=== PATIENT | male | born 1970 | race Two or more races ===

== ENCOUNTER 2016-12-28 09:25 | Emergency (ER) | payer OTHER ==
[2016-12-28] MEDS ORDERED: NS 0.9% 1000 ML* 2,000 ML IV ONE (10:29)
[2016-12-28 11:11] LABS: Hematocrit 50 % (42-52); Hemoglobin 16.8 g/dl (14.0-18.0); Mean Corpuscular HGB Conc 34 g/dl (31-36); Mean Corpuscular Hemoglobin 32 pg (27-31); Mean Corpuscular Volume 94 fL (80-94); Mean Platelet Volume 9 um3 (7.4-10.4); Red Blood Count 5.32 10^6/ul (4.0-5.4); Red Cell Distribution Width 13 % (10.5-15); White Blood Count 6.9 10^3/ul (3.5-10.8)
--- NOTE | 2016-12-28 11:52 | RAD ---
HISTORY: Upper abdominal pain COMPARISONS: None TECHNIQUE: Multiple transverse and longitudinal ultrasound images were obtained of the right upper quadrant of the abdomen using grayscale and color Doppler imaging. FINDINGS: LIVER: The liver is diffusely echogenic and coarse in echotexture, with decreased acoustic transmission. The liver is mildly enlarged measuring 19.4 cm.. There is normal hepatopedal flow of the portal vein on Doppler imaging. BILIARY TREE: There is no intrahepatic or extrahepatic biliary dilatation. The common duct measures 0.2 cm. GALLBLADDER: The gallbladder is well-visualized. There is no cholelithiasis, gallbladder wall thickening, pericholecystic fluid, or sonographic Lima sign. PANCREAS: The head of the pancreas is unremarkable. The tail of the pancreas is not well visualized secondary to overlying bowel gas. RIGHT KIDNEY: The right kidney is normal in shape, size, contour, and echogenicity. There is no hydronephrosis or nephrolithiasis. The right kidney measures 12.6 x 5.7 x 7 18 cm. AORTA AND IVC: The aorta and IVC are unremarkable. FLUID: There are no pleural effusions. There is no free fluid within the hepatorenal recess. OTHER FINDINGS: None. IMPRESSION: MILD HEPATOMEGALY WITH FATTY INFILTRATION OF THE LIVER
--- NOTE | 2016-12-28 11:54 | RAD ---
Indication: Right leg swelling and pain.. Duplex Doppler sonography of the deep venous system of the right lower extremity deep venous system was performed. Bilaterally the common femoral veins appear patent and compressible. Right proximal greater saphenous vein, proximal deep femoral vein, femoral vein, popliteal vein, posterior tibial veins and peroneal veins appear patent and compressible. IMPRESSION: NO EVIDENCE OF DEEP VENOUS THROMBOSIS IS IDENTIFIED.
[2016-12-28 15:04] LABS: Albumin 3.5 g/dL (3.2-5.2); C Reactive Protein 2.8 mg/L (< 5.00); Calcium 9.1 mg/dL (8.6-10.3); EGFR African American 143.6 (>60); EGFR Non-African American 111.6 (>60); Globulin 2.7 g/dL (2-4); Magnesium 1.7 mg/dL (1.9-2.7); Potassium 4.9 mmol/L (3.5-5.0); Total Bilirubin 0.7 mg/dL (0.2-1.0); Total Protein 6.2 g/dL (6.4-8.9)
[2016-12-28] MEDS ORDERED: Iodixanol* (CONTRAST) 320 MG/ML 100 ML SDV IV ONE (15:32)
--- NOTE | 2016-12-28 15:46 | RAD ---
CLINICAL HISTORY: Abdominal pain COMPARISON: April 20, 2014 TECHNIQUE: Multiple contiguous axial CT scans were obtained of the abdomen and pelvis after the administration of intravenous contrast. Coronal and sagittal multiplanar reformations are submitted for review. Oral contrast was administered. Delayed images were obtained through the abdomen and pelvis. FINDINGS: LUNG BASES: The lung bases are clear. LIVER: The liver is diffusely low in attenuation compared to the spleen. There are no focal hepatic parenchymal masses. The liver is enlarged measuring 23 cm in long axis. BILE DUCTS: There is no intrahepatic or extrahepatic biliary dilatation. GALLBLADDER: The gallbladder is normal, without pericholecystic inflammatory change. PANCREAS: The pancreas is normal, without mass or ductal dilatation. SPLEEN: Normal in size and appearance. UPPER GI TRACT: Evaluation of the gastrointestinal tract is limited by incomplete gastric distention. The upper GI tract is unremarkable. SMALL BOWEL AND MESENTERY: The small bowel is normal in contour, course, and caliber. There is no obstruction or dilatation. COLON: The colon is normal in contour, course, caliber. There is no pericolonic inflammatory change. ADRENALS: Normal bilaterally. KIDNEYS: The kidneys are normal in shape, size, contour, and axis. There is no hydronephrosis or nephrolithiasis. BLADDER: The bladder is smooth in contour. PELVIC ORGANS: The prostate gland is normal. The seminal vesicles are symmetric. AORTA: The aorta is normal. IVC: Unremarkable LYMPH NODES: There is no lymphadenopathy by size criteria. ABDOMINAL WALL: There is no evidence for abdominal wall hernia. BONES AND SOFT TISSUES: Degenerative changes are noted of the spine OTHER: None IMPRESSION: HEPATOMEGALY WITH FATTY INFILTRATION OF THE LIVER
--- NOTE | 2016-12-28 17:00 | ED ---
Amparo Harrison Claudia, scribed for Freedom Willson MD on 12/28/16 at 1027 . Abdominal Pain/Male - HPI Summary HPI Summary: 46 year old male presents to the ED with epigastrium cramping pain which he notes as 6/10 on pain scale. Pt denies NVD, constipation, fever, chills. He notes sudden onset of abd pain this am at 2-3 while he was trying to sleep. 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 With that the pt notes increased right lower leg pain around the popliteal area similar Sx to his multiple DVTs in the past. Pt denies taking antacids for the abd pain. He also denies any radiating pain or alleviating/aggravating factors. - History of Current Complaint Chief Complaint: EDAbdPain Stated Complaint: ABD CRAMPS / RT LEG POSS DVT Time Seen by Provider: 12/28/16 10:19 Hx Obtained From: Patient Onset/Duration: Sudden Onset, Lasting Hours - since 2-3am today, Still Present Timing: Constant Pain Intensity: 6 Pain Scale Used: 0-10 Numeric Location: Epigastric Radiates: No Character: Cramping Aggravating Factor(s): Nothing Alleviating Factor(s): Nothing Associated Signs And Symptoms: Negative: Fever, Back Pain, Constipation, Blood in Stool, Urinary Symptoms, Decreased Appetite, Nausea, Vomiting, Diarrhea - Allergies/Home Medications Allergies/Adverse Reactions: Allergies Allergy/AdvReac Type Severity Reaction Status Date / Time No Known Allergies Allergy Verified 10/31/15 17:41 PMH/Surg Hx/FS Hx/Imm Hx Previously Healthy: Yes Endocrine/Hematology History: Reports: Hx Diabetes Denies: Hx Thyroid Disease Cardiovascular History: Reports: Hx Angina, Hx Hypercholesterolemia, Hx Hypertension Denies: Hx Congestive Heart Failure Respiratory History: Denies: Hx Asthma, Hx Chronic Obstructive Pulmonary Disease (COPD) GI History: Reports: Hx Gastroesophageal Reflux Disease, Other GI Disorders - congenital hernia Denies: Hx Ulcer History: Denies: Hx Renal Disease Musculoskeletal History: Reports: Hx Arthritis, Other Musculoskeletal History - occas joint pain. cly[place] horses Neurological History: Reports: Hx Migraine Psychiatric History: Reports: Hx Depression, Hx Inpatient Treatment - Surgical History Surgery Procedure, Year, and Place: Hernia repair 1991 Infectious Disease History: Denies: Hx Hepatitis, Hx Human Immunodeficiency Virus (HIV), Hx of Known/ Suspected MRSA, Traveled Outside the [place] in Last 30 Days - Family History Known Family History: Positive: None, Other - Asthma Negative: Cardiac Disease Family History: R & N/C - Social History Occupation: Unemployed Lives: Alone Alcohol Use: None Alcohol Amount: HX ETOH ABUSE Hx Substance Use: No Substance Use Type: Reports: None Hx Tobacco Use: Yes Smoking Status (MU): Light Every Day Tobacco Smoker Type: Cigarettes Amount Used/How Often: 1 cigarette daily Length of Time of Smoking/Using Tobacco: 38 years Have You Smoked in the Last Year: Yes Review of Systems Constitutional: Negative Negative: Fever, Chills Eyes: Negative ENT: Negative Cardiovascular: Negative Negative: Chest Pain Negative: Shortness Of Breath Positive: Abdominal Pain - cramping . Negative: Vomiting, Diarrhea, Nausea Genitourinary: Negative Musculoskeletal: Other - right lower leg pain Skin: Negative Neurological: Negative Psychological: Normal All Other Systems Reviewed And Are Negative: Yes Physical Exam Triage Information Reviewed: Yes Vital Signs On Initial Exam: Initial Vitals Temp Pulse Resp BP Pulse Ox 96.0 F 76 20 148/87 98 12/28/16 09:42 12/28/16 09:42 12/28/16 09:42 12/28/16 09:42 12/28/16 09:42 Vital Signs Reviewed: Yes Appearance: Positive: Well-Appearing, No Pain Distress Skin: Positive: Warm, Skin Color Reflects Adequate Perfusion, Dry Head/Face: Positive: Normal Head/Face Inspection Eyes: Positive: EOMI, ARTEMIO ENT: Positive: Normal ENT inspection Neck: Positive: Supple, Nontender Respiratory/Lung Sounds: Positive: Clear to Auscultation, Breath Sounds Present Cardiovascular: Positive: RRR Abdomen Description: Positive: Soft. Negative: Nontender - tender at mid abdomen above umbilicus Musculoskeletal: Positive: Normal, Strength/ROM Intact, Other - tender right claf popliteal area Neurological: Positive: Normal, Sensory/Motor Intact, Alert, Oriented to Person Place, Time Psychiatric: Positive: Affect/Mood Appropriate Diagnostics - Vital Signs Vital Signs Temp Pulse Resp BP Pulse Ox 12/28/16 09:42 96.0 F 76 20 148/87 98 - Laboratory Lab Results: Lab Results 12/28/16 12/28/16 12/28/16 Range/Units 11:00 11:00 11:00 WBC 6.9 (3.5-10.8) 10^3/ul RBC 5.32 (4.0-5.4) 10^6/ul Hgb 16.8 (14.0-18.0) g/dl Hct 50 (42-52) % MCV 94 (80-94) fL MCH 32 H (27-31) pg MCHC 34 (31-36) g/dl RDW 13 (10.5-15) % Plt Count 256 (150-450) 10^3/ul MPV 9 (7.4-10.4) um3 Neut % (Auto) 52.1 (38-83) % Lymph % (Auto) 36.4 (25-47) % Vermillion % (Auto) 8.7 (1-9) % Eos % (Auto) 1.3 (0-6) % Baso % (Auto) 1.5 (0-2) % Absolute Neuts (auto) 3.6 (1.5-7.7) 10^3/ul Absolute Lymphs (auto) 2.5 (1.0-4.8) 10^3/ul Absolute Monos (auto) 0.6 (0-0.8) 10^3/ul Absolute Eos (auto) 0.1 (0-0.6) 10^3/ul Absolute Basos (auto) 0.1 (0-0.2) 10^3/ul Absolute Nucleated RBC 0.01 10^3/ul Nucleated RBC % 0.1 INR (Anticoag Therapy) (0.89-1.11) APTT (26.0-36.3) seconds Sodium Cancelled Potassium Cancelled Chloride Cancelled Carbon Dioxide Cancelled Anion Gap Cancelled BUN Cancelled Creatinine Cancelled Est GFR ( Amer) Cancelled Est GFR (Non-Af Amer) Cancelled BUN/Creatinine Ratio Cancelled Glucose Cancelled Lactic Acid 1.2 (0.5-2.0) mmol/L Calcium Cancelled Magnesium Cancelled Total Bilirubin Cancelled AST Cancelled ALT Cancelled Alkaline Phosphatase Cancelled C-Reactive Protein Cancelled Total Protein Cancelled Albumin Cancelled Globulin Cancelled Albumin/Globulin Ratio Cancelled Lipase Cancelled 12/28/16 12/28/16 Range/Units 11:40 12:50 WBC (3.5-10.8) 10^3/ul RBC (4.0-5.4) 10^6/ul Hgb (14.0-18.0) g/dl Hct (42-52) % MCV (80-94) fL MCH (27-31) pg MCHC (31-36) g/dl RDW (10.5-15) % Plt Count (150-450) 10^3/ul MPV (7.4-10.4) um3 Neut % (Auto) (38-83) % Lymph % (Auto) (25-47) % Vermillion % (Auto) (1-9) % Eos % (Auto) (0-6) % Baso % (Auto) (0-2) % Absolute Neuts (auto) (1.5-7.7) 10^3/ul Absolute Lymphs (auto) (1.0-4.8) 10^3/ul Absolute Monos (auto) (0-0.8) 10^3/ul Absolute Eos (auto) (0-0.6) 10^3/ul Absolute Basos (auto) (0-0.2) 10^3/ul Absolute Nucleated RBC 10^3/ul Nucleated RBC % INR (Anticoag Therapy) 0.83 L (0.89-1.11) APTT 25.9 L (26.0-36.3) seconds Sodium 132 L Potassium 4.9 Chloride 101 Carbon Dioxide 26 Anion Gap 5 BUN 15 Creatinine 0.75 Est GFR ( Amer) 143.6 Est GFR (Non-Af Amer) 111.6 BUN/Creatinine Ratio 20.0 Glucose 277 H Lactic Acid (0.5-2.0) mmol/L Calcium 9.1 Magnesium 1.7 L Total Bilirubin 0.70 AST 12 L ALT 13 Alkaline Phosphatase 59 C-Reactive Protein 2.80 Total Protein 6.2 L Albumin 3.5 Globulin 2.7 Albumin/Globulin Ratio 1.3 Lipase 37 Result Diagrams: 12/28/16 11:00 12/28/16 12:50 Lab Statement: Any lab studies that have been ordered have been reviewed, and results considered in the medical decision making process. - CT CT ABD/PELVIS CT Interpretation: Positive (See Comments) - HEPATOMEGALY WITH FATTY INFILTRATION OF THE LIVER CT Interpretation Completed By: Radiologist - Ultrasound No standard instances Ultrasound Interpretation: No Acute Changes - Gallbladder US:MILD HEPATOMEGALY WITH FATTY INFILTRATION OF THE LIVER Ultrasound Interpretation Completed By: Radiologist - Additional Comments Diagnostic Additional Comments: VENOUS DOPPLER STUDY: PER RADIOLOGIST- NO EVIDENCE FOR DEEP VEIN THROMBOSIS IS IDENTIFIED. Re-Evaluation - Re-Evaluation 1 Re-Evaluation Time: 16:51 Comment: DISCUSSED LAB, CT, VL SCAN, AND US GALLBLADDER RESULTS WITH PT. FURTHER CARE WAS ALSO DISCUSSED WITH PT WHOM IS AGREEABLE WITH THE PLAN. Abdominal Pain Fem Course/Dx - Course Course Of Treatment: NO CRITICAL CARE TIME Assessment/Plan: IMPROVED IN ED. ATE IN ED. DISCUSSED RESULTS WITH PATIENT. HE WILL F/U WITH PMD TO DETERMINE IF HE SHOULD RESUME THE BLOOD THINNER AND FOR THE ABDOMINAL PAIN AND DIABETES. DISCHARGE RASHEEDA CABAN. - Diagnoses Provider Diagnoses: Leg pain, Abdominal pain, Diabetes Discharge - Discharge Plan Condition: Stable Disposition: HOME Patient Education Materials: Abdominal Pain (ED), Leg Pain (ED), Type 2 Diabetes in Adults (ED) Referrals: Acosta Carey MD [Primary Care Provider] - Additional Instructions: FOLLOW UP WITH YOUR DOCTOR FOR YOUR ABDOMINAL PAIN, LEG PAIN AND YOUR DIABETES. RETURN TO THE EMERGENCY DEPARTMENT FOR ANY WORSENING OF YOUR CONDITION OR QUESTIONS OR CONCERNS. The documentation as recorded by the Amparo pollock Claudia accurately reflects the service I personally performed and the decisions made by me, Freedom Willson MD.
[2016-12-28 17:15] VITALS: BP 117/66
== END 2016-12-28 17:42 | disposition home or self-care (01) ==
LOC: ED 09:25
DX: R10.13 Epigastric pain (principal); M79.661 Pain in right lower leg; E11.9 Type 2 diabetes mellitus without complications; I10 Essential (primary) hypertension; K21.9 Gastro-esophageal reflux disease without esophagitis
CPT/HCPCS: 36415; 74177; 76705; 80053; 83605; 83690; 83735; 85025; 85610; 85730; 86140; 96360; 96361; 99283; Q9967

== ENCOUNTER 2017-01-25 06:04 | Observation (INO) | payer OTHER ==
[2017-01-25] MEDS ORDERED: Aspirin Low Dose CHEW TAB* 81 MG PO ONE (06:35)
[2017-01-25 07:03] LABS: Hematocrit 43 % (42-52); Hemoglobin 14.7 g/dl (14.0-18.0); Mean Corpuscular HGB Conc 34 g/dl (31-36); Mean Corpuscular Hemoglobin 32 pg (27-31); Mean Corpuscular Volume 95 fL (80-94); Mean Platelet Volume 9 um3 (7.4-10.4); Red Blood Count 4.54 10^6/ul (4.0-5.4); Red Cell Distribution Width 13 % (10.5-15); White Blood Count 5.7 10^3/ul (3.5-10.8)
[2017-01-25 07:11] LABS: ALT 16 U/L (7-52); Albumin 3.2 g/dL (3.2-5.2); Alkaline Phosphatase 66 U/L (34-104); Blood Urea Nitrogen 16 mg/dL (6-24); CO2 Carbon Dioxide 17 mmol/L (22-32); Calcium 8.7 mg/dL (8.6-10.3); Chloride 102 mmol/L (101-111); EGFR African American 133.3 (>60); EGFR Non-African American 103.6 (>60); Globulin 3.2 g/dL (2-4); Glucose 400 mg/dL (70-100); Magnesium 1.6 mg/dL (1.9-2.7); Sodium 131 mmol/L (133-145); Total Protein 6.4 g/dL (6.4-8.9)
[2017-01-25] MEDS ORDERED: Nitroglycerin TAB 0.4 MG* 0.4 MG TAB SL ONE (07:33)
--- NOTE | 2017-01-25 07:59 | RAD ---
INDICATION: Chest pain. COMPARISON: Comparison is made with a prior chest x-ray study from January 11, 2015. TECHNIQUE: Dual-energy PA and lateral views of the chest were obtained. FINDINGS: The heart is within normal limits in size. Mediastinal and hilar contours appear within normal limits. The lungs are underinflated and clear. No pleural effusion is seen. IMPRESSION: NO EVIDENCE FOR ACTIVE CARDIOPULMONARY DISEASE.
[2017-01-25] MEDS ORDERED: Iodixanol* (CONTRAST) 320 MG/ML 100 ML SDV IV ONE (08:01)
[2017-01-25 08:09] LABS: Venous Bicarbonate HCO3 20.3 mmol/L (24-28)
[2017-01-25] MEDS ORDERED: Insulin REGULAR(*) 1 UNITS UNIT SUBCUT ONE (09:11)
[2017-01-25] MEDS ORDERED: NS 0.9% 1000 ML* 1,000 ML IV ONE ×2 (09:12→10:37)
--- NOTE | 2017-01-25 09:21 | RAD ---
INDICATION: Pleuritic chest pain. History of DVT. COMPARISON: January 25, 2017 chest radiograph and July 20, 2014 CT. TECHNIQUE: Multidetector CT images were obtained from the lung apices to the upper abdomen with 91 mL Visipaque 320 IV contrast. Pulmonary angiogram protocol. Multiplanar reformation including with maximum intensity projection. REPORT: Clear central airways, lungs, pleural spaces. Negative for thoracic lymphadenopathy, cardiomegaly, pericardial effusion. Unremarkable normal diameter thoracic aorta. No filling defects are identified from the main to the subsegmental pulmonary arteries to indicate presence of a pulmonary embolism. Unremarkable Limited images through the upper abdomen. No rib fractures or suspicious focal osseous lesions evident. IMPRESSION: 1. No evidence for pulmonary embolism. 2. No acute intrathoracic disease evident.
[2017-01-25] MEDS ORDERED: Acetaminophen TAB* 325 MG PO PRN (10:40)
[2017-01-25] MEDS: glyBURIDE TAB* 5 MG PO SCH ×2 (10:45→21:00)
[2017-01-25] MEDS: metFORMIN* 500 MG TAB PO SCH ×2 (10:45→21:00)
[2017-01-25] MEDS ORDERED: Magnesium Sulfate 2 GM IV* 2 GM/50 ML BAG IVPB ONE (10:50)
[2017-01-25] MEDS ORDERED: Lisinopril TAB* 10 MG PO SCH (11:00)
[2017-01-25] MEDS ORDERED: Insulin LISPRO* 1 UNITS UNIT SUBCUT SCH (11:30)
[2017-01-25] MEDS: NS 0.9% 1000 ML* 1,000 ML IV SCH (11:50)
[2017-01-25] MEDS: Insulin LISPRO* 1 UNITS UNIT SUBCUT SCH ×4 (11:51→20:59)
[2017-01-25 13:14] LABS: Urine Bilirubin Negative (Negative); Urine Glucose 3+(>=500 mg/dL) (Negative); Urine Nitrite Negative (Negative)
--- NOTE | 2017-01-25 13:20 | HP ---
CC: Dr. Carey HISTORY AND PHYSICAL: DATE OF ADMISSION: 01/25/17 PRIMARY CARE PHYSICIAN: Dr. Carey. CHIEF COMPLAINT: Chest pain. HISTORY OF PRESENT ILLNESS: Mr. Rubio is a 46-year-old male with a past medical history of hyper tension, hyperlipidemia, diabetes, DVT, on Xarelto, and hernia, who presents to the hospital with ch est pain. The patient states that he was in his usual state of health until yesterday when he devel oped a migraine at work and left early. He went home and took it easy for the rest of the night, sl ept well, and headache resolved. However, this morning, around 4:30 in the morning, he suddenly fel t sharp, stabbing midsternal chest pain that woke him from sleep. He states he did not feel short o f breath, but his breathing was "irregular with it." He felt that perhaps it was worse with deep br eathing, but also seemed to persist when he walked downstairs and improved when he sat down in the c hair to rest. Pain did not radiate anywhere. He denies any associated nausea, vomiting, diaphoresi s, numbness or tingling. He called the EMS, received nitro and aspirin en route, which he states he lped the pain, and on my evaluation it has since resolved. He states he thinks in total the pain la sted for about 5 hours. He states he has had this pain in the past and has had stress test that had been normal to his knowl edge. Unsure if he has had a cardiac catheterization before. He states he has had a recent URI and has had some increased stress lately in his life. Denies any shortness of breath, abdominal pain, l ower extremity edema, hematuria, blood in the stool, constipation. He has had some diarrhea. He re ports he has had some dysuria for the past few weeks. He states his blood sugars had been in the 20 0 to 300 at home, which is about his baseline. PAST MEDICAL HISTORY: Hypertension, hyperlipidemia, diabetes, DVT, on Xarelto, and hernia. PAST SURGICAL HISTORY: Hernia repair. HOME MEDICATIONS: 1. Lispro 85 units subcutaneous with meals. 2. Lantus 145 units subcutaneous at bedtime. 3. Januvia 100 mg by mouth daily. 4. Metformin 1000 mg by mouth 2 times daily. 5. Glyburide 10 mg by mouth 2 times daily. 6. Simvastatin 40 mg by mouth at bedtime. 7. Xarelto 10 mg by mouth at bedtime. 8. Lovaza 2 capsules by mouth 2 times daily. 9. Lisinopril 10 mg by mouth daily. 10. Tylenol 650 mg by mouth every 4 hours as needed for pain. ALLERGIES: No known drug allergies. FAMILY HISTORY: Significant for mother with asthma. Father's history is unknown. He has 2 sisters he is not in touch with. SOCIAL HISTORY: The patient smoked half-a-pack per day for about 38 years. He quit in June 2016 ; however, he just resumed smoking a few days ago. Denies any alcohol or illicit drug use. REVIEW OF SYSTEMS: A 12-point review of systems negative, except for that noted in the HPI. PHYSICAL EXAMINATION GENERAL: The patient is a middle-aged, obese, male, lying in bed, in no apparent distress . VITAL SIGNS: On admission, temperature 98.1, heart rate of 64, respiratory rate of 20, O2 saturatio n 95% on room air, blood pressure 150/83. HEENT: Pupils are equal, round, and reactive to light and accommodation. Anicteric sclerae. Moist mucous membranes NECK: No cervical adenopathy. LUNGS: Clear to auscultation bilaterally. No wheezes, rales or rhonchi. CARDIOVASCULAR: Regular rate and rhythm. S1 and S2 present. No murmurs, gallops or rubs. ABDOMEN: Soft, nontender, nondistended. Bowel sounds are positive. EXTREMITIES: No cyanosis, clubbing or edema. NEUROLOGIC: The patient is alert and oriented x3. No focal neurological deficits. SKIN: Warm, dry, and well perfused. DIAGNOSTIC STUDIES/LABORATORY DATA: White blood cell count is 5.7, hematocrit 43, platelets of 221 . INR of 1.1. VBG with a pH of 7.36, PCO2 of 33, PO2 of 94, bicarb of 20.3. Sodium of 131, potass ium 4.0, chloride of 102, carbon dioxide of 17, BUN of 16, creatinine of 0.80, glucose of 400, lacti c acid 2.1, magnesium of 1.6. LFTs within normal limits. Troponin of 0.00. EKG, personally reviewed, shows normal sinus rhythm. No acute ischemic changes. Q waves in V1 and V2. Chest x-ray, personally reviewed, shows no acute distress. CTA of the chest was done that shows no evidence of pulmonary embolism. No acute intrathoracic dise ase. ASSESSMENT AND PLAN: Chest pain and mild diabetic ketoacidosis in the setting of some dysuria and r ecent upper respiratory infection in a 46-year-old male with past medical history of hypertension, h yperlipidemia, diabetes, DVT, on Xarelto, history of diabetic ketoacidosis, and hernia, status post repair. 1. Chest pain. The patient certainly has cardiac risk factors. Initial EKG is unremarkable and tr oponin is negative. Continue to trend the troponins for now. Monitor the patient on telemetry. Con tinue home statin. The patient received 324 of aspirin on admission. We will continue baby aspirin daily for now. We will have a nuclear cardiac stress test in the morning; the last we have on [address] is from 2013, although patient thinks he may have had one around a year or so ago. 2. Mild diabetic ketoacidosis. The patient's BG is 400 on admission with a carbon dioxide of 17. He received 15 units of subcu insulin regular in the emergency department. We will recheck a BG now as well as a BMP in a few hours. We will start the patient on a consistent carb diet. For now we will continue his home glyburide and metformin. Hold home Januvia. He has had a history of hypogly cemia in the hospital when placed on his home dose of insulin, which may be from noncompliance. For now, we will start the patient on Lantus 80 units subcu daily, with a lispro sliding scale with a c arb ratio, as well as additional sliding scale for hyperglycemia. We will check a hemoglobin A1C. 3. Hypertension. Continue home lisinopril. 4. Hyperlipidemia. Continue home statin. 5. Deep venous thrombosis. Reports recurrent deep vein thrombosis in the past. Continue home Xarel to. 6. DVT prophylaxis. Xarelto. 7. Dysuria. We will check a urinalysis. 8. Code status. The patient is a full code. TIME SPENT: Total time spent on this admission was 45 minutes, with over half the time spent face-t o-face with the patient in counseling and coordinating care. [id number]/[facility] #: [id number]
[2017-01-25 14:22] LABS: BUN/Creatinine Ratio 16.9 (8-20); Calcium 8.3 mg/dL (8.6-10.3); EGFR African American 152.9 (>60); EGFR Non-African American 118.9 (>60); Potassium 3.6 mmol/L (3.5-5.0)
[2017-01-25] MEDS ORDERED: Insulin GLARGINE(*) 1 UNITS UNIT SUBCUT SCH (21:00)
[2017-01-25] MEDS ORDERED: Rivaroxaban TAB(*) 10 MG PO SCH (21:00)
[2017-01-25] MEDS ORDERED: Atorvastatin* 20 MG TAB PO SCH (21:00)
[2017-01-25] MEDS ORDERED: Rivaroxaban TAB(*) 20 MG TAB PO SCH (21:00)
[2017-01-26] MEDS: NS 0.9% 1000 ML* 1,000 ML IV SCH (00:45)
[2017-01-26 05:42] LABS: Calcium 7.7 mg/dL (8.6-10.3); EGFR African American 182.2 (>60); EGFR Non-African American 141.7 (>60); Potassium 3.3 mmol/L (3.5-5.0)
[2017-01-26] MEDS: Insulin LISPRO* 1 UNITS UNIT SUBCUT SCH ×4 (07:17→11:36)
[2017-01-26] MEDS ORDERED: Aspirin Low Dose CHEW TAB* 81 MG PO SCH (09:00)
--- NOTE | 2017-01-26 09:28 | PN ---
Subjective Date of Service: 01/26/17 Interval History: Patient seen this morning. No further chest pain reported. Feels well, no complaints. Family History: Unchanged from Admission Social History: Unchanged from Admission Past Medical History: Unchanged from Admission Objective Active Medications: Acetaminophen (Tylenol Tab*) 650 mg PO Q4H PRN PRN Reason: PAIN Aspirin (Aspirin Low Dose Tab*) 81 mg PO DAILY [facility] Atorvastatin Calcium (Lipitor*) 20 mg PO BEDTIME [facility] Last Admin: 01/25/17 21:00 Dose: 20 mg Glyburide (Diabeta Tab*) 10 mg PO BID [facility] Last Admin: 01/25/17 21:00 Dose: 10 mg Sodium Chloride (Ns 0.9% 1000 Ml*) 1,000 mls @ 100 mls/hr IV PER RATE [facility] Last Admin: 01/26/17 00:45 Dose: 100 mls/hr Insulin Glargine (Lantus(*)) 80 units SUBCUT Q24H [facility] Last Admin: 01/25/17 21:00 Dose: 80 units Insulin Human Lispro (Humalog*) 0 units SUBCUT ACHS [facility] PRN Reason: Protocol Last Admin: 01/25/17 20:59 Dose: 3 units Insulin Human Lispro (Humalog*) 0 units SUBCUT AC [facility] PRN Reason: Protocol Last Admin: 01/26/17 07:17 Dose: Not Given Lisinopril (Prinivil Tab*) 10 mg PO DAILY [facility] Last Admin: 01/25/17 10:45 Dose: Not Given Metformin HCl (Glucophage*) 1,000 mg PO BID [facility] Last Admin: 01/25/17 21:00 Dose: 1,000 mg Rivaroxaban (Xarelto (*)) 20 mg PO BEDTIME [facility] Last Admin: 01/25/17 21:06 Dose: 20 mg Vital Signs 01/25/17 01/25/17 01/25/17 09:30 09:48 10:00 Temperature 97.7 F Pulse Rate 71 71 72 Respiratory 15 18 20 Rate Blood Pressure 132/80 132/80 128/72 (mmHg) O2 Sat by Pulse 96 97 Oximetry 01/26/17 01/26/17 01/26/17 04:12 06:45 07:31 Temperature 98.0 F 97.6 F Pulse Rate 63 62 Respiratory 16 16 16 Rate Blood Pressure 102/57 97/60 (mmHg) O2 Sat by Pulse 99 99 Oximetry Oxygen Devices in Use Now: None Appearance: Middle-aged, M, laying in bed in NAD Eyes: No Scleral Icterus Ears/Nose/Mouth/Throat: Mucous Membranes Moist Neck: NL Appearance and Movements; NL JVP Respiratory: Symmetrical Chest Expansion and Respiratory Effort, Clear to Auscultation Cardiovascular: NL Sounds; No Murmurs; No JVD, RRR Abdominal: NL Sounds; No Tenderness; No Distention Lymphatic: No Cervical Adenopathy Extremities: No Edema Skin: No Rash or Ulcers Neurological: Alert and Oriented x 3 Result Diagrams: 01/25/17 06:20 01/26/17 05:00 Assess/Plan/Problems-Billing Assessment: Chest pain and mild DKA in a 46 yo M with hx of HTN, HLD, DVT on xarelto - Patient Problems (1) Chest pain Current Visit: Yes Comment: Troponins remained negative. No recurrence of pain. Stress test pending. (2) DKA (diabetic ketoacidoses) Current Visit: No Comment: Resolved. BGs have been better controlled in the hospital than he reports at home on a lower insulin regimen, concerned that patient is not compliant at home. Encouraged him to follow-up with PCP regarding elevated HbA1c of 11% (3) Dysuria Current Visit: Yes Comment: UA with no evidence of infection (4) HLD (hyperlipidemia) Current Visit: No Comment: Continue statin (5) HTN (hypertension) Current Visit: No Comment: Continue ACEI (6) History of DVT (deep vein thrombosis) Current Visit: No Comment: Xarelto (7) DVT prophylaxis Current Visit: Yes Comment: Xarelto Status and Disposition: Likely discharge if stress test is negative
[2017-01-26] MEDS ORDERED: Regadenoson* 0.4 MG/5 ML SYRINGE ONE (10:19)
[2017-01-26] MEDS ORDERED: Aminophylline IV* 25 MG/ML 10 ML VIAL ONE (10:19)
[2017-01-26] MEDS: glyBURIDE TAB* 5 MG PO SCH (11:34)
[2017-01-26] MEDS: metFORMIN* 500 MG TAB PO SCH (11:34)
[2017-01-26 11:37] VITALS: BP 122/88
--- NOTE | 2017-01-26 11:50 | RAD ---
Edited for charges. INDICATION: Chest pain in a patient with diabetes and obesity. COMPARISON: CTA of the chest dated January 25, 2017 did not show any acute abnormality including pulmonary embolism. TECHNIQUE: SPECT imaging was performed. Rest images were acquired following the intravenous injection of 10 millicuries of technetium 99m tetrofosmin at 0630 hours. Stress images were acquired following the intravenous administration of 25 millicuries of technetium 99m tetrofosmin at 1037 hours. The patient received intravenous Lexiscan prior to the stress image acquisition. FINDINGS: There are no defects of the stress-induced or fixed nature. The cardiac chamber size is normal. There are no wall motion abnormalities. The ejection fraction is calculated at 70% during stress. IMPRESSION: No scintigraphic evidence of ischemia or infarction. ASSESSMENT: Low risk MTDD
--- NOTE | 2017-01-27 00:17 | DS ---
DISCHARGE SUMMARY: DATE OF ADMISSION: 01/25/17 DATE OF DISCHARGE: 01/26/17 PRIMARY CARE PHYSICIAN: Dr. Carey. PRINCIPAL DISCHARGE DIAGNOSES: 1. Chest pain. 2. Mild diabetic ketoacidosis. SECONDARY DIAGNOSES: 1. Uncontrolled diabetes. 2. Hypertension. 3. Hyperlipidemia. 4. Deep venous thrombosis, on Xarelto. DISCHARGE MEDICATIONS REGIMEN: 1. Tylenol 650 mg by mouth every 4 hours as needed for pain. 2. Lisinopril 10 mg by mouth daily. 3. Lovaza 2 capsules by mouth 2 times daily. 4. Simvastatin 40 mg by mouth at bedtime. 5. Glyburide 10 mg by mouth 2 times daily. 6. Metformin 1000 mg by mouth 2 times daily. 7. Januvia 100 mg by mouth daily. 8. Lantus 145 units subcutaneous at bedtime. 9. Lispro 85 units subcutaneous with meals. 10. Xarelto 20 mg by mouth at bedtime. STUDIES DONE DURING HOSPITALIZATION: Chest x-ray. Impression: No evidence for acute cardiopulmonary disease. CTA of the chest. Impression: No evidence for pulmonary embolism. No acute intrathoracic disease evident. Nuclear cardiac stress test. Impression: No scintigraphic evidence of ischemia or infarction. ASSESSMENT: Low risk. HPI AND HOSPITAL SUMMARY: Please see my full history and physical for details. Briefly, Mr. Rubio is a 46-year-old male with the past medical history as above, sent to the hospital after he developed sharp mid-sternal chest pain that awoke him from sleep. He reported some associated shortness of breath. He states the pain lasted for a total of about 5 hours. In the emergency department, the patient was found to have a normal EKG and negative troponin. He was hyperglycemic with a mild acidosis on imaging. It was felt that he may have a mild DKA. He was given aggressive fluid resuscitation and subcu insulin with improvement in his blood sugars. There are some concerns about noncompliance at home, so the patient was started on a lower dose of Lantus with relatively good blood sugar control, but I assume that at home he may have some dietary noncompliance in addition to possible insulin noncompliance. The patient was monitored on telemetry overnight with no issues. Troponins remained negative and he underwent a negative stress test the following day. The patient will be discharged home with no changes in his medication. He was found to have an elevated hemoglobin A1c of 11.8%. He was instructed to follow up with his PCP regarding further treatment of his diabetes to see if any medications changes were necessary. TIME SPENT: Total time spent on this discharge, 45 minutes. This is a summary of the hospitalization. Please see the full medical record for further details. CC: Dr. Carey* [id number]/CPS #: [id number] MTDD
--- NOTE | 2017-01-28 07:27 | ED ---
silva Harrison Timothy, scribed for Epifanio Stout MD on 01/25/17 at 0713 . HPI Chest Pain - HPI Summary HPI Summary: Freedom Rubio is a 46 yo male presenting to [facility] with stabbing 8/10 midsternal CP since 429 when he was getting ready for work. The pain is constant, but down to 6/10 upon examination. Pt denies any numbness or tingling , but did have some SOB which has resolved. He has had a productive cough with yellow sputum, as he is getting over a cold, which he also believes caused a fever recently. He was BIBA. He was administered ASA TREATER HELPER. Pt states he has adhered to his medication regime. His MHx includes angina, xarelto, HLD, HTN, migraine, GERD, congenital hernia, arthritis, DM, depression, tobacco use. - History of Current Complaint Chief Complaint: EDChestPainROMI Time Seen by Provider: 01/25/17 07:28 Hx Obtained From: Patient Onset/Duration: Started Hours Ago Time of Onset: 04:30 Timing: Constant Initial Severity: Moderate Current Severity: Moderate Pain Intensity: 8 Pain Scale Used: 0-10 Numeric Chest Pain Location: Mid Sternal Character: Sharp/Stabbing Associated Signs and Symptoms: Positive: Chest Pain, Shortness of Breath, Fever , Productive Cough. Negative: Numbness, Tingling - Additional Pertinent History Primary Care Physician: SULMA - Allergy/Home Medications Allergies/Adverse Reactions: Allergies Allergy/AdvReac Type Severity Reaction Status Date / Time No Known Allergies Allergy Verified 01/25/17 06:08 PMH/Surg Hx/FS Hx/Imm Hx Endocrine/Hematology History: Reports: Hx Anticoagulant Therapy - Xarelto, Hx Diabetes Denies: Hx Thyroid Disease Cardiovascular History: Reports: Hx Angina, Hx Deep Vein Thrombosis, Hx Hypercholesterolemia, Hx Hypertension Denies: Hx Congestive Heart Failure, Hx Myocardial Infarction, Hx Pacemaker/ ICD Respiratory History: Denies: Hx Asthma, Hx Chronic Obstructive Pulmonary Disease (COPD), Hx Lung Cancer, Hx Pneumonia, Hx Pulmonary Embolism GI History: Reports: Hx Gastroesophageal Reflux Disease, Other GI Disorders - congenital hernia Denies: Hx Gall Bladder Disease, Hx Gastrointestinal Bleed, Hx Ulcer, Hx Urosepsis History: Denies: Hx Kidney Stones, Hx Renal Disease Musculoskeletal History: Reports: Hx Arthritis, Other Musculoskeletal History - occas joint pain. clyde horses Neurological History: Reports: Hx Migraine Denies: Hx Dementia, Hx Seizures, Hx Transient Ischemic Attacks (TIA) Psychiatric History: Reports: Hx Depression, Hx Inpatient Treatment Denies: Hx Anxiety, Hx Schizophrenia, Hx Bipolar Disorder - Surgical History Surgery Procedure, Year, and Place: Hernia repair 1991 Infectious Disease History: No Infectious Disease History: Denies: Hx Clostridium Difficile, Hx Hepatitis, Hx Human Immunodeficiency Virus (HIV), Hx of Known/Suspected MRSA, Traveled Outside the [place] in Last 30 Days - Family History Known Family History: Positive: Other - Asthma Negative: Cardiac Disease Family History: R & N/C - Social History Alcohol Use: None Alcohol Amount: HX ETOH ABUSE Hx Substance Use: No Substance Use Type: Reports: None Hx Tobacco Use: Yes Smoking Status (MU): Current Every Day Smoker Type: Cigarettes Amount Used/How Often: 1 cigarette daily Length of Time of Smoking/Using Tobacco: 38 years Have You Smoked in the Last Year: Yes Review of Systems Positive: Fever - subjective. Negative: Chills Eyes: Negative Negative: Erythema ENT: Negative Negative: Sore Throat Positive: Chest Pain Positive: Shortness Of Breath, Cough Gastrointestinal: Negative Negative: Abdominal Pain, Vomiting, Nausea Genitourinary: Negative Negative: incontinence Musculoskeletal: Negative Negative: Myalgia, Edema - legs Skin: Negative Negative: Rash Neurological: Negative - no dizziness Negative: Paresthesia, Numbness Psychological: Normal All Other Systems Reviewed And Are Negative: Yes Physical Exam - Summary Physical Exam Summary: Constitutional: Well-developed, Well-nourished, Alert. (-) Distressed Skin: Warm, Dry HENT: Normocephalic; Atraumatic Eyes: Conjunctiva normal Neck: Musculoskeletal ROM normal neck. (-) JVD, (-) Stridor, (-) Tracheal deviation Cardio: Rhythm regular, rate normal, Heart sounds normal; Intact distal pulses; The pedal pulses are 2+ and symmetric. Radial pulses are 2+ and symmetric. (-) Murmur Pulmonary/Chest wall: Effort normal. (-) Respiratory distress, (-) Wheezes, (-) Rales Abd: Soft, (-) Tenderness, (-) Distension, (-) Guarding, (-) Rebound Musculoskeletal: (-) Edema Lymph: (-) Cervical adenopathy Neuro: Alert, Oriented x3 Psych: Mood and affect Normal Triage Information Reviewed: Yes Vital Signs On Initial Exam: Initial Vitals Temp Pulse Resp BP Pulse Ox 98.1 F 64 20 150/83 95 01/25/17 06:07 01/25/17 06:07 01/25/17 06:07 01/25/17 06:07 01/25/17 06:07 Vital Signs Reviewed: Yes - [place] Coma Scale Coma Scale Total: 15 Diagnostics - Vital Signs Vital Signs Temp Pulse Resp BP Pulse Ox 01/25/17 06:07 98.1 F 64 20 150/83 95 - Laboratory Result Diagrams: 01/25/17 06:20 01/25/17 06:20 Lab Statement: Any lab studies that have been ordered have been reviewed, and results considered in the medical decision making process. - Radiology CXR Xray Interpretation: No Acute Changes - IMPRESSION: NO EVIDENCE FOR ACTIVE CARDIOPULMONARY DISEASE.lower left lobe infiltrate Radiology Interpretation Completed By: Radiologist - CT Chest CTA CT Interpretation: No Acute Changes - IMPRESSION: 1. No evidence for pulmonary embolism. 2. No acute intrathoracic disease evident. CT Interpretation Completed By: Radiologist - EKG 0626 Cardiac Rate: NL - [address] Segment: Normal EKG Interpretation: NSR @ 67 BPM, no ST elevation, T-wave inversions in III and AVF. No STEMI. Chest Pain Course/Dx - Course Assessment/Plan: Freedom Rubio is a 46 yo male presenting to [facility] with 8/10 stabbing CP at 0430 this morning. He received ASA TREATER HELPER, and is on xarelto. In the ED he was given ASA and NTG. His lactic acid was 2.1, and his troponin was 0.00. His glucose was 400. His medication list has been reviewed this visit. His EKS suggests no STEMI with T-wave inversions in III and AVF. His CXR suggests no acute disease. His chest CTA suggests no acute disease. After review of his lab and imaging studies, as well as discussion with Dr. Dillon, he will be admitted to [facility] with chest pain, unspecified. - Chest Pain Differential Diagnosis/HQI/PQRI: Acute TX, Other: - DKA, PNA - Diagnoses Provider Diagnoses: Chest pain, unspecified - Provider Notifications Discussed Care Of Patient With: 0910 - Dr. Dillon (hospitalist) - discussed Pt ocndition, agrees to admit Pt to [facility]. Instructed by Provider To: Admit As Inpatient Discharge - Discharge Plan Condition: Stable Disposition: ADMITTED TO [facility] Discharge Disposition Comment: Further evaluation and treatment of CP unspecified Referrals: Acosta Carey MD [Primary Care Provider] - The documentation as recorded by the silva pollock Timothy accurately reflects the service I personally performed and the decisions made by me, Epifanio Stout MD.
== END 2017-01-26 12:48 | disposition home or self-care (01) ==
LOC: ED 06:04 → MEDTELE 09:15
PROVIDERS: ADMIT Hospitalist; ATTEND Hospitalist
DX: R07.9 Chest pain, unspecified (principal); E13.10 Other specified diabetes mellitus with ketoacidosis without coma; Z79.4 Long term (current) use of insulin; Z79.84 Long term (current) use of oral hypoglycemic drugs; I10 Essential (primary) hypertension; E78.5 Hyperlipidemia, unspecified; Z86.718 Personal history of other venous thrombosis and embolism; Z79.01 Long term (current) use of anticoagulants
CPT/HCPCS: 36415; 71020; 71275; 78452; 80048; 80053; 81003; 82803; 83036; 83605; 83735; 84484; 85025; 85610; 93005; 93017; 96361; 96365; 99284; A9270-GY; A9502; G0378; J0280; J2785; Q9967

== ENCOUNTER → 2017-02-26 14:47 | Emergency (ER) | payer OTHER ==
[~2017-02-26 14:47] MED LIST: Clindamycin CAP* 150 MG PO ONE
[2017-02-26 15:04] VITALS: BP 153/78
--- NOTE | 2017-02-26 17:26 | ED ---
Skin Complaint - HPI Summary HPI Summary: Patient has had a bump on his head for the past two weeks. He was placed on antibiotics by his PCP four days ago but he never picked them up to take. He has been "squeezing" the area and says he has gotten "a lot of pus" out. He denies fever, chills, active drainage or streaking. - History of Current Complaint Chief Complaint: EDGeneral Time Seen by Provider: 02/26/17 15:29 Stated Complaint: ABSESS ON HEAD Hx Obtained From: Patient Onset/Duration: Started Weeks Ago - 2, Atraumatic, Still Present Timing: Constant Onset Severity: Mild Current Severity: Mild Pain Intensity: 3 Skin Location: Other: - scalp Character: Redness, Raised, Painful Aggravating Symptom(s): Touch Alleviating Symptom(s): Nothing Associated Signs & Symptoms: Tenderness - Additional Pertinent History Primary Care Physician: SULMA - Allergy/Home Medications Allergies/Adverse Reactions: Allergies Allergy/AdvReac Type Severity Reaction Status Date / Time No Known Allergies Allergy Verified 01/25/17 06:08 PMH/Surg Hx/FS Hx/Imm Hx Endocrine/Hematology History: Reports: Hx Anticoagulant Therapy - Xarelto, Hx Diabetes Denies: Hx Thyroid Disease Cardiovascular History: Reports: Hx Angina, Hx Deep Vein Thrombosis, Hx Hypercholesterolemia, Hx Hypertension, Other Cardiovascular Problems/Disorders - HLD Denies: Hx Congestive Heart Failure, Hx Myocardial Infarction, Hx Pacemaker/ ICD Respiratory History: Denies: Hx Asthma, Hx Chronic Obstructive Pulmonary Disease (COPD), Hx Lung Cancer, Hx Pneumonia, Hx Pulmonary Embolism GI History: Reports: Hx Gastroesophageal Reflux Disease, Other GI Disorders - congenital hernia Denies: Hx Gall Bladder Disease, Hx Gastrointestinal Bleed, Hx Ulcer, Hx Urosepsis History: Denies: Hx Kidney Stones, Hx Renal Disease Musculoskeletal History: Reports: Hx Arthritis, Other Musculoskeletal History - occas joint pain. clyde horses Sensory History: Denies: Hx Contacts or Glasses, Hx Hearing Aid Opthamlomology History: Denies: Hx Contacts or Glasses Neurological History: Reports: Hx Migraine Denies: Hx Dementia, Hx Seizures, Hx Transient Ischemic Attacks (TIA) Psychiatric History: Reports: Hx Depression, Hx Inpatient Treatment Denies: Hx Anxiety, Hx Schizophrenia, Hx Bipolar Disorder - Surgical History Surgery Procedure, Year, and Place: Hernia repair 1991 Infectious Disease History: No Infectious Disease History: Denies: Hx Clostridium Difficile, Hx Hepatitis, Hx Human Immunodeficiency Virus (HIV), Hx of Known/Suspected MRSA, Traveled Outside the [place] in Last 30 Days - Family History Known Family History: Positive: None, Other - Asthma Negative: Cardiac Disease Family History: R & N/C - Social History Occupation: Unemployed Lives: With Family Alcohol Use: None Alcohol Amount: HX ETOH ABUSE Hx Substance Use: No Substance Use Type: Reports: None Hx Tobacco Use: Yes Smoking Status (MU): Current Every Day Smoker Type: Cigarettes Amount Used/How Often: 1 cigarette daily Length of Time of Smoking/Using Tobacco: 38 years Have You Smoked in the Last Year: Yes Cessation Counseling: Patient Advised to Stop Review of Systems Positive: Other - quarter raised area of erythema on left scalp All Other Systems Reviewed And Are Negative: Yes Physical Exam Triage Information Reviewed: Yes Vital Signs On Initial Exam: Initial Vitals Temp Pulse Resp BP Pulse Ox 98.1 F 82 20 153/78 98 02/26/17 15:01 02/26/17 15:01 02/26/17 15:01 02/26/17 15:01 02/26/17 15:01 Vital Signs Reviewed: Yes Appearance: Positive: Well-Appearing, No Pain Distress, Obese Skin: Positive: Warm, Skin Color Reflects Adequate Perfusion, Dry, Soft, Erythema @ - quarter raised area of erythema on left scalp without fluctuance Head/Face: Positive: Normal Head/Face Inspection Eyes: Positive: EOMI, ARTEMIO, Conjunctiva Clear ENT: Positive: Hearing grossly normal Respiratory/Lung Sounds: Positive: Breath Sounds Present Cardiovascular: Positive: RRR Musculoskeletal: Negative: Edema Left, Edema Right Neurological: Positive: Sensory/Motor Intact, Alert, Oriented to Person Place, Time, [place] Bundle Intact Distally, Normal Gait Psychiatric: Positive: Affect/Mood Appropriate AVPU Assessment: Alert - [place] Coma Scale Coma Scale Total: 15 Diagnostics - Vital Signs Vital Signs Temp Pulse Resp BP Pulse Ox 02/26/17 15:01 98.1 F 82 20 153/78 98 - Laboratory Lab Statement: Any lab studies that have been ordered have been reviewed, and results considered in the medical decision making process. Course/Dx - Differential Diagnoses - Skin Complaint Differential Diagnoses: Abscess, Cellulitis, Contact Dermatitis, Local Allergic Reaction, MRSA, Urticaria - Diagnoses Provider Diagnoses: Cellulitis Discharge - Discharge Plan Condition: Critical Disposition: HOME Prescriptions: Clindamycin Cap(NF) [Cleocin 300 mg Cap(NF)] 300 mg PO Q6H #39 cap Patient Education Materials: Cellulitis (ED) Referrals: Acosta Carey MD [Primary Care Provider] - Additional Instructions: Please take the antibiotics prescribed until they are completely gone. Follow- up with your primary care provider in 2-3 days for re-evaluation to insure you are improving. Return to the emergency department if symptoms worsen.
== END | disposition home or self-care (01) ==
LOC: ED 14:47
DX: L03.90 Cellulitis, unspecified (principal); F17.210 Nicotine dependence, cigarettes, uncomplicated
CPT/HCPCS: 99282; A9270-GY

== ENCOUNTER → 2017-04-22 21:51 | Emergency (ER) | payer OTHER ==
--- NOTE | 2017-04-22 23:48 | ED ---
Carla Harrison Edward, scribed for Anival Downey MD on 04/22/17 at 2347 . HPI Diabetic - HPI Summary HPI Summary: 47 y/o diabetic male presents to ED c/o hyperglycemia and sudden onset diaphoresis starting at 17:45. Pt was at home eating dinner when it started. Associated sx: subjective fever. Still feels hot in the ED. Denies N/V. Blood sugars are normally in the 2-300. PMHx DM. - History Of Current Complaint Chief Complaint: EDDiabeticProb Time Seen by Provider: 04/22/17 23:42 Hx Obtained From: Patient Onset/Duration: Sudden Onset, Resolved Associated Signs & Symptoms: Diaphoresis - Allergies/Home Medications Allergies/Adverse Reactions: Allergies Allergy/AdvReac Type Severity Reaction Status Date / Time No Known Allergies Allergy Verified 01/25/17 06:08 PMH/Surg Hx/FS Hx/Imm Hx Previously Healthy: No Endocrine/Hematology History: Reports: Hx Anticoagulant Therapy - Xarelto, Hx Diabetes Denies: Hx Thyroid Disease Cardiovascular History: Reports: Hx Angina, Hx Deep Vein Thrombosis, Hx Hypercholesterolemia, Hx Hypertension, Other Cardiovascular Problems/Disorders - HLD Denies: Hx Congestive Heart Failure, Hx Myocardial Infarction, Hx Pacemaker/ ICD Respiratory History: Denies: Hx Asthma, Hx Chronic Obstructive Pulmonary Disease (COPD), Hx Lung Cancer, Hx Pneumonia, Hx Pulmonary Embolism GI History: Reports: Hx Gastroesophageal Reflux Disease, Other GI Disorders - congenital hernia Denies: Hx Gall Bladder Disease, Hx Gastrointestinal Bleed, Hx Ulcer, Hx Urosepsis History: Denies: Hx Kidney Stones, Hx Renal Disease Musculoskeletal History: Reports: Hx Arthritis, Other Musculoskeletal History - occas joint pain. clyde horses Sensory History: Denies: Hx Contacts or Glasses, Hx Hearing Aid Opthamlomology History: Denies: Hx Contacts or Glasses Neurological History: Reports: Hx Migraine Denies: Hx Dementia, Hx Seizures, Hx Transient Ischemic Attacks (TIA) Psychiatric History: Reports: Hx Depression, Hx Inpatient Treatment Denies: Hx Anxiety, Hx Schizophrenia, Hx Bipolar Disorder - Surgical History Surgery Procedure, Year, and Place: Hernia repair 1991 Infectious Disease History: Yes Infectious Disease History: Denies: Hx Clostridium Difficile, Hx Hepatitis, Hx Human Immunodeficiency Virus (HIV), Hx of Known/Suspected MRSA, Traveled Outside the [place] in Last 30 Days - Family History Known Family History: Positive: Other - Asthma Negative: Cardiac Disease Family History: R & N/C - Social History Alcohol Use: None Alcohol Amount: HX ETOH ABUSE Hx Substance Use: No Substance Use Type: Reports: None Hx Tobacco Use: Yes Smoking Status (MU): Current Every Day Smoker Type: Cigarettes Amount Used/How Often: 1 cigarette daily Length of Time of Smoking/Using Tobacco: 38 years Have You Smoked in the Last Year: Yes Review of Systems Positive: Skin Diaphoresis Eyes: Negative ENT: Negative Cardiovascular: Negative Respiratory: Negative Gastrointestinal: Negative - No N/V Genitourinary: Negative Musculoskeletal: Negative Skin: Negative Neurological: Negative Psychological: Normal All Other Systems Reviewed And Are Negative: Yes Physical Exam Triage Information Reviewed: Yes Vital Signs On Initial Exam: Initial Vitals Temp Pulse Resp BP Pulse Ox 96.7 F 87 16 141/80 100 04/22/17 22:22 04/22/17 22:22 04/22/17 22:22 04/22/17 22:22 04/22/17 22:22 Vital Signs Reviewed: Yes Appearance: Positive: Well-Appearing, No Pain Distress Skin: Positive: Warm Head/Face: Positive: Normal Head/Face Inspection Eyes: Positive: ARTEMIO ENT: Positive: Hearing grossly normal Neck: Positive: Supple Respiratory/Lung Sounds: Positive: Breath Sounds Present Cardiovascular: Positive: RRR Abdomen Description: Positive: Nontender, Soft Bowel Sounds: Positive: Present Musculoskeletal: Positive: Strength/ROM Intact Neurological: Positive: Alert, Oriented to Person Place, Time Psychiatric: Positive: Affect/Mood Appropriate - [place] Coma Scale Coma Scale Total: 15 Diagnostics - Vital Signs Vital Signs Temp Pulse Resp BP Pulse Ox 04/22/17 22:25 96.7 F 88 16 141/80 97 04/22/17 22:22 96.7 F 87 16 141/80 100 - Laboratory Lab Results: Lab Results 04/22/17 Range/Units 23:20 POC Glucose (mg/dL) 119 H (70-100) mg/dL Lab Statement: Any lab studies that have been ordered have been reviewed, and results considered in the medical decision making process. Diabetic Course/Dx - Course Assessment/Plan: 47 y/o diabetic male presents to ED c/o hyperglycemia and sudden onset diaphoresis starting at 17:45. Pt was at home eating dinner when it started. Associated sx: subjective fever. Still feels hot in the ED. Denies N /V. Blood sugars are normally in the 2-300. PMHx DM. Blood Glucose 119 in ED course. Pt will be d/c home. - Diagnoses Provider Diagnoses: Diabetes Discharge - Discharge Plan Condition: Stable Disposition: HOME Patient Education Materials: How to Check Your Blood Sugar (ED) Referrals: Acosta Carey MD [Primary Care Provider] - 3 Days (Please f/u in 2-3 days) The documentation as recorded by the Carla pollock Edward accurately reflects the service I personally performed and the decisions made by me, Anival Downey MD.
[2017-04-23 00:15] VITALS: BP 130/79
== END | disposition home or self-care (01) ==
LOC: ED 21:51
DX: E11.65 Type 2 diabetes mellitus with hyperglycemia (principal); I20.9 Angina pectoris, unspecified; I10 Essential (primary) hypertension; E78.00 Pure hypercholesterolemia, unspecified; Z86.718 Personal history of other venous thrombosis and embolism; Z79.01 Long term (current) use of anticoagulants; E78.5 Hyperlipidemia, unspecified; Z79.899 Other long term (current) drug therapy; F17.210 Nicotine dependence, cigarettes, uncomplicated
CPT/HCPCS: 99282

== ENCOUNTER 2017-04-26 01:42 | Emergency (ER) | payer OTHER ==
[2017-04-26] MEDS ORDERED: Morphine INJ* 2 MG/ML 1 ML SYRINGE IV ONE (01:46)
[2017-04-26] MEDS ORDERED: NS 0.9% 1000 ML* 1,000 ML IV ONE (01:46)
[2017-04-26] MEDS ORDERED: Ondansetron INJ* 2 MG/ML VIAL IV ONE (01:46)
[2017-04-26 02:46] LABS: Hematocrit 49 % (42-52); Hemoglobin 17.3 g/dl (14.0-18.0); Mean Corpuscular HGB Conc 35 g/dl (31-36); Mean Corpuscular Hemoglobin 33 pg (27-31); Mean Corpuscular Volume 94 fL (80-94); Mean Platelet Volume 9 um3 (7.4-10.4); Red Blood Count 5.23 10^6/ul (4.0-5.4); Red Cell Distribution Width 13 % (10.5-15); White Blood Count 8.3 10^3/ul (3.5-10.8)
[2017-04-26 02:51] LABS: ALT 14 U/L (7-52); Albumin 3.9 g/dL (3.2-5.2); Alkaline Phosphatase 87 U/L (34-104); BUN/Creatinine Ratio 19.5 (8-20); Blood Urea Nitrogen 17 mg/dL (6-24); C Reactive Protein 5.79 mg/L (< 5.00); CO2 Carbon Dioxide 24 mmol/L (22-32); Calcium 9.8 mg/dL (8.6-10.3); Chloride 95 mmol/L (101-111); EGFR African American 120.4 (>60); EGFR Non-African American 93.7 (>60); Globulin 4.1 g/dL (2-4); Glucose 395 mg/dL (70-100); Sodium 129 mmol/L (133-145)
[2017-04-26] MEDS ORDERED: Ondansetron INJ* 2 MG/ML VIAL ONE (02:54)
[2017-04-26 02:59] LABS: Anion Gap 10 mmol/L (2-11)
[2017-04-26 03:13] LABS: Lipase 134 U/L (11.0-82.0)
--- NOTE | 2017-04-26 05:17 | ED ---
I, Oh,Thang, scribed for Anival Downey MD on 04/26/17 at 0153 . Abdominal Pain/Male - HPI Summary HPI Summary: This 47 y/o male presents to ED for acute onset of diffuse abd pain tonight. Pt woke up with the pain, and is not sure when the time of onset was. Positive nausea. PMHx includes uncontrolled DM with hx of DKA, HTN, HLD, and DVT. Primary care involves Dr. Carey. - History of Current Complaint Stated Complaint: ABD PAIN Time Seen by Provider: 04/26/17 01:46 Hx Obtained From: Patient, Medical Records Onset/Duration: Lasting Hours, Still Present Timing: Constant Location: Diffuse Character: Dull Aggravating Factor(s): Nothing Alleviating Factor(s): Nothing Associated Signs And Symptoms: Positive: Nausea. Negative: Fever, Vomiting - Allergies/Home Medications Allergies/Adverse Reactions: Allergies Allergy/AdvReac Type Severity Reaction Status Date / Time No Known Allergies Allergy Verified 01/25/17 06:08 PMH/Surg Hx/FS Hx/Imm Hx Endocrine/Hematology History: Reports: Hx Anticoagulant Therapy - Xarelto, Hx Diabetes Denies: Hx Thyroid Disease Cardiovascular History: Reports: Hx Angina, Hx Deep Vein Thrombosis, Hx Hypercholesterolemia, Hx Hypertension, Other Cardiovascular Problems/Disorders - HLD Denies: Hx Congestive Heart Failure, Hx Myocardial Infarction, Hx Pacemaker/ ICD Respiratory History: Denies: Hx Asthma, Hx Chronic Obstructive Pulmonary Disease (COPD), Hx Lung Cancer, Hx Pneumonia, Hx Pulmonary Embolism GI History: Reports: Hx Gastroesophageal Reflux Disease, Other GI Disorders - congenital hernia Denies: Hx Gall Bladder Disease, Hx Gastrointestinal Bleed, Hx Ulcer, Hx Urosepsis History: Denies: Hx Kidney Stones, Hx Renal Disease Musculoskeletal History: Reports: Hx Arthritis, Other Musculoskeletal History - occas joint pain. clyde horses Sensory History: Denies: Hx Contacts or Glasses, Hx Hearing Aid Opthamlomology History: Denies: Hx Contacts or Glasses Neurological History: Reports: Hx Migraine Denies: Hx Dementia, Hx Seizures, Hx Transient Ischemic Attacks (TIA) Psychiatric History: Reports: Hx Depression, Hx Inpatient Treatment Denies: Hx Anxiety, Hx Schizophrenia, Hx Bipolar Disorder - Surgical History Surgery Procedure, Year, and Place: Hernia repair 1991 Infectious Disease History: Denies: Hx Clostridium Difficile, Hx Hepatitis, Hx Human Immunodeficiency Virus (HIV), Hx of Known/Suspected MRSA - Family History Known Family History: Positive: Other - Asthma Negative: Cardiac Disease - Social History Alcohol Use: None Alcohol Amount: HX ETOH ABUSE Hx Substance Use: No Substance Use Type: Reports: None Hx Tobacco Use: Yes Smoking Status (MU): Current Every Day Smoker Type: Cigarettes Amount Used/How Often: 1 cigarette daily Length of Time of Smoking/Using Tobacco: 38 years Have You Smoked in the Last Year: Yes Review of Systems Negative: Fever Positive: Abdominal Pain, Nausea. Negative: Vomiting All Other Systems Reviewed And Are Negative: Yes Physical Exam Triage Information Reviewed: Yes Vital Signs Reviewed: Yes Appearance: Positive: Well-Appearing, Pain Distress - mild Skin: Positive: Warm Head/Face: Positive: Normal Head/Face Inspection Eyes: Positive: ARTEMIO ENT: Positive: Hearing grossly normal Neck: Positive: Supple Respiratory/Lung Sounds: Positive: Clear to Auscultation, Breath Sounds Present Cardiovascular: Positive: RRR Abdomen Description: Positive: Nontender, Soft. Negative: CVA Tenderness (R), CVA Tenderness (L) Bowel Sounds: Positive: Present Musculoskeletal: Positive: Strength/ROM Intact Neurological: Positive: Alert, Oriented to Person Place, Time Psychiatric: Positive: Affect/Mood Appropriate Diagnostics - Laboratory Result Diagrams: 04/26/17 02:25 04/26/17 02:25 Lab Statement: Any lab studies that have been ordered have been reviewed, and results considered in the medical decision making process. Abdominal Pain Fem Course/Dx - Diagnoses Provider Diagnoses: Abdominal pain Discharge - Discharge Plan Condition: Stable Disposition: HOME Patient Education Materials: Acute Abdominal Pain (ED) Referrals: Acosta Carey MD [Primary Care Provider] - 3 Days (PLEASE F/u IN 2-3 DAYS) The documentation as recorded by the Jefferson pollock Soohyun accurately reflects the service I personally performed and the decisions made by , Anival Downey MD.
[2017-04-26 07:22] VITALS: BP 150/103
[2017-04-26] MEDS ORDERED: Iodixanol* (CONTRAST) 320 MG/ML 100 ML SDV IV ONE (07:53)
--- NOTE | 2017-04-26 09:09 | RAD ---
INDICATION: Abdominal pain COMPARISON: CT abdomen pelvis 2016 TECHNIQUE: Axial source images were obtained from the hemidiaphragms to the symphysis pubis following administration of oral and intravenous contrast. 132 mL Omnipaque 300 was utilized. Coronal and sagittal reconstructed images were acquired. Lung bases: The lung bases are clear. Liver: The liver is enlarged with findings of hepatic steatosis. There are no masses. There is no ductal dilatation. Gallbladder: The gallbladder is partially contracted and consequently not well evaluated. No calcified gallstones are seen. Spleen: The spleen is normal in size. There are no masses. Pancreas: There is no focal pancreatic mass or ductal dilatation. Adrenal glands: There is no evidence of adrenal mass. Kidneys: The kidneys are normal in size and position. There are prompt nephrograms and there is prompt excretion bilaterally. There are no renal parenchymal masses. There is no evidence of nephrolithiasis. Adenopathy: There is no evidence of adenopathy by size criteria. Fluid collections: There are no free or localized fluid collections. Vessels:There are no significant atherosclerotic changes involving the aorta. There is no focal aneurysm. The iliac vessels are normal in caliber. The IVC appears normal. GI tract: There are no acute CT bowel findings. There is no obstruction. The stomach and small bowel appear normal. The lower GI tract is normal. The cecum, ileocecal valve, and terminal ileum appear normal. The appendix is visualized and appear normal. Pelvic organs: The prostate and seminal vesicles appear normal Bladder: There are no bladder masses. Abdominal and pelvic soft tissues: There is a small fat-containing periumbilical hernia. Osseous structures: There are no acute osseous findings. There are multiple stable degenerative changes Other: None IMPRESSION: NO ACUTE CT FINDINGS. NO MASS OR INFLAMMATORY CHANGE. HEPATOMEGALY WITH HEPATIC STEATOSIS. SMALL FAT-CONTAINING PERIUMBILICAL HERNIA.
--- NOTE | 2017-04-26 17:47 | ED ---
Carla Harrison Edward, scribed for Acosta Jackson MD on 04/26/17 at 0802 . Progress - Progress Note Progress Note: Sign out by Dr. Downey. On re-eval at 20:49, the pt states his ABD pain is resolved. VITAL SIGNS: Reviewed. GENERAL: Patient is a well-developed and nourished male who is lying comfortable in the stretcher. ~Patient is not in any acute respiratory distress. HEAD AND FACE: Normocephalic and atraumatic. EYES: PERRLA, EOMI x 2, No injected conjunctiva. EARS: Hearing grossly intact. Ear canals and tympanic membranes are WNL. MOUTH: Oropharynx within normal limits. NECK: Supple, trachea is midline, no adenopathy, no JVD. CHEST: Symmetric, no tenderness at palpation LUNGS: Clear to auscultation bilaterally. No wheezing or crackles. CVS: RRR, S1 and S2 present, no murmurs or gallops appreciated. ABDOMEN: Soft, non-tender. No signs of distention. Positive bowel sounds. No rebound no guarding, and no masses palpated. No abdominal bruit or pulsations. EXTREMITIES: FROM in all major joints, no edema, no cyanosis or clubbing. NEURO: Alert and oriented x 3. No acute neurological deficits. Speech is normal. SKIN: Dry and warm ABD/PEL CT SHOWS NO ACUTE CT FINDINGS. NO MASS OR INFLAMMATORY CHANGE. HEPATOMEGALY WITH HEPATIC STEATOSIS. SMALL FAT-CONTAINING PERIUMBILICAL HERNIA. ASSESSMENT AND PLAN - The pt was sign out by Dr. Downey to f/u ABD/PEl CT. ABD/ PEL CT SHOWS NO ACUTE CT FINDINGS. NO MASS OR INFLAMMATORY CHANGE. HEPATOMEGALY WITH HEPATIC STEATOSIS. SMALL FAT-CONTAINING PERIUMBILICAL HERNIA. On re-eval at 20:49, the pt states his ABD pain is resolved. I re-examined the ABD, which was soft non-tender with positive bowel sounds, no rebound and no guarding. There is no tenderness. All the sx resolved and the CT was negative so the pt was d/c home with f/u with PCP. Pt is hemodynamically stable and A& Ox3. Course/Dx - Diagnoses Provider Diagnoses: Abdominal pain The documentation as recorded by the Carla pollock Edward accurately reflects the service I personally performed and the decisions made by Manuel perea Walter, MD.
== END 2017-04-26 09:41 | disposition home or self-care (01) ==
LOC: ED 01:42
DX: R10.9 Unspecified abdominal pain (principal); R11.0 Nausea; Z79.01 Long term (current) use of anticoagulants; F17.211 Nicotine dependence, cigarettes, in remission
CPT/HCPCS: 36415; 74177; 80053; 83605; 83690; 85025; 86140; 96374; 96375; 99282; J2270; J2405; Q9967

== ENCOUNTER 2017-09-04 20:46 | Emergency (ER) | payer OTHER ==
[2017-09-04] MEDS ORDERED: Ciprofloxacin 0.3% OPTH.SOL* 2.5 ML BTL BOTH EYES SCH (22:00)
--- NOTE | 2017-09-04 22:26 | ED ---
Juany Harrison Thomas, scribed for Sanchez Chopra MD on 09/04/17 at 2137 . Throat Pain/Nasal Congestion - HPI Summary HPI Summary: The patient is a 47 year old male brought in by ambulance with blurry vision and double vision. The patient woke up this morning with blurry vision, bilateral conjunctival injection, and crusting to his bilateral eyes. The patient went to work at [employer] and completed his shift. When he returned from work, he began to experience double vision. In the ED, the patient complains of pain to his bilateral eyes. The patient does not wear glasses or contacts, but he does wear reading glasses. The patient denies fever, cough, and myalgia. The patient states he is recovering from a cold earlier in the week. He denies recent alcohol consumption. - History of Current Complaint Chief Complaint: EDEyeProblem Time Seen by Provider: 09/04/17 21:20 Hx Obtained From: Patient Onset/Duration: Lasting Hours - onset this morning, Still Present Associated Signs And Symptoms: Positive: Negative Cough: None Related History: Other (Noted In Comments) - Patient does not wear glasses - Allergies/Home Medications Allergies/Adverse Reactions: Allergies Allergy/AdvReac Type Severity Reaction Status Date / Time No Known Allergies Allergy Verified 09/04/17 20:52 PMH/Surg Hx/FS Hx/Imm Hx Previously Healthy: No Endocrine/Hematology History: Reports: Hx Anticoagulant Therapy - Xarelto, Hx Diabetes Denies: Hx Thyroid Disease Cardiovascular History: Reports: Hx Angina, Hx Deep Vein Thrombosis, Hx Hypercholesterolemia, Hx Hypertension, Other Cardiovascular Problems/Disorders - HLD Denies: Hx Congestive Heart Failure, Hx Myocardial Infarction, Hx Pacemaker/ ICD Respiratory History: Denies: Hx Asthma, Hx Chronic Obstructive Pulmonary Disease (COPD), Hx Lung Cancer, Hx Pneumonia, Hx Pulmonary Embolism GI History: Reports: Hx Gastroesophageal Reflux Disease, Other GI Disorders - congenital hernia Denies: Hx Gall Bladder Disease, Hx Gastrointestinal Bleed, Hx Ulcer, Hx Urosepsis History: Denies: Hx Dialysis, Hx Kidney Stones, Hx Renal Disease Musculoskeletal History: Reports: Hx Arthritis, Other Musculoskeletal History - occas joint pain. clyde horses Sensory History: Denies: Hx Contacts or Glasses, Hx Hearing Aid Opthamlomology History: Denies: Hx Contacts or Glasses Neurological History: Reports: Hx Migraine Denies: Hx Dementia, Hx Seizures, Hx Transient Ischemic Attacks (TIA) Psychiatric History: Reports: Hx Depression, Hx Inpatient Treatment Denies: Hx Anxiety, Hx Schizophrenia, Hx Bipolar Disorder - Surgical History Surgery Procedure, Year, and Place: Hernia repair 1991 - Immunization History Date of Tetanus Vaccine: unk Date of Influenza Vaccine: 2016 Infectious Disease History: No Infectious Disease History: Denies: Hx Clostridium Difficile, Hx Hepatitis, Hx Human Immunodeficiency Virus (HIV), Hx of Known/Suspected MRSA, Traveled Outside the [place] in Last 30 Days - Family History Known Family History: Negative: Cardiac Disease - Social History Occupation: Employed Full-time Alcohol Use: Occasionally Alcohol Amount: HX ETOH ABUSE Hx Substance Use: No Substance Use Type: Reports: None Hx Tobacco Use: Yes Smoking Status (MU): Light Every Day Tobacco Smoker Type: Cigarettes Amount Used/How Often: 1 cigarette daily Length of Time of Smoking/Using Tobacco: 38 years Have You Smoked in the Last Year: Yes Review of Systems Negative: Fever Positive: Blurred Vision, Diplopia, Erythema, Other - Crusting Negative: Cough Negative: Myalgia All Other Systems Reviewed And Are Negative: Yes Physical Exam - Summary Physical Exam Summary: VITAL SIGNS: Reviewed. GENERAL: Patient is a well-developed and nourished male who is lying comfortable in the stretcher. Patient is not in any acute respiratory distress. HEAD AND FACE: No signs of trauma. No ecchymosis, hematomas or skull depressions. No sinus tenderness. EYES: PERRLA, EOMI x 2, The patient has bilateral conjunctival injection with purulent discharge. EARS: Hearing grossly intact. Ear canals and tympanic membranes are within normal limits. MOUTH: Oropharynx within normal limits. NECK: Supple, trachea is midline, no adenopathy, no JVD, no carotid bruit, no c- spine tenderness, neck with full ROM. CHEST: Symmetric, no tenderness at palpation LUNGS: Clear to auscultation bilaterally. No wheezing or crackles. CVS: Regular rate and rhythm, S1 and S2 present, no murmurs or gallops appreciated. ABDOMEN: Soft, non-tender. No signs of distention. No rebound no guarding, and no masses palpated. Bowel sounds are normal. EXTREMITIES: FROM in all major joints, no edema, no cyanosis or clubbing. NEURO: Alert and oriented x 3. No acute neurological deficits. Speech is normal and follows commands. SKIN: Dry and warm Triage Information Reviewed: Yes Vital Signs On Initial Exam: Initial Vitals Temp Pulse Resp BP Pulse Ox 97.7 F 94 16 148/94 97 09/04/17 20:50 09/04/17 20:50 09/04/17 20:50 09/04/17 20:50 09/04/17 20:50 Vital Signs Reviewed: Yes - [place] Coma Scale Coma Scale Total: 15 Diagnostics - Vital Signs Vital Signs Temp Pulse Resp BP Pulse Ox 09/04/17 20:50 97.7 F 94 16 148/94 97 - Laboratory Lab Statement: Any lab studies that have been ordered have been reviewed, and results considered in the medical decision making process. EENT Course/Dx - Course Assessment/Plan: The patient is a 47 year old male brought in by ambulance. The patient woke up this morning with blurry vision, bilateral conjunctival injection, and crusting to his bilateral eyes. When he returned from work, he began to experience double vision. The patient has bilateral conjunctival injection with purulent discharge. In the ED course the patient was given ciprofloxacin and gentamicin. The patient is diagnosed with bilateral conjunctivitis. The patient is instructed to follow up with primary care. The patient is prescribed ciprofloxacin and gentamycin. - Diagnoses Provider Diagnoses: Bilateral conjunctivitis Discharge - Discharge Plan Condition: Stable Disposition: HOME Patient Education Materials: Conjunctivitis (ED) Referrals: Acosta Carey MD [Primary Care Provider] - 3 Days Additional Instructions: Please clean both of your eyes with a wet warm cloth before application of eye- drops and ointments. Ciprofloxacin ointment: Apply 1 drop to each eye every four hours. Gentamicin ointment: Apply one inch to each eye twice a day. Follow up with your primary care provider in three days. The documentation as recorded by the Juany pollock Thomas accurately reflects the service I personally performed and the decisions made by , Sanchez Chopra MD.
[2017-09-04] MEDS ORDERED: Gentamicin 0.3% OPTH.OINT* 3.5 GM TUBE BOTH EYES SCH (22:30)
[2017-09-04 23:03] VITALS: BP 139/92
== END 2017-09-04 23:03 | disposition home or self-care (01) ==
LOC: ED 20:46
DX: H10.9 Unspecified conjunctivitis (principal); K21.9 Gastro-esophageal reflux disease without esophagitis; F32.9 Major depressive disorder, single episode, unspecified; F17.210 Nicotine dependence, cigarettes, uncomplicated; Z79.01 Long term (current) use of anticoagulants; E11.9 Type 2 diabetes mellitus without complications; Z86.718 Personal history of other venous thrombosis and embolism; E78.00 Pure hypercholesterolemia, unspecified; E78.5 Hyperlipidemia, unspecified
CPT/HCPCS: 99282; A9270-GY

== ENCOUNTER 2017-09-08 19:33 | Emergency (ER) | payer OTHER ==
--- NOTE | 2017-09-08 21:03 | RAD ---
INDICATION: Right forearm injury. TECHNIQUE: 2 views of the right forearm were obtained. FINDINGS: The bones are in normal alignment. No fracture is seen. IMPRESSION: NO EVIDENCE FOR FRACTURE.
[2017-09-08] MEDS ORDERED: Ibuprofen TAB* 600 MG PO ONE (21:17)
[2017-09-08 21:39] VITALS: BP 143/85
--- NOTE | 2017-09-09 00:10 | ED ---
Upper Extremity Pain - HPI Summary HPI Summary: Patient presents to the ED with CC of right forearm pain after falling at work. Denies temperature, color changes or numbness or tingling. There is a small abrasion to the forearm. He denies any and all other symptoms. Patient states he tripped over some boxes at [employer] while at work. VS stable. He is a diabetic, but denies other health history. - History of Current Complaint Chief Complaint: EDExtremityUpper Stated Complaint: RT ARM INJURY Time Seen by Provider: 09/08/17 20:08 Hx Obtained From: Patient Mechanism Of Injury: Fall From A Standing Position Onset/Duration: Started Hours Ago Timing: Intermittent Severity Initially: Mild Severity Currently: Mild Pain Location: Arm Character: Aching Alleviating Factor(s): Nothing Related History: Dominant Hand Right - Risk Factors Non-Orthopedic Risk Factor: Negative DVT Risk Factors: Negative Septic Arthritis Risk Factor: Negative Compartment Syndrome Risk Factors: Pain - Allergies/Home Medications Allergies/Adverse Reactions: Allergies Allergy/AdvReac Type Severity Reaction Status Date / Time No Known Allergies Allergy Verified 09/08/17 19:41 PMH/Surg Hx/FS Hx/Imm Hx Previously Healthy: Yes Endocrine/Hematology History: Reports: Hx Anticoagulant Therapy - Xarelto, Hx Diabetes Denies: Hx Thyroid Disease Cardiovascular History: Reports: Hx Angina, Hx Deep Vein Thrombosis, Hx Hypercholesterolemia, Hx Hypertension, Other Cardiovascular Problems/Disorders - HLD Denies: Hx Congestive Heart Failure, Hx Myocardial Infarction, Hx Pacemaker/ ICD Respiratory History: Denies: Hx Asthma, Hx Chronic Obstructive Pulmonary Disease (COPD), Hx Lung Cancer, Hx Pneumonia, Hx Pulmonary Embolism GI History: Reports: Hx Gastroesophageal Reflux Disease, Other GI Disorders - congenital hernia Denies: Hx Gall Bladder Disease, Hx Gastrointestinal Bleed, Hx Ulcer, Hx Urosepsis History: Denies: Hx Dialysis, Hx Kidney Stones, Hx Renal Disease Musculoskeletal History: Reports: Hx Arthritis, Other Musculoskeletal History - occas joint pain. clyde horses Sensory History: Denies: Hx Contacts or Glasses, Hx Hearing Aid Opthamlomology History: Denies: Hx Contacts or Glasses Neurological History: Reports: Hx Migraine Denies: Hx Dementia, Hx Seizures, Hx Transient Ischemic Attacks (TIA) Psychiatric History: Reports: Hx Depression, Hx Inpatient Treatment Denies: Hx Anxiety, Hx Schizophrenia, Hx Bipolar Disorder - Surgical History Surgery Procedure, Year, and Place: Hernia repair 1991 - Immunization History Date of Tetanus Vaccine: unknown Date of Influenza Vaccine: No Infectious Disease History: No Infectious Disease History: Denies: Hx Clostridium Difficile, Hx Hepatitis, Hx Human Immunodeficiency Virus (HIV), Hx of Known/Suspected MRSA, Traveled Outside the [place] in Last 30 Days - Family History Known Family History: Positive: None, Other - Asthma Negative: Cardiac Disease Family History: R & N/C - Social History Occupation: Employed Full-time Lives: With Family Alcohol Use: None Alcohol Amount: "Recovering alcoholic" Hx Substance Use: No Substance Use Type: Reports: None Hx Tobacco Use: Yes Smoking Status (MU): Light Every Day Tobacco Smoker Type: Cigarettes Amount Used/How Often: 1 cigarette daily Length of Time of Smoking/Using Tobacco: 38 years Have You Smoked in the Last Year: Yes Review of Systems Constitutional: Negative Negative: Fever, Chills, Fatigue, Skin Diaphoresis Eyes: Negative Cardiovascular: Negative Genitourinary: Negative Positive: no symptoms reported, see HPI Positive: Arthralgia - forearm pain without pain in the ipsilateral wrist Positive: Other - right forearm abrasion Neurological: Negative All Other Systems Reviewed And Are Negative: Yes Physical Exam Triage Information Reviewed: Yes Vital Signs On Initial Exam: Initial Vitals Temp Pulse Resp BP Pulse Ox 96.8 F 89 14 143/91 99 09/08/17 19:38 09/08/17 19:38 09/08/17 19:38 09/08/17 19:38 09/08/17 19:38 Vital Signs Reviewed: Yes Appearance: Positive: Well-Appearing, Well-Nourished Skin: Positive: Warm, Skin Color Reflects Adequate Perfusion, Other - abrasion to the right forearm Head/Face: Positive: Normal Head/Face Inspection Eyes: Positive: EOMI, ARTEMIO, Conjunctiva Clear Neck: Positive: Supple, Nontender, No Lymphadenopathy Respiratory/Lung Sounds: Positive: Clear to Auscultation, Breath Sounds Present Cardiovascular: Positive: Normal, RRR, Pulses are Symmetrical in both Upper and Lower Extremities Musculoskeletal: Positive: Normal, Strength/ROM Intact Neurological: Positive: Speech Normal Psychiatric: Positive: Normal, Affect/Mood Appropriate - [place] Coma Scale Coma Scale Total: 15 Diagnostics - Vital Signs Vital Signs Temp Pulse Resp BP Pulse Ox 09/08/17 21:38 97.8 F 70 18 143/85 97 09/08/17 19:38 96.8 F 89 14 143/91 99 - Laboratory Lab Statement: Any lab studies that have been ordered have been reviewed, and results considered in the medical decision making process. Course/Dx - Course Course Of Treatment: Patient presents to the ED with CC of right forearm pain. He is given ice pack. Ibuprofen encouraged. Xray of the forearm is negative for any findings. - Diagnoses Provider Diagnoses: Arm contusion Discharge - Discharge Plan Condition: Stable Disposition: HOME Patient Education Materials: Contusion in Adults (ED) Referrals: Acosta Carey MD [Primary Care Provider] - Additional Instructions: Ibuprofen 600mg three times daily Ice Elevate Rest the area
== END 2017-09-08 21:38 | disposition home or self-care (01) ==
LOC: ED 19:33
DX: S50.11XA Contusion of right forearm, initial encounter (principal); W18.09XA Striking against other object with subsequent fall, initial encounter; Y92.511 Restaurant or cafe as the place of occurrence of the external cause; E11.8 Type 2 diabetes mellitus with unspecified complications; E78.00 Pure hypercholesterolemia, unspecified; I10 Essential (primary) hypertension; E78.5 Hyperlipidemia, unspecified; Z86.718 Personal history of other venous thrombosis and embolism; K21.9 Gastro-esophageal reflux disease without esophagitis; Z79.01 Long term (current) use of anticoagulants; F32.9 Major depressive disorder, single episode, unspecified; F17.210 Nicotine dependence, cigarettes, uncomplicated
CPT/HCPCS: 99281; A9270-GY

== ENCOUNTER 2017-11-09 21:40 | Emergency (ER) | payer OTHER ==
[2017-11-09] MEDS ORDERED: NS 0.9% 1000 ML* 1,000 ML IV ONE (22:37)
[2017-11-09] MEDS ORDERED: Insulin REGULAR(*) 1 UNITS UNIT IV PUSH ONE (22:59)
[2017-11-09 23:26] LABS: ABS Basophils 0.1 10^3/ul (0-0.2); ABS Eosinophils 0.1 10^3/ul (0-0.6); ABS Lymphocytes 2.6 10^3/ul (1.0-4.8); ABS Monocytes 0.6 10^3/ul (0-0.8); ABS Neutrophils 2.6 10^3/ul (1.5-7.7); ABS Nucleated RBC 0 10^3/ul; Eosinophil % 1.5 % (0-6); Hematocrit 44 % (42-52); Hemoglobin 15.3 g/dl (14.0-18.0); Lymphocyte % 43.3 % (25-47); Mean Corpuscular HGB Conc 35 g/dl (31-36); Mean Corpuscular Hemoglobin 34 pg (27-31); Mean Corpuscular Volume 96 fL (80-94); Mean Platelet Volume 9 um3 (7.4-10.4); Nucleated Red Blood Cells % 0.1; Platelet Count 227 10^3/ul (150-450); Red Blood Count 4.56 10^6/ul (4.0-5.4); Red Cell Distribution Width 13 % (10.5-15)
[2017-11-09 23:35] LABS: EGFR Non-African American 84.6 (>60)
[2017-11-10 00:35] LABS: Urine Appearance Clear; Urine Blood Negative (Negative); Urine Color Straw; Urine Ketones Negative (Negative); Urine Protein Negative (Negative); Urine Specific Gravity 1.033 (1.010-1.030); Urine Urobilinogen Negative (Negative)
--- NOTE | 2017-11-10 01:12 | ED ---
Ivory Harrison Gabriel, scribed for Sanchez Chopra MD on 11/09/17 at 2238 . HPI Diabetic - HPI Summary HPI Summary: This patient is a 47 year old M BIBA [facility] for blood glucose of 571. Pt was just admitted to [facility] today, self-admittance. Pt has not been taking his insulin two weeks ago due to depression; he is taking his oral medications though. Patient reports light headedness and ABD pain. - History Of Current Complaint Chief Complaint: EDDiabeticProb Time Seen by Provider: 11/09/17 21:52 Hx Obtained From: Patient Onset/Duration: Still Present Timing: Constant Severity Initially: Moderate Severity Currently: Moderate Character: Alert Aggravating: Non-compliant Associated Signs & Symptoms: Abdominal Pain Related History: DM I - Allergies/Home Medications Allergies/Adverse Reactions: Allergies Allergy/AdvReac Type Severity Reaction Status Date / Time No Known Allergies Allergy Verified 09/08/17 19:41 PMH/Surg Hx/FS Hx/Imm Hx Endocrine/Hematology History: Reports: Hx Anticoagulant Therapy - Xarelto, Hx Diabetes Denies: Hx Thyroid Disease Cardiovascular History: Reports: Hx Angina, Hx Deep Vein Thrombosis, Hx Hypercholesterolemia, Hx Hypertension, Other Cardiovascular Problems/Disorders - HLD Denies: Hx Congestive Heart Failure, Hx Myocardial Infarction, Hx Pacemaker/ ICD Respiratory History: Denies: Hx Asthma, Hx Chronic Obstructive Pulmonary Disease (COPD), Hx Lung Cancer, Hx Pneumonia, Hx Pulmonary Embolism GI History: Reports: Hx Gastroesophageal Reflux Disease, Other GI Disorders - congenital hernia Denies: Hx Gall Bladder Disease, Hx Gastrointestinal Bleed, Hx Ulcer, Hx Urosepsis History: Denies: Hx Dialysis, Hx Kidney Stones, Hx Renal Disease Musculoskeletal History: Reports: Hx Arthritis, Other Musculoskeletal History - occas joint pain. clyde horses Sensory History: Denies: Hx Contacts or Glasses Opthamlomology History: Denies: Hx Contacts or Glasses Neurological History: Reports: Hx Migraine Denies: Hx Dementia, Hx Seizures, Hx Transient Ischemic Attacks (TIA) Psychiatric History: Reports: Hx Depression, Hx Inpatient Treatment Denies: Hx Anxiety, Hx Schizophrenia, Hx Bipolar Disorder - Surgical History Surgery Procedure, Year, and Place: Hernia repair 1991 - Immunization History Date of Tetanus Vaccine: unknown Date of Influenza Vaccine: No Infectious Disease History: No Infectious Disease History: Denies: Hx Clostridium Difficile, Hx Hepatitis, Hx Human Immunodeficiency Virus (HIV), Hx of Known/Suspected MRSA, Traveled Outside the [place] in Last 30 Days - Family History Known Family History: Positive: None, Other - Asthma Negative: Cardiac Disease Family History: R & N/C - Social History Alcohol Use: None Alcohol Amount: "Recovering alcoholic" Hx Substance Use: No Substance Use Type: Reports: None Hx Tobacco Use: Yes Smoking Status (MU): Light Every Day Tobacco Smoker Type: Cigarettes Amount Used/How Often: 1 cigarette daily Length of Time of Smoking/Using Tobacco: 38 years Have You Smoked in the Last Year: Yes Review of Systems Negative: Fever Positive: Abdominal Pain Neurological: Other - light headedness All Other Systems Reviewed And Are Negative: Yes Physical Exam - Summary Physical Exam Summary: VITAL SIGNS: Reviewed. GENERAL: Patient is a well-developed and nourished malewho is lying comfortable in the stretcher. Patient is not in any acute respiratory distress. HEAD AND FACE: No signs of trauma. No ecchymosis, hematomas or skull depressions. No sinus tenderness. EYES: PERRLA, EOMI x 2, No injected conjunctiva, no nystagmus. EARS: Hearing grossly intact. Ear canals and tympanic membranes are within normal limits. MOUTH: Oropharynx within normal limits. NECK: Supple, trachea is midline, no adenopathy, no JVD, no carotid bruit, no c- spine tenderness, neck with full ROM. CHEST: Symmetric, no tenderness at palpation LUNGS: Clear to auscultation bilaterally. No wheezing or crackles. CVS: Regular rate and rhythm, S1 and S2 present, no murmurs or gallops appreciated. ABDOMEN: Soft, non-tender. No signs of distention. No rebound no guarding, and no masses palpated. Bowel sounds are normal. EXTREMITIES: FROM in all major joints, no edema, no cyanosis or clubbing. NEURO: Alert and oriented x 3. No acute neurological deficits. Speech is normal and follows commands. SKIN: Dry and warm Triage Information Reviewed: Yes Vital Signs On Initial Exam: Initial Vitals Temp Pulse Resp BP Pulse Ox 97.9 F 95 16 144/81 96 11/09/17 21:47 11/09/17 21:47 11/09/17 21:47 11/09/17 21:47 11/09/17 21:47 Vital Signs Reviewed: Yes Diagnostics - Vital Signs Vital Signs Temp Pulse Resp BP Pulse Ox 11/09/17 21:49 96 97 11/09/17 21:47 97.9 F 95 16 144/81 96 - Laboratory Result Diagrams: 11/09/17 23:02 11/09/17 23:02 Lab Statement: Any lab studies that have been ordered have been reviewed, and results considered in the medical decision making process. Re-Evaluation - Re-Evaluation First Eval Re-Evaluation Time: 00:56 Change: Improved Comment: Pt's blood sugar is 210. Diabetic Course/Dx - Course Assessment/Plan: This patient is a 47 year old M BIBA [facility] for blood glucose of 571. Pt was just admitted to [facility] today, self-admittance. Pt has not been taking his insulin two weeks ago due to depression; he is taking his oral medications though. Patient reports light headedness and ABD pain. Test results with no significant abnormalities except for a lactic acid of 2.4 and a blood glucose of 440. In the ED course the patient was given insulin. Patient will be discharged and follow up with PCP. The patient is agreeable with this plan. - Diagnoses Provider Diagnoses: Hyperglycemia Discharge - Discharge Plan Condition: Stable Disposition: HOME Patient Education Materials: Diabetic Hyperglycemia (ED) Referrals: Acosta Carey MD [Primary Care Provider] - 3 Days Additional Instructions: Please take your medications as instructed. RETURN TO EMERGENCY DEPARTMENT FOR ANY NEW OR WORSENING SYMPTOMS The documentation as recorded by the Ivory pollock Gabriel accurately reflects the service I personally performed and the decisions made by me, Sanchez Chopra MD.
[2017-11-10 01:36] VITALS: BP 129/81
== END 2017-11-10 01:02 | disposition home or self-care (01) ==
LOC: ED 21:40
DX: R73.9 Hyperglycemia, unspecified (principal); R10.9 Unspecified abdominal pain; Z79.01 Long term (current) use of anticoagulants; F17.210 Nicotine dependence, cigarettes, uncomplicated; Z86.79 Personal history of other diseases of the circulatory system; Z87.19 Personal history of other diseases of the digestive system
CPT/HCPCS: 36415; 80053; 81003; 82150; 82803; 83605; 83690; 85025; 86140; 99284

== ENCOUNTER 2018-05-29 11:31 | Emergency (ER) | payer OTHER ==
[2018-05-29 11:40] VITALS: BP 120/79
--- NOTE | 2018-05-29 12:39 | ED ---
Upper Extremity Pain - HPI Summary HPI Summary: Rt hand dominant pt here w/ Lt arm pain and weakness since this morning. Woke w / pain and weakness in distal bicep - radiates to distal forearm - no sx yesterday. Feels numb, tingling and aching. 01/19. Has not tried anything prior to arrival in an effort to aid his sx. No h/o trauma however reports repetitive movements of this arm via cleaning last night and works as a information services vice president. Denies steroids, fluoroquinolones and no adverse reaction to statin which he's been taking for 1 year now. Feels anxious and stressed - denies CP, SOB, fatigue, jaw pain, sweating, ab pain, N/V, WETZEL. - History of Current Complaint Chief Complaint: EDExtremityUpper Stated Complaint: LT ARM/HAND PAIN Time Seen by Provider: 05/29/18 11:46 Hx Obtained From: Patient - Allergies/Home Medications Allergies/Adverse Reactions: Allergies Allergy/AdvReac Type Severity Reaction Status Date / Time No Known Allergies Allergy Verified 09/08/17 19:41 PMH/Surg Hx/FS Hx/Imm Hx Previously Healthy: Yes Endocrine/Hematology History: Reports: Hx Anticoagulant Therapy - Xarelto, Hx Diabetes Denies: Hx Thyroid Disease Cardiovascular History: Reports: Hx Angina, Hx Deep Vein Thrombosis, Hx Hypercholesterolemia, Hx Hypertension, Other Cardiovascular Problems/Disorders - HLD Denies: Hx Congestive Heart Failure, Hx Myocardial Infarction, Hx Pacemaker/ ICD Respiratory History: Denies: Hx Asthma, Hx Chronic Obstructive Pulmonary Disease (COPD), Hx Lung Cancer, Hx Pneumonia, Hx Pulmonary Embolism GI History: Reports: Hx Gastroesophageal Reflux Disease, Other GI Disorders - congenital hernia Denies: Hx Gall Bladder Disease, Hx Gastrointestinal Bleed, Hx Ulcer, Hx Urosepsis History: Denies: Hx Dialysis, Hx Kidney Stones, Hx Renal Disease Musculoskeletal History: Reports: Hx Arthritis, Other Musculoskeletal History - occas joint pain. clyde horses Sensory History: Denies: Hx Contacts or Glasses Opthamlomology History: Denies: Hx Contacts or Glasses Neurological History: Reports: Hx Migraine Denies: Hx Dementia, Hx Seizures, Hx Transient Ischemic Attacks (TIA) Psychiatric History: Reports: Hx Depression, Hx Inpatient Treatment Denies: Hx Anxiety, Hx Schizophrenia, Hx Bipolar Disorder - Surgical History Surgery Procedure, Year, and Place: Hernia repair 1991 - Immunization History Date of Tetanus Vaccine: unknown Date of Influenza Vaccine: No Infectious Disease History: No Infectious Disease History: Denies: Hx Clostridium Difficile, Hx Hepatitis, Hx Human Immunodeficiency Virus (HIV), Hx of Known/Suspected MRSA, Traveled Outside the [place] in Last 30 Days - Family History Known Family History: Positive: None, Other - Asthma Negative: Cardiac Disease Family History: R & N/C - Social History Occupation: Unemployed Lives: Alone Alcohol Use: None - "Last drink 1 week ago" Alcohol Amount: "Recovering alcoholic" Hx Substance Use: No Substance Use Type: Reports: None Hx Tobacco Use: Yes Smoking Status (MU): Light Every Day Tobacco Smoker Type: Cigarettes Amount Used/How Often: 1 cigarette daily Length of Time of Smoking/Using Tobacco: 38 years Have You Smoked in the Last Year: Yes Review of Systems Constitutional: Negative Negative: Fever, Chills, Fatigue Eyes: Negative Cardiovascular: Negative Negative: Palpitations, Chest Pain Respiratory: Negative Negative: Shortness Of Breath Gastrointestinal: Negative Negative: Abdominal Pain, Vomiting, Nausea Positive: Arthralgia, Myalgia. Negative: Edema Skin: Negative Positive: Paresthesia. Negative: Weakness, Numbness Psychological: Normal All Other Systems Reviewed And Are Negative: Yes Physical Exam Vital Signs On Initial Exam: Initial Vitals Temp Pulse Resp BP Pulse Ox 98.6 F 81 18 120/79 97 05/29/18 11:38 05/29/18 11:38 05/29/18 11:38 05/29/18 11:38 05/29/18 11:38 Diagnostics - Vital Signs Vital Signs Temp Pulse Resp BP Pulse Ox 05/29/18 11:38 98.6 F 81 18 120/79 97 - Laboratory Lab Statement: Any lab studies that have been ordered have been reviewed, and results considered in the medical decision making process. Discharge - Sign-Out/Discharge Documenting (check all that apply): Patient Departure - Discharge Plan Condition: Stable Disposition: HOME Patient Education Materials: Tennis Elbow (ED) Forms: *Work Release Referrals: Becky Skinner MD [Primary Care Provider] - Additional Instructions: Rest, ice for the next 48 hours and apply topical analgesics (i.e. Biofreeze, etc.) You may take acetaminophen extra strength every 6 hours as needed for pain. Avoid NSAID such as ibuprofen, Aleve, aspirin as you're taking a blood thinner. After 48 hours, he may apply heat and implement gentle stretches as well as self massage as tolerated. He may ice after exercises for inflammation and pain. Follow-up with her PCP in one week to recheck symptoms. If they are the same or worse, you may benefit from physical therapy as well as an ulnar strap. *If in the meantime you develop weakness, numbness, discoloration of your upper extremity, return to the emergency department. - Billing Disposition and Condition Condition: STABLE Disposition: Home
[2018-05-29] MEDS ORDERED: Acetaminophen TAB* 325 MG PO ONE (13:35)
== END 2018-05-29 14:26 | disposition home or self-care (01) ==
LOC: ED 11:31
DX: M79.602 Pain in left arm (principal); F17.210 Nicotine dependence, cigarettes, uncomplicated; Z79.01 Long term (current) use of anticoagulants
CPT/HCPCS: 99281; A9270-GY

== ENCOUNTER 2018-06-15 18:40 | Emergency (ER) | payer OTHER ==
[2018-06-15] MEDS ORDERED: Sulfamethox/Trimethoprim DS 800/160* TAB PO ONE (20:23)
[2018-06-15] MEDS ORDERED: HYDROcodone/ACETAMIN 5-325 MG* 1 TAB PO ONE (20:23)
--- NOTE | 2018-06-15 20:23 | ED ---
Lower Extremity - HPI Summary HPI Summary: Patient complains of pain to the top of left foot starting this morning. States he had a fall down some steps 2 days ago, but landed on his tailbone and did not have any foot pain until this morning. Denies any other pain, injury or symptoms. Patient is ambulatory with pain. Denies fever, cough, sore throat , CP, SOB, N/V/D, abdominal pain, change in urine, change in BM, wound. Medical history is HTN, DM, HDL, DVT. - History of Current Complaint Chief Complaint: EDExtremityLower Stated Complaint: LT FT PAIN Time Seen by Provider: 06/15/18 20:09 Hx Obtained From: Patient Mechanism Of Injury: Unknown Onset of Pain: Hours Onset/Duration: Hours Severity Initially: Moderate Severity Currently: Moderate Pain Intensity: 6 Pain Scale Used: 0-10 Numeric Timing: Constant Location: Is Discrete @ Character Of Pain: Throbbing Associated Signs And Symptoms: Positive: Redness Aggravating Factor(s): Standing, Ambulation, Weight Bearing Alleviating Factor(s): Rest Able to Bear Weight: Yes - Allergies/Home Medications Allergies/Adverse Reactions: Allergies Allergy/AdvReac Type Severity Reaction Status Date / Time No Known Allergies Allergy Verified 09/08/17 19:41 Home Medications: Home Medications Alogliptin Harinder/Metformin HCl [Alogliptin-Metformin 12.5-1000] 1 tab PO BID 12/28 [History Confirmed 06/15/18] Atorvastatin* [Lipitor*] 80 mg PO 1700 06/15/18 [History Confirmed 06/15/18] Glimepiride 4 mg PO DAILY 06/15/18 [History Confirmed 06/15/18] Insulin Glargine,Hum.rec.anlog [Basaglar Kwikpen U-100] 0 unit SUBCUT TID [History Confirmed 06/15/18] PMH/Surg Hx/FS Hx/Imm Hx Endocrine/Hematology History: Reports: Hx Anticoagulant Therapy - Xarelto, Hx Diabetes Denies: Hx Thyroid Disease Cardiovascular History: Reports: Hx Angina, Hx Deep Vein Thrombosis, Hx Hypercholesterolemia, Hx Hypertension, Other Cardiovascular Problems/Disorders - HLD Denies: Hx Congestive Heart Failure, Hx Myocardial Infarction, Hx Pacemaker/ ICD Respiratory History: Denies: Hx Asthma, Hx Chronic Obstructive Pulmonary Disease (COPD), Hx Lung Cancer, Hx Pneumonia, Hx Pulmonary Embolism GI History: Reports: Hx Gastroesophageal Reflux Disease, Other GI Disorders - congenital hernia Denies: Hx Gall Bladder Disease, Hx Gastrointestinal Bleed, Hx Ulcer, Hx Urosepsis History: Denies: Hx Dialysis, Hx Kidney Stones, Hx Renal Disease Musculoskeletal History: Reports: Hx Arthritis, Other Musculoskeletal History - occas joint pain. clyde horses Sensory History: Denies: Hx Contacts or Glasses Opthamlomology History: Denies: Hx Contacts or Glasses Neurological History: Reports: Hx Migraine Denies: Hx Dementia, Hx Seizures, Hx Transient Ischemic Attacks (TIA) Psychiatric History: Reports: Hx Depression, Hx Inpatient Treatment Denies: Hx Anxiety, Hx Schizophrenia, Hx Bipolar Disorder - Surgical History Surgery Procedure, Year, and Place: Hernia repair 1991 - Immunization History Date of Tetanus Vaccine: unknown Date of Influenza Vaccine: No Infectious Disease History: No Infectious Disease History: Denies: Hx Clostridium Difficile, Hx Hepatitis, Hx Human Immunodeficiency Virus (HIV), Hx of Known/Suspected MRSA, Traveled Outside the [place] in Last 30 Days - Family History Known Family History: Positive: None, Other - Asthma Negative: Cardiac Disease Family History: R & N/C - Social History Alcohol Use: None Alcohol Amount: "Recovering alcoholic" Hx Substance Use: No Substance Use Type: Reports: None Hx Tobacco Use: Yes Smoking Status (MU): Light Every Day Tobacco Smoker Type: Cigarettes Amount Used/How Often: 1 cigarette daily Length of Time of Smoking/Using Tobacco: 38 years Have You Smoked in the Last Year: Yes Review of Systems Constitutional: Negative Eyes: Negative ENT: Negative Cardiovascular: Negative Respiratory: Negative Gastrointestinal: Negative Genitourinary: Negative Musculoskeletal: Other Skin: Other Neurological: Negative Psychological: Normal All Other Systems Reviewed And Are Negative: Yes Physical Exam - Summary Physical Exam Summary: No swelling, ecchymosis noted. Positive erythema and extra warmth to top of the foot at base of toes of left foot. No evidence of wound. PMS intact distally. Triage Information Reviewed: Yes Vital Signs On Initial Exam: Initial Vitals Temp Pulse Resp BP Pulse Ox 97.6 F 81 16 118/78 98 06/15/18 18:51 06/15/18 18:51 06/15/18 18:51 06/15/18 18:51 06/15/18 18:51 Vital Signs Reviewed: Yes Appearance: Positive: Well-Appearing Skin: Positive: Warm Head/Face: Positive: Normal Head/Face Inspection Eyes: Positive: Normal Neck: Positive: Supple Respiratory/Lung Sounds: Positive: Clear to Auscultation Cardiovascular: Positive: Normal Abdomen Description: Positive: Nontender Musculoskeletal: Positive: Normal Neurological: Positive: Normal Psychiatric: Positive: Normal AVPU Assessment: Alert - Wilmar Coma Scale Best Eye Response: 4 - Spontaneous Best Motor Response: 6 - Obeys Commands Best Verbal Response: 5 - Oriented Coma Scale Total: 15 Diagnostics - Vital Signs Vital Signs Temp Pulse Resp BP Pulse Ox 06/15/18 18:51 97.6 F 81 16 118/78 98 - Laboratory Lab Statement: Any lab studies that have been ordered have been reviewed, and results considered in the medical decision making process. - Radiology foot Xray Interpretation: No Acute Changes Radiology Interpretation Completed By: ED Physician Lower Extremity Course/Dx - Course Course Of Treatment: Patient complains of pain to the top of left foot starting this morning. States he had a fall down some steps 2 days ago, but landed on his tailbone and did not have any foot pain until this morning. Denies any other pain, injury or symptoms. Patient is ambulatory with pain. Denies fever , cough, sore throat, CP, SOB, N/V/D, abdominal pain, change in urine, change in BM, wound. Medical history is HTN, DM, HDL, DVT. Physical exam:No swelling, ecchymosis noted. Positive erythema and extra warmth to top of the foot at base of toes of left foot. No evidence of wound. PMS intact distally. Vital signs within normal limits. X-ray left foot negative. Extra warmth and erythema to left foot consistent with cellulitis. Patient has history of DM. Started on Bactrim here in the ED. Rx for same. - Diagnoses Provider Diagnoses: Cellulitis Discharge - Sign-Out/Discharge Documenting (check all that apply): Patient Departure - Discharge Plan Condition: Stable Disposition: HOME Prescriptions: HYDROcodone/ACETAMIN 5-325 MG* [[place] 5-325 TAB*] 1 tab PO TID 2 Days #6 tab MDD 3 tabs Sulfamethox/Trimethoprim DS* [Bactrim DS 800/160 TAB*] 1 tab PO BID 10 Days #20 tab Patient Education Materials: Cellulitis (ED) Referrals: Becky Skinner MD [Primary Care Provider] - Additional Instructions: If symptoms persist more than a couple days follow-up with primary care or return to the ED for new or worsening symptoms. - Billing Disposition and Condition Condition: STABLE Disposition: Home
[2018-06-15 20:42] VITALS: BP 104/57
--- NOTE | 2018-06-16 07:46 | RAD ---
HISTORY: PAIN S/P INJURY COMPARISONS: September 26, 2014 VIEWS: 3 , Frontal, lateral, and oblique views of the left foot FINDINGS: BONE DENSITY: Normal. BONES: There is no displaced fracture. JOINTS: There is no arthropathy. ALIGNMENT: There is no dislocation. SOFT TISSUES: Unremarkable. OTHER FINDINGS: None. IMPRESSION: NO ACUTE OSSEOUS INJURY. IF SYMPTOMS PERSIST, RECOMMEND REPEAT IMAGING. R0
== END 2018-06-15 20:43 | disposition home or self-care (01) ==
LOC: ED 18:40
DX: L03.116 Cellulitis of left lower limb (principal); I10 Essential (primary) hypertension; E11.9 Type 2 diabetes mellitus without complications; E78.5 Hyperlipidemia, unspecified; F17.210 Nicotine dependence, cigarettes, uncomplicated; Z91.81 History of falling; Z86.718 Personal history of other venous thrombosis and embolism; Z79.899 Other long term (current) drug therapy; Z79.4 Long term (current) use of insulin; Z79.84 Long term (current) use of oral hypoglycemic drugs; Z79.01 Long term (current) use of anticoagulants
CPT/HCPCS: 99282; A9270-GY

== ENCOUNTER 2018-06-19 11:32 | Emergency (ER) | payer OTHER ==
[2018-06-19] MEDS ORDERED: DOXYcycline IV* 100 MG in NS 0.9% 250 ML* 250 ML IVPB ONE (12:43)
[2018-06-19] MEDS ORDERED: HYDROcodone/ACETAMIN 5-325 MG* 1 TAB PO ONE (12:44)
[2018-06-19] MEDS ORDERED: NS 0.9% 1000 ML* 1,000 ML IV ONE (12:44)
[2018-06-19 12:55] LABS: ABS Basophils 0.1 10^3/ul (0-0.2); ABS Eosinophils 0.1 10^3/ul (0-0.6); ABS Lymphocytes 1.7 10^3/ul (1.0-4.8); ABS Monocytes 0.7 10^3/ul (0-0.8); ABS Neutrophils 2.8 10^3/ul (1.5-7.7); ABS Nucleated RBC 0 10^3/ul; Eosinophil % 1.8 % (0-6); Hematocrit 44 % (42-52); Hemoglobin 15.3 g/dl (14.0-18.0); Lymphocyte % 32.2 % (25-47); Mean Corpuscular HGB Conc 35 g/dl (31-36); Mean Corpuscular Hemoglobin 34 pg (27-31); Mean Corpuscular Volume 97 fL (80-94); Mean Platelet Volume 8.3 um3 (7.4-10.4); Nucleated Red Blood Cells % 0; Platelet Count 258 10^3/ul (150-450); Red Blood Count 4.54 10^6/ul (4.00-5.40); Red Cell Distribution Width 13 % (10.5-15); White Blood Count 5.3 10^3/ul (3.5-10.8)
[2018-06-19 13:13] LABS: EGFR Non-African American 119.9 (>60)
--- NOTE | 2018-06-19 13:14 | RAD ---
Indication: Dorsal LEFT foot erythema and tenderness. Diabetic. Comparison: June 15, 2018 Technique: AP, lateral, and oblique views LEFT foot. REPORT AND IMPRESSION: #. Mild soft tissue swelling over the dorsum of the forefoot new compared with the prior exam. No subcutaneous emphysema or conspicuous foreign body. #. Negative for fracture. #. Partial hammertoe deformities at the second through fifth toes without change. Articular alignment is otherwise unremarkable. #. Mild osteoarthritis at the first metatarsal phalangeal joint.
--- NOTE | 2018-06-19 14:13 | ED ---
Lower Extremity - HPI Summary HPI Summary: Patient is a 48-year-old male presenting to the ED 4 days after his first visit the ED for similar complaint of erythema, slight swelling and pain over the dorsum of the left foot measuring approximately 2.5 cm in diameter. He endorses a worsening pain sensation and swelling since being diagnosed 4 days ago with cellulitis and being placed on Bactrim twice daily. He has been taking Bactrim at home as well as his hydrocodone. Denies any fevers, sweats, chills. Denies any cough or shortness of breath. Patient is otherwise healthy. History significant for diabetes, hypertension, and is a recovering alcoholic. Last drink approximately 2 months ago. He denies any trauma to the area. Denies any known bug or tick bites. Denies any history of cellulitis or osteomyelitis. - History of Current Complaint Chief Complaint: EDRashSkinAbscess Stated Complaint: POSS CELLULITIS Time Seen by Provider: 06/19/18 12:00 Hx Obtained From: Patient Onset of Pain: Days Onset/Duration: Days Severity Initially: Moderate Severity Currently: Moderate Pain Intensity: 7 Pain Scale Used: 0-10 Numeric Timing: Intermittent Location: Is Discrete @ - Left dorsal foot erythema and pain Character Of Pain: Aching Associated Signs And Symptoms: Positive: Redness Aggravating Factor(s): Standing, Ambulation Alleviating Factor(s): Rest Able to Bear Weight: No - Risk Factors Gout Risk Factors: Negative DVT Risk Factors: Negative Septic Arthritis Risk Factor: Negative - Allergies/Home Medications Allergies/Adverse Reactions: Allergies Allergy/AdvReac Type Severity Reaction Status Date / Time No Known Allergies Allergy Verified 06/19/18 11:42 Home Medications: Home Medications Rivaroxaban TAB(*) [Xarelto 10 mg (*)] 10 mg PO DAILY 06/19/18 [History Confirmed 06/19/18] PMH/Surg Hx/FS Hx/Imm Hx Previously Healthy: Yes Endocrine/Hematology History: Reports: Hx Anticoagulant Therapy - Xarelto, Hx Diabetes Denies: Hx Thyroid Disease Cardiovascular History: Reports: Hx Angina, Hx Deep Vein Thrombosis, Hx Hypercholesterolemia, Hx Hypertension, Other Cardiovascular Problems/Disorders - HLD Denies: Hx Congestive Heart Failure, Hx Myocardial Infarction, Hx Pacemaker/ ICD Respiratory History: Denies: Hx Asthma, Hx Chronic Obstructive Pulmonary Disease (COPD), Hx Lung Cancer, Hx Pneumonia, Hx Pulmonary Embolism GI History: Reports: Hx Gastroesophageal Reflux Disease, Other GI Disorders - congenital hernia Denies: Hx Gall Bladder Disease, Hx Gastrointestinal Bleed, Hx Ulcer, Hx Urosepsis History: Denies: Hx Dialysis, Hx Kidney Stones, Hx Renal Disease Musculoskeletal History: Reports: Hx Arthritis, Other Musculoskeletal History - occas joint pain. clyde horses Sensory History: Denies: Hx Contacts or Glasses Opthamlomology History: Denies: Hx Contacts or Glasses Neurological History: Reports: Hx Migraine Denies: Hx Dementia, Hx Seizures, Hx Transient Ischemic Attacks (TIA) Psychiatric History: Reports: Hx Depression, Hx Inpatient Treatment Denies: Hx Anxiety, Hx Schizophrenia, Hx Bipolar Disorder - Surgical History Surgery Procedure, Year, and Place: Hernia repair 1991 - Immunization History Date of Tetanus Vaccine: unknown Date of Influenza Vaccine: No Infectious Disease History: No Infectious Disease History: Denies: Hx Clostridium Difficile, Hx Hepatitis, Hx Human Immunodeficiency Virus (HIV), Hx of Known/Suspected MRSA, Traveled Outside the in Last 30 Days - Family History Known Family History: Positive: None, Other - Asthma Negative: Cardiac Disease Family History: R & N/C - Social History Occupation: Unemployed Lives: Alone Alcohol Use: None Alcohol Amount: "Recovering alcoholic" Hx Substance Use: No Substance Use Type: Reports: None Hx Tobacco Use: Yes Smoking Status (MU): Light Every Day Tobacco Smoker Type: Cigarettes Amount Used/How Often: 1 cigarette daily Length of Time of Smoking/Using Tobacco: 38 years Have You Smoked in the Last Year: Yes Review of Systems Constitutional: Negative Negative: Fever, Chills, Fatigue, Skin Diaphoresis Negative: Palpitations, Chest Pain Negative: Shortness Of Breath, Cough Negative: Abdominal Pain, Vomiting, Diarrhea, Nausea Positive: Arthralgia - dorsal foot pain, Myalgia Positive: Other - erythema Neurological: Negative All Other Systems Reviewed And Are Negative: Yes Physical Exam Triage Information Reviewed: Yes Vital Signs On Initial Exam: Initial Vitals Temp Pulse Resp BP Pulse Ox 97.2 F 87 16 129/81 97 06/19/18 11:37 06/19/18 11:37 06/19/18 11:37 06/19/18 11:37 06/19/18 11:37 Vital Signs Reviewed: Yes Appearance: Positive: No Pain Distress, Well-Nourished Skin: Positive: Warm, Skin Color Reflects Adequate Perfusion, Other - eryhtema - dark dusky painful area to the dorsum of the left foot - 2.5cm diameter Head/Face: Positive: Normal Head/Face Inspection Eyes: Positive: EOMI, ARTEMIO, Conjunctiva Clear Respiratory/Lung Sounds: Positive: Clear to Auscultation, Breath Sounds Present Cardiovascular: Positive: Normal, Pulses are Symmetrical in both Upper and Lower Extremities Diagnostics - Vital Signs Vital Signs Temp Pulse Resp BP Pulse Ox 06/19/18 13:07 74 103/69 94 06/19/18 13:00 80 95 06/19/18 12:38 78 125/82 96 06/19/18 12:37 78 96 06/19/18 11:37 97.2 F 87 16 129/81 97 - Laboratory Lab Results: Lab Results 06/19/18 06/19/18 Range/Units 12:48 12:48 WBC 5.3 (3.5-10.8) 10^3/ul RBC 4.54 (4.00-5.40) 10^6/ul Hgb 15.3 (14.0-18.0) g/dl Hct 44 (42-52) % MCV 97 H (80-94) fL MCH 34 H (27-31) pg MCHC 35 (31-36) g/dl RDW 13 (10.5-15) % Plt Count 258 (150-450) 10^3/ul MPV 8.3 (7.4-10.4) um3 Neut % (Auto) 52.1 (38-83) % Lymph % (Auto) 32.2 (25-47) % [place] % (Auto) 12.3 H (0-7) % Eos % (Auto) 1.8 (0-6) % Baso % (Auto) 1.6 (0-2) % Absolute Neuts (auto) 2.8 (1.5-7.7) 10^3/ul Absolute Lymphs (auto) 1.7 (1.0-4.8) 10^3/ul Absolute Monos (auto) 0.7 (0-0.8) 10^3/ul Absolute Eos (auto) 0.1 (0-0.6) 10^3/ul Absolute Basos (auto) 0.1 (0-0.2) 10^3/ul Absolute Nucleated RBC 0 10^3/ul Nucleated RBC % 0 Sodium 132 L (135-145) mmol/L Potassium 4.3 (3.5-5.0) mmol/L Chloride 104 (101-111) mmol/L Carbon Dioxide 19 L (22-32) mmol/L Anion Gap 9 (2-11) mmol/L BUN 11 (6-24) mg/dL Creatinine 0.70 (0.67-1.17) mg/dL Est GFR ( Amer) 145.0 (>60) Est GFR (Non-Af Amer) 119.9 (>60) BUN/Creatinine Ratio 15.7 (8-20) Glucose 249 H (70-100) mg/dL Calcium 9.1 (8.6-10.3) mg/dL Total Bilirubin 0.60 (0.2-1.0) mg/dL AST 11 L (13-39) U/L ALT 11 (7-52) U/L Alkaline Phosphatase 78 (34-104) U/L C-Reactive Protein 4.86 (<8.01) mg/L Total Protein 6.9 (6.4-8.9) g/dL Albumin 3.7 (3.2-5.2) g/dL Globulin 3.2 (2-4) g/dL Albumin/Globulin Ratio 1.2 (1-3) Result Diagrams: 06/19/18 12:48 06/19/18 12:48 Lab Statement: Any lab studies that have been ordered have been reviewed, and results considered in the medical decision making process. Lower Extremity Course/Dx - Course Course Of Treatment: During the course of treatment, the patient's evaluated for cellulitis of the dorsum of the left foot. There is a 2.5 cm diameter erythematous painful area which appears to be a cellulitis. There is no bull's- eye rash. He denies any history or concern for tick bites. He has been on Bactrim twice a day 4 days with worsening symptoms. He continues to deny any fevers, sweats, chills or other symptoms of systemic infections. He is given doxycycline 100 in the ED IV. Labs obtained which show no elevated white count and other labs WNL. He will be discharged home with doxycycline for possible coverage of a Lyme component. He will also be placed on Keflex 2 to broaden pathogen coverage. He has a follow-up in 2 days with his PCP for a recheck. No blood cultures obtained as patient has been on antibiotics for the past 4 days. I rechecked a foot x-ray which shows worsening soft tissue swelling with no evidence of an osteomyelitis or fracture. Patient is given 2 hydrocodone in the ED and I've given him 1 more day of a prescription for this. Vital signs are stable. - Diagnoses Differential Diagnosis/HQI/PQRI: Positive: Contusion, Fracture (Closed), Gout, Infection, Sprain, Strain, Other Provider Diagnoses: Cellulitis Discharge - Sign-Out/Discharge Documenting (check all that apply): Patient Departure - Discharge Plan Condition: Stable Disposition: HOME Prescriptions: Cephalexin CAP* [Keflex 500 CAP*] 500 mg PO TID #21 cap DOXYcycline CAP(*) [DOXYcycline 100MG CAP(*)] 100 mg PO BID #14 cap HYDROcodone/ACETAMIN 5-325 MG* [[place] 5-325 TAB*] 1 tab PO Q6H PRN #4 tab MDD 4 PRN Reason: Pain Referrals: Becky Skinner MD [Primary Care Provider] - Additional Instructions: Please follow up with Dr. Skinner on Tue. You will take doxycycline to cover for a possible lyme, although this does not represent a lyme rash You will also take Keflex 500mg three times daily x 7 days These cover differing pathogens, and both medications together will help your symptoms Ice Elevation Stay off the foot as much as possible This appears to be a cellulitis which is not responding to your current abx - Billing Disposition and Condition Condition: STABLE Disposition: Home
[2018-06-19 15:41] VITALS: BP 118/74
== END 2018-06-19 15:39 | disposition home or self-care (01) ==
LOC: ED 11:32
DX: L03.116 Cellulitis of left lower limb (principal); E11.9 Type 2 diabetes mellitus without complications; I10 Essential (primary) hypertension; F17.210 Nicotine dependence, cigarettes, uncomplicated
CPT/HCPCS: 36415; 80053; 85025; 86140; 96361; 96374; 99283

== ENCOUNTER 2018-07-28 21:30 | Emergency (ER) | payer OTHER ==
[2018-07-28] MEDS ORDERED: Morphine VIAL* 10 MG/ML 1 ML VIAL IV ONE (21:53)
[2018-07-28] MEDS ORDERED: Ondansetron INJ* 2 MG/ML VIAL IV ONE (21:53)
[2018-07-28] MEDS ORDERED: NS 0.9% 1000 ML* 1,000 ML IV ONE ×2 (21:53→22:34)
[2018-07-28 22:09] LABS: ABS Basophils 0.1 10^3/ul (0-0.2); ABS Eosinophils 0.1 10^3/ul (0-0.6); ABS Lymphocytes 2.1 10^3/ul (1.0-4.8); ABS Monocytes 0.6 10^3/ul (0-0.8); ABS Neutrophils 2.6 10^3/ul (1.5-7.7); ABS Nucleated RBC 0 10^3/ul; Eosinophil % 1.8 % (0-6); Hematocrit 47 % (42-52); Hemoglobin 16.1 g/dl (14.0-18.0); Lymphocyte % 38.4 % (25-47); Mean Corpuscular HGB Conc 34 g/dl (31-36); Mean Corpuscular Hemoglobin 34 pg (27-31); Mean Corpuscular Volume 97 fL (80-94); Nucleated Red Blood Cells % 0.1; Platelet Count 244 10^3/ul (150-450); Red Blood Count 4.83 10^6/ul (4.00-5.40); Red Cell Distribution Width 13 % (10.5-15); White Blood Count 5.6 10^3/ul (3.5-10.8)
[2018-07-28] MEDS ORDERED: Morphine VIAL* 4 MG/ML VIAL (1 ml vial) ONE (22:09)
[2018-07-28 22:26] LABS: EGFR Non-African American 69.7 (>60)
[2018-07-28 22:48] LABS: Urine Appearance Clear; Urine Blood Negative (Negative); Urine Color Straw; Urine Ketones Negative (Negative); Urine Protein Negative (Negative); Urine Red Blood Cell 1+(3-5/hpf) (Absent); Urine Urobilinogen Negative (Negative); Urine White Blood Cell Trace(0-5/hpf) (Absent)
[2018-07-28] MEDS ORDERED: Insulin REGULAR(*) 1 UNITS UNIT IV PUSH ONE (22:54)
[2018-07-28] MEDS ORDERED: Insulin REGULAR(*) 1 UNITS UNIT SUBCUT ONE (22:59)
--- NOTE | 2018-07-28 23:01 | ED ---
Abdominal Pain/Male - HPI Summary HPI Summary: Patient complains of sudden onset periumbilical abdominal pain around 8 PM. Abdomen bowel pain described as constant, 9/10, throbbing. Patient states he ate a turkey dinner at [employer] at 5:30 PM. Denies fever, N/V/D, cough, sore throat, CP, SOB, change in urine, change in BM, penis or testicle symptoms. Medical history is DM [id number]. Abdominal surgical history is none. - History of Current Complaint Chief Complaint: EDAbdPain Stated Complaint: ABD PAIN Time Seen by Provider: 07/28/18 21:45 Hx Obtained From: Patient Onset/Duration: Sudden Onset Timing: Constant Severity Initially: Severe Severity Currently: Severe Pain Intensity: 9 Pain Scale Used: 0-10 Numeric Location: Umbilical Radiates: No Character: Other: - Throbbing Aggravating Factor(s): Nothing Alleviating Factor(s): Nothing Associated Signs And Symptoms: Positive: Negative - Allergies/Home Medications Allergies/Adverse Reactions: Allergies Allergy/AdvReac Type Severity Reaction Status Date / Time No Known Allergies Allergy Verified 06/19/18 11:42 PMH/Surg Hx/FS Hx/Imm Hx Endocrine/Hematology History: Reports: Hx Anticoagulant Therapy - Xarelto, Hx Diabetes Denies: Hx Thyroid Disease Cardiovascular History: Reports: Hx Angina, Hx Deep Vein Thrombosis, Hx Hypercholesterolemia, Hx Hypertension, Other Cardiovascular Problems/Disorders - HLD Denies: Hx Congestive Heart Failure, Hx Myocardial Infarction, Hx Pacemaker/ ICD Respiratory History: Denies: Hx Asthma, Hx Chronic Obstructive Pulmonary Disease (COPD), Hx Lung Cancer, Hx Pneumonia, Hx Pulmonary Embolism GI History: Reports: Hx Gastroesophageal Reflux Disease, Other GI Disorders - congenital hernia Denies: Hx Gall Bladder Disease, Hx Gastrointestinal Bleed, Hx Ulcer, Hx Urosepsis History: Denies: Hx Dialysis, Hx Kidney Stones, Hx Renal Disease Musculoskeletal History: Reports: Hx Arthritis, Other Musculoskeletal History - occas joint pain. clyde horses Sensory History: Denies: Hx Contacts or Glasses Opthamlomology History: Denies: Hx Contacts or Glasses Neurological History: Reports: Hx Migraine Denies: Hx Dementia, Hx Seizures, Hx Transient Ischemic Attacks (TIA) Psychiatric History: Reports: Hx Depression, Hx Inpatient Treatment Denies: Hx Anxiety, Hx Schizophrenia, Hx Bipolar Disorder - Surgical History Surgery Procedure, Year, and Place: Hernia repair 1991 - Immunization History Date of Tetanus Vaccine: unknown Date of Influenza Vaccine: No Infectious Disease History: Unable to Obtain/Confirm Infectious Disease History: Denies: Hx Clostridium Difficile, Hx Hepatitis, Hx Human Immunodeficiency Virus (HIV), Hx of Known/Suspected MRSA, Traveled Outside the [place] in Last 30 Days - Family History Known Family History: Positive: None, Other - Asthma Negative: Cardiac Disease Family History: R & N/C - Social History Alcohol Use: None Alcohol Amount: "Recovering alcoholic" Hx Substance Use: No Substance Use Type: Reports: None Hx Tobacco Use: Yes Smoking Status (MU): Light Every Day Tobacco Smoker Type: Cigarettes Amount Used/How Often: 1 cigarette daily Length of Time of Smoking/Using Tobacco: 38 years Have You Smoked in the Last Year: Yes Review of Systems Constitutional: Negative Eyes: Negative ENT: Negative Cardiovascular: Negative Respiratory: Negative Positive: Abdominal Pain Genitourinary: Negative Musculoskeletal: Negative Skin: Negative Neurological: Negative Psychological: Normal All Other Systems Reviewed And Are Negative: Yes Physical Exam - Summary Physical Exam Summary: Patient tender to palpation diffusely, worse in left lower quadrant. Triage Information Reviewed: Yes Vital Signs On Initial Exam: Initial Vitals Temp Pulse Resp BP Pulse Ox 97.5 F 92 18 159/93 99 07/28/18 21:32 07/28/18 21:32 07/28/18 21:32 07/28/18 21:32 07/28/18 21:32 Vital Signs Reviewed: Yes Appearance: Positive: Well-Appearing Skin: Positive: Warm Head/Face: Positive: Normal Head/Face Inspection Eyes: Positive: Normal Neck: Positive: Supple Respiratory/Lung Sounds: Positive: Clear to Auscultation Cardiovascular: Positive: Normal Abdomen Description: Positive: Other: Musculoskeletal: Positive: Normal Neurological: Positive: Normal Psychiatric: Positive: Normal AVPU Assessment: Alert - [place] Coma Scale Best Eye Response: 4 - Spontaneous Best Motor Response: 6 - Obeys Commands Best Verbal Response: 5 - Oriented Coma Scale Total: 15 Diagnostics - Vital Signs Vital Signs Temp Pulse Resp BP Pulse Ox 07/28/18 22:12 18 07/28/18 21:32 97.5 F 92 18 159/93 99 - Laboratory Lab Results: Lab Results 07/28/18 07/28/18 07/28/18 Range/Units 22:01 22:01 22:06 WBC 5.6 (3.5-10.8) 10^3/ul RBC 4.83 (4.00-5.40) 10^6/ul Hgb 16.1 (14.0-18.0) g/dl Hct 47 (42-52) % MCV 97 H (80-94) fL MCH 34 H (27-31) pg MCHC 34 (31-36) g/dl RDW 13 (10.5-15) % Plt Count 244 (150-450) 10^3/ul MPV 9.0 (7.4-10.4) fL Neut % (Auto) 46.8 (38-83) % Lymph % (Auto) 38.4 (25-47) % [place] % (Auto) 11.3 H (0-7) % Eos % (Auto) 1.8 (0-6) % Baso % (Auto) 1.7 (0-2) % Absolute Neuts (auto) 2.6 (1.5-7.7) 10^3/ul Absolute Lymphs (auto) 2.1 (1.0-4.8) 10^3/ul Absolute Monos (auto) 0.6 (0-0.8) 10^3/ul Absolute Eos (auto) 0.1 (0-0.6) 10^3/ul Absolute Basos (auto) 0.1 (0-0.2) 10^3/ul Absolute Nucleated RBC 0 10^3/ul Nucleated RBC % 0.1 VBG pH (7.33-7.43) VBG pCO2 (41-51) mmHg VBG pO2 (35-45) mmHg VBG HCO3 (24-28) mmol/L VBG O2 Saturation (70-80) % VBG Base Excess (0-4) Sodium 133 L (135-145) mmol/L Potassium 4.5 (3.5-5.0) mmol/L Chloride 98 L (101-111) mmol/L Carbon Dioxide 24 (22-32) mmol/L Anion Gap 11 (2-11) mmol/L BUN 17 (6-24) mg/dL Creatinine 1.12 (0.67-1.17) mg/dL Est GFR ( Amer) 84.3 (>60) Est GFR (Non-Af Amer) 69.7 (>60) BUN/Creatinine Ratio 15.2 (8-20) Glucose 593 H* (70-100) mg/dL Calcium 9.8 (8.6-10.3) mg/dL Total Bilirubin 0.40 (0.2-1.0) mg/dL AST 11 L (13-39) U/L ALT 14 (7-52) U/L Alkaline Phosphatase 92 (34-104) U/L C-Reactive Protein 3.37 (<8.01) mg/L Total Protein 7.2 (6.4-8.9) g/dL Albumin 3.9 (3.2-5.2) g/dL Globulin 3.3 (2-4) g/dL Albumin/Globulin Ratio 1.2 (1-3) Lipase 75 (11.0-82.0) U/L Urine Color Straw Urine Appearance Clear Urine pH 7.0 (5-9) Ur Specific [place] 1.030 (1.010-1.030) Urine Protein Negative (Negative) Urine Ketones Negative (Negative) Urine Blood Negative (Negative) Urine Nitrate Negative (Negative) Urine Bilirubin Negative (Negative) Urine Urobilinogen Negative (Negative) Ur Leukocyte Esterase Trace A (Negative) Urine WBC (Auto) Trace(0-5/hpf) (Absent) Urine RBC (Auto) 1+(3-5/hpf) A (Absent) Ur Squamous Epith Cells Present A (Absent) Urine Bacteria Absent (Absent) Urine Glucose 3+(>=500 mg/dl) A (Negative) 11/16/18 Range/Units 22:34 WBC (3.5-10.8) 10^3/ul RBC (4.00-5.40) 10^6/ul Hgb (14.0-18.0) g/dl Hct (42-52) % MCV (80-94) fL MCH (27-31) pg MCHC (31-36) g/dl RDW (10.5-15) % Plt Count (150-450) 10^3/ul MPV (7.4-10.4) fL Neut % (Auto) (38-83) % Lymph % (Auto) (25-47) % [place] % (Auto) (0-7) % Eos % (Auto) (0-6) % Baso % (Auto) (0-2) % Absolute Neuts (auto) (1.5-7.7) 10^3/ul Absolute Lymphs (auto) (1.0-4.8) 10^3/ul Absolute Monos (auto) (0-0.8) 10^3/ul Absolute Eos (auto) (0-0.6) 10^3/ul Absolute Basos (auto) (0-0.2) 10^3/ul Absolute Nucleated RBC 10^3/ul Nucleated RBC % VBG pH 7.40 (7.33-7.43) VBG pCO2 38 L (41-51) mmHg VBG pO2 40 (35-45) mmHg VBG HCO3 23.5 L (24-28) mmol/L VBG O2 Saturation 80.3 H (70-80) % VBG Base Excess -1.0 L (0-4) Sodium (135-145) mmol/L Potassium (3.5-5.0) mmol/L Chloride (101-111) mmol/L Carbon Dioxide (22-32) mmol/L Anion Gap (2-11) mmol/L BUN (6-24) mg/dL Creatinine (0.67-1.17) mg/dL Est GFR ( Amer) (>60) Est GFR (Non-Af Amer) (>60) BUN/Creatinine Ratio (8-20) Glucose (70-100) mg/dL Calcium (8.6-10.3) mg/dL Total Bilirubin (0.2-1.0) mg/dL AST (13-39) U/L ALT (7-52) U/L Alkaline Phosphatase (34-104) U/L C-Reactive Protein (<8.01) mg/L Total Protein (6.4-8.9) g/dL Albumin (3.2-5.2) g/dL Globulin (2-4) g/dL Albumin/Globulin Ratio (1-3) Lipase (11.0-82.0) U/L Urine Color Urine Appearance Urine pH (5-9) Ur Specific [place] (1.010-1.030) Urine Protein (Negative) Urine Ketones (Negative) Urine Blood (Negative) Urine Nitrate (Negative) Urine Bilirubin (Negative) Urine Urobilinogen (Negative) Ur Leukocyte Esterase (Negative) Urine WBC (Auto) (Absent) Urine RBC (Auto) (Absent) Ur Squamous Epith Cells (Absent) Urine Bacteria (Absent) Urine Glucose (Negative) Result Diagrams: 07/28/18 22:01 07/28/18 22:01 Lab Statement: Any lab studies that have been ordered have been reviewed, and results considered in the medical decision making process. Abdominal Pain Fem Course/Dx - Course Course Of Treatment: Patient complains of sudden onset periumbilical abdominal pain around 8 PM. Abdomen bowel pain described as constant, 9/10, throbbing. Patient states he ate a turkey dinner at [employer] at 5:30 PM. Denies fever, N/V/D , cough, sore throat, CP, SOB, change in urine, change in BM, penis or testicle symptoms. Medical history is DM [id number]. Abdominal surgical history is none. Physical exam:Patient tender to palpation diffusely, worse in left lower quadrant. Vital signs within normal limits. Hyperglycemic at 593, labs otherwise unremarkable. VBG pH 7.4. Lactic 3.2. No indication of DKA. 2 L normal saline and 10 units regular insulin SQ. CT abdomen pelvis with contrast negative for acute process. No evidence of N/V or diarrhea while here in the ED. patient glucose 457 upon discharge. Should continue to decrease from 10 units regular insulin subcutaneous. - Diagnoses Provider Diagnoses: Abdominal pain, Hyperglycemia due to type 2 diabetes mellitus Discharge - Sign-Out/Discharge Documenting (check all that apply): Patient Departure - Discharge Plan Condition: Stable Disposition: HOME Prescriptions: HYDROcodone/ACETAMIN 5-325 MG* [[place] 5-325 TAB*] 1 tab PO TID 2 Days #6 tab MDD 3 tabs Patient Education Materials: Acute Abdominal Pain (ED), Diabetic Hyperglycemia (ED) Referrals: Becky Skinner MD [Primary Care Provider] - Additional Instructions: Follow-up with primary care. Return to the ED for any new or worsening symptoms - Billing Disposition and Condition Condition: STABLE Disposition: Home
[2018-07-28] MEDS ORDERED: LORazepam INJ* 2 MG/ML 1 ML VIAL IV ONE (23:21)
[2018-07-28] MEDS ORDERED: Iodixanol 320 (CONTRAST) 100 ML SDV IV ONE (23:51)
[2018-07-29 02:25] VITALS: BP 140/94
== END 2018-07-29 02:30 | disposition home or self-care (01) ==
LOC: ED 21:30
DX: E11.65 Type 2 diabetes mellitus with hyperglycemia (principal); R10.9 Unspecified abdominal pain; F17.210 Nicotine dependence, cigarettes, uncomplicated
CPT/HCPCS: 36415; 74177; 80053; 81003; 81015; 82803; 82947; 83605; 83690; 85025; 86140; 87077; 87086; 99284; J2060; J2270; J2405; Q9967

== ENCOUNTER 2018-09-10 18:04 | Inpatient (IN) | payer OTHER ==
[2018-09-10] MEDS ORDERED: NS 0.9% 1000 ML* 1,000 ML IV ONE ×2 (18:44→19:54)
[2018-09-10] MEDS ORDERED: Ondansetron INJ* 2 MG/ML VIAL IV ONE ×2 (18:50→21:45)
--- NOTE | 2018-09-10 19:14 | ED ---
Complex/Multi-Sys Presentation - HPI Summary HPI Summary: A 48 y/o male brought in by [facility] ambulance presents to [facility] with a chief complaint of sore throat since 09/08/18. He rates his pain as a 9/10. He reports SOB and a throbbing WETZEL. He denies fevers, myalgia, coughing or abd pain. He has a Hx of DM and has had DKA 1 year AIRSET CASTER with similar symptoms. He claims he is a recovering alcoholic with his last drink being in June 2018. His glucose at home was reportedly 344. He notes that he did get his flu shot. - History Of Current Complaint Chief Complaint: EDGeneral Time Seen by Provider: 09/10/18 18:11 Hx Obtained From: Patient, EMS Onset/Duration: Sudden Onset, Lasting Days, Still Present Timing: Constant Severity Currently: Severe Severity Initially: Severe Location: Pain At: - sore throat, headache Character: Throbbing Associated Signs And Symptoms: Positive: SOB. Negative: Cough, Abdominal Pain, Fever, Other - myalgia - Allergies/Home Medications Allergies/Adverse Reactions: Allergies Allergy/AdvReac Type Severity Reaction Status Date / Time No Known Allergies Allergy Verified 06/19/18 11:42 Home Medications: Home Medications Insulin Glargine,Hum.rec.anlog [Basaglar Kwikpen U-100] 250 unit SQ BEDTIME [History Confirmed 09/10/18] Sertraline* [Zoloft*] 50 mg PO DAILY 09/10/18 [History Confirmed 09/10/18] PMH/Surg Hx/FS Hx/Imm Hx Endocrine/Hematology History: Reports: Hx Anticoagulant Therapy - Xarelto, Hx Diabetes Denies: Hx Thyroid Disease Cardiovascular History: Reports: Hx Angina, Hx Deep Vein Thrombosis, Hx Hypercholesterolemia, Hx Hypertension, Other Cardiovascular Problems/Disorders - HLD Denies: Hx Congestive Heart Failure, Hx Myocardial Infarction, Hx Pacemaker/ ICD Respiratory History: Denies: Hx Asthma, Hx Chronic Obstructive Pulmonary Disease (COPD), Hx Lung Cancer, Hx Pneumonia, Hx Pulmonary Embolism GI History: Reports: Hx Gastroesophageal Reflux Disease, Other GI Disorders - congenital hernia Denies: Hx Gall Bladder Disease, Hx Gastrointestinal Bleed, Hx Ulcer, Hx Urosepsis History: Denies: Hx Dialysis, Hx Kidney Stones, Hx Renal Disease Musculoskeletal History: Reports: Hx Arthritis, Other Musculoskeletal History - occas joint pain. clyde horses Sensory History: Denies: Hx Contacts or Glasses Opthamlomology History: Denies: Hx Contacts or Glasses Neurological History: Reports: Hx Migraine Denies: Hx Dementia, Hx Seizures, Hx Transient Ischemic Attacks (TIA) Psychiatric History: Reports: Hx Depression, Hx Inpatient Treatment Denies: Hx Anxiety, Hx Schizophrenia, Hx Bipolar Disorder - Surgical History Surgery Procedure, Year, and Place: Hernia repair 1991 - Immunization History Date of Tetanus Vaccine: unknown Date of Influenza Vaccine: No Infectious Disease History: No Infectious Disease History: Denies: Hx Clostridium Difficile, Hx Hepatitis, Hx Human Immunodeficiency Virus (HIV), Hx of Known/Suspected MRSA, Traveled Outside the [place] in Last 30 Days - Family History Known Family History: Positive: Other - Asthma Negative: Cardiac Disease Family History: R & N/C - Social History Alcohol Use: None Alcohol Amount: "Recovering alcoholic" Hx Substance Use: No Substance Use Type: Reports: None Hx Tobacco Use: Yes Smoking Status (MU): Light Every Day Tobacco Smoker Type: Cigarettes Amount Used/How Often: 1 cigarette daily Length of Time of Smoking/Using Tobacco: 38 years Have You Smoked in the Last Year: Yes Review of Systems Negative: Fever Positive: Sore Throat Negative: Cough Negative: Abdominal Pain Negative: Myalgia Positive: Headache All Other Systems Reviewed And Are Negative: Yes Physical Exam - Summary Physical Exam Summary: GENERAL: Patient is a well-developed and nourished M who is lying comfortable in the stretcher. Patient is not in any acute respiratory distress. HEAD AND FACE: Normocephalic EYES: PERRLA, EOMI x 2. EARS: Hearing grossly intact. MOUTH: Dry mucous membranes. NECK: Supple, trachea is midline, no adenopathy, no JVD, no carotid bruit. CHEST: Symmetric, no tenderness at palpation LUNGS: Clear to auscultation bilaterally. No wheezing or crackles. CVS: Regular rate and rhythm, S1 and S2 present, no murmurs or gallops appreciated. ABDOMEN: Soft, non-tender. Bowel sounds are normal. No abdominal abnormal pulsations. EXTREMITIES: Full ROM in all major joints, no edema, no cyanosis or clubbing. NEURO: Alert and oriented x 3. No acute neurological deficits. Speech is normal and follows commands. SKIN: Dry and warm Triage Information Reviewed: Yes Vital Signs On Initial Exam: Initial Vitals Temp Pulse Resp BP Pulse Ox 98.5 F 104 25 133/90 99 09/10/18 18:10 09/10/18 18:10 09/10/18 18:10 09/10/18 18:10 09/10/18 18:10 Vital Signs Reviewed: Yes Diagnostics - Vital Signs Vital Signs Temp Pulse Resp BP Pulse Ox 09/10/18 18:13 98 21 98 09/10/18 18:10 98.5 F 104 25 133/90 99 - Laboratory Lab Results: Lab Results 09/10/18 Range/Units 18:23 POC Glucose (mg/dL) 274 H (70-100) mg/dL Result Diagrams: 09/10/18 19:05 09/10/18 19:05 Lab Statement: Any lab studies that have been ordered have been reviewed, and results considered in the medical decision making process. - Radiology CXR Radiology Interpretation Completed By: ED Physician Summary of Radiographic Findings: No evidence for PNA. Pending official radiology report. Re-Evaluation - Re-Evaluation First Eval Re-Evaluation Time: 20:00 Change: Unchanged Comment: Discussed plan with patient. Complex Multi-Symp Course/Dx Course Of Treatment: A 48 y/o male brought in by [facility] ambulance presents to [facility] with a chief complaint of sore throat since 09/08/18. He rates his pain as a 9/10. He reports SOB and a throbbing WETZEL. He denies fevers, myalgia, coughing or abd pain. He has a Hx of DM and has had DKA 1 year AIRSET CASTER with similar symptoms. He claims he is a recovering alcoholic with his last drink being in June 2018. His glucose at home was reportedly 344. He notes that he did get his flu shot. Workup is remarkable. The physical exam revealed dry mucous membranes. In the ED course the patient was given Zofran and Sodium Chloride IV. Lab results obtained. Group A strep positive. Carbon Dioxide low at 8. VGB pH 7.18. CXR showed no evidence for PNA. Dx: DKA, strep throat. The patient will be admitted. Case discussed with hospitalist. I discussed results with patient. The patient agrees with this plan. - Diagnoses Provider Diagnoses: DKA (diabetic ketoacidoses), Strep throat - Physician Notifications Discussed Care Of Patient With: Deborah Langford Time Discussed With Above Provider: 20:55 Instructed by Provider To: Admit As Inpatient - Critical Care Time Critical Care Time: 30-74 min Discharge - Sign-Out/Discharge Documenting (check all that apply): Patient Departure - admit - Discharge Plan Condition: Stable Disposition: ADMITTED TO [facility] Referrals: Becky Skinner MD [Primary Care Provider] - - Billing Disposition and Condition Condition: STABLE Disposition: Admitted to [facility] - Attestation Statements Document Initiated by Alpeshibe: Yes Documenting Scribe: Rakan Watts Provider For Whom Romulo is Documenting (Include Credential): Celine Mars MD Scribe Attestation: Rakan Harrison, scribed for Celine Mars MD on 09/10/18 at 2119. Scribe Documentation Reviewed: Yes Provider Attestation: The documentation as recorded by the Rakan pollock accurately reflects the service I personally performed and the decisions made by me, Shaun Mars MD Status of Scribe Document: Viewed
[2018-09-10 19:23] LABS: ABS Basophils 0.1 10^3/ul (0-0.2); ABS Eosinophils 0 10^3/ul (0-0.6); ABS Lymphocytes 1.3 10^3/ul (1.0-4.8); ABS Neutrophils 7.7 10^3/ul (1.5-7.7); ABS Nucleated RBC 0 10^3/ul; Eosinophil % 0.2 %; Hematocrit 53 % (42-52); Hemoglobin 18.1 g/dl (14.0-18.0); Lymphocyte % 13.2 %; Mean Corpuscular HGB Conc 34 g/dl (31-36); Mean Corpuscular Hemoglobin 33 pg (27-31); Mean Corpuscular Volume 97 fL (80-94); Mean Platelet Volume 8.5 fL (7.4-10.4); Nucleated Red Blood Cells % 0.1; Platelet Count 310 10^3/ul (150-450); Red Blood Count 5.46 10^6/ul (4.00-5.40); Red Cell Distribution Width 13 % (10.5-15); White Blood Count 10.2 10^3/ul (3.5-10.8)
[2018-09-10 19:35] LABS: Activated Partial Thrombo Time 31.3 seconds (26.0-36.3); INR 0.94 (0.77-1.02)
[2018-09-10 19:46] LABS: Albumin 4.3 g/dL (3.2-5.2); C Reactive Protein 22.68 mg/L (<8.01); Calcium 10.2 mg/dL (8.6-10.3); EGFR Non-African American 79.4 (>60); Globulin 4.2 g/dL (2-4); Total Bilirubin 0.4 mg/dL (0.2-1.0); Total Protein 8.5 g/dL (6.4-8.9)
[2018-09-10 19:49] LABS: Potassium 5.3 mmol/L (3.5-5.0)
[2018-09-10] MEDS ORDERED: Insulin IVPB 100 units/100 ml 100 UNITS/100 ML UNIT IVPB SCH (20:00)
[2018-09-10] MEDS ORDERED: Amoxicillin/Clavulanate TAB* 875 MG PO ONE (20:03)
[2018-09-10] MEDS ORDERED: Acetaminophen TAB* 325 MG PO ONE (20:56)
[2018-09-10 21:19] LABS: Urine Appearance Clear; Urine Bacteria Absent (Absent); Urine Bilirubin Negative (Negative); Urine Blood Negative (Negative); Urine Color Straw; Urine Glucose 3+(>=500 mg/dL) (Negative); Urine Ketones 2+ (Negative); Urine Nitrite Negative (Negative); Urine Protein 1+(30 mg/dL) (Negative); Urine Red Blood Cell Trace(0-2/hpf) (Absent); Urine Specific Gravity 1.016 (1.010-1.030); Urine Urobilinogen Negative (Negative); Urine White Blood Cell Trace(0-5/hpf) (Absent)
[2018-09-10] MEDS ORDERED: Ondansetron INJ* 2 MG/ML VIAL ONE (21:46)
[2018-09-10] MEDS ORDERED: D5W 1/2 NS 1000 ML BAG* 1,000 ML IV SCH ×2 (22:00→23:45)
[2018-09-10] MEDS ORDERED: Morphine VIAL* 4 MG/ML VIAL (1 ml vial) IV PRN (22:11)
[2018-09-10] MEDS ORDERED: Acetaminophen TAB* 325 MG PO PRN (22:11)
[2018-09-10] MEDS ORDERED: Ondansetron INJ* 2 MG/ML VIAL IV PRN (22:11)
[2018-09-10] MEDS ORDERED: NS 0.9% 1000 ML* 1,000 ML IV SCH ×2 (22:15→22:19)
[2018-09-10] MEDS ORDERED: Al Hydrox/Mg Hydrox/Simet LIQ* 30 ML UDC PO PRN (23:34)
[2018-09-10 23:49] LABS: Chloride 105 mmol/L (101-111); Sodium 131 mmol/L (135-145)
[2018-09-10 23:55] LABS: BUN/Creatinine Ratio 10.2 (8-20); Blood Urea Nitrogen 9 mg/dL (6-24); Glucose 259 mg/dL (70-100)
[2018-09-10] MEDS ORDERED: Al Hydrox/Mg Hydrox/Simet LIQ* 30 ML UDC ONE (23:55)
[2018-09-11] LABS: CO2 Carbon Dioxide < 7 mmol/L (22-32)
[2018-09-11] MEDS: Clindamycin 600 MG IVPREMIX(* 600 MG/50 ML SDV IV SCH ×2 (00:05→07:23)
--- NOTE | 2018-09-11 00:36 | HP ---
CC: Becky Skinner MD* HISTORY AND PHYSICAL: DATE OF ADMISSION: 09/10/18 PRIMARY CARE PROVIDER: Becky Skinner MD. CHIEF COMPLAINT: Feeling unwell, nausea, sore throat. HISTORY OF PRESENT ILLNESS: Freedom Rubio is a 48-year-old male with history of insulin-dependent diabetes, who presented to the hospital complaining of feeling unwell, muscle aches, and sore throat for the past 4 days. He has not had any cough. He is unaware of fevers. He also has no sick contacts since he lives alone. His rapid strep test was positive for Streptococcus pharyngitis. He also was noted to be in DKA. He is going to be admitted to the intensive care unit. PAST MEDICAL HISTORY: 1. Hypertension. 2. Hyperlipidemia. 3. Diabetes. 4. History of recurrent DVT, on lifelong Xarelto. 5. Status post hernia repair remotely. 6. History of insulin-dependent diabetes with DKA admissions in the past. MEDICATIONS: Patient's medications at home include: 1. Insulin Lantus pen, total of 250 units daily, which is 2-1/2 whole pens a day. Last time he used it was on . 2. Lipitor 80 mg daily. 3. Alogliptin/metformin 12.01/1000, one tablet b.i.d. 4. Zoloft 50 mg daily. 5. Hague-3 fatty acids 2 capsules b.i.d. 6. Lisinopril 10 mg daily. 7. Xarelto 10 mg daily. ALLERGIES: No known drug allergies. FAMILY HISTORY: Positive for mother with asthma. Father is unknown. SOCIAL HISTORY: The patient has history of smoking 4 cigarettes a day, but he quit 2 weeks ago. He denies any alcohol or drug use. He is currently applying for disability and not working. He has 2 children who are adult, living in the area, and one 10-year-old daughter who lives closer to [facility]. He wishes not to name a surrogate. REVIEW OF SYSTEMS: Positive for diffuse muscle aches and pain with swallowing and sore throat. Positive for nausea and patient started vomiting in the emergency department. Negative for abdominal pain. The patient was unable to tell me why he stopped using his insulin 5 days ago. The patient was not aware of having any fevers. All the remaining 12 systems were reviewed with the patient and were otherwise negative. PHYSICAL EXAMINATION GENERAL: The patient is a very pleasant 48-year-old male who is in no acute distress. Alert, awake and oriented x3. VITAL SIGNS: Blood pressure of 133/90, heart rate of 104 and regular, respiratory rate 25, oxygen saturation 99% on room air, temperature 98.5. HEENT: Head: Atraumatic, normocephalic. Eyes: Pupils are equal and reactive to light and accommodation. Oropharynx with erythema and small tonsillar exudates bilaterally. Mucosa moist. NECK: Supple. No JVD. No bruits bilaterally. RESPIRATORY: Clear to auscultation bilaterally. CARDIOVASCULAR: Regular rate and rhythm. No murmur. ABDOMEN: Soft, nontender. Bowel sounds present in all 4 quadrants. EXTREMITIES: There is no edema. Pulses are +2 bilaterally. No clubbing or cyanosis. SKIN: On evaluation of the skin, no ecchymotic areas or rashes noted. NEURO EVALUATION: Speech is clear. Cranial nerves II through XII are grossly intact. Motor strength is 5/5 bilaterally. PSYCHIATRIC EVALUATION: Oriented x3, with no evidence of anxiety or depression. DIAGNOSTIC STUDIES/LAB DATA: Sodium of 129, potassium 4.3, chloride 101, carbon dioxide 8, anion gap of 20, BUN 9, creatinine of 1.0, lactic acid of 1.4 , glucose level 278, calcium of 10.2. Total bilirubin of 0.4, AST of 10, ALT of 12, alkaline phosphatase of 109, C-reactive protein of 22.6. The patient's ABG showed pH of 7.1, pCO2 of 23, pO2 below 38, bicarb of 9.2, oxygen saturation 34. I suspect this was a venous gas. Portable chest x-ray, read by myself since the official radiologist's report is not available at this point, shows normal cardiac silhouette and no evidence of pulmonary infiltrate. The patient's rapid strep test is positive for group strep A. ASSESSMENT AND PLAN: 1. The patient is in diabetic ketoacidosis, but his glucose is relatively low, in the 200 range. At this point, the patient was already started on D5 infusion as well as insulin drip, which is going to be continued in the ICU. The patient is unable to tell me why he stopped taking his insulin 5 days ago. He stated that he does have insulin at home. I will obtain his hemoglobin A1c. The most recent hemoglobin A1c in April of this year was 13. 2. The patient is septic due to strep group A pharyngitis. Due to now poor p.o. intake and vomiting, the patient is going to be placed on clindamycin IV. 3. His hyponatremia is likely due to combination of pseudohyponatremia due to hyperglycemia as well as dehydration. That will likely normalize in the morning. 4. In regards to further treatment of his diabetes, the patient's insulin Lantus as well as oral agents are going to be held while he is treated for diabetic ketoacidosis with insulin drip. I will also hold the patient's lisinopril for the time being. 5. For his depression, Zoloft is going to be continued. 6. For his DVT history, Xarelto is going to be continued for DVT prophylaxis. 7. The patient's code status is full and his surrogate the patient was unable to name at this point. TIME SPENT: Approximately 65 minutes were spent on admission of this patient, more than half of that time was spent on [id number] with the patient, doing the interview and physical exam. [id number]/[facility] #: [id number]
[2018-09-11] MEDS ORDERED: Magnesium Sulfate 2 GM IV* 2 GM/50 ML BAG IVPB ONE (01:00)
[2018-09-11] MEDS ORDERED: NS 0.9% 1000 ML* 1,000 ML IV ONE (01:19)
[2018-09-11 02:17] LABS: Potassium 4.3 mmol/L (3.5-5.0)
[2018-09-11] MEDS ORDERED: Heparin VIAL(*) 5000 UNITS/ML VIAL (FIVE THOUSAND) SUBCUT SCH (06:00)
[2018-09-11 06:35] LABS: ABS Basophils 0.1 10^3/ul (0-0.2); ABS Eosinophils 0 10^3/ul (0-0.6); ABS Monocytes 1.2 10^3/ul (0-0.8); ABS Neutrophils 7.3 10^3/ul (1.5-7.7); ABS Nucleated RBC 0 10^3/ul; Eosinophil % 0.1 %; Hematocrit 46 % (42-52); Lymphocyte % 18.5 %; Mean Corpuscular HGB Conc 35 g/dl (31-36); Mean Corpuscular Hemoglobin 33 pg (27-31); Mean Corpuscular Volume 96 fL (80-94); Mean Platelet Volume 8.1 fL (7.4-10.4); Nucleated Red Blood Cells % 0; Platelet Count 302 10^3/ul (150-450); Red Cell Distribution Width 13 % (10.5-15); White Blood Count 10.6 10^3/ul (3.5-10.8)
[2018-09-11 06:51] LABS: BUN/Creatinine Ratio 10.3 (8-20); Calcium 9.4 mg/dL (8.6-10.3); EGFR Non-African American 105.8 (>60); Magnesium 1.6 mg/dL (1.9-2.7); Potassium 3.9 mmol/L (3.5-5.0)
[2018-09-11] MEDS: Sertraline* 50 MG TAB PO SCH (08:50)
[2018-09-11] MEDS: Rivaroxaban TAB(*) 10 MG PO SCH (08:51)
[2018-09-11] MEDS ORDERED: Penicillin G Benzathine 1.2MU* 1,200,000 UNITS/2 ML SYR IM ONE (09:00)
--- NOTE | 2018-09-11 10:35 | PN ---
Date of Service: 09/11/18 Critical Care Services: 48M with htn, hld, dm, recurrent dvt on xarelto presents with DKA. 09/11: AG closed but bicarb 12. patient is hungry. Vital Signs: Temp Pulse Resp BP SpO2 FiO2 99.3 F 87 18 114/61 94 09/11/18 08:00 09/11/18 10:01 09/11/18 10:01 09/11/18 10:00 09/11/18 10:01 Physical Exam: Gen - nad, poor hygiene heent - ncat, eomi neck - no jvd, cv - s1/s2, no murmur lungs - cta, no wheeze abd - soft, nt ext - no cce neuro - non-focal Fluid Balance (Past 24 Hours): I= O= Net Intake & Output 09/09/18 09/10/18 09/11/18 09/12/18 06:59 06:59 06:59 06:59 Intake Total 4026.2 Output Total 1000 Balance 3026.2 Weight 95.9 kg Intake: IV Fluids 3944 D5W 1/2 NS 488 NS (0.9%) 1456 IVPB 50 ABX - CLINDAMYCIN 50 Medicated IV 32.2 CC - Insulin 32.2 Output: Urine 1000 Labs: Laboratory Results - last 24 hr 09/10/18 09/10/18 09/10/18 18:23 19:05 19:05 WBC 10.2 RBC 5.46 H Hgb 18.1 H Hct 53 H MCV 97 H MCH 33 H MCHC 34 RDW 13 Plt Count 310 MPV 8.5 Neut % (Auto) 75.8 Lymph % (Auto) 13.2 Steele % (Auto) 10.2 Eos % (Auto) 0.2 Baso % (Auto) 0.6 Absolute Neuts (auto) 7.7 Absolute Lymphs (auto) 1.3 Absolute Monos (auto) 1.0 H Absolute Eos (auto) 0 Absolute Basos (auto) 0.1 Absolute Nucleated RBC 0 Nucleated RBC % 0.1 INR (Anticoag Therapy) 0.94 APTT 31.3 VBG pH VBG pCO2 VBG pO2 VBG HCO3 VBG O2 Saturation VBG Base Excess Sodium Potassium Chloride Carbon Dioxide Anion Gap BUN Creatinine Est GFR ( Amer) Est GFR (Non-Af Amer) BUN/Creatinine Ratio Glucose POC Glucose (mg/dL) 274 H Lactic Acid Calcium Magnesium Total Bilirubin AST ALT Alkaline Phosphatase Troponin I C-Reactive Protein Total Protein Albumin Globulin Albumin/Globulin Ratio Urine Color Urine Appearance Urine pH Ur Specific [place] Urine Protein Urine Ketones Urine Blood Urine Nitrate Urine Bilirubin Urine Urobilinogen Ur Leukocyte Esterase Urine WBC (Auto) Urine RBC (Auto) Urine Bacteria Hyaline Casts Urine Glucose Influenza A (Rapid) Influenza B (Rapid) Group A Strep Rapid 09/10/18 09/10/18 09/10/18 19:05 19:05 19:10 WBC RBC Hgb Hct MCV MCH MCHC RDW Plt Count MPV Neut % (Auto) Lymph % (Auto) [place] % (Auto) Eos % (Auto) Baso % (Auto) Absolute Neuts (auto) Absolute Lymphs (auto) Absolute Monos (auto) Absolute Eos (auto) Absolute Basos (auto) Absolute Nucleated RBC Nucleated RBC % INR (Anticoag Therapy) APTT VBG pH VBG pCO2 23 L VBG pO2 VBG HCO3 9.2 L VBG O2 Saturation 34.1 L VBG Base Excess -18.0 L Sodium 129 L Potassium 5.3 H Chloride 101 Carbon Dioxide 8 L* Anion Gap 20 H BUN 9 Creatinine 1.00 Est GFR ( Amer) 96.1 Est GFR (Non-Af Amer) 79.4 BUN/Creatinine Ratio 9.0 Glucose 278 H POC Glucose (mg/dL) Lactic Acid 1.4 Calcium 10.2 Magnesium Total Bilirubin 0.40 AST 10 L ALT 12 Alkaline Phosphatase 109 H Troponin I 0.01 C-Reactive Protein 22.68 H Total Protein 8.5 Albumin 4.3 Globulin 4.2 H Albumin/Globulin Ratio 1.0 Urine Color Urine Appearance Urine pH Ur Specific [place] Urine Protein Urine Ketones Urine Blood Urine Nitrate Urine Bilirubin Urine Urobilinogen Ur Leukocyte Esterase Urine WBC (Auto) Urine RBC (Auto) Urine Bacteria Hyaline Casts Urine Glucose Influenza A (Rapid) Influenza B (Rapid) Group A Strep Rapid 09/10/18 09/10/18 09/10/18 19:21 19:23 19:58 WBC RBC Hgb Hct MCV MCH MCHC RDW Plt Count MPV Neut % (Auto) Lymph % (Auto) [place] % (Auto) Eos % (Auto) Baso % (Auto) Absolute Neuts (auto) Absolute Lymphs (auto) Absolute Monos (auto) Absolute Eos (auto) Absolute Basos (auto) Absolute Nucleated RBC Nucleated RBC % INR (Anticoag Therapy) APTT VBG pH VBG pCO2 VBG pO2 VBG HCO3 VBG O2 Saturation VBG Base Excess Sodium Potassium Chloride Carbon Dioxide Anion Gap BUN Creatinine Est GFR ( Amer) Est GFR (Non-Af Amer) BUN/Creatinine Ratio Glucose POC Glucose (mg/dL) Lactic Acid Calcium Magnesium Total Bilirubin AST ALT Alkaline Phosphatase Troponin I C-Reactive Protein Total Protein Albumin Globulin Albumin/Globulin Ratio Urine Color Straw Urine Appearance Clear Urine pH 5.0 Ur Specific [place] 1.016 Urine Protein 1+(30 mg/dl) A Urine Ketones 2+ A Urine Blood Negative Urine Nitrate Negative Urine Bilirubin Negative Urine Urobilinogen Negative Ur Leukocyte Esterase Negative Urine WBC (Auto) Trace(0-5/hpf) Urine RBC (Auto) Trace(0-2/hpf) Urine Bacteria Absent Hyaline Casts Present A Urine Glucose 3+(>=500 mg/dl) A Influenza A (Rapid) Negative Influenza B (Rapid) Negative Group A Strep Rapid Positive A 09/10/18 09/10/18 09/10/18 20:51 21:51 22:46 WBC RBC Hgb Hct MCV MCH MCHC RDW Plt Count MPV Neut % (Auto) Lymph % (Auto) [place] % (Auto) Eos % (Auto) Baso % (Auto) Absolute Neuts (auto) Absolute Lymphs (auto) Absolute Monos (auto) Absolute Eos (auto) Absolute Basos (auto) Absolute Nucleated RBC Nucleated RBC % INR (Anticoag Therapy) APTT VBG pH VBG pCO2 VBG pO2 VBG HCO3 VBG O2 Saturation VBG Base Excess Sodium Potassium Chloride Carbon Dioxide Anion Gap BUN Creatinine Est GFR ( Amer) Est GFR (Non-Af Amer) BUN/Creatinine Ratio Glucose POC Glucose (mg/dL) 235 H 234 H Lactic Acid 1.5 Calcium Magnesium Total Bilirubin AST ALT Alkaline Phosphatase Troponin I C-Reactive Protein Total Protein Albumin Globulin Albumin/Globulin Ratio Urine Color Urine Appearance Urine pH Ur Specific [place] Urine Protein Urine Ketones Urine Blood Urine Nitrate Urine Bilirubin Urine Urobilinogen Ur Leukocyte Esterase Urine WBC (Auto) Urine RBC (Auto) Urine Bacteria Hyaline Casts Urine Glucose Influenza A (Rapid) Influenza B (Rapid) Group A Strep Rapid 09/10/18 09/10/18 09/11/18 23:20 23:20 00:04 WBC RBC Hgb Hct MCV MCH MCHC RDW Plt Count MPV Neut % (Auto) Lymph % (Auto) [place] % (Auto) Eos % (Auto) Baso % (Auto) Absolute Neuts (auto) Absolute Lymphs (auto) Absolute Monos (auto) Absolute Eos (auto) Absolute Basos (auto) Absolute Nucleated RBC Nucleated RBC % INR (Anticoag Therapy) APTT VBG pH VBG pCO2 VBG pO2 VBG HCO3 VBG O2 Saturation VBG Base Excess Sodium 131 L Potassium TNP TNP Chloride 105 Carbon Dioxide < 7 L* Anion Gap Not Reportable BUN 9 Creatinine 0.88 Est GFR ( Amer) 111.4 Est GFR (Non-Af Amer) 92.0 BUN/Creatinine Ratio 10.2 Glucose 259 H POC Glucose (mg/dL) 243 H Lactic Acid Calcium 10.0 Magnesium Total Bilirubin AST ALT Alkaline Phosphatase Troponin I C-Reactive Protein Total Protein Albumin Globulin Albumin/Globulin Ratio Urine Color Urine Appearance Urine pH Ur Specific [place] Urine Protein Urine Ketones Urine Blood Urine Nitrate Urine Bilirubin Urine Urobilinogen Ur Leukocyte Esterase Urine WBC (Auto) Urine RBC (Auto) Urine Bacteria Hyaline Casts Urine Glucose Influenza A (Rapid) Influenza B (Rapid) Group A Strep Rapid 09/11/18 09/11/18 09/11/18 00:04 00:56 00:56 WBC RBC Hgb Hct MCV MCH MCHC RDW Plt Count MPV Neut % (Auto) Lymph % (Auto) [place] % (Auto) Eos % (Auto) Baso % (Auto) Absolute Neuts (auto) Absolute Lymphs (auto) Absolute Monos (auto) Absolute Eos (auto) Absolute Basos (auto) Absolute Nucleated RBC Nucleated RBC % INR (Anticoag Therapy) APTT VBG pH VBG pCO2 VBG pO2 VBG HCO3 VBG O2 Saturation VBG Base Excess Sodium 130 L Potassium 4.3 4.3 Chloride 105 Carbon Dioxide 7 L* Anion Gap 18 H BUN Creatinine Est GFR ( Amer) Est GFR (Non-Af Amer) BUN/Creatinine Ratio Glucose POC Glucose (mg/dL) 251 H Lactic Acid Calcium Magnesium Total Bilirubin AST ALT Alkaline Phosphatase Troponin I C-Reactive Protein Total Protein Albumin Globulin Albumin/Globulin Ratio Urine Color Urine Appearance Urine pH Ur Specific [place] Urine Protein Urine Ketones Urine Blood Urine Nitrate Urine Bilirubin Urine Urobilinogen Ur Leukocyte Esterase Urine WBC (Auto) Urine RBC (Auto) Urine Bacteria Hyaline Casts Urine Glucose Influenza A (Rapid) Influenza B (Rapid) Group A Strep Rapid 09/11/18 09/11/18 09/11/18 00:59 02:10 02:56 WBC RBC Hgb Hct MCV MCH MCHC RDW Plt Count MPV Neut % (Auto) Lymph % (Auto) [place] % (Auto) Eos % (Auto) Baso % (Auto) Absolute Neuts (auto) Absolute Lymphs (auto) Absolute Monos (auto) Absolute Eos (auto) Absolute Basos (auto) Absolute Nucleated RBC Nucleated RBC % INR (Anticoag Therapy) APTT VBG pH VBG pCO2 VBG pO2 VBG HCO3 VBG O2 Saturation VBG Base Excess Sodium Potassium Chloride Carbon Dioxide Anion Gap BUN Creatinine Est GFR ( Amer) Est GFR (Non-Af Amer) BUN/Creatinine Ratio Glucose POC Glucose (mg/dL) 256 H 212 H 193 H Lactic Acid Calcium Magnesium Total Bilirubin AST ALT Alkaline Phosphatase Troponin I C-Reactive Protein Total Protein Albumin Globulin Albumin/Globulin Ratio Urine Color Urine Appearance Urine pH Ur Specific [place] Urine Protein Urine Ketones Urine Blood Urine Nitrate Urine Bilirubin Urine Urobilinogen Ur Leukocyte Esterase Urine WBC (Auto) Urine RBC (Auto) Urine Bacteria Hyaline Casts Urine Glucose Influenza A (Rapid) Influenza B (Rapid) Group A Strep Rapid 09/11/18 09/11/18 09/11/18 03:56 05:00 05:03 WBC RBC Hgb Hct MCV MCH MCHC RDW Plt Count MPV Neut % (Auto) Lymph % (Auto) [place] % (Auto) Eos % (Auto) Baso % (Auto) Absolute Neuts (auto) Absolute Lymphs (auto) Absolute Monos (auto) Absolute Eos (auto) Absolute Basos (auto) Absolute Nucleated RBC Nucleated RBC % INR (Anticoag Therapy) APTT VBG pH VBG pCO2 VBG pO2 VBG HCO3 VBG O2 Saturation VBG Base Excess Sodium Potassium Chloride Carbon Dioxide Anion Gap BUN Creatinine Est GFR ( Amer) Est GFR (Non-Af Amer) BUN/Creatinine Ratio Glucose POC Glucose (mg/dL) 190 H 183 H Lactic Acid Calcium Magnesium TNP Total Bilirubin AST ALT Alkaline Phosphatase Troponin I C-Reactive Protein Total Protein Albumin Globulin Albumin/Globulin Ratio Urine Color Urine Appearance Urine pH Ur Specific [place] Urine Protein Urine Ketones Urine Blood Urine Nitrate Urine Bilirubin Urine Urobilinogen Ur Leukocyte Esterase Urine WBC (Auto) Urine RBC (Auto) Urine Bacteria Hyaline Casts Urine Glucose Influenza A (Rapid) Influenza B (Rapid) Group A Strep Rapid 09/11/18 09/11/18 09/11/18 06:06 06:06 06:09 WBC 10.6 RBC 4.80 Hgb 16.0 Hct 46 MCV 96 H MCH 33 H MCHC 35 RDW 13 Plt Count 302 MPV 8.1 Neut % (Auto) 69.4 Lymph % (Auto) 18.5 Steele % (Auto) 11.4 Eos % (Auto) 0.1 Baso % (Auto) 0.6 Absolute Neuts (auto) 7.3 Absolute Lymphs (auto) 2.0 Absolute Monos (auto) 1.2 H Absolute Eos (auto) 0 Absolute Basos (auto) 0.1 Absolute Nucleated RBC 0 Nucleated RBC % 0 INR (Anticoag Therapy) APTT VBG pH VBG pCO2 VBG pO2 VBG HCO3 VBG O2 Saturation VBG Base Excess Sodium 132 L Potassium 3.9 Chloride 109 Carbon Dioxide 12 L* Anion Gap 11 BUN 8 Creatinine 0.78 Est GFR ( Amer) 128.0 Est GFR (Non-Af Amer) 105.8 BUN/Creatinine Ratio 10.3 Glucose 185 H POC Glucose (mg/dL) 173 H Lactic Acid Calcium 9.4 Magnesium 1.6 L Total Bilirubin AST ALT Alkaline Phosphatase Troponin I C-Reactive Protein Total Protein Albumin Globulin Albumin/Globulin Ratio Urine Color Urine Appearance Urine pH Ur Specific [place] Urine Protein Urine Ketones Urine Blood Urine Nitrate Urine Bilirubin Urine Urobilinogen Ur Leukocyte Esterase Urine WBC (Auto) Urine RBC (Auto) Urine Bacteria Hyaline Casts Urine Glucose Influenza A (Rapid) Influenza B (Rapid) Group A Strep Rapid 09/11/18 09/11/18 09/11/18 07:25 08:20 08:57 WBC RBC Hgb Hct MCV MCH MCHC RDW Plt Count MPV Neut % (Auto) Lymph % (Auto) Steele % (Auto) Eos % (Auto) Baso % (Auto) Absolute Neuts (auto) Absolute Lymphs (auto) Absolute Monos (auto) Absolute Eos (auto) Absolute Basos (auto) Absolute Nucleated RBC Nucleated RBC % INR (Anticoag Therapy) APTT VBG pH VBG pCO2 VBG pO2 VBG HCO3 VBG O2 Saturation VBG Base Excess Sodium Potassium Chloride Carbon Dioxide Anion Gap BUN Creatinine Est GFR ( Amer) Est GFR (Non-Af Amer) BUN/Creatinine Ratio Glucose POC Glucose (mg/dL) 172 H 174 H 134 H Lactic Acid Calcium Magnesium Total Bilirubin AST ALT Alkaline Phosphatase Troponin I C-Reactive Protein Total Protein Albumin Globulin Albumin/Globulin Ratio Urine Color Urine Appearance Urine pH Ur Specific [place] Urine Protein Urine Ketones Urine Blood Urine Nitrate Urine Bilirubin Urine Urobilinogen Ur Leukocyte Esterase Urine WBC (Auto) Urine RBC (Auto) Urine Bacteria Hyaline Casts Urine Glucose Influenza A (Rapid) Influenza B (Rapid) Group A Strep Rapid 09/11/18 10:13 WBC RBC Hgb Hct MCV MCH MCHC RDW Plt Count MPV Neut % (Auto) Lymph % (Auto) [place] % (Auto) Eos % (Auto) Baso % (Auto) Absolute Neuts (auto) Absolute Lymphs (auto) Absolute Monos (auto) Absolute Eos (auto) Absolute Basos (auto) Absolute Nucleated RBC Nucleated RBC % INR (Anticoag Therapy) APTT VBG pH VBG pCO2 VBG pO2 VBG HCO3 VBG O2 Saturation VBG Base Excess Sodium Potassium Chloride Carbon Dioxide Anion Gap BUN Creatinine Est GFR ( Amer) Est GFR (Non-Af Amer) BUN/Creatinine Ratio Glucose POC Glucose (mg/dL) 169 H Lactic Acid Calcium Magnesium Total Bilirubin AST ALT Alkaline Phosphatase Troponin I C-Reactive Protein Total Protein Albumin Globulin Albumin/Globulin Ratio Urine Color Urine Appearance Urine pH Ur Specific [place] Urine Protein Urine Ketones Urine Blood Urine Nitrate Urine Bilirubin Urine Urobilinogen Ur Leukocyte Esterase Urine WBC (Auto) Urine RBC (Auto) Urine Bacteria Hyaline Casts Urine Glucose Influenza A (Rapid) Influenza B (Rapid) Group A Strep Rapid Studies: CXR 09/10 IMPRESSION: NO ACTIVE CARDIOPULMONARY DISEASE. Impression: 48M with htn, hld, dm, recurrent dvt on xarelto presents with DKA. Plan: DKA - AG closed but bicarb 12 - c/w insulin gtt for now - d5 1/2 ns - repeat bmp, mag, phos at noon - fs q1h for now - likely bridge to long acting later today Strep pharyngitis - s/p benzathine pcn 1.2 millions units - benzocaine throat jose prn recurrent dvt - c/w xarelto htn, hld - c/w lisinopril, lipitor lines - piv ppx - gi/dvt full code Critical Care Time: 35 mins
[2018-09-11] MEDS ORDERED: Benzocaine/Menthol LOZ* 1 LOZENGE PO PRN (10:38)
[2018-09-11] MEDS ORDERED: Insulin IVPB 100 units/100 ml 100 UNITS/100 ML UNIT IVPB SCH (11:00)
[2018-09-11 12:40] LABS: BUN/Creatinine Ratio 7.8 (8-20); Calcium 8.7 mg/dL (8.6-10.3); EGFR Non-African American 107.4 (>60); Magnesium 1.7 mg/dL (1.9-2.7); Phosphorus 1.6 mg/dL (2.5-5.0)
[2018-09-11] MEDS ORDERED: Magnesium Sulfate 2 GM IV (Premix) IVPB ONE (13:00)
[2018-09-11] MEDS ORDERED: Lactated Ringers 1000 ML Bag* 1,000 ML IV SCH (13:18)
[2018-09-11] MEDS ORDERED: Sodium Phosphate INJ* 15 MMOLE in NS 0.9% 250 ML* 250 ML IVPB ONE (13:30)
[2018-09-11] MEDS: Multivitamins/Minerals TAB PO SCH (13:57)
[2018-09-11] MEDS: Thiamine TAB* 100 MG TAB PO SCH (13:57)
[2018-09-11] MEDS: Folic Acid TAB* 1 MG PO SCH (13:58)
[2018-09-11] MEDS: Atorvastatin* 80 MG TAB PO SCH (17:13)
[2018-09-11 18:33] LABS: Calcium 8.7 mg/dL (8.6-10.3); EGFR Non-African American 117.9 (>60); Magnesium 2.1 mg/dL (1.9-2.7); Phosphorus 1.6 mg/dL (2.5-5.0); Potassium 3.4 mmol/L (3.5-5.0)
[2018-09-11] MEDS ORDERED: Insulin GLARGINE(*) 1 UNITS UNIT SUBCUT ONE (20:00)
[2018-09-12] MEDS ORDERED: Dextrose 50% Syringe 50 ML* 25 GM/50 ML SYRINGE IV PUSH PRN (08:03)
[2018-09-12 08:27] LABS: ABS Basophils 0.1 10^3/ul (0-0.2); ABS Eosinophils 0.1 10^3/ul (0-0.6); ABS Lymphocytes 2.1 10^3/ul (1.0-4.8); ABS Monocytes 1.3 10^3/ul (0-0.8); ABS Neutrophils 5.3 10^3/ul (1.5-7.7); ABS Nucleated RBC 0 10^3/ul; Hematocrit 42 % (42-52); Hemoglobin 14.5 g/dl (14.0-18.0); Lymphocyte % 23.2 %; Mean Corpuscular HGB Conc 35 g/dl (31-36); Mean Corpuscular Hemoglobin 33 pg (27-31); Mean Corpuscular Volume 94 fL (80-94); Nucleated Red Blood Cells % 0; Platelet Count 270 10^3/ul (150-450); Red Cell Distribution Width 13 % (10.5-15); White Blood Count 8.8 10^3/ul (3.5-10.8)
[2018-09-12] MEDS: Sertraline* 50 MG TAB PO SCH (08:37)
[2018-09-12] MEDS: Folic Acid TAB* 1 MG PO SCH (08:37)
[2018-09-12] MEDS: Multivitamins/Minerals TAB PO SCH (08:37)
[2018-09-12] MEDS: Lisinopril TAB* 10 MG PO SCH (08:37)
[2018-09-12] MEDS: Insulin LISPRO* 1 UNITS UNIT SUBCUT SCH ×4 (08:37→20:44)
[2018-09-12] MEDS: Thiamine TAB* 100 MG TAB PO SCH (08:38)
[2018-09-12] MEDS: Rivaroxaban TAB(*) 10 MG PO SCH (08:39)
[2018-09-12 08:43] LABS: BUN/Creatinine Ratio 6.7 (8-20); Calcium 8.4 mg/dL (8.6-10.3); EGFR Non-African American 143.2 (>60); Magnesium 1.8 mg/dL (1.9-2.7); Phosphorus 1.8 mg/dL (2.5-5.0); Potassium 3.3 mmol/L (3.5-5.0)
[2018-09-12] MEDS ORDERED: Magnesium Sulfate 1 GM IV* 1 GM/100 ML BAG IV ONE (09:00)
--- NOTE | 2018-09-12 09:19 | PN ---
Date of Service: 09/12/18 Critical Care Services: 48M with htn, hld, dm, recurrent dvt on xarelto presents with DKA. 09/11: AG closed but bicarb 12. patient is hungry. 09/12: DKA resolved. Bridged to Lantus. Tolerating PO. Vital Signs: Temp Pulse Resp BP SpO2 FiO2 98.5 F 70 12 148/96 97 09/12/18 08:00 09/12/18 07:01 09/12/18 09:01 09/12/18 09:00 09/12/18 09:01 Physical Exam: Gen - nad, poor hygiene heent - ncat, eomi neck - no jvd, cv - s1/s2, no murmur lungs - cta, no wheeze abd - soft, nt ext - no cce neuro - non-focal Fluid Balance (Past 24 Hours): I= O= Net Intake & Output 09/10/18 09/11/18 09/12/18 09/13/18 06:59 06:59 06:59 06:59 Intake Total 4026.2 2925 Output Total 1000 3325 Balance 3026.2 -400 Weight 95.9 kg 96 kg Intake: IV Fluids 3944 1581 D5W 1/2 NS 488 1207 NS (0.9%) 1456 374 IVPB 50 ABX - CLINDAMYCIN 50 Medicated IV 32.2 324 CC - Insulin 32.2 54 SODIUM PHOSPHATE 270 Oral 1020 Output: Urine 1000 3325 Labs: Laboratory Results - last 24 hr 09/11/18 09/11/18 09/11/18 05:00 08:20 08:57 WBC RBC Hgb Hct MCV MCH MCHC RDW Plt Count MPV Neut % (Auto) Lymph % (Auto) [place] % (Auto) Eos % (Auto) Baso % (Auto) Absolute Neuts (auto) Absolute Lymphs (auto) Absolute Monos (auto) Absolute Eos (auto) Absolute Basos (auto) Absolute Nucleated RBC Nucleated RBC % Sodium Potassium Chloride Carbon Dioxide Anion Gap BUN Creatinine Est GFR ( Amer) Est GFR (Non-Af Amer) BUN/Creatinine Ratio Glucose POC Glucose (mg/dL) 174 H 134 H Hemoglobin A1c 13.1 H Calcium Phosphorus Magnesium 09/11/18 09/11/18 09/11/18 10:13 11:15 12:00 WBC RBC Hgb Hct MCV MCH MCHC RDW Plt Count MPV Neut % (Auto) Lymph % (Auto) [place] % (Auto) Eos % (Auto) Baso % (Auto) Absolute Neuts (auto) Absolute Lymphs (auto) Absolute Monos (auto) Absolute Eos (auto) Absolute Basos (auto) Absolute Nucleated RBC Nucleated RBC % Sodium 130 L Potassium 4.0 Chloride 109 Carbon Dioxide 14 L* Anion Gap 7 BUN 6 Creatinine 0.77 Est GFR ( Amer) 129.9 Est GFR (Non-Af Amer) 107.4 BUN/Creatinine Ratio 7.8 L Glucose 286 H POC Glucose (mg/dL) 169 H 215 H Hemoglobin A1c Calcium 8.7 Phosphorus 1.6 L Magnesium 1.7 L 09/11/18 09/11/18 09/11/18 12:29 13:38 15:05 WBC RBC Hgb Hct MCV MCH MCHC RDW Plt Count MPV Neut % (Auto) Lymph % (Auto) [place] % (Auto) Eos % (Auto) Baso % (Auto) Absolute Neuts (auto) Absolute Lymphs (auto) Absolute Monos (auto) Absolute Eos (auto) Absolute Basos (auto) Absolute Nucleated RBC Nucleated RBC % Sodium Potassium Chloride Carbon Dioxide Anion Gap BUN Creatinine Est GFR ( Amer) Est GFR (Non-Af Amer) BUN/Creatinine Ratio Glucose POC Glucose (mg/dL) 234 H 238 H 158 H Hemoglobin A1c Calcium Phosphorus Magnesium 09/11/18 09/11/18 09/11/18 16:08 17:21 18:00 WBC RBC Hgb Hct MCV MCH MCHC RDW Plt Count MPV Neut % (Auto) Lymph % (Auto) [place] % (Auto) Eos % (Auto) Baso % (Auto) Absolute Neuts (auto) Absolute Lymphs (auto) Absolute Monos (auto) Absolute Eos (auto) Absolute Basos (auto) Absolute Nucleated RBC Nucleated RBC % Sodium 133 L Potassium 3.4 L Chloride 110 Carbon Dioxide 18 L Anion Gap 5 BUN 5 L Creatinine 0.71 Est GFR ( Amer) 142.7 Est GFR (Non-Af Amer) 117.9 BUN/Creatinine Ratio 7.0 L Glucose 200 H POC Glucose (mg/dL) 184 H 202 H Hemoglobin A1c Calcium 8.7 Phosphorus 1.6 L Magnesium 2.1 09/11/18 09/11/18 09/11/18 18:42 19:14 20:19 WBC RBC Hgb Hct MCV MCH MCHC RDW Plt Count MPV Neut % (Auto) Lymph % (Auto) [place] % (Auto) Eos % (Auto) Baso % (Auto) Absolute Neuts (auto) Absolute Lymphs (auto) Absolute Monos (auto) Absolute Eos (auto) Absolute Basos (auto) Absolute Nucleated RBC Nucleated RBC % Sodium Potassium Chloride Carbon Dioxide Anion Gap BUN Creatinine Est GFR ( Amer) Est GFR (Non-Af Amer) BUN/Creatinine Ratio Glucose POC Glucose (mg/dL) 193 H 234 H 229 H Hemoglobin A1c Calcium Phosphorus Magnesium 09/11/18 09/11/18 09/11/18 21:00 22:18 23:53 WBC RBC Hgb Hct MCV MCH MCHC RDW Plt Count MPV Neut % (Auto) Lymph % (Auto) [place] % (Auto) Eos % (Auto) Baso % (Auto) Absolute Neuts (auto) Absolute Lymphs (auto) Absolute Monos (auto) Absolute Eos (auto) Absolute Basos (auto) Absolute Nucleated RBC Nucleated RBC % Sodium Potassium Chloride Carbon Dioxide Anion Gap BUN Creatinine Est GFR ( Amer) Est GFR (Non-Af Amer) BUN/Creatinine Ratio Glucose POC Glucose (mg/dL) 214 H 204 H 195 H Hemoglobin A1c Calcium Phosphorus Magnesium 09/12/18 09/12/18 09/12/18 08:08 08:08 08:08 WBC 8.8 RBC 4.40 Hgb 14.5 Hct 42 MCV 94 MCH 33 H MCHC 35 RDW 13 Plt Count 270 MPV 8.0 Neut % (Auto) 60.2 Lymph % (Auto) 23.2 [place] % (Auto) 14.5 Eos % (Auto) 1.0 Baso % (Auto) 1.1 Absolute Neuts (auto) 5.3 Absolute Lymphs (auto) 2.1 Absolute Monos (auto) 1.3 H Absolute Eos (auto) 0.1 Absolute Basos (auto) 0.1 Absolute Nucleated RBC 0 Nucleated RBC % 0 Sodium 135 Potassium 3.3 L Chloride 109 Carbon Dioxide 17 L Anion Gap 9 BUN 4 L Creatinine 0.60 L Est GFR ( Amer) 173.3 Est GFR (Non-Af Amer) 143.2 BUN/Creatinine Ratio 6.7 L Glucose 239 H POC Glucose (mg/dL) 235 H Hemoglobin A1c Calcium 8.4 L Phosphorus 1.8 L Magnesium 1.8 L Studies: CXR 09/10 IMPRESSION: NO ACTIVE CARDIOPULMONARY DISEASE. Impression: 48M with htn, hld, dm, recurrent dvt on xarelto presents with DKA. Plan: DKA - resolving - a1c 13 - on lantus 50 units and sliding scale - tolerating po - replete electrolytes Strep pharyngitis - s/p benzathine pcn 1.2 millions units - benzocaine throat jose prn recurrent dvt - c/w xarelto htn, hld - c/w lisinopril, lipitor lines - piv ppx - gi/dvt full code Transfer to floor
[2018-09-12] MEDS ORDERED: Potassium Phosphate IV* 15 MMOLE in NS 0.9% 250 ML* 250 ML IVPB ONE (09:30)
[2018-09-12] MEDS ORDERED: Lactated Ringers 1000 ML Bag* 1,000 ML IV SCH (10:00)
--- NOTE | 2018-09-12 10:29 | PTEDU ---
Patient Name: ROBE CAR JOSEP ROBE selected video: Control Your Diabetes: Meds & Glucose(Amharic) to view on at 10:28:45 AM from [email or web address]
--- NOTE | 2018-09-12 10:31 | PTEDU ---
Patient Name: ROBE CAR JOSEP ROBE selected video: Control Your Diabetes: Meds & Glucose(Mongolian) to view on at 10:30:24 AM from [email or web address]
[2018-09-12] MEDS: Atorvastatin* 80 MG TAB PO SCH (17:54)
[2018-09-12] MEDS ORDERED: Insulin GLARGINE(*) 1 UNITS UNIT SUBCUT SCH (18:00)
[2018-09-13] MEDS ORDERED: Melatonin (NF) ** ENTER STRENGTH IN LABEL DIRECTIONS PO PRN (00:38)
[2018-09-13] MEDS ORDERED: Melatonin 3 MG TAB PO ONE (00:47)
[2018-09-13] MEDS ORDERED: Melatonin 3 MG TAB PO PRN (00:56)
[2018-09-13 05:40] LABS: ABS Basophils 0.1 10^3/ul (0-0.2); ABS Eosinophils 0.1 10^3/ul (0-0.6); ABS Lymphocytes 2.7 10^3/ul (1.0-4.8); ABS Monocytes 1.2 10^3/ul (0-0.8); ABS Neutrophils 3.2 10^3/ul (1.5-7.7); ABS Nucleated RBC 0 10^3/ul; Eosinophil % 1.9 %; Hematocrit 40 % (42-52); Hemoglobin 13.9 g/dl (14.0-18.0); Mean Corpuscular HGB Conc 35 g/dl (31-36); Mean Corpuscular Hemoglobin 33 pg (27-31); Mean Corpuscular Volume 94 fL (80-94); Mean Platelet Volume 7.4 fL (7.4-10.4); Nucleated Red Blood Cells % 0; Platelet Count 273 10^3/ul (150-450); Red Blood Count 4.25 10^6/ul (4.00-5.40); Red Cell Distribution Width 12 % (10.5-15); White Blood Count 7.2 10^3/ul (3.5-10.8)
[2018-09-13 06:03] LABS: BUN/Creatinine Ratio 16.4 (8-20); Calcium 8.7 mg/dL (8.6-10.3); EGFR Non-African American 158.3 (>60); Phosphorus 3.2 mg/dL (2.5-5.0); Potassium 3.3 mmol/L (3.5-5.0)
[2018-09-13] MEDS: Folic Acid TAB* 1 MG PO SCH (07:50)
[2018-09-13] MEDS: Multivitamins/Minerals TAB PO SCH (07:50)
[2018-09-13] MEDS: Lisinopril TAB* 10 MG PO SCH (07:50)
[2018-09-13] MEDS: Thiamine TAB* 100 MG TAB PO SCH (07:50)
[2018-09-13] MEDS: Rivaroxaban TAB(*) 10 MG PO SCH (07:50)
[2018-09-13] MEDS: Sertraline* 50 MG TAB PO SCH (07:50)
[2018-09-13] MEDS ORDERED: Insulin GLARGINE(*) 1 UNITS UNIT SUBCUT SCH (09:00)
[2018-09-13] MEDS: Insulin LISPRO* 1 UNITS UNIT SUBCUT SCH ×2 (09:30→13:20)
[2018-09-13 11:59] VITALS: BP 157/86
--- NOTE | 2018-09-13 12:13 | CONSULT ---
Consult Consult: [facility] Inpatient Consult Note Date of Consult: 09/13/18 Reason for Consult: diabetes Reason for Admission: DKA ASSESSMENT: 48 yo M with severe, ketosis-prone diabetes of unclear etiology, now admitted for DKA in setting of acute pharyngitis. Although he has been prescribed high-dose basal insulin >2.5units/kg/day in the recent past, I suspect that his insulin requirement is much lower than this. There is no evidence of insulin-resistance syndrome that could explain such a high insulin requirement. I recommend that he restart prandial insulin to reduce his reliance on basal insulin, as below. Alogliptin is of no benefit in ketosis- prone diabetes. Metformin should be continued in all patients with obesity- related diabetes. PLAN: - check C-peptide and GAD65 antibody prior to discharge (order placed) - reduce insulin glargine to 60 units once daily -- Basaglar preferred by insurance - start insulin lispro 14 units with meals -- Admelog preferred by insurance - start metformin XR 750mg -- 2 tablets daily at bedtime (1500mg total) - check fingerstick BG 4 times daily prior to insulin injection -- True Metrix preferred by insurance - d/c glimepiride - d/c alogliptin-metformin - establish with endocrine in 2 weeks SUBJECTIVE: History of Present Illness: 48 yo M with long-standing insulin-depending diabetes, now presenting with DKA. He apparently stopped using insulin on and developed headache, somnolence, severe polydipsia and shortness of breath the in the days after that. He had developed acute pharyngitis, ultimately found to have GAS pharyngitis. He initially present with DKA in 2013 and has had 3 admissions since then, including the present one. He has also had severe hyperglycemia without DKA in clinic over the years. His maximum weight at the time of DM diagnosis in 2007 was 300 lbs and he tells me that he has lost nearly 100 lbs in the past year. He uses high-dose insulin glargine 100 units in the morning and 150 units in the evening. He has used glimepiride, sitagliptin and metformin in the past. Humalog has also been used since 2013, but this was stopped several months ago by a new PCP at [facility] in [place]. Past Medical History: 1. VTE on Xarelto 2. 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 Dyslipidemia 4. Hypertension Medications Prior to Admission: Lisinopril TAB* [Prinivil TAB 10 MG*] 10 mg PO DAILY 08/18/12 [History Confirmed 09/10/18] Ttgqo-0-Ltcc Ethyl Esters (NF) [Lovaza (NF)] 2 cap PO BID #60 cap 07/01/16 [Rx Confirmed 09/10/18] Atorvastatin Calcium [Lipitor] 40 mg PO DAILY 03/26/18 [History Confirmed ] Glimepiride 1 mg PO DAILY 03/26/18 [History Confirmed 09/12/18] Lisinopril 10 mg PO DAILY 03/26/18 [History Confirmed 09/12/18] Jarrell-3 Acid Ethyl Esters [Lovaza] 2 cap PO DAILY 03/26/18 [History Confirmed ] Alogliptin Harinder/Metformin HCl [Alogliptin-Metformin 12.5-1000] 1 tab PO BID 12/28 [History Confirmed 09/10/18] Atorvastatin* [Lipitor 80 MG*] 80 mg PO 1700 06/15/18 [History Confirmed ] Rivaroxaban TAB(*) [Xarelto 10 mg (*)] 10 mg PO DAILY 06/19/18 [History Confirmed 09/10/18] Sertraline* [Zoloft*] 50 mg PO DAILY 09/10/18 [History Confirmed 09/12/18] Acetaminophen TAB* [Tylenol TAB*] 650 mg PO Q4H PRN #30 tab 09/13/18 [Rx] Benzocaine/Menthol GIULIA* [Chloraseptic GIULIA*] 1 giulia PO Q6H PRN #30 lozenge [Rx] Folic Acid TAB* [Folvite TAB*] 1 mg PO DAILY #30 tab 09/13/18 [Rx] Insulin Glargine,Hum.rec.anlog [Basaglar Kwikpen U-100] 150 unit SQ BEDTIME #0 09/13/18 [Rx Confirmed 09/11/18] Insulin Glargine,Hum.rec.anlog [Lantus] 100 unit SC QAM #0 09/13/18 [Rx Confirmed 09/12/18] Multivitamins/Minerals TAB* [Theragran/minerals TAB*] 1 tab PO DAILY #30 tab 10/31 [Rx] Thiamine TAB* [Vitamin B-1 TAB 100 MG*] 100 mg PO DAILY #30 tab 09/13/18 [Rx] Inpatient Medications: Acetaminophen (Tylenol Tab*) 650 mg PO Q4H PRN PRN Reason: FEVER/PAIN Al Hydrox/Mg Hydrox/Simethicone (Maalox Plus*) 30 ml PO Q4H PRN PRN Reason: HEARTBURN Last Admin: 09/11/18 04:23 Dose: 30 ml Atorvastatin Calcium (Lipitor*) 80 mg PO 1700 [facility] Last Admin: 09/12/18 17:54 Dose: 80 mg Dextrose (D50w Syringe 50 Ml*) 12.5 gm IV PUSH .FOR FS < 60 - SS PRN PRN Reason: FS < 60 Folic Acid (Folvite Tab*) 1 mg PO DAILY [facility] Last Admin: 09/13/18 07:50 Dose: 1 mg Insulin Glargine (Lantus(*)) 50 units SUBCUT BID [facility] Last Admin: 09/13/18 09:29 Dose: 50 units Insulin Human Lispro (Humalog*) 0 units SUBCUT ACHS [facility]; Protocol Last Admin: 09/13/18 09:30 Dose: 3 units Lisinopril (Prinivil Tab*) 10 mg PO DAILY [facility] Last Admin: 09/13/18 07:50 Dose: 10 mg Melatonin (Melatonin) 3 mg PO BEDTIME PRN PRN Reason: SLEEP Morphine Sulfate (Morphine Vial*) 1 mg IV Q4H PRN PRN Reason: PAIN - MILD Multivitamins/Minerals (Theragran/Minerals Tab*) 1 tab PO DAILY [facility] Last Admin: 09/13/18 07:50 Dose: 1 tab Ondansetron HCl (Zofran Inj*) 4 mg IV Q4H PRN PRN Reason: NAUSEA/VOMITING Rivaroxaban (Xarelto(*)) 10 mg PO DAILY [facility] Last Admin: 09/13/18 07:50 Dose: 10 mg Sertraline HCl (Zoloft*) 50 mg PO DAILY [facility] Last Admin: 09/13/18 07:50 Dose: 50 mg Thiamine HCl (Vitamin B-1 Tab*) 100 mg PO DAILY [facility] Last Admin: 09/13/18 07:50 Dose: 100 mg Throat Lozenges (Chloraseptic Giulia*) 1 giulia PO Q6H PRN PRN Reason: SORE THROAT Allergies/Intolerances: NKDA Social History: Lives alone. Recovering alcoholism, last drink June 2018. Active smoker -- 2-3 cigarettes/day. Denies drugs. Family History: Largely unknown. No obvious inherited diseases. Mother of asthma. Father in MVA. Review of Systems: As above. 12 system review was otherwise negative. OBJECTIVE: Temp Pulse Resp BP Pulse Ox 98.4 F 77 15 157/86 99 09/13/18 11:24 09/13/18 11:24 09/13/18 11:24 09/13/18 11:24 09/13/18 11:24 General: alert, pleasant, oriented, no distress ENT: neck supple, no thyromegaly, no bruit is heard Chest: CTAB, no wheezing or crackles CV: RRR, no murmur Abdomen: soft, non-tender Extremities: no edema, distal pulses and light-tough sensation intact, but neuropathic foot changes noted Skin: warm, dry, no rash Neuro: grossly intact motor/sensory in extremities Psych: restricted affect, pleasant Labs: WBC 7.2 10^3/ul (3.5-10.8) 09/13/18 05:34 RBC 4.25 10^6/ul (4.00-5.40) 09/13/18 05:34 Hgb 13.9 g/dl (14.0-18.0) L 09/13/18 05:34 Hct 40 % (42-52) L 09/13/18 05:34 MCV 94 fL (80-94) 09/13/18 05:34 MCH 33 pg (27-31) H 09/13/18 05:34 MCHC 35 g/dl (31-36) 09/13/18 05:34 RDW 12 % (10.5-15) 09/13/18 05:34 Plt Count 273 10^3/ul (150-450) 09/13/18 05:34 MPV 7.4 fL (7.4-10.4) 09/13/18 05:34 Neut % (Auto) 43.9 % 09/13/18 05:34 Lymph % (Auto) 37.0 % 09/13/18 05:34 [place] % (Auto) 16.2 % 09/13/18 05:34 Eos % (Auto) 1.9 % 09/13/18 05:34 Baso % (Auto) 1.0 % 09/13/18 05:34 Absolute Neuts (auto) 3.2 10^3/ul (1.5-7.7) 09/13/18 05:34 Absolute Lymphs (auto) 2.7 10^3/ul (1.0-4.8) 09/13/18 05:34 Absolute Monos (auto) 1.2 10^3/ul (0-0.8) H 09/13/18 05:34 Absolute Eos (auto) 0.1 10^3/ul (0-0.6) 09/13/18 05:34 Absolute Basos (auto) 0.1 10^3/ul (0-0.2) 09/13/18 05:34 Absolute Nucleated RBC 0 10^3/ul 09/13/18 05:34 Nucleated RBC % 0 09/13/18 05:34 INR (Anticoag Therapy) 0.94 (0.77-1.02) 09/10/18 19:05 APTT 31.3 seconds (26.0-36.3) 09/10/18 19:05 VBG pH (7.32-7.43) 09/10/18 19:10 VBG pCO2 23 mmHg (41-51) L 09/10/18 19:10 VBG pO2 mmHg (35-45) 09/10/18 19:10 VBG HCO3 9.2 mmol/L (24-28) L 09/10/18 19:10 VBG O2 Saturation 34.1 % (70-80) L 09/10/18 19:10 VBG Base Excess -18.0 mmol/L (0.0-4.0) L 09/10/18 19:10 Sodium 137 mmol/L (135-145) 09/13/18 05:34 Potassium 3.3 mmol/L (3.5-5.0) L 09/13/18 05:34 Chloride 107 mmol/L (101-111) 09/13/18 05:34 Carbon Dioxide 28 mmol/L (22-32) 09/13/18 05:34 Anion Gap 2 mmol/L (2-11) 09/13/18 05:34 BUN 9 mg/dL (6-24) 09/13/18 05:34 Creatinine 0.55 mg/dL (0.67-1.17) L 09/13/18 05:34 Est GFR ( Amer) 191.6 (>60) 09/13/18 05:34 Est GFR (Non-Af Amer) 158.3 (>60) 09/13/18 05:34 BUN/Creatinine Ratio 16.4 (8-20) 09/13/18 05:34 Glucose 201 mg/dL (70-100) H 09/13/18 05:34 POC Glucose (mg/dL) 193 mg/dL (70-100) H 09/13/18 07:50 Hemoglobin A1c 13.1 % (4.0-5.6) H 09/11/18 05:00 Lactic Acid 1.5 mmol/L (0.5-2.0) 09/10/18 22:46 Calcium 8.7 mg/dL (8.6-10.3) 09/13/18 05:34 Phosphorus 3.2 mg/dL (2.5-5.0) 09/13/18 05:34 Magnesium 2.0 mg/dL (1.9-2.7) 09/13/18 05:34 Total Bilirubin 0.40 mg/dL (0.2-1.0) 09/10/18 19:05 AST 10 U/L (13-39) L 09/10/18 19:05 ALT 12 U/L (7-52) 09/10/18 19:05 Alkaline Phosphatase 109 U/L (34-104) H 09/10/18 19:05 Troponin I 0.01 ng/mL (<0.04) 09/10/18 19:05 C-Reactive Protein 22.68 mg/L (<8.01) H 09/10/18 19:05 Total Protein 8.5 g/dL (6.4-8.9) 09/10/18 19:05 Albumin 4.3 g/dL (3.2-5.2) 09/10/18 19:05 Globulin 4.2 g/dL (2-4) H 09/10/18 19:05 Albumin/Globulin Ratio 1.0 (1-3) 09/10/18 19:05 Urine Color Straw 09/10/18 19:58 Urine Appearance Clear 09/10/18 19:58 Urine pH 5.0 (5-9) 09/10/18 19:58 Ur Specific [place] 1.016 (1.010-1.030) 09/10/18 19:58 Urine Protein 1+(30 mg/dl) (Negative) A 09/10/18 19:58 Urine Ketones 2+ (Negative) A 09/10/18 19:58 Urine Blood Negative (Negative) 09/10/18 19:58 Urine Nitrate Negative (Negative) 09/10/18 19:58 Urine Bilirubin Negative (Negative) 09/10/18 19:58 Urine Urobilinogen Negative (Negative) 09/10/18 19:58 Ur Leukocyte Esterase Negative (Negative) 09/10/18 19:58 Urine WBC (Auto) Trace(0-5/hpf) (Absent) 09/10/18 19:58 Urine RBC (Auto) Trace(0-2/hpf) (Absent) 09/10/18 19:58 Urine Bacteria Absent (Absent) 09/10/18 19:58 Hyaline Casts Present (Absent) A 09/10/18 19:58 Urine Glucose 3+(>=500 mg/dl) (Negative) A 09/10/18 19:58 Influenza A (Rapid) Negative (Negative) 09/10/18 19:23 Influenza B (Rapid) Negative (Negative) 09/10/18 19:23 Group A Strep Rapid Positive (Negative) A 09/10/18 19:21
--- NOTE | 2018-09-14 01:21 | DS ---
CC: Dr. Becky Skinner at [facility]; Dr. Romel Riojas * DISCHARGE SUMMARY: DATE OF ADMISSION: 09/10/18 DATE OF DISCHARGE: 09/13/18 PRIMARY CARE PROVIDER: Dr. Becky Skinner at [facility]. COUNTER DISH CARRIER: Dr. Romel Riojas. DISCHARGE DIAGNOSES: 1. Diabetic ketoacidosis secondary to noncompliance. 2. Streptococcal pharyngitis. SECONDARY DIAGNOSES: 1. Hypertension. 2. Hyperlipidemia. 3. History of insulin-dependent diabetes with prior episodes of diabetic ketoacidosis. 4. History of recurrent deep vein thrombosis on Xarelto. 5. Status post hernia repair surgery. MEDICATION LIST: 1. Acetaminophen 650 mg p.o. daily. 2. Atorvastatin 80 mg p.o. daily. 3. Sugar-free cough lozenges q.6 hours p.r.n. cough and sore throat. 4. Folic acid 1 mg p.o. daily. 5. Lantus 60 units subcutaneously daily. 6. Lispro 14 units subcutaneously with meals. 7. Lisinopril 10 mg p.o. daily. 8. Metformin ER 1500 mg p.o. at bedtime. 9. Multivitamin 1 tablet p.o. daily. 10. Lovaza 2 capsules p.o. b.i.d. 11. Xarelto 10 mg p.o. daily. 12. Sertraline 50 mg p.o. daily. 13. Thiamine 100 mg p.o. daily. HOSPITAL COURSE: Mr. Rubio is a 48-year-old male with a past medical history as stated above that presented to the emergency room with complaints of feeling unwell, muscle aches, sore throat for 4 days prior to admission. He also admits that he stopped using his insulin around [place] time, but cannot tell me exactly why. He states that he has all the supplies at home, but just decided to stop his insulin without any specific reason. In the emergency room , he was found to have strep throat and also to be DKA. For more details about his presentation, I refer you to his history and physical. The patient was admitted to the intensive care unit where he was treated with insulin drip with progressive improvement of his symptoms. His gap closed, his metabolic acidosis resolved, and he was felt to be medically stable to be transferred to the medical floor on September 12. The patient was seen in consultation by Endocrinology (Dr. Romel Riojas) and his impression was that Mr. Rubio is a 48-year-old male with severe ketosis- prone diabetes of unclear etiology, now admitted for DKA in the setting of acute pharyngitis. Although, he has been prescribed high-dose basal insulin greater than 2.5 units/kg per day in the recent past, I suspect that his insulin requirement is much lower than this. There is no evidence of insulin resistance syndrome that could explain such a high insulin requirement. His recommendation was to restart prandial insulin to reduce his reliance on basal insulin as below. Dr. iRojas felt that alogliptin was of no benefit in ketosis- prone diabetes and metformin should be continued in all patients with obesity- related diabetes. His recommendation was to check C-peptide and GAD65 antibody prior to discharge. The results are pending and it will need to be followed as outpatient. He recommended reducing glargine to 60 units once a day, lispro insulin 14 units with meals, metformin XR 1500 mg p.o. at bedtime, and to check fingerstick 4 times a day prior to insulin injection. He also recommended discontinuing glimepiride and alogliptin and the plan is for him to follow up with Dr. Riojas in 2 weeks. The patient states that he also has an appointment to see Dr. Skinner next week. For his strep throat, due to his noncompliance, the patient was treated with penicillin G benzathine intramuscular. He is medically stable for discharge today to follow up with Dr. Skinner and Dr. Riojas as outpatient. PHYSICAL EXAMINATION: Vital Signs: Temperature 98.4, heart rate is 77, respiratory rate is 15, oxygen saturation 99% on room air, blood pressure is 138 /85. General: The patient is a pleasant, middle-aged gentleman, sitting up in bed in no acute distress. CVS: Normal S1 and S2. Regular rate and rhythm. Chest: Breath sounds present bilaterally with no added sounds. Abdomen is soft , nontender, nondistended. Bowel sounds are present. Extremities: No edema. Neuro: He is alert and oriented x3. Able to move all 4 extremities. DIET: Consistent carb diet. ACTIVITY: As tolerated. DISPOSITION: To home. STATUS WHILE IN THE HOSPITAL: Inpatient. Please keep in mind this is a summarized version of this patient's hospital stay. If you need more information, please feel free to call me at or please obtain the full medical records. TIME SPENT: Approximately 45 minutes were spent to complete this discharge. [id number]/[facility] #: [id number] EDMUND
== END 2018-09-13 14:15 | disposition home or self-care (01) | DRG 420 ==
LOC: ED 18:04 → ICU 22:11 → MED 09-12 09:19
PROVIDERS: ADMIT Internal Medicine; ATTEND Internal Medicine
DX: E11.10 Type 2 diabetes mellitus with ketoacidosis without coma (principal); E87.1 Hypo-osmolality and hyponatremia; J02.0 Streptococcal pharyngitis; E11.40 Type 2 diabetes mellitus with diabetic neuropathy, unspecified; I10 Essential (primary) hypertension; E78.5 Hyperlipidemia, unspecified; E86.0 Dehydration; F32.9 Major depressive disorder, single episode, unspecified; Z79.4 Long term (current) use of insulin; Z91.14 Patient's other noncompliance with medication regimen; Z86.718 Personal history of other venous thrombosis and embolism; Z79.01 Long term (current) use of anticoagulants; Z79.84 Long term (current) use of oral hypoglycemic drugs; Z79.899 Other long term (current) drug therapy; Z82.5 Family history of asthma and other chronic lower respiratory diseases; Z87.891 Personal history of nicotine dependence
CPT/HCPCS: 36415; 71046; 80048; 80051; 80053; 81003; 81015; 82803; 82947; 83036; 83605; 83735; 84100; 84484; 84681; 85025; 85610; 85730; 86140; 86341; 87040; 87086; 87641; 87651; 99285; 99406; A9270-GY; J0558; J1815; J2405; J3475

== ENCOUNTER 2018-11-22 21:18 | Emergency (ER) | payer OTHER ==
[2018-11-22] MEDS ORDERED: Meclizine TAB* 12.5 MG PO ONE (21:30)
--- NOTE | 2018-11-22 21:30 | ED ---
Headache - HPI Summary HPI Summary: A 48 y/o male presents to [facility] with a chief complaint of headache and dizziness tonight. At triage he rated his pain as a 7/10 in severity. He reports that he was sitting watching TV when his symptoms started. He claims that his headache and dizziness are constant and he describes his dizziness as room-spinning. He reports that he has had this problem before. He reports that he has knee pain, but is able to walk even though he feels unsteady on his feet. He reports that he had DKA in September 2018. - History Of Current Complaint Stated Complaint: DIZZINESS PER EMS Hx Obtained From: Patient, EMS Onset/Duration: Sudden Onset, Started hours ago, Still Present Initially Headache Was: Severe Currently Pain Is: Current Pain Scale(0-10)= - 7, Severe Timing: Constant Character: Unable To Describe Location of Headache: Diffuse Aggravating Factor: Nothing Allevating Factors: Nothing Associated Signs And Symptoms: Dizziness - Allergies/Home Medications Allergies/Adverse Reactions: Allergies Allergy/AdvReac Type Severity Reaction Status Date / Time No Known Allergies Allergy Verified 11/22/18 21:30 Home Medications: Home Medications Atorvastatin* [Lipitor*] 80 mg PO QPM 11/22/18 [History Confirmed 11/22/18] Escitalopram * [Lexapro 10 mg (NF)] 10 mg PO DAILY 11/22/18 [History Confirmed 11/22/18] Insulin Glargine,Hum.rec.anlog [Lantus] 60 unit SC QPM 11/22/18 [History Confirmed 11/22/18] PMH/Surg Hx/FS Hx/Imm Hx Endocrine/Hematology History: Reports: Hx Anticoagulant Therapy - Xarelto, Hx Diabetes Denies: Hx Thyroid Disease Cardiovascular History: Reports: Hx Angina, Hx Deep Vein Thrombosis, Hx Hypercholesterolemia, Hx Hypertension, Other Cardiovascular Problems/Disorders - HLD Denies: Hx Congestive Heart Failure, Hx Myocardial Infarction, Hx Pacemaker/ ICD Respiratory History: Denies: Hx Asthma, Hx Chronic Obstructive Pulmonary Disease (COPD), Hx Lung Cancer, Hx Pneumonia, Hx Pulmonary Embolism GI History: Reports: Hx Gastroesophageal Reflux Disease, Other GI Disorders - congenital hernia Denies: Hx Gall Bladder Disease, Hx Gastrointestinal Bleed, Hx Ulcer, Hx Urosepsis History: Denies: Hx Dialysis, Hx Kidney Stones, Hx Renal Disease Musculoskeletal History: Reports: Hx Arthritis, Other Musculoskeletal History - occas joint pain. clyde horses Sensory History: Denies: Hx Contacts or Glasses, Hx Legally Blind, Hx Hearing Aid Opthamlomology History: Denies: Hx Contacts or Glasses, Hx Legally Blind Neurological History: Reports: Hx Migraine Denies: Hx Dementia, Hx Seizures, Hx Transient Ischemic Attacks (TIA) Psychiatric History: Reports: Hx Depression, Hx Inpatient Treatment Denies: Hx Anxiety, Hx Schizophrenia, Hx Bipolar Disorder - Surgical History Surgery Procedure, Year, and Place: Hernia repair 1991 - Immunization History Date of Tetanus Vaccine: unknown Date of Influenza Vaccine: No Infectious Disease History: Denies: Hx Clostridium Difficile, Hx Hepatitis, Hx Human Immunodeficiency Virus (HIV), Hx of Known/Suspected MRSA - Family History Known Family History: Positive: Other - Asthma Negative: Cardiac Disease - Social History Alcohol Use: None Alcohol Amount: stopped drinking in Jun Hx Substance Use: No Substance Use Type: Reports: None Hx Tobacco Use: Yes Smoking Status (MU): Current Every Day Smoker Type: Cigarettes Amount Used/How Often: 1 cigarette daily Length of Time of Smoking/Using Tobacco: 38 years Have You Smoked in the Last Year: Yes Review of Systems Negative: Fever Positive: Arthralgia - knee pain Neurological: Other - positive: dizziness Positive: Headache All Other Systems Reviewed And Are Negative: Yes Physical Exam - Summary Physical Exam Summary: Appearance: Well-appearing, Well-nourished, lying in bed comfortably Skin: Warm, dry, no obvious rash Eyes: sclera anicteric, no conjunctival pallor ENT: mucous membranes moist, pharynx appears normal Neck: Supple, nontender Respiratory: Clear to auscultation, no signs of respiratory distress Cardiovascular: Normal S1, S2. No murmurs. Normal distal pulses in tibial and radial bilaterally. Abdomen: Soft, nontender, normal active bowel sounds present Musculoskeletal: Normal, Strength/ROM Intact, Motor function in all 4 extremities is normal and symmetric. There is no rigidity or tremor noted. Neurological: A&Ox3, awake and alert, mentation is normal, speech is fluent and appropriate, Level of consciousness nml. The patient is alert and oriented. Cranial nerves are grossly intact. Gaze is conjugate and without nystagmus. Peripheral vision is intact to confrontation. There are no gross sensory abnormalities to light touch. There is no truncal or fine motor ataxia. Gait is normal. Psychiatric: affect is normal, does not appear anxious or depressed Triage Information Reviewed: Yes Vital Signs Reviewed: Yes - [place] Coma Scale Best Eye Response: 4 - Spontaneous Best Motor Response: 6 - Obeys Commands Best Verbal Response: 5 - Oriented Coma Scale Total: 15 Diagnostics - Laboratory Result Diagrams: 11/22/18 21:39 11/22/18 21:39 Lab Statement: Any lab studies that have been ordered have been reviewed, and results considered in the medical decision making process. - CT Brain CT Interpretation Completed By: Radiologist Summary of CT Findings: 1. No intracranial abnormality. 2. Mild sinus disease. 3. Mild left frontal soft tissue swelling. ED physician has reviewed this imaging report. Head CTA CT Interpretation Completed By: Radiologist Summary of CT Findings: No acute findings. ED physician has reviewed this imaging report. Re-Evaluation - Re-Evaluation First Eval Re-Evaluation Time: 00:36 Change: Improved Comment: Patient reports feeling better and dizziness is resolved. Headache Course/Dx - Course Course Of Treatment: A 48 y/o male presents to [facility] with a chief complaint of headache and dizziness tonight. The physical exam was unremarkable. Brain CT impression: 1. No intracranial abnormality. 2. Mild sinus disease. 3. Mild left frontal soft tissue swelling. In the ED course the patient was given Iodixanol (contrast) IV and Antivert PO. Bloodwork, chemistries and urines obtained. Ur Specific gravity 1.035, Urine Ketones 2+ and Urine glucose 3+. Head CTA impression: No acute findings. Upon re-eval the patient's dizziness has resolved. The patient will be discharged with a prescription for Antivert. He is agreeable with this plan. Imaging studies were obtained mainly because of the concern for vascular problem such as dissection with the acute onset of headache associated with the vertigo. Fortunately his CTA studies were negative. His symptoms of resolved making the diagnosis of cerebellar stroke quite unlikely. Further he relates a history of somewhat similar bouts of vertigo periodically for many years. - Diagnoses Provider Diagnoses: Peripheral vertigo Discharge - Sign-Out/Discharge Documenting (check all that apply): Patient Departure - DC Patient Received Moderate/Deep Sedation with Procedure: No - Discharge Plan Condition: Improved Disposition: HOME Prescriptions: Meclizine TAB* [Antivert 12.5 TAB*] 25 mg PO TID PRN #20 tab PRN Reason: Dizziness Patient Education Materials: Vertigo (ED), Diabetic Hyperglycemia (ED) Referrals: Acosta Carey MD [Medical Doctor] - 3 Days (if not better) - Billing Disposition and Condition Condition: IMPROVED Disposition: Home - Attestation Statements Document Initiated by Romulo: Yes Documenting Scribe: Rakan Watts Provider For Whom Romulo is Documenting (Include Credential): Ryan Craven MD Scribe Attestation: I, Rakan Watts, scribed for Ryan Craven MD on 11/23/18 at 0223. Scribe Documentation Reviewed: Yes Provider Attestation: The documentation as recorded by the Rakan pollock accurately reflects the service I personally performed and the decisions made by me, Ryan Craven MD Status of Scribe Document: Viewed
[2018-11-22 21:48] LABS: ABS Basophils 0.1 10^3/ul (0-0.2); ABS Eosinophils 0.1 10^3/ul (0-0.6); ABS Monocytes 0.6 10^3/ul (0-0.8); ABS Neutrophils 4.8 10^3/ul (1.5-7.7); ABS Nucleated RBC 0 10^3/ul; Eosinophil % 1.4 %; Hematocrit 48 % (42-52); Hemoglobin 16.8 g/dl (14.0-18.0); Lymphocyte % 34.7 %; Mean Corpuscular HGB Conc 35 g/dl (31-36); Mean Corpuscular Hemoglobin 33 pg (27-31); Mean Corpuscular Volume 95 fL (80-94); Mean Platelet Volume 9.2 fL (7.4-10.4); Nucleated Red Blood Cells % 0; Platelet Count 272 10^3/ul (150-450); Red Blood Count 5.07 10^6/ul (4.00-5.40); Red Cell Distribution Width 13 % (10.5-15); White Blood Count 8.5 10^3/ul (3.5-10.8)
[2018-11-22 22:05] LABS: Albumin/Globulin Ratio 1.1 (1-3); BUN/Creatinine Ratio 28.4 (8-20); Calcium 9.5 mg/dL (8.6-10.3); EGFR African American 111.4 (>60); Globulin 3.5 g/dL (2-4); Total Bilirubin 0.4 mg/dL (0.2-1.0); Total Protein 7.5 g/dL (6.4-8.9)
[2018-11-22] MEDS ORDERED: Iodixanol* (CONTRAST) 320 MG/ML 100 ML SDV IV ONE (22:18)
[2018-11-22 22:30] LABS: Urine Appearance Clear; Urine Bilirubin Negative (Negative); Urine Blood Negative (Negative); Urine Color Straw; Urine Glucose 3+(>=500 mg/dL) (Negative); Urine Ketones 2+ (Negative); Urine Nitrite Negative (Negative); Urine Protein Negative (Negative); Urine Specific Gravity 1.035 (1.010-1.030); Urine Urobilinogen Negative (Negative)
[2018-11-23 00:33] VITALS: BP 119/95
== END 2018-11-23 00:53 | disposition home or self-care (01) ==
LOC: ED 21:18
DX: H81.399 Other peripheral vertigo, unspecified ear (principal); R51 Headache; R42 Dizziness and giddiness; Z79.01 Long term (current) use of anticoagulants; Z86.718 Personal history of other venous thrombosis and embolism; K21.9 Gastro-esophageal reflux disease without esophagitis; F17.210 Nicotine dependence, cigarettes, uncomplicated
CPT/HCPCS: 36415; 70450; 70496; 70498; 80053; 81003; 85025; 99283; A9270-GY; Q9967

== ENCOUNTER 2019-01-03 12:02 | Inpatient (IN) | payer OTHER ==
--- NOTE | 2019-01-03 12:15 | ED ---
Shortness of Breath - HPI Summary HPI Summary: A 48 y/o male brought in by [facility] ambulance presents to [facility] with a chief complaint of SOB for the past few days. He also c/o heartburn. He denies any CP , abdominal pain or a Hx of anxiety. He denies using oxygen at home. Per EMS blood glucose was 574 [employer]. He takes insulin and Xarelto. He denies smoking, EtOH or drug use. - History of Current Complaint Time Seen by Provider: 01/03/19 12:10 Hx Obtained From: Patient Onset/Duration: Sudden Onset, Lasting Days, Still Present Timing: Constant Current Severity: None Dyspnea At: Rest Aggrevating Factors: Nothing Alleviating Factors: Nothing Associated Signs & Symptoms: Negative - fever, CP, Abdominal pain - Allergy/Home Medications Allergies/Adverse Reactions: Allergies Allergy/AdvReac Type Severity Reaction Status Date / Time No Known Allergies Allergy Verified 11/22/18 21:30 Home Medications: Home Medications Acetaminophen TAB* [Tylenol TAB*] 650 mg PO Q6H PRN 01/03/19 [History Confirmed 01/03/19] Escitalopram * [Lexapro *] 20 mg PO DAILY 01/03/19 [History Confirmed 01/03/19] Folic Acid TAB* [Folvite TAB*] 1 mg PO DAILY 01/03/19 [History Confirmed ] Insulin Lispro [Admelog Solostar] 14 unit SUBCUT TID WITH MEALS 01/03/19 [ History Confirmed 01/03/19] Metformin ER (NF) [Glucophage ER 750 MG TAB (NF)] 1,500 mg PO BEDTIME 01/03/19 [ History Confirmed 01/03/19] [id number]-[id number] Ethyl Esters (NF) [Lovaza (NF)] 2 gm PO DAILY 01/03/19 [History Confirmed 01/03/19] PMH/Surg Hx/FS Hx/Imm Hx Endocrine/Hematology History: Reports: Hx Anticoagulant Therapy - Xarelto, Hx Diabetes Denies: Hx Thyroid Disease Cardiovascular History: Reports: Hx Angina, Hx Deep Vein Thrombosis, Hx Hypercholesterolemia, Hx Hypertension, Other Cardiovascular Problems/Disorders - HLD Denies: Hx Congestive Heart Failure, Hx Myocardial Infarction, Hx Pacemaker/ ICD Respiratory History: Denies: Hx Asthma, Hx Chronic Obstructive Pulmonary Disease (COPD), Hx Lung Cancer, Hx Pneumonia, Hx Pulmonary Embolism GI History: Reports: Hx Gastroesophageal Reflux Disease, Other GI Disorders - congenital hernia Denies: Hx Gall Bladder Disease, Hx Gastrointestinal Bleed, Hx Ulcer, Hx Urosepsis History: Denies: Hx Dialysis, Hx Kidney Stones, Hx Renal Disease Musculoskeletal History: Reports: Hx Arthritis, Other Musculoskeletal History - occas joint pain. clyde horses Sensory History: Denies: Hx Contacts or Glasses, Hx Legally Blind, Hx Hearing Aid Opthamlomology History: Denies: Hx Contacts or Glasses, Hx Legally Blind Neurological History: Reports: Hx Migraine Denies: Hx Dementia, Hx Seizures, Hx Transient Ischemic Attacks (TIA) Psychiatric History: Reports: Hx Depression, Hx Inpatient Treatment Denies: Hx Anxiety, Hx Schizophrenia, Hx Bipolar Disorder - Surgical History Surgery Procedure, Year, and Place: Hernia repair 1991 - Immunization History Date of Tetanus Vaccine: unknown Date of Influenza Vaccine: No Infectious Disease History: Denies: Hx Clostridium Difficile, Hx Hepatitis, Hx Human Immunodeficiency Virus (HIV), Hx of Known/Suspected MRSA - Family History Known Family History: Positive: Other - Asthma Negative: Cardiac Disease - Social History Alcohol Use: None Alcohol Amount: stopped drinking in Jun Hx Substance Use: No Substance Use Type: Reports: None Hx Tobacco Use: Yes Smoking Status (MU): Current Every Day Smoker Type: Cigarettes Amount Used/How Often: 1 cigarette daily Length of Time of Smoking/Using Tobacco: 38 years Have You Smoked in the Last Year: Yes Review of Systems Negative: Fever Negative: Chest Pain Positive: Shortness Of Breath Positive: Other - positive: heartburn. Negative: Abdominal Pain Negative: Anxious All Other Systems Reviewed And Are Negative: Yes Physical Exam - Summary Physical Exam Summary: Appearance: Well appearing, no pain distress Skin: warm, dry, reflects adequate perfusion Head/face: normal Eyes: EOMI, ARTEMIO ENT: dry mucous membranes Neck: supple, non-tender Respiratory: CTA, breath sounds present Cardiovascular:tachycardic, pulses symmetrical Abdomen: non-tender, soft Musculoskeletal: normal, strength/ROM intact Neuro: normal, sensory motor intact, A&Ox3 Triage Information Reviewed: Yes Vital Signs Reviewed: Yes Diagnostics - Laboratory Result Diagrams: 01/03/19 12:12 01/03/19 12:12 Lab Statement: Any lab studies that have been ordered have been reviewed, and results considered in the medical decision making process. - Radiology CXR Radiology Interpretation Completed By: Radiologist Summary of Radiographic Findings: NO ACTIVE CARDIOPULMONARY DISEASE. ED physician has reviewed this imaging report. - EKG 12:08 Cardiac Rate: Tachycardia - 109 bpm EKG Rhythm: Sinus Tachycardia Summary of EKG Findings: EKG at 12:08 showed Sinus tachycardia at 109bpm. Course/Dx - Course Course Of Treatment: A 48 y/o male brought in by [facility] ambulance presents to [facility] with a chief complaint of SOB for the past few days. The physical exam revealed that the patient was tachycardic and had dry mucous membranes. In the ED course the patient was given Sodium chloride IV and insulin. Bloodwork and chemistry obtained. CXR impression: NO ACTIVE CARDIOPULMONARY DISEASE. Discussed case with Dr. Langford, who recommended discussing the case with Dr. Terrell. Discussed case with Dr. Terrell, who accepted the patient for admission. The patient is agreeable with this plan. - Diagnoses Differential Diagnosis/HQI/PQRI: Positive: Other - uncont dm/ dka/dehydration Provider Diagnoses: DKA (diabetic ketoacidosis) - Physician Notifications Discussed Care of Patient With: Deborah Langford Time Discussed With Above Provider: 13:00 Instructed by Provider To: Other - recommended speaking with Dr. Terrell - Critical Care Time Critical Care Time: 30-74 min Discharge - Sign-Out/Discharge Documenting (check all that apply): Patient Departure - admit Patient Received Moderate/Deep Sedation with Procedure: No - Discharge Plan Condition: Fair Disposition: ADMITTED TO [facility] Referrals: Becky Skinner MD [Primary Care Provider] - - Billing Disposition and Condition Condition: FAIR Disposition: Admitted to [facility] - Attestation Statements Document Initiated by Romulo: Yes Documenting Scribe: Rakan Watts Provider For Whom Romulo is Documenting (Include Credential): Raman Puente MD Scribe Attestation: Rakan Harrison scribed for Raman Puente MD on 01/03/19 at 1339. Scribe Documentation Reviewed: Yes Provider Attestation: The documentation as recorded by the Rakan pollock accurately reflects the service I personally performed and the decisions made by me, Raman Puente MD Status of Scribe Document: Viewed Consult Consult: At 13:[address] Terrell, who accepted the patient for admission.
[2019-01-03] MEDS ORDERED: NS 0.9% 1000 ML** 2,000 ML IV ONE (12:23)
[2019-01-03] MEDS ORDERED: Insulin REGULAR(*) 1 UNITS UNIT IV ONE (12:23)
[2019-01-03 12:43] LABS: ABS Basophils 0 10^3/ul (0-0.2); ABS Eosinophils 0 10^3/ul (0-0.6); ABS Lymphocytes 1.1 10^3/ul (1.0-4.8); ABS Monocytes 0.4 10^3/ul (0-0.8); ABS Neutrophils 8.1 10^3/ul (1.5-7.7); ABS Nucleated RBC 0 10^3/ul; Albumin 4.2 g/dL (3.2-5.2); Albumin/Globulin Ratio 1.1 (1-3); BUN/Creatinine Ratio 24.2 (8-20); Calcium 9.5 mg/dL (8.6-10.3); EGFR African American 58.8 (>60); EGFR Non-African American 48.6 (>60); Eosinophil % 0.4 %; Globulin 3.8 g/dL (2-4); Hematocrit 56 % (36-46); Hemoglobin 18.9 g/dL (14.0-18.0); Lymphocyte % 11.2 %; Mean Corpuscular HGB Conc 34 g/dL (31-36); Mean Corpuscular Hemoglobin 33 pg (27-31); Mean Corpuscular Volume 98 fL (80-94); Mean Platelet Volume 9.3 fL (7.4-10.4); Nucleated Red Blood Cells % 0.1; Platelet Count 325 10^3/uL (150-450); Red Blood Count 5.68 10^6 /uL (4.18-5.48); Red Cell Distribution Width 13 % (10.5-15); Total Bilirubin 0.6 mg/dL (0.2-1.0); White Blood Count 9.6 10^3/uL (3.5-10.8)
[2019-01-03 12:49] LABS: Potassium 5.7 mmol/L (3.5-5.0)
[2019-01-03 12:50] LABS: Activated Partial Thrombo Time 31.7 seconds (26.0-36.3); INR 1.01 (0.82-1.09)
[2019-01-03] MEDS ORDERED: NS 0.9% 1000 ML** 1,000 ML IV ONE (12:50)
[2019-01-03 12:51] LABS: C Reactive Protein 3.74 mg/L (<8.01); Magnesium 2.2 mg/dL (1.9-2.7)
[2019-01-03] MEDS ORDERED: Insulin IVPB 100 units/100 ml 100 UNITS/100 ML UNIT IVPB SCH (13:00)
[2019-01-03] MEDS: Insulin REGULAR(*) 100 UNITS in NS 0.9% 100 ML* 100 ML IVPB SCH (13:51)
[2019-01-03] MEDS ORDERED: Al Hydrox/Mg Hydrox/Simet LIQ* 30 ML UDC ONE (15:42)
[2019-01-03] MEDS: Al Hydrox/Mg Hydrox/Simet LIQ* 30 ML UDC PO PRN ×2 (15:47→23:19)
[2019-01-03 16:03] LABS: Calcium 8.5 mg/dL (8.6-10.3); Chloride 101 mmol/L (101-111); Potassium 4.7 mmol/L (3.5-5.0); Sodium 128 mmol/L (135-145)
[2019-01-03 16:08] LABS: BUN/Creatinine Ratio 24.8 (8-20); Blood Urea Nitrogen 38 mg/dL (6-24); EGFR African American 58.8 (>60); EGFR Non-African American 48.6 (>60)
[2019-01-03 16:11] LABS: CO2 Carbon Dioxide < 7 mmol/L (22-32); Glucose 550 mg/dL (70-100); Glucose Confirmatory 550 mg/dL (70-100)
[2019-01-03] MEDS ORDERED: Lactated Ringers 1000 ML Bag* 1,000 ML IV SCH (18:00)
--- NOTE | 2019-01-03 18:06 | HP ---
ADMISSION HISTORY AND PHYSICAL: DATE OF ADMISSION: 01/03/19 REASON FOR ADMISSION: Diabetic ketoacidosis. HISTORY OF PRESENT ILLNESS: This is a 48-year-old white male with insulin- dependent diabetes and mu ltiple admissions here in the past for diabetic ketoacidosis, who presented to the emergency room ear lier today with complaints of shortness of breath and was found to have a glucose of 620, bicarb of 7 and a pH of 7.1 and was admitted with a diagnosis of diabetic ketoacidosis. The patient claims he h as been taking his insulin regularly and he denies any symptoms suggestive of an infection. He was m ost recently hospitalized here for the same problem in August 2018 and was discharged on 09/13/18. PAST MEDICAL HISTORY: The patient has a history of recurrent venous thromboembolism and is currently on Xarelto 10 mg daily. OUTPATIENT MEDICATIONS: 1. Lipitor 80 mg daily. 2. Metformin 1500 mg at bedtime. 3. Lisinopril 20 mg daily. 4. Lexapro 20 mg daily. 5. Lispro insulin 14 units t.i.d. with meals. 6. Lantus insulin 60 units every evening. ALLERGIES: No known drug allergies. SOCIAL HISTORY: The patient is currently unemployed. He is and a father of 3. He has a pr ior history of smoking, but denies illicit drug use. REVIEW OF SYSTEMS: Noncontributory. PHYSICAL EXAMINATION GENERAL: The patient was alert and oriented and did not appear to be in any distress. VITAL SIGNS: Temp was 97.8, heart rate was 101, respirations 24, O2 sat 99% on nasal prongs, blood p ressure 118/66. HEENT: Pupils were mid position. There was no facial asymmetry and no slurred speech. NECK: Supple. LUNGS: Clear to auscultation. CARDIAC: Exam showed no murmurs, rubs, or gallops. ABDOMEN: Soft, nontender. EXTREMITIES: Warm. Not cyanotic and not edematous. DIAGNOSTIC STUDIES/LAB DATA: Admission laboratory data: Hemoglobin was 18.9, hematocrit 56, white count was 9.6. Sodium 123, potassium 5.7, chloride 93, bicarb 7, anion gap 23, BUN 37, creatinine 1. 5, glucose 620, lactic acid 2.3. Liver enzymes normal. Albumin 4.2. INR 1, PTT 31.7. Blood gases showed a pCO2 less than 20, pH 7.1, pO2 of 132, and a calculated bicarb of 6.2. Chest x-ray showed normal sized heart with clear lung jiménez. 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 IMPRESSION: Diabetic ketoacidosis, most likely secondary to poor compliance with medications. MANAGEMENT PLAN: The patient is currently on an insulin drip and has received 3 L of fluid. We will discontinue the insulin infusion when the elevated anion gap resolves and we will start feeding the patient when the blood glucose decreases to 200. We will otherwise continue his home medications and once the insulin infusion is discontinued, we will restart his home insulin protocol. CRITICAL CARE TIME: Sixty minutes. [id number]/[facility] #: [id number]
[2019-01-03 20:54] LABS: BUN/Creatinine Ratio 28.9 (8-20); Calcium 8.6 mg/dL (8.6-10.3); EGFR African American 72.3 (>60); EGFR Non-African American 59.7 (>60); Potassium 4.3 mmol/L (3.5-5.0)
[2019-01-03] MEDS: Insulin GLARGINE(*) 1 UNITS UNIT SUBCUT SCH (21:49)
[2019-01-03] MEDS: Insulin LISPRO* 1 UNITS UNIT SUBCUT SCH (23:11)
[2019-01-04] MEDS ORDERED: Lactated Ringers 1000 ML Bag* 1,000 ML IV SCH (00:15)
[2019-01-04 02:37] LABS: BUN/Creatinine Ratio 28.6 (8-20); Blood Urea Nitrogen 28 mg/dL (6-24); Calcium 8.2 mg/dL (8.6-10.3); Chloride 105 mmol/L (101-111); EGFR African American 98.4 (>60); EGFR Non-African American 81.3 (>60); Glucose 318 mg/dL (70-100); Sodium 127 mmol/L (135-145)
[2019-01-04 02:39] LABS: CO2 Carbon Dioxide 10 mmol/L (22-32)
[2019-01-04 02:40] LABS: Anion Gap 12 mmol/L (2-11)
[2019-01-04] MEDS: Insulin LISPRO* 1 UNITS UNIT SUBCUT SCH ×4 (02:54→13:51)
[2019-01-04] MEDS ORDERED: NS 0.9% 1000 ML** 1,000 ML IV SCH (03:00)
[2019-01-04] MEDS: Insulin REGULAR(*) 100 UNITS in NS 0.9% 100 ML* 100 ML IVPB SCH (03:06)
--- NOTE | 2019-01-04 03:13 | PN ---
Progress Note - Progress Note Date of Service: 01/04/19 Note: Glucose began climbing back up, repeat BMP shows anion gap metabolic acidosis. Will place back on insulin drip and IVFs NS at 200 cc/hr. Awaiting K level
[2019-01-04] MEDS ORDERED: Insulin IVPB 100 units/100 ml 100 UNITS/100 ML UNIT IVPB SCH (03:30)
[2019-01-04 03:34] LABS: Magnesium 2.2 mg/dL (1.9-2.7); Potassium Redraw 4.3 mmol/L (3.5-5.0)
[2019-01-04] MEDS ORDERED: NS 0.9% w/ 20 Meq KCL 1000 ML* 1,000 ML IV SCH (04:00)
[2019-01-04] MEDS: Al Hydrox/Mg Hydrox/Simet LIQ* 30 ML UDC PO PRN ×3 (04:04→20:50)
[2019-01-04] MEDS ORDERED: Dextrose 50% Syringe 50 ML* 25 GM/50 ML SYRINGE IV PUSH PRN ×3 (06:08→23:08)
[2019-01-04 06:32] LABS: ABS Basophils 0.1 10^3/ul (0-0.2); ABS Eosinophils 0 10^3/ul (0-0.6); ABS Lymphocytes 1.9 10^3/ul (1.0-4.8); ABS Neutrophils 8.2 10^3/ul (1.5-7.7); ABS Nucleated RBC 0 10^3/ul; Eosinophil % 0.1 %; Hematocrit 45 % (36-46); Hemoglobin 15.5 g/dL (14.0-18.0); Lymphocyte % 17.2 %; Mean Corpuscular HGB Conc 35 g/dL (31-36); Mean Corpuscular Hemoglobin 33 pg (27-31); Mean Corpuscular Volume 95 fL (80-94); Mean Platelet Volume 8.4 fL (7.4-10.4); Nucleated Red Blood Cells % 0.1; Platelet Count 273 10^3/uL (150-450); Red Blood Count 4.76 10^6 /uL (4.18-5.48); Red Cell Distribution Width 13 % (10.5-15); White Blood Count 11.3 10^3/uL (3.5-10.8)
[2019-01-04 06:53] LABS: BUN/Creatinine Ratio 24.7 (8-20); Calcium 8.8 mg/dL (8.6-10.3); EGFR African American 109.9 (>60); EGFR Non-African American 90.9 (>60); Potassium 3.9 mmol/L (3.5-5.0)
[2019-01-04] MEDS ORDERED: D5W 1/2 NS KCl 20 Meq 1000 ML* 1,000 ML IV SCH (07:00)
--- NOTE | 2019-01-04 15:52 | PN ---
Date of Service: 01/04/19 Critical Care Services: Patient admitted yesterday with DKA - no evidence of infection - is off insulin drip and has been started on an oral diet. Vital Signs: Temp Pulse Resp BP SpO2 FiO2 99.6 F 95 22 146/81 97 Physical Exam: Gen:Alert, oriented, Lungs: Clear Extremities:Warm. No cysnosis or edema. Fluid Balance (Past 24 Hours): 01/04/19 06:59 Intake Total 4428.6 Output Total 400 Balance 4028.6 Weight 272 lb 14.06 oz Intake: IV Fluids 4170 LR 1870 NS 2000 NS (0.9%) 20 meq KCL 300 Medicated IV 138.6 CC - Insulin 138.6 Oral 120 Output: Urine 400 Other: Estimated Void Medium Date of Last Bowel 01/03/19 Movement # Bowel Movements 1 Estimated Stool Amount Medium # Voids 1 Labs: Laboratory Results - last 24 hr 01/03/19 01/03/19 01/03/19 15:25 15:25 16:03 WBC RBC Hgb Hct MCV MCH MCHC RDW Plt Count MPV Neut % (Auto) Lymph % (Auto) [place] % (Auto) Eos % (Auto) Baso % (Auto) Absolute Neuts (auto) Absolute Lymphs (auto) Absolute Monos (auto) Absolute Eos (auto) Absolute Basos (auto) Absolute Nucleated RBC Nucleated RBC % Sodium 128 L Potassium 4.7 Chloride 101 Carbon Dioxide < 7 L* Anion Gap Not Reportable BUN 38 H Creatinine 1.53 H Est GFR ( Amer) 58.8 Est GFR (Non-Af Amer) 48.6 BUN/Creatinine Ratio 24.8 H Glucose 550 H* POC Glucose (mg/dL) 427 H* Glucose Meter Confirm 550 H* Lactic Acid 1.4 Calcium 8.5 L Magnesium 01/03/19 01/03/19 01/03/19 17:04 18:00 18:59 WBC RBC Hgb Hct MCV MCH MCHC RDW Plt Count MPV Neut % (Auto) Lymph % (Auto) [place] % (Auto) Eos % (Auto) Baso % (Auto) Absolute Neuts (auto) Absolute Lymphs (auto) Absolute Monos (auto) Absolute Eos (auto) Absolute Basos (auto) Absolute Nucleated RBC Nucleated RBC % Sodium Potassium Chloride Carbon Dioxide Anion Gap BUN Creatinine Est GFR ( Amer) Est GFR (Non-Af Amer) BUN/Creatinine Ratio Glucose POC Glucose (mg/dL) 330 H 315 H 280 H Glucose Meter Confirm Lactic Acid Calcium Magnesium 01/03/19 01/03/19 01/03/19 20:12 20:13 21:03 WBC RBC Hgb Hct MCV MCH MCHC RDW Plt Count MPV Neut % (Auto) Lymph % (Auto) [place] % (Auto) Eos % (Auto) Baso % (Auto) Absolute Neuts (auto) Absolute Lymphs (auto) Absolute Monos (auto) Absolute Eos (auto) Absolute Basos (auto) Absolute Nucleated RBC Nucleated RBC % Sodium 129 L Potassium 4.3 Chloride 106 Carbon Dioxide 11 L* Anion Gap 12 H BUN 37 H Creatinine 1.28 H Est GFR ( Amer) 72.3 Est GFR (Non-Af Amer) 59.7 BUN/Creatinine Ratio 28.9 H Glucose 296 H POC Glucose (mg/dL) 262 H 246 H Glucose Meter Confirm Lactic Acid Calcium 8.6 Magnesium 01/03/19 01/03/19 01/04/19 21:55 23:02 00:37 WBC RBC Hgb Hct MCV MCH MCHC RDW Plt Count MPV Neut % (Auto) Lymph % (Auto) [place] % (Auto) Eos % (Auto) Baso % (Auto) Absolute Neuts (auto) Absolute Lymphs (auto) Absolute Monos (auto) Absolute Eos (auto) Absolute Basos (auto) Absolute Nucleated RBC Nucleated RBC % Sodium Potassium Chloride Carbon Dioxide Anion Gap BUN Creatinine Est GFR ( Amer) Est GFR (Non-Af Amer) BUN/Creatinine Ratio Glucose POC Glucose (mg/dL) 233 H 229 H 268 H Glucose Meter Confirm Lactic Acid Calcium Magnesium 01/04/19 01/04/19 01/04/19 01:18 02:07 02:10 WBC RBC Hgb Hct MCV MCH MCHC RDW Plt Count MPV Neut % (Auto) Lymph % (Auto) [place] % (Auto) Eos % (Auto) Baso % (Auto) Absolute Neuts (auto) Absolute Lymphs (auto) Absolute Monos (auto) Absolute Eos (auto) Absolute Basos (auto) Absolute Nucleated RBC Nucleated RBC % Sodium 127 L Potassium TNP Chloride 105 Carbon Dioxide 10 L* Anion Gap 12 H BUN 28 H Creatinine 0.98 Est GFR ( Amer) 98.4 Est GFR (Non-Af Amer) 81.3 BUN/Creatinine Ratio 28.6 H Glucose 318 H POC Glucose (mg/dL) 275 H 290 H Glucose Meter Confirm Lactic Acid Calcium 8.2 L Magnesium TNP 01/04/19 01/04/19 01/04/19 03:03 03:10 04:03 WBC RBC Hgb Hct MCV MCH MCHC RDW Plt Count MPV Neut % (Auto) Lymph % (Auto) [place] % (Auto) Eos % (Auto) Baso % (Auto) Absolute Neuts (auto) Absolute Lymphs (auto) Absolute Monos (auto) Absolute Eos (auto) Absolute Basos (auto) Absolute Nucleated RBC Nucleated RBC % Sodium Potassium 4.3 Chloride Carbon Dioxide Anion Gap BUN Creatinine Est GFR ( Amer) Est GFR (Non-Af Amer) BUN/Creatinine Ratio Glucose POC Glucose (mg/dL) 294 H 253 H Glucose Meter Confirm Lactic Acid Calcium Magnesium 2.2 01/04/19 01/04/19 01/04/19 05:00 06:10 06:10 WBC 11.3 H RBC 4.76 Hgb 15.5 Hct 45 MCV 95 H MCH 33 H MCHC 35 RDW 13 Plt Count 273 MPV 8.4 Neut % (Auto) 73.1 Lymph % (Auto) 17.2 [place] % (Auto) 8.6 Eos % (Auto) 0.1 Baso % (Auto) 1.0 Absolute Neuts (auto) 8.2 H Absolute Lymphs (auto) 1.9 Absolute Monos (auto) 1.0 H Absolute Eos (auto) 0 Absolute Basos (auto) 0.1 Absolute Nucleated RBC 0 Nucleated RBC % 0.1 Sodium 132 L Potassium 3.9 Chloride 108 Carbon Dioxide 16 L Anion Gap 8 BUN 22 Creatinine 0.89 Est GFR ( Amer) 109.9 Est GFR (Non-Af Amer) 90.9 BUN/Creatinine Ratio 24.7 H Glucose 195 H POC Glucose (mg/dL) 215 H Glucose Meter Confirm Lactic Acid Calcium 8.8 Magnesium 01/04/19 01/04/19 01/04/19 06:12 07:18 08:03 WBC RBC Hgb Hct MCV MCH MCHC RDW Plt Count MPV Neut % (Auto) Lymph % (Auto) [place] % (Auto) Eos % (Auto) Baso % (Auto) Absolute Neuts (auto) Absolute Lymphs (auto) Absolute Monos (auto) Absolute Eos (auto) Absolute Basos (auto) Absolute Nucleated RBC Nucleated RBC % Sodium Potassium Chloride Carbon Dioxide Anion Gap BUN Creatinine Est GFR ( Amer) Est GFR (Non-Af Amer) BUN/Creatinine Ratio Glucose POC Glucose (mg/dL) 171 H 181 H 193 H Glucose Meter Confirm Lactic Acid Calcium Magnesium 01/04/19 01/04/19 10:11 13:46 WBC RBC Hgb Hct MCV MCH MCHC RDW Plt Count MPV Neut % (Auto) Lymph % (Auto) [place] % (Auto) Eos % (Auto) Baso % (Auto) Absolute Neuts (auto) Absolute Lymphs (auto) Absolute Monos (auto) Absolute Eos (auto) Absolute Basos (auto) Absolute Nucleated RBC Nucleated RBC % Sodium Potassium Chloride Carbon Dioxide Anion Gap BUN Creatinine Est GFR ( Amer) Est GFR (Non-Af Amer) BUN/Creatinine Ratio Glucose POC Glucose (mg/dL) 262 H 275 H Glucose Meter Confirm Lactic Acid Calcium Magnesium Studies: None Nutrition: Consistent carb diet Impression: DKA - resolved Plan: Transfer out of ICU for continued glycemic control.
[2019-01-04] MEDS ORDERED: Insulin LISPRO* 1 UNITS UNIT SUBCUT SCH ×2 (16:00→21:00)
[2019-01-04] MEDS ORDERED: Insulin LISPRO* 1 UNITS UNIT SUBCUT ONE ×2 (18:25→18:26)
[2019-01-04] MEDS: Insulin GLARGINE(*) 1 UNITS UNIT SUBCUT SCH (21:37)
[2019-01-05 06:46] LABS: BUN/Creatinine Ratio 22.2 (8-20); Calcium 8.7 mg/dL (8.6-10.3); EGFR African American 122.6 (>60); EGFR Non-African American 101.3 (>60); Potassium 4.1 mmol/L (3.5-5.0)
[2019-01-05] MEDS ORDERED: Insulin LISPRO* 1 UNITS UNIT SUBCUT SCH ×2 (07:30)
[2019-01-05] MEDS ORDERED: Insulin GLARGINE(*) 1 UNITS UNIT SUBCUT SCH (08:00)
[2019-01-05 08:50] VITALS: BP 141/89
--- NOTE | 2019-01-05 11:40 | DS ---
DISCHARGE SUMMARY: DATE OF ADMISSION: 01/03/19 DATE OF DISCHARGE: 01/05/19 ADMITTING PROVIDER: Rakan Terrell MD ATTENDING PHYSICIAN THE DAY OF DISCHARGE: Jorge Alberto Villaseñor MD PRIMARY CARE PROVIDER: Becky Skinner MD (REACH). OUTPATIENT CONCENTRATOR OPERATOR: Plans to establish with Dr. Riojas. CHIEF COMPLAINT: Heartburn, difficulty breathing. PRINCIPAL DIAGNOSES: 1. DKA in the setting of poorly controlled insulin-dependent diabetes mellitus. 2. Suspected gastroesophageal reflux disease. HISTORY OF PRESENT ILLNESS/HOSPITAL COURSE: Freedom Rubio is a 48-year-old male with past medical history of poorly controlled insulin-dependent diabetes mellitus; recurrent DVTs, on lifelong Xarelto prophylaxis; hypertension; hyperlipidemia; obesity, who presented to the hospital with complaint of "it was hard to breathe" and had some heartburn, presented to the [facility] [place] , was found to have a glucose of 620, bicarb was 7, pH of 7.1, and anion gap of 23, he was admitted to the [facility] edge in[facility] machine service, started on insulin drip for suspected DKA. He had a chest x-ray that showed no active cardiopulmonary disease. His A1c was 13.3, troponin was negative. He improved on insulin drip. He was eventually able to be downgraded to the medicine floor on the afternoon of hospital day #2 with close gap on day of discharge of 5. He notably missed his appointment with Dr. Romel Riojas, which would have been his first outpatient appointment that was scheduled on the day of admission. He had originally been on long-acting insulin, total of 250 units a day and this was changed by Dr. Riojas last time he was admitted for DKA back in 09/10/18 down to total of 60 units Basaglar day and initiated on Humalog 14 units with each meal and put back on metformin 1500 mg each night extended release. The patient is reporting to me that his blood sugars are usually, fasting, between 200s and 400s. He attests checking it 3 times a day. Denies any hypoglycemic events even when he was on the 250 units total. He gets support through [facility] Care Coordination, Gilles Nascimento, who helps him arrange transportation. He does not have a car, uses a bus or walks to his appointment. He attests that he is compliant with his medications, though he sometimes has gaps in his insulin coverage between his 30-day supplies. He is being recommended to follow with Dr. Romel Riojas as soon as possible. I am increasing his Basaglar to 80 units each night and his Admelog to 16 units with each meal. He is also being started on Protonix 40 mg p.o. daily for suspected acid reflux like symptoms. He follows with his PCP, Dr. Becky Skinner within [address] Romel Riojas within 2 weeks. DISCHARGE MEDICATIONS: Include: 1. Tylenol 650 mg p.o. q.6 hours p.r.n. 2. Lipitor 80 mg daily. 3. Lexapro 20 mg daily. 4. Basaglar 80 units q.p.m., increased from 60 units q.p.m. 5. Admelog 16 units with each meal, increased from 14 units with each meal. 6. Lisinopril 20 mg daily. 7. Meclizine 25 mg p.o. t.i.d. p.r.n. 8. Metformin 1500 mg extended release p.o. bedtime. 9. Lovaza 2 g p.o. daily. 10. Protonix 40 mg p.o. daily (new). 11. Xarelto 10 mg p.o. daily. DISCHARGE DIET: Heart-healthy, carbohydrate consistent (unchanged) DISPOSITION: Home. CONDITION: Improved. TIME SPENT ON DISCHARGE: Thirty five minutes. [id number]/[facility] #: [id number] MTDD
== END 2019-01-05 11:20 | disposition home or self-care (01) | DRG 420 ==
LOC: ED 12:02 → ICU 13:45 → MED 01-04 17:09
PROVIDERS: ADMIT Internal Medicine Critical Care Medicine; ATTEND Internal Medicine
DX: E11.10 Type 2 diabetes mellitus with ketoacidosis without coma (principal); K21.9 Gastro-esophageal reflux disease without esophagitis; E78.00 Pure hypercholesterolemia, unspecified; I10 Essential (primary) hypertension; R00.0 Tachycardia, unspecified; M19.90 Unspecified osteoarthritis, unspecified site; F32.9 Major depressive disorder, single episode, unspecified; Z82.5 Family history of asthma and other chronic lower respiratory diseases; Z56.0 Unemployment, unspecified; Z87.891 Personal history of nicotine dependence; Z86.718 Personal history of other venous thrombosis and embolism; Z79.01 Long term (current) use of anticoagulants; Z79.4 Long term (current) use of insulin
CPT/HCPCS: 36415; 71045; 80048; 80053; 82550; 82803; 82947; 83036; 83605; 83735; 84484; 85025; 85610; 85730; 86140; 87040; 87641; 93005; 99285; 99406; A9270-GY; J1815

== ENCOUNTER 2019-04-01 23:08 | Inpatient (IN) | payer OTHER ==
[2019-04-01] MEDS ORDERED: Insulin REGULAR(*) 1 UNITS UNIT IV PUSH ONE (23:36)
[2019-04-01] MEDS: NS 0.9% 1000 ML** 2,000 ML IV ONE ×2 (23:50→23:51)
--- NOTE | 2019-04-01 23:50 | ED ---
HPI Cardiac - HPI Summary HPI Summary: Patient is a 49 year old M brought by EMS to [facility] with a chief complaint of chest pain described as heart burn and shortness of breath since 3 days ago with a rated severity of 7/10, per triage. Patient denies vomiting, nausea, fever, abdominal pain, decreased appetite, and coughing. Patient reports he has been taking his insulin regularly along with other oral medications. Per triage , patient denies chills, constipation, and diarrhea but reports nausea and lightheadedness. Symptoms aggravated by nothing. Symptoms alleviated by nothing. - History of Current Complaint Chief Complaint: EDShortnessOfBreath Stated Complaint: HIGH BLOOD SUGAR PER EMS Time Seen by Provider: 04/01/19 23:40 Hx Obtained From: Patient Onset/Duration: Started Days Ago - 3 Pain Intensity: 7 Pain Scale Used: 0-10 Numeric Aggravating Factor(s): Nothing Alleviating Factor(s): Nothing Associated Signs and Symptoms: Positive: Shortness of Breath, Lightheadedness, Other: - denies decreased appetite. Negative: Fever, Chills - denies decreased appetite, constipation, diarhhea, Nausea, Cough, Abdominal Pain, Vomiting - Additional Pertinent History Primary Care Physician: [id number] - Allergy/Home Medications Allergies/Adverse Reactions: Allergies Allergy/AdvReac Type Severity Reaction Status Date / Time No Known Allergies Allergy Verified 04/01/19 23:22 Home Medications: Home Medications Amitriptyline HCl 10 mg PO DAILY 04/01/19 [History Confirmed 04/01/19] Insulin Regular 500 Unit/ml [Humulin R U-500 (Concentrated)] 10 unit SUBCUT BID 04/01/19 [History Confirmed 04/01/19] PMH/Surg Hx/FS Hx/Imm Hx Endocrine/Hematology History: Reports: Hx Anticoagulant Therapy - Xarelto, Hx Diabetes Denies: Hx Thyroid Disease Cardiovascular History: Reports: Hx Angina, Hx Deep Vein Thrombosis, Hx Hypercholesterolemia, Hx Hypertension, Other Cardiovascular Problems/Disorders - HLD Denies: Hx Congestive Heart Failure, Hx Myocardial Infarction, Hx Pacemaker/ ICD Respiratory History: Denies: Hx Asthma, Hx Chronic Obstructive Pulmonary Disease (COPD), Hx Lung Cancer, Hx Pneumonia, Hx Pulmonary Embolism GI History: Reports: Hx Gastroesophageal Reflux Disease, Other GI Disorders - congenital hernia Denies: Hx Gall Bladder Disease, Hx Gastrointestinal Bleed, Hx Ulcer, Hx Urosepsis History: Denies: Hx Dialysis, Hx Kidney Stones, Hx Renal Disease Musculoskeletal History: Reports: Hx Arthritis, Other Musculoskeletal History - occas joint pain. clyde horses Sensory History: Denies: Hx Contacts or Glasses, Hx Legally Blind, Hx Hearing Aid Opthamlomology History: Denies: Hx Contacts or Glasses, Hx Legally Blind Neurological History: Reports: Hx Migraine Denies: Hx Dementia, Hx Seizures, Hx Transient Ischemic Attacks (TIA) Psychiatric History: Reports: Hx Depression, Hx Inpatient Treatment Denies: Hx Anxiety, Hx Schizophrenia, Hx Bipolar Disorder - Surgical History Surgery Procedure, Year, and Place: Hernia repair 1991 - Immunization History Date of Tetanus Vaccine: unknown Date of Influenza Vaccine: No Infectious Disease History: No Infectious Disease History: Denies: Hx Clostridium Difficile, Hx Hepatitis, Hx Human Immunodeficiency Virus (HIV), Hx of Known/Suspected MRSA, Traveled Outside the in Last 30 Days - Family History Known Family History: Positive: Other - Asthma Negative: Cardiac Disease Family History: R & N/C - Social History Alcohol Use: Weekly Alcohol Amount: stopped drinking in Jun Hx Substance Use: No Substance Use Type: Reports: None Hx Tobacco Use: Yes Smoking Status (MU): Light Every Day Tobacco Smoker Type: Cigarettes Amount Used/How Often: 1 cigarette daily Length of Time of Smoking/Using Tobacco: 38 years Have You Smoked in the Last Year: Yes Review of Systems Positive: Other - denies decreased appetite but reports lightheadedness. Negative: Fever, Chills Positive: Chest Pain Positive: Shortness Of Breath. Negative: Cough Positive: Other - denies constipation. Negative: Abdominal Pain, Vomiting, Diarrhea, Nausea All Other Systems Reviewed And Are Negative: Yes Physical Exam - Summary Physical Exam Summary: VITAL SIGNS: Reviewed. GENERAL: Patient is a well-developed and nourished MALE who is lying comfortable in the stretcher. Patient is not in any acute respiratory distress. HEAD AND FACE: No signs of trauma. No ecchymosis, hematomas or skull depressions. No sinus tenderness. EYES: PERRLA, EOMI x 2, No injected conjunctiva, no nystagmus. EARS: Hearing grossly intact. Ear canals and tympanic membranes are within normal limits. MOUTH: Oropharynx within normal limits. NECK: Supple, trachea is midline, no adenopathy, no JVD, no carotid bruit, no c- spine tenderness, neck with full ROM CHEST: Symmetric, no tenderness at palpation LUNGS: decreased breathe sounds bilateral CVS: Regular rhythm and tachycardic, S1 and S2 present, no murmurs or gallops appreciated. ABDOMEN: decreased breathe sounds bilateral EXTREMITIES: FROM in all major joints, no edema, no cyanosis or clubbing. NEURO: Alert and oriented x 3. No acute neurological deficits. Speech is normal and follows commands. SKIN: Dry and warm Triage Information Reviewed: Yes Vital Signs On Initial Exam: Initial Vitals Temp Pulse Resp BP Pulse Ox 97.8 F 115 33 127/89 97 04/01/19 23:17 04/01/19 23:17 04/01/19 23:17 04/01/19 23:17 04/01/19 23:17 Vital Signs Reviewed: Yes Diagnostics - Vital Signs Vital Signs Temp Pulse Resp BP Pulse Ox 04/01/19 23:41 100 F 04/01/19 23:40 100.0 F 04/01/19 23:27 110 28 132/71 96 04/01/19 23:23 114 32 97 04/01/19 23:17 97.8 F 115 33 127/89 97 - Laboratory Result Diagrams: 04/02/19 09:00 04/03/19 01:50 Lab Statement: Any lab studies that have been ordered have been reviewed, and results considered in the medical decision making process. - Radiology Chest X-Ray Radiology Interpretation Completed By: ED Physician Summary of Radiographic Findings: Per ED physician,. Decreased lung volume and no acute infiltrate. Pending official report. - EKG 0010 Cardiac Rate: NL - 114 BPM EKG Rhythm: Sinus Rhythm EKG Comparison: No Significant Change Summary of EKG Findings: Sinus Rhythm at 114 BPM, SQ wave with inferior leads, No change from before Disposition - Course Course Of Treatment: Patient is a 49 year old M brought by EMS to [facility] with a chief complaint of chest pain described as heart burn and shortness of breath since 3 days ago with a rated severity of 7/10, per triage. Patient denies vomiting, nausea, fever, abdominal pain, decreased appetite, and coughing. Per triage, patient denies chills, constipation, and diarrhea but reports nausea and lightheadedness. Physical exam reveals abdomen distended, decreased breathe sounds bilateral in lungs, and tachycardic. Blood work (at 23:58) reveals no abnormalities except for Hcb 18.1 H, Hct 53 H, MCV 99 H, MCH 34 H, INR 0.80 L, VBG pH 7.28 L, VBG pCO2 13 L, VBG pO2 84.0 H, VBG HCO3 11.0 L, VBG O2 Saturation 96.9 H, VBG Base Excess -17.8 L, Sodium 123 L, Chloride 90 L, Carbon Dioxide <7 L, BUN 27 H, Creatinine 1.38 H, Glucose 621 H, POC Glucose (at 23:54 ) >444 H, Calcium 10.6 H, and Alkaline Phosphatase 122 H. Urinalysis reveals no abnormalities except for Urine Ketones 2+ A, Urine Blood 1+ A, Ur Leukocyte Esterase 1+ A, Urine WBC 1+ (11-20/hpf) A, Urine RBC (2+ (6-10/hpf) A, Ur Squamous Epith Cells Present A, Urine Glucose 3+ (>=500 mg/dl)A. Chest X-Ray reveals decreased lung volume and no acute infiltrate. EKG reveals Sinus Rhythm at 114 BPM, SQ wave with inferior leads, No change from before. We discussed patient care with Dr. Julio, hospitalist, who accepts patient for admission. The patient is agreeable with this plan. Patient will be admitted. - Diagnoses Provider Diagnoses: DKA (diabetic ketoacidoses), Urinary tract infection Discharge - Sign-Out/Discharge Documenting (check all that apply): Patient Departure - admit Patient Received Moderate/Deep Sedation with Procedure: No - Discharge Plan Condition: Stable Disposition: [facility]ITTED TO [facility] - Billing Disposition and Condition Condition: STABLE Disposition: Admitted to [facility] - Attestation Statements Document Initiated by Alpeshibe: Yes Documenting Scribe: Lisha Nina Provider For Whom Romulo is Documenting (Include Credential): Sanchez Chopra MD Scribe Attestation: ILisha, scribed for Sanchez Chopra MD on 04/03/19 at 0410. Scribe Documentation Reviewed: Yes Provider Attestation: The documentation as recorded by the scribeLisha accurately reflects the service I personally performed and the decisions made by dc, Sanchez Chopra MD Status of Scribe Document: Viewed
[2019-04-02 00:12] LABS: ABS Basophils 0.1 10^3/ul (0-0.2); ABS Lymphocytes 1.7 10^3/ul (1.0-4.8); ABS Monocytes 0.6 10^3/ul (0-0.8); ABS Neutrophils 6.5 10^3/ul (1.5-7.7); Eosinophil % 0.3 %; Hematocrit 53 % (42-52); Hemoglobin 18.1 g/dL (14.0-18.0); Mean Corpuscular HGB Conc 34 g/dL (31-36); Mean Corpuscular Hemoglobin 34 pg (27-31); Mean Corpuscular Volume 99 fL (80-94); Mean Platelet Volume 9.3 fL (7.4-10.4); Platelet Count 270 10^3/uL (150-450); Red Blood Count 5.33 10^6 /uL (4.18-5.48); Red Cell Distribution Width 13 % (10-15); White Blood Count 8.8 10^3/uL (3.5-10.8)
[2019-04-02 00:31] LABS: ALT 12 U/L (7-52); Alkaline Phosphatase 122 U/L (34-104); BUN/Creatinine Ratio 19.6 (8-20); Blood Urea Nitrogen 27 mg/dL (6-24); C Reactive Protein 3.76 mg/L (<8.01); Calcium 10.6 mg/dL (8.6-10.3); Chloride 90 mmol/L (101-111); EGFR Non-African American 54.5 (>60); Magnesium 2.3 mg/dL (1.9-2.7); Sodium 123 mmol/L (135-145)
[2019-04-02 00:33] LABS: Activated Partial Thrombo Time 30.1 seconds (26.0-38.0); INR 0.8 (0.82-1.09)
[2019-04-02 00:33] LABS: Urine Appearance Cloudy; Urine Bacteria Absent (Absent); Urine Bilirubin Negative (Negative); Urine Blood 1+ (Negative); Urine Color Straw; Urine Glucose 3+(>=500 mg/dL) (Negative); Urine Ketones 2+ (Negative); Urine Nitrite Negative (Negative); Urine Protein Negative (Negative); Urine Red Blood Cell 2+(6-10/hpf) (Absent); Urine Specific Gravity 1.027 (1.010-1.030); Urine Squamous Epithelial Cell Present (Absent); Urine Urobilinogen Negative (Negative); Urine White Blood Cell 2+(11-20/hpf) (Absent)
[2019-04-02 00:38] LABS: CO2 Carbon Dioxide < 7 mmol/L (22-32)
[2019-04-02 00:41] LABS: Glucose 621 mg/dL (70-100)
[2019-04-02] MEDS ORDERED: Piperacillin/Tazobac ADVAN(*) 3.375 GM in NS 0.9% 100 ML* 100 ML IVPB ONE (00:48)
[2019-04-02] MEDS: Insulin IVPB 100 units/100 ml 100 UNITS/100 ML UNIT IV SCH ×3 (00:58→20:22)
[2019-04-02] MEDS ORDERED: KCL 10 MEQ/50 ML IVPREMIX* 10 MEQ/50 ML BAG IV ONE (02:53)
[2019-04-02] MEDS ORDERED: NS 0.9% 1000 ML** 1,000 ML IV ONE ×2 (02:53→05:53)
--- NOTE | 2019-04-02 03:50 | HP ---
History of Present Illness - History of Present Illness Reason for Visit: DKA History of Present Illness: This is a 48-year-old white male with insulin- dependent diabetes and multiple admissions here in the past for diabetic ketoacidosis, states he had shortness of breath and heart burn which is what he always has with his DKA so came in for treatment. States he take his insulin regularly. No urinary symptoms, no cough, no UTI symptoms. PAST MEDICAL HISTORY: Hypertension. Hyperlipidemia. Insulin-dependent diabetes with DKA admissions in the past. Recurrent DVT last one in 2016, on lifelong Xarelto. PAST SURGICAL HISTORY: Status post hernia repair remotely. FAMILY HISTORY: Positive for mother with asthma. Father is unknown. No family history of diabetes to his knowledge. SOCIAL HISTORY: The patient is currently unemployed. He is and a father of 3. The patient has history of smoking less than half a pack a day, roughly 40 years of smoking. He denies any alcohol or drug use. Jack Rose would be the closest friend that can make decisions for him. ALLERGIES: No known drug allergies. Home Medications Medication Instructions Recorded Confirmed Type Lisinopril TAB* [Prinivil TAB 10 20 mg PO DAILY 08/18/12 04/01/19 History MG*] Rivaroxaban TAB(*) [Xarelto 10 mg 10 mg PO DAILY 06/19/18 04/02/19 History (*)] Atorvastatin* [Lipitor 80 MG*] 80 mg PO BEDTIME 11/22/18 04/01/19 History Acetaminophen TAB* [Tylenol TAB*] 650 mg PO Q6H PRN 01/03/19 04/01/19 History Escitalopram * [Lexapro *] 20 mg PO DAILY 01/03/19 04/01/19 History Metformin ER (NF) [Glucophage ER 1,500 mg PO BEDTIME 01/03/19 04/01/19 History 750 MG TAB (NF)] [id number]-[id number] Ethyl Esters (NF) 2 gm PO DAILY 01/03/19 04/01/19 History [Lovaza (NF)] Blood Sugar Diagnostic [Test 1 each MC TID #100 strip 01/05/19 04/01/19 Rx Strips] Pantoprazole TAB * [Protonix TAB*] 40 mg PO DAILY #30 tab 01/05/19 04/01/19 Rx Amitriptyline HCl 10 mg PO DAILY 04/01/19 04/01/19 History Insulin Regular 500 Unit/ml 10 unit SUBCUT BID 04/01/19 04/01/19 History [Humulin R U-500 (Concentrated)] Review of Systems - Measurements Intake and Output: Intake and Output Last 24 Hours 03/30/19 03/31/19 04/01/19 04/02/19 06:59 06:59 06:59 06:59 Intake Total 2100 Balance 2100 Weight 234 lb Intake: IV Fluids 2099 - Review of Systems Constitutional Symptoms: Negative: Fever Dermatology: Negative: Rash Eyes: Negative: Change in Vision Pulmonary: Positive: Shortness of Breath Negative: Cough, Sputum Cardiology: Positive: Shortness of Breath Negative: Chest Pain Gastroenterology: Negative: Abdominal Pain, Nausea, Vomiting Endocrinology: Positive: Diabetes Mellitus Objective Active Medications: Insulin Human Regular (Insulin Regular Iv Drip 1 Unit/Ml) 100 units in 100 mls @ 10 mls/hr IV Q10H ROCHELLE Last Admin: 04/02/19 00:58 Dose: 10 mls/hr Sodium Chloride (Ns 0.9% 1000 Ml) 1,000 mls @ 1,000 mls/hr IV .PER RATE ONE Stop: 04/02/19 03:52 Last Admin: 04/02/19 03:03 Dose: 1,000 mls/hr Potassium Chloride (Potassium Chloride 10 Meq/50 Ml Ivpremix*) 10 meq in 50 mls @ 50 mls/hr IV ONCE ONE Stop: 04/02/19 03:52 Last Admin: 04/02/19 03:03 Dose: 50 mls/hr Vital Signs - 8 hr 04/01/19 04/01/19 04/01/19 23:17 23:23 23:27 Temperature 97.8 F Pulse Rate 115 114 110 Respiratory 33 32 28 Rate Blood Pressure 127/89 132/71 (mmHg) O2 Sat by Pulse 97 97 96 Oximetry 04/01/19 04/01/19 04/02/19 23:40 23:41 00:07 Temperature 100.0 F 100 F Pulse Rate 131 Respiratory 26 Rate Blood Pressure 119/98 (mmHg) O2 Sat by Pulse 98 Oximetry 04/02/19 04/02/19 04/02/19 00:08 00:14 00:37 Temperature Pulse Rate 129 114 108 Respiratory 27 29 26 Rate Blood Pressure 112/70 (mmHg) O2 Sat by Pulse 98 96 96 Oximetry 04/02/19 04/02/19 04/02/19 01:01 01:10 01:39 Temperature Pulse Rate 107 115 Respiratory 29 21 28 Rate Blood Pressure 132/89 129/89 (mmHg) O2 Sat by Pulse 97 98 Oximetry 04/02/19 04/02/19 04/02/19 02:00 02:10 02:39 Temperature Pulse Rate 116 118 112 Respiratory 29 30 27 Rate Blood Pressure 154/94 143/79 (mmHg) O2 Sat by Pulse 97 98 97 Oximetry 04/02/19 04/02/19 04/02/19 03:00 03:02 03:09 Temperature 99.3 F Pulse Rate 106 107 Respiratory 25 4 Rate Blood Pressure 125/74 (mmHg) O2 Sat by Pulse 96 96 Oximetry Oxygen Devices in Use Now: None Eyes: No Scleral Icterus, PERRLA Ears/Nose/Mouth/Throat: NL Teeth, Lips, Gums, Clear Oropharnyx, Mucous Membranes Moist Neck: NL Appearance and Movements; NL JVP Respiratory: Clear to Auscultation Cardiovascular: NL Sounds; No Murmurs; No JVD - Tachycardic Result Diagrams: 04/02/19 04:02 04/02/19 02:21 Assess/Plan/Problems-Billing Assessment: 48-year-old white male with insulin- dependent diabetes and multiple admissions here in the past for diabetic ketoacidosis here again for another episode of DKA. - Patient Problems (1) DKA (diabetic ketoacidoses) Current Visit: No Status: Chronic Priority: High Code(s): E13.10 - OTH DIABETES MELLITUS WITH KETOACIDOSIS WITHOUT COMA SNOMED Code(s): 161649861 Comment: Admit to ICU for close monitoring. On Insulin drip. Q1H fingerstick with DKA protocol. Hydration. BMPQ4H. Check A1c for next AM once DKA resolves. (2) UTI (urinary tract infection) Current Visit: Yes Status: Acute Comment: Possible UTI based on UA. Follow up cultures to see if it was just contaminant. Consider starting ABx if culture is positve. (3) HLD (hyperlipidemia) Current Visit: No Status: Chronic Code(s): E78.5 - HYPERLIPIDEMIA, UNSPECIFIED SNOMED Code(s): 11426070 Comment: Continue home meds. Check Lipid Panel. (4) HTN (hypertension) Current Visit: No Status: Chronic Code(s): I10 - ESSENTIAL (PRIMARY) HYPERTENSION SNOMED Code(s): 47421381 Comment: Continue BP meds. (5) History of DVT (deep vein thrombosis) Current Visit: No Status: Chronic Priority: High Code(s): Z86.718 - PERSONAL HISTORY OF OTHER VENOUS THROMBOSIS AND EMBOLISM SNOMED Code(s): 072317657 Comment: Continue Xarelto
[2019-04-02] MEDS ORDERED: Acetaminophen TAB* 325 MG PO PRN (04:11)
[2019-04-02 04:18] LABS: ABS Basophils 0.1 10^3/ul (0-0.2); ABS Lymphocytes 1.9 10^3/ul (1.0-4.8); ABS Monocytes 0.6 10^3/ul (0-0.8); ABS Neutrophils 6.8 10^3/ul (1.5-7.7); Eosinophil % 0.1 %; Hematocrit 48 % (42-52); Hemoglobin 16.3 g/dL (14.0-18.0); Lymphocyte % 20.2 %; Mean Corpuscular HGB Conc 34 g/dL (31-36); Mean Corpuscular Hemoglobin 34 pg (27-31); Mean Corpuscular Volume 98 fL (80-94); Mean Platelet Volume 9.2 fL (7.4-10.4); Platelet Count 242 10^3/uL (150-450); Red Blood Count 4.86 10^6 /uL (4.18-5.48); Red Cell Distribution Width 13 % (10-15); White Blood Count 9.4 10^3/uL (3.5-10.8)
[2019-04-02] MEDS: Pantoprazole TAB * 40 MG TAB PO SCH (04:25)
[2019-04-02 04:32] LABS: Calcium 9.6 mg/dL (8.6-10.3)
[2019-04-02 04:37] LABS: BUN/Creatinine Ratio 22.8 (8-20); EGFR African American 82.3 (>60); HDL Cholesterol 32.4 mg/dL
[2019-04-02 04:56] LABS: Potassium 5.1 mmol/L (3.5-5.0); Potassium Redraw 5.1 mmol/L (3.5-5.0)
[2019-04-02] MEDS ORDERED: Al Hydrox/Mg Hydrox/Simet LIQ* 30 ML UDC ONE (05:50)
[2019-04-02] MEDS ORDERED: Al Hydrox/Mg Hydrox/Simet LIQ* 30 ML UDC PO PRN (05:54)
[2019-04-02] MEDS: Lactated Ringers 1000 ML Bag* 1,000 ML IV SCH ×3 (08:09→21:53)
[2019-04-02] MEDS: Lisinopril TAB* 10 MG PO SCH (08:45)
[2019-04-02] MEDS: Rivaroxaban TAB(*) 10 MG PO SCH (08:46)
[2019-04-02] MEDS: OMEGA ACID ETHYL ESTERS PO SCH (08:46)
[2019-04-02] MEDS: Amitriptyline TAB* 10 MG PO SCH (08:46)
[2019-04-02] MEDS: Escitalopram * 20 MG TABLET PO SCH (08:46)
--- NOTE | 2019-04-02 09:06 | PN ---
Subjective Date of Service: 04/02/19 Interval History: HOSPITALIST PROGRESS NOTE Patient seen and examined at bedside. Care reviewed and d/w Angelika Sanderson RN. Feels better this AM, appetite has returned. Denies fever, sore throat, cough, dyspnea, diarrhea, urinary complaints. States he's been compliant with medications and diet, but had cake on 03/31 as it was his birthday. Also ate two cheeseburgers yesterday. This AM his breakfast tray container of cereal, cinnamon roll, orange juice and milk. Family History: Unchanged from Admission Social History: Unchanged from Admission Past Medical History: Unchanged from Admission Objective Active Medications: Acetaminophen (Tylenol Tab*) 650 mg PO Q6H PRN PRN Reason: PAIN Al Hydrox/Mg Hydrox/Simethicone (Maalox Plus*) 30 ml PO Q4H PRN PRN Reason: DYSPEPSIA Last Admin: 04/02/19 06:02 Dose: 30 ml Amitriptyline HCl (Elavil Tab*) 10 mg PO DAILY [facility] Last Admin: 04/02/19 08:46 Dose: 10 mg Atorvastatin Calcium (Lipitor*) 80 mg PO BEDTIME [facility] Escitalopram Oxalate (Lexapro *) 20 mg PO DAILY [facility] Last Admin: 04/02/19 08:46 Dose: 20 mg Insulin Human Regular (Insulin Regular Iv Drip 1 Unit/Ml) 100 units in 100 mls @ 10 mls/hr IV Q10H [facility] Last Admin: 04/02/19 00:58 Dose: 10 mls/hr Lactated Ringer's (Lactated Ringers 1000 Ml Bag*) 1,000 mls @ 150 mls/hr IV PER RATE [facility] Last Admin: 04/02/19 08:09 Dose: 150 mls/hr Lisinopril (Prinivil Tab*) 20 mg PO DAILY [facility] Last Admin: 04/02/19 08:45 Dose: 20 mg Pmbzm-2-Rryy Ethyl Esters (Lovaza (Nf)) 2 gm PO DAILY [facility]; Protocol Last Admin: 04/02/19 08:46 Dose: 2 gm Pantoprazole Sodium (Protonix Tab*) 40 mg PO DAILY [facility] Last Admin: 04/02/19 04:25 Dose: 40 mg Rivaroxaban (Xarelto(*)) 10 mg PO DAILY [facility] Last Admin: 04/02/19 08:46 Dose: 10 mg Vital Signs - 8 hr 04/02/19 04/02/19 04/02/19 01:10 01:39 02:00 Temperature Pulse Rate 115 116 Respiratory 21 28 29 Rate Blood Pressure 132/89 129/89 (mmHg) O2 Sat by Pulse 98 97 Oximetry 04/02/19 04/02/19 04/02/19 02:10 02:39 03:00 Temperature Pulse Rate 118 112 106 Respiratory 30 27 25 Rate Blood Pressure 154/94 143/79 (mmHg) O2 Sat by Pulse 98 97 96 Oximetry 04/02/19 04/02/19 04/02/19 03:02 03:09 03:40 Temperature 99.3 F Pulse Rate 107 113 Respiratory 4 25 Rate Blood Pressure 125/74 104/65 (mmHg) O2 Sat by Pulse 96 96 Oximetry 04/02/19 04/02/19 04/02/19 04:00 04:29 05:00 Temperature Pulse Rate 115 110 99 Respiratory 27 29 25 Rate Blood Pressure 135/81 (mmHg) O2 Sat by Pulse 98 99 97 Oximetry 04/02/19 04/02/19 04/02/19 05:20 05:30 05:32 Temperature 97.2 F 98.9 F Pulse Rate 97 97 97 Respiratory 25 20 26 Rate Blood Pressure 107/67 123/73 107/67 (mmHg) O2 Sat by Pulse 97 100 97 Oximetry 04/02/19 04/02/19 04/02/19 06:00 06:13 06:15 Temperature Pulse Rate 101 102 Respiratory 27 21 22 Rate Blood Pressure 109/54 117/73 (mmHg) O2 Sat by Pulse 95 97 Oximetry Oxygen Devices in Use Now: None Appearance: Obese middle aged gentleman lying in bed in [facility]. Eyes: No Scleral Icterus Ears/Nose/Mouth/Throat: Mucous Membranes Moist Neck: Trachea Midline Respiratory: Symmetrical Chest Expansion and Respiratory Effort, Clear to Auscultation Cardiovascular: RRR - Normal S1 and S2 Abdominal: NL Sounds; No Tenderness; No Distention Neurological: Alert and Oriented x 3, NL Muscle Strength and Tone Result Diagrams: 04/02/19 09:00 04/02/19 09:00 Assess/Plan/Problems-Billing Assessment: Mr Rubio is a 49yo M with PMH of type 2 DM, HTN, HLD, recurrent DVT (now on lifelong Xarelto), who presented to ED with c/o heartburn and malaise, found to be in DKA. - Patient Problems (1) DKA (diabetic ketoacidoses) Comment: - Patient states he's been compliant with medications and diet, but did have cake on 03[birth year]31 (his birthday) - AG has closed, but FS still >250 and bicarb is 13 - change IVF to LR and continue insulin drip. - Continue to monitor in ICU. - Endocrinology consult requested with Dr Riojas. (2) Abnormal urinalysis Comment: - UA was abnormal, but he has no urinary complaints. Will f/u culture, but unclear at this time if he has an UTI. Not on antibiotics. (3) HLD (hyperlipidemia) Comment: - Lipid profile (non fasting) shows TG >1000. Already on Atorvastatin 80mg/day that he tells me he's compliant with. - Will repeat fasting lipid profile in AM and follow Endocrinology recommendations. (4) HTN (hypertension) Comment: - Controlled - continue Lisinopril. (5) History of DVT (deep vein thrombosis) Comment: - Continue Xarelto. (6) Full code status Status and Disposition: Inpatient.
[2019-04-02 09:27] LABS: ABS Basophils 0.1 10^3/ul (0-0.2); ABS Eosinophils 0.1 10^3/ul (0-0.6); ABS Lymphocytes 2.7 10^3/ul (1.0-4.8); ABS Monocytes 0.7 10^3/ul (0-0.8); ABS Neutrophils 5.3 10^3/ul (1.5-7.7); Eosinophil % 0.7 %; Hematocrit 43 % (42-52); Hemoglobin 15.3 g/dL (14.0-18.0); Lymphocyte % 30.5 %; Mean Corpuscular HGB Conc 35 g/dL (31-36); Mean Corpuscular Hemoglobin 34 pg (27-31); Mean Corpuscular Volume 96 fL (80-94); Mean Platelet Volume 9.3 fL (7.4-10.4); Nucleated Red Blood Cells % 0.1; Platelet Count 226 10^3/uL (150-450); Red Blood Count 4.52 10^6 /uL (4.18-5.48); Red Cell Distribution Width 13 % (10-15); White Blood Count 8.9 10^3/uL (3.5-10.8)
[2019-04-02 09:33] LABS: BUN/Creatinine Ratio 23.1 (8-20); Calcium 8.9 mg/dL (8.6-10.3); EGFR African American 106.7 (>60); EGFR Non-African American 88.2 (>60); Potassium 4.1 mmol/L (3.5-5.0)
[2019-04-02] MEDS ORDERED: Potassium Chlor TAB* 20 MEQ TAB.ER PO ONE (12:26)
[2019-04-02 12:43] LABS: Magnesium 1.8 mg/dL (1.9-2.7); Phosphorus 2.3 mg/dL (2.5-5.0)
[2019-04-02] MEDS ORDERED: Magnesium Sulfate 2 GM IV* 2 G/50 ML BAG IVPB ONE (16:57)
[2019-04-02] MEDS ORDERED: Potassium Phosphate IV* 10 MMOLE in NS 0.9% 250 ML* 250 ML IVPB ONE (18:00)
[2019-04-02 18:07] LABS: EGFR African American 95.7 (>60); EGFR Non-African American 79.1 (>60); Potassium 4.4 mmol/L (3.5-5.0)
[2019-04-02] MEDS: Potassium Acid Phosphate TAB* 500 MG PO SCH (20:21)
[2019-04-02] MEDS ORDERED: Atorvastatin* 80 MG TAB PO SCH (21:00)
[2019-04-02] MEDS ORDERED: Insulin GLARGINE(*) 1 UNITS UNIT SUBCUT ONE (22:15)
[2019-04-02] MEDS ORDERED: Dextrose 50% VIAL 50 ml IV PUSH PRN (23:03)
[2019-04-02] MEDS: Insulin LISPRO* 1 UNITS UNIT SUBCUT SCH (23:25)
[2019-04-03 02:21] LABS: BUN/Creatinine Ratio 20.5 (8-20); Calcium 9.1 mg/dL (8.6-10.3); EGFR African American 110.9 (>60); EGFR Non-African American 91.7 (>60); Potassium 4.1 mmol/L (3.5-5.0)
--- NOTE | 2019-04-03 07:02 | CONSULT ---
Consult Consult: [facility] Inpatient Consult Note Date of Consult: 04/03/19 Reason for Consult: T2DM Reason for Admission: DKA ASSESSMENT: 49 yo M with severe, insulin-resistant, ketosis-prone type 2 diabetes, now admitted for DKA. He has failed insulin therapy multiple times in the past 12 months due to medication non-adherence. The current episode was provoked by combination of severe diet-induced hyperglycemia and relative dehydration. He requires closer follow-up in clinic and more-frequent BG monitoring at home for early detection of hyperglycemia +/- DKA. PLAN: - increase U500 insulin to 15 units twice daily via insulin syringe (75 units BID of U500 insulin) - resume checking fingerstick BG at least twice daily (patient has True Metrix glucometer and strips at home) - follow-up with endocrine in 2 weeks SUBJECTIVE: History of Present Illness: 49 yo M with severe T2DM. I initially saw him as inpatient consultation in September 2018 and have seen him twice in clinic since then. At his visit in February 2019, he had failed basal/bolus insulin and had been hospitalized for DKA on at least two occasions in the prior 6 months despite reported adherence to insulin injections. His insulin requirement wasat least 100 units/day = 0.8 units/kg/day and probably much more than that. I recommend that he change to concentrate U500 insulin at this level and titrate the doses until he is able to achieve BG<200, with plan to follow-up in March. For neuropathy symptoms affecting sleep, I recommend low-dose amitriptyline. He has been adherent to U500 insulin 50 units/day BID, but is not checking fingerstick BG nor following low-glycemic diet. On the day prior to admission, he reports modest dehydration due to a heat wave, along with increased urination as a result of hyperglycemia attributed to eating birthday cake. He felt unwell (malaise, nausea, fatigue) and asked to be brought to ED by ambulance. His presenting BG was >550mg/dL with moderate-severe acidosis. Since admission, he has made a rapid recovery with IV fluids and insulin. His symptoms resolved within 36 hours of admission. No intercurrent illness or symptoms preceding onset of DKA syndrome. Past Medical History: - VTE - Low back pain - Headache - Hyperlipidemia syndrome - Essential hypertension - Type 2 diabetes mellitus Medications Prior to Admission: Lisinopril TAB* [Prinivil TAB 10 MG*] 20 mg PO DAILY 08/18/12 [History Confirmed 04/01/19] Rivaroxaban TAB(*) [Xarelto 10 mg (*)] 10 mg PO DAILY 06/19/18 [History Confirmed 04/02/19] Atorvastatin* [Lipitor 80 MG*] 80 mg PO BEDTIME 11/22/18 [History Confirmed ] Acetaminophen TAB* [Tylenol TAB*] 650 mg PO Q6H PRN 01/03/19 [History Confirmed 04/01/19] Escitalopram * [Lexapro *] 20 mg PO DAILY 01/03/19 [History Confirmed 04/01/19] Metformin ER (NF) [Glucophage ER 750 MG TAB (NF)] 1,500 mg PO BEDTIME 01/03/19 [ History Confirmed 04/01/19] [id number] Ethyl Esters (NF) [Lovaza (NF)] 2 gm PO DAILY 01/03/19 [History Confirmed 04/01/19] Blood Sugar Diagnostic [Test Strips] 1 each MC TID #100 strip 01/05/19 [Rx Confirmed 04/01/19] Pantoprazole TAB * [Protonix TAB*] 40 mg PO DAILY #30 tab 01/05/19 [Rx Confirmed 04/01/19] Amitriptyline HCl 10 mg PO DAILY 04/01/19 [History Confirmed 04/01/19] Insulin Regular 500 Unit/ml [Humulin R U-500 (Concentrated)] 50 unit SUBCUT BID 04/01/19 [History Confirmed 04/01/19] Inpatient Medications: Acetaminophen (Tylenol Tab*) 650 mg PO Q6H PRN PRN Reason: PAIN Al Hydrox/Mg Hydrox/Simethicone (Maalox Plus*) 30 ml PO Q4H PRN PRN Reason: DYSPEPSIA Last Admin: 04/02/19 06:02 Dose: 30 ml Amitriptyline HCl (Elavil Tab*) 10 mg PO DAILY [facility] Last Admin: 04/02/19 08:46 Dose: 10 mg Atorvastatin Calcium (Lipitor*) 80 mg PO BEDTIME [facility] Last Admin: 04/02/19 20:21 Dose: 80 mg Dextrose (Dextrose 50% Vial 50 Ml*) 25 ml IV PUSH .FOR FS < 60 - SS PRN PRN Reason: FS < 60 Escitalopram Oxalate (Lexapro *) 20 mg PO DAILY [facility] Last Admin: 04/02/19 08:46 Dose: 20 mg Lactated Ringer's (Lactated Ringers 1000 Ml Bag*) 1,000 mls @ 150 mls/hr IV PER RATE [facility] Last Admin: 04/02/19 21:53 Dose: 150 mls/hr Insulin Human Lispro (Humalog*) 0 units SUBCUT ACHS [facility]; Protocol Last Admin: 04/02/19 23:25 Dose: 12 units Lisinopril (Prinivil Tab*) 20 mg PO DAILY [facility] Last Admin: 04/02/19 08:45 Dose: 20 mg [id number] Ethyl Esters (Lovaza (Nf)) 2 gm PO DAILY [facility]; Protocol Last Admin: 04/02/19 08:46 Dose: 2 gm Pantoprazole Sodium (Protonix Tab*) 40 mg PO DAILY [facility] Last Admin: 04/02/19 04:25 Dose: 40 mg Potassium Phosphate (K Phos Original Tab*) 500 mg PO TID [facility] Last Admin: 04/02/19 20:21 Dose: 500 mg Rivaroxaban (Xarelto(*)) 10 mg PO DAILY [facility] Last Admin: 04/02/19 08:46 Dose: 10 mg Allergies/Intolerances: Social History: Family History: Review of Systems: OBJECTIVE: Temp Pulse Resp BP Pulse Ox 99.0 F 66 17 127/80 97 04/03/19 03:22 04/03/19 06:01 04/03/19 06:01 04/03/19 06:00 04/03/19 06:01 General: alert, pleasant, oriented, no distress ENT: neck supple, no thyromegaly, no bruit is heard Chest: CTAB, no wheezing or crackles CV: RRR, no murmur Abdomen: soft, non-tender Extremities: no edema, distal pulses intact Skin: warm, dry, no rash Neuro: grossly intact motor/sensory in extremities Psych: restricted affect, pleasant Labs: WBC 8.9 10^3/uL (3.5-10.8) 04/02/19 09:00 RBC 4.52 10^6 /uL (4.18-5.48) 04/02/19 09:00 Hgb 15.3 g/dL (14.0-18.0) 04/02/19 09:00 Hct 43 % (42-52) 04/02/19 09:00 MCV 96 fL (80-94) H 04/02/19 09:00 MCH 34 pg (27-31) H 04/02/19 09:00 MCHC 35 g/dL (31-36) 04/02/19 09:00 RDW 13 % (10-15) 04/02/19 09:00 Plt Count 226 10^3/uL (150-450) 04/02/19 09:00 MPV 9.3 fL (7.4-10.4) 04/02/19 09:00 Neut % (Auto) 59.3 % 04/02/19 09:00 Lymph % (Auto) 30.5 % 04/02/19 09:00 Mckenzie % (Auto) 8.3 % 04/02/19 09:00 Eos % (Auto) 0.7 % 04/02/19 09:00 Baso % (Auto) 1.2 % 04/02/19 09:00 Absolute Neuts (auto) 5.3 10^3/ul (1.5-7.7) 04/02/19 09:00 Absolute Lymphs (auto) 2.7 10^3/ul (1.0-4.8) 04/02/19 09:00 Absolute Monos (auto) 0.7 10^3/ul (0-0.8) 04/02/19 09:00 Absolute Eos (auto) 0.1 10^3/ul (0-0.6) 04/02/19 09:00 Absolute Basos (auto) 0.1 10^3/ul (0-0.2) 04/02/19 09:00 Absolute Nucleated RBC 0.0 10^3/ul 04/02/19 09:00 Nucleated RBC % 0.1 04/02/19 09:00 INR (Anticoag Therapy) 0.80 (0.82-1.09) L 04/01/19 23:58 APTT 30.1 seconds (26.0-38.0) 04/01/19 23:58 ABG pH 7.29 (7.35-7.45) L 04/02/19 03:45 ABG pCO2 < 20 mmHg (35-45) L 04/02/19 03:45 ABG pO2 105 mmHg (80-100) H 04/02/19 03:45 ABG HCO3 11.9 mmol/L (19-31) L 04/02/19 03:45 ABG O2 Saturation 98.5 % (94.0-98.0) H 04/02/19 03:45 ABG Base Excess -16.7 mmol/L (-2.0-2.0) L 04/02/19 03:45 VBG pH 7.28 (7.32-7.43) L 04/01/19 23:58 VBG pCO2 13 mmHg (41-51) L 04/01/19 23:58 VBG pO2 84.0 mmHg (35-45) H 04/01/19 23:58 VBG HCO3 11.0 mmol/L (24-28) L 04/01/19 23:58 VBG O2 Saturation 96.9 % (70-80) H 04/01/19 23:58 VBG Base Excess -17.8 mmol/L (0.0-4.0) L 04/01/19 23:58 Sodium 132 mmol/L (135-145) L 04/03/19 01:50 Potassium 4.1 mmol/L (3.5-5.0) 04/03/19 01:50 Chloride 107 mmol/L (101-111) 04/03/19 01:50 Carbon Dioxide 16 mmol/L (22-32) L 04/03/19 01:50 Anion Gap 9 mmol/L (2-11) 04/03/19 01:50 BUN 18 mg/dL (6-24) 04/03/19 01:50 Creatinine 0.88 mg/dL (0.67-1.17) 04/03/19 01:50 Est GFR ( Amer) 110.9 (>60) 04/03/19 01:50 Est GFR (Non-Af Amer) 91.7 (>60) 04/03/19 01:50 BUN/Creatinine Ratio 20.5 (8-20) H 04/03/19 01:50 Glucose 264 mg/dL (70-100) H 04/03/19 01:50 POC Glucose (mg/dL) 259 mg/dL (70-100) H 04/02/19 23:17 Glucose Meter Confirm 491 mg/dL (70-100) H 04/02/19 02:21 Lactic Acid 1.0 mmol/L (0.5-2.0) 04/01/19 23:58 Calcium 9.1 mg/dL (8.6-10.3) 04/03/19 01:50 Phosphorus 2.3 mg/dL (2.5-5.0) L 04/02/19 09:00 Magnesium 1.8 mg/dL (1.9-2.7) L 04/02/19 09:00 Total Bilirubin 0.40 mg/dL (0.2-1.0) 04/01/19 23:58 AST 8 U/L (13-39) L 04/02/19 04:02 ALT 12 U/L (7-52) 04/01/19 23:58 Alkaline Phosphatase 122 U/L (34-104) H 04/01/19 23:58 C-Reactive Protein 3.76 mg/L (<8.01) 04/01/19 23:58 Total Protein 8.0 g/dL (6.4-8.9) 04/01/19 23:58 Albumin 4.0 g/dL (3.2-5.2) 04/01/19 23:58 Globulin 4.0 g/dL (2-4) 04/01/19 23:58 Albumin/Globulin Ratio 1.0 (1-3) 04/01/19 23:58 Triglycerides 1157 mg/dL 04/02/19 04:02 Cholesterol 291 mg/dL 04/02/19 04:02 LDL Cholesterol mg/dL 04/02/19 04:02 LDL Cholesterol Direct 102 mg/dL 04/02/19 04:02 HDL Cholesterol 32.4 mg/dL 04/02/19 04:02 Lipase 34 U/L (11.0-82.0) 04/01/19 23:58 Urine Color Straw 04/02/19 00:09 Urine Appearance Cloudy 04/02/19 00:09 Urine pH 5.0 (5-9) 04/02/19 00:09 Ur Specific Pegram 1.027 (1.010-1.030) 04/02/19 00:09 Urine Protein Negative (Negative) 04/02/19 00:09 Urine Ketones 2+ (Negative) A 04/02/19 00:09 Urine Blood 1+ (Negative) A 04/02/19 00:09 Urine Nitrate Negative (Negative) 04/02/19 00:09 Urine Bilirubin Negative (Negative) 04/02/19 00:09 Urine Urobilinogen Negative (Negative) 04/02/19 00:09 Ur Leukocyte Esterase 1+ (Negative) A 04/02/19 00:09 Urine WBC (Auto) 2+(11-20/hpf) (Absent) A 04/02/19 00:09 Urine RBC (Auto) 2+(6-10/hpf) (Absent) A 04/02/19 00:09 Ur Squamous Epith Cells Present (Absent) A 04/02/19 00:09 Urine Bacteria Absent (Absent) 04/02/19 00:09 Urine Glucose 3+(>=500 mg/dl) (Negative) A 04/02/19 00:09
[2019-04-03 07:07] LABS: Calcium 8.9 mg/dL (8.6-10.3); Potassium 3.9 mmol/L (3.5-5.0)
[2019-04-03 07:09] LABS: ABS Basophils 0.1 10^3/ul (0-0.2); ABS Eosinophils 0.2 10^3/ul (0-0.6); ABS Lymphocytes 2.1 10^3/ul (1.0-4.8); ABS Monocytes 0.5 10^3/ul (0-0.8); ABS Neutrophils 2.7 10^3/ul (1.5-7.7); Eosinophil % 4.3 %; Hematocrit 42 % (42-52); Hemoglobin 14.6 g/dL (14.0-18.0); Lymphocyte % 37.9 %; Mean Corpuscular HGB Conc 35 g/dL (31-36); Mean Corpuscular Hemoglobin 34 pg (27-31); Mean Corpuscular Volume 96 fL (80-94); Mean Platelet Volume 9.4 fL (7.4-10.4); Nucleated Red Blood Cells % 0.1; Platelet Count 185 10^3/uL (150-450); Red Blood Count 4.33 10^6 /uL (4.18-5.48); Red Cell Distribution Width 13 % (10-15); White Blood Count 5.6 10^3/uL (3.5-10.8)
[2019-04-03 07:13] LABS: BUN/Creatinine Ratio 22.8 (8-20); EGFR African American 125.6 (>60); EGFR Non-African American 103.8 (>60); HDL Cholesterol 32.5 mg/dL
[2019-04-03] MEDS ORDERED: Insulin REGULAR(*) 1 UNITS UNIT SUBCUT SCH ×2 (08:00→17:00)
[2019-04-03] MEDS: Lisinopril TAB* 10 MG PO SCH (08:13)
[2019-04-03] MEDS: Amitriptyline TAB* 10 MG PO SCH (08:14)
[2019-04-03] MEDS: OMEGA ACID ETHYL ESTERS PO SCH (08:14)
[2019-04-03] MEDS: Rivaroxaban TAB(*) 10 MG PO SCH (08:14)
[2019-04-03] MEDS: Pantoprazole TAB * 40 MG TAB PO SCH (08:14)
[2019-04-03] MEDS: Escitalopram * 20 MG TABLET PO SCH (08:14)
[2019-04-03] MEDS: Potassium Acid Phosphate TAB* 500 MG PO SCH ×2 (08:14→14:10)
[2019-04-03] MEDS ORDERED: Insulin REGULAR(*) 1 UNITS UNIT SUBCUT ONE (08:33)
[2019-04-03] MEDS: Insulin LISPRO* 1 UNITS UNIT SUBCUT SCH (08:49)
[2019-04-03] MEDS: Sodium Bicarbonate (ANTACID)* 650 MG TAB PO SCH (11:59)
[2019-04-03 14:15] VITALS: BP 118/77
--- NOTE | 2019-04-03 21:44 | DS ---
Amended report to correct date of admission. CC: Becky Skinner MD; Romel Riojas MD * DISCHARGE SUMMARY: DATE OF ADMISSION: 04/02/19 DATE OF DISCHARGE: 04/03/19 PRIMARY CARE PROVIDER: Dr. Becky Skinner ([facility]) OCCUPATIONAL HEALTH NURSE: Dr. Romel Riojas. DISCHARGE DIAGNOSIS: Diabetic ketoacidosis secondary to dietary noncompliance. SECONDARY DIAGNOSES: 1. Type 2 diabetes. 2. Hypertension. 3. Hyperlipidemia. 4. Recurrent deep vein thrombosis (on lifelong anticoagulation). 5. Chronic back pain. MEDICATION LIST: 1. Acetaminophen 650 mg p.o. q.6 hours p.r.n. pain or fever. 2. Amitriptyline 10 mg p.o. daily. 3. Atorvastatin 80 mg p.o. at bedtime. 4. Escitalopram 20 mg p.o. daily. 5. Lisinopril 10 mg p.o. daily. 6. Metformin ER 1500 mg p.o. at bedtime. 7. Lovaza 2 g p.o. daily. 8. Pantoprazole 40 mg p.o. daily. 9. Xarelto 10 mg p.o. daily. New medication: 1. Sodium bicarb 650 mg p.o. before meals for 5 days. Medications change: 1. Humulin R U-500 was increased to 15 units subcutaneously b.i.d. (equivalent to 75 units of regular insulin b.i.d.) HOSPITAL COURSE: Mr. Rubio is a 49-year-old male with a past medical history as stated above that has had multiple admissions with DKA, who presented to the emergency room with complaints of heartburn and shortness of breath that he knows are secondary to his DKA. Of note, the patient's birthday was on [birth year] and he describes eating chocolate cake with blue love frosting. He also notes that the weekend was very hot and he does not think he drank enough liquids. In the emergency room, he had an ABG that showed a pH of 7.29 with a pCO2 below 20, pO2 of 105, and bicarb was 11.9. His initial glucose was 621 with bicarb less than 7. He was admitted to intensive care unit and started on insulin drip with improvement of his glycemia. Anion gap was closed. Metabolic acidosis much improved. The patient was seen in consultation by Endocrinology (Dr. Romel Riojas) and his impression is (49-year-old male with severe insulin-resistant ketosis from type 2 diabetes, now admitted for DKA). He has failed insulin therapy multiple times in the past throughout the month due to medication nonadherence. The current episode was provoked by combination of severe diet-induced hyperglycemia and relative dehydration. He requires closer followup in clinic and more frequent blood glucose monitoring at home for early detection of hyperglycemia plus minus DKA. His recommendation was to increase his U-500 insulin to 15 units twice daily via insulin syringe equivalent to 75 units b.i.d. of U-500 insulin. He will check fingerstick glucose at least twice daily at home and he will follow up with Endocrinology in 2 weeks. On admission, blood cultures were sent and once the urine culture grew gram- positive cocci resembling staphylococcus and I suspect this represents contamination. The final results will have to be followed as an outpatient. But at this point, the patient has no signs of infection, no fever, no chills, no other localizing symptoms. As we stated above, this episode of DKA was brought on by dietary noncompliance and dehydration. At the time of discharge, the patient was feeling well and back to his baseline, so no antibiotics will be prescribed as I do not believe this blood culture is a true infection but just contaminant during the collection of the blood cultures. For his metabolic acidosis, the patient will be continued on sodium bicarb for 5 more days to continue to buffer his acidosis, but as long as he keeps his diabetes under control, I do not think he needs sodium bicarbonate [facility]. The patient's lipid profile on admission revealed triglyceride of 1100 and this was not a fasting study. A fasting study was repeated and his triglycerides were 516. He was advised to continue his atorvastatin and Lovaza and Dr. Riojas will continue to manage his hyperlipidemia as outpatient. The patient is medically stable to be discharged home today. He will keep up his appointment already scheduled with Dr. Skinner for next week and he will follow up with Dr. Riojas in the next 1 to 2 weeks. PHYSICAL EXAMINATION: Vital Signs: Temperature 98.1, heart rate is 78, respiratory rate is 16, oxygen saturation 97% on room air, blood pressure is 118 /77. General: The patient is obese, middle age gentleman, sitting up in bed, in no acute distress. CVS: Normal S1, S2. Regular rate and rhythm. Chest: Breath sounds present bilaterally with no added sounds. Abdomen is obese, soft , nontender, bowel sounds are present. Extremities: No edema. Distal pulses are preserved. Neuro: He is alert and oriented x3, able to move all 4 extremities. DIET: Heart healthy, consistent carb diet. ACTIVITIES: As tolerated. DISPOSITION: To home. STATUS WHILE IN THE HOSPITAL: Inpatient. Please keep in mind this is a summarized version of this patient's hospital stay. If you need more information, please feel free to call me at [phone] or please obtain the full medical records. TIME SPENT: Approximately 55 minutes was spent to complete this discharge. [id number]/CPS #: [id number]
== END 2019-04-03 14:20 | disposition home health service (06) | DRG 420 ==
LOC: ED 23:08 → ICU 04-02 04:04
PROVIDERS: ADMIT Internal Medicine; ATTEND Internal Medicine
DX: E11.10 Type 2 diabetes mellitus with ketoacidosis without coma (principal); I10 Essential (primary) hypertension; E78.5 Hyperlipidemia, unspecified; G89.29 Other chronic pain; E86.0 Dehydration; E78.00 Pure hypercholesterolemia, unspecified; K21.9 Gastro-esophageal reflux disease without esophagitis; M19.90 Unspecified osteoarthritis, unspecified site; M54.5 Low back pain; G43.909 Migraine, unspecified, not intractable, without status migrainosus; F32.9 Major depressive disorder, single episode, unspecified; E66.9 Obesity, unspecified; R82.90 Unspecified abnormal findings in urine; Z91.11 Patient's noncompliance with dietary regimen; Z86.718 Personal history of other venous thrombosis and embolism; Z79.01 Long term (current) use of anticoagulants; Z79.4 Long term (current) use of insulin; Z82.5 Family history of asthma and other chronic lower respiratory diseases; Z56.0 Unemployment, unspecified; Z87.891 Personal history of nicotine dependence; Z68.33 Body mass index [BMI] 33.0-33.9, adult
CPT/HCPCS: 36415; 71045; 80048; 80053; 80061; 81003; 81015; 82803; 82947; 83036; 83605; 83690; 83721; 83735; 84100; 85025; 85610; 85730; 86140; 87040; 87077; 87086; 87150; 87205; 87641; 93005; 99285; 99406; A9270-GY; J1815; J2543; J3475; J3480

== ENCOUNTER 2019-05-11 17:15 | Emergency (ER) | payer OTHER ==
[2019-05-11] MEDS ORDERED: Acetaminophen TAB* 325 MG PO ONE (17:50)
--- NOTE | 2019-05-11 17:54 | ED ---
Upper Extremity Pain - HPI Summary HPI Summary: Patient complains of intermittent right arm pain 2 weeks. Pain radiates from right elbow to right shoulder, worse with movement. Denies trauma. States he woke up with this pain 2 weeks ago. Patient states he has not tried ice or any pain medications. Denies any other pain injury symptoms. Medical history is DM , HTN, H LD, DKA. - History of Current Complaint Chief Complaint: EDExtremityUpper Stated Complaint: RT ARM HURTS PER PT Time Seen by Provider: 05/11/19 17:40 Hx Obtained From: Patient Mechanism Of Injury: Unknown Onset/Duration: Started Weeks Ago Timing: Intermittent Severity Initially: Mild Severity Currently: Moderate Pain Location: Shoulder, Elbow Character: Dull, Aching, Throbbing Aggravating Factor(s): Movement, Lifting, Flexion, Abduction Alleviating Factor(s): Rest Associated Signs & Symptoms: Positive: Negative - Allergies/Home Medications Allergies/Adverse Reactions: Allergies Allergy/AdvReac Type Severity Reaction Status Date / Time No Known Allergies Allergy Verified 05/11/19 17:21 PMH/Surg Hx/FS Hx/Imm Hx Endocrine/Hematology History: Reports: Hx Anticoagulant Therapy - Xarelto, Hx Diabetes Denies: Hx Thyroid Disease Cardiovascular History: Reports: Hx Angina, Hx Deep Vein Thrombosis, Hx Hypercholesterolemia, Hx Hypertension, Other Cardiovascular Problems/Disorders - HLD Denies: Hx Congestive Heart Failure, Hx Myocardial Infarction, Hx Pacemaker/ ICD Respiratory History: Denies: Hx Asthma, Hx Chronic Obstructive Pulmonary Disease (COPD), Hx Lung Cancer, Hx Pneumonia, Hx Pulmonary Embolism GI History: Reports: Hx Gastroesophageal Reflux Disease, Other GI Disorders - congenital hernia Denies: Hx Gall Bladder Disease, Hx Gastrointestinal Bleed, Hx Ulcer, Hx Urosepsis History: Denies: Hx Dialysis, Hx Kidney Stones, Hx Renal Disease Musculoskeletal History: Reports: Hx Arthritis, Other Musculoskeletal History - occas joint pain. cly[place] horses Sensory History: Denies: Hx Contacts or Glasses, Hx Legally Blind, Hx Hearing Aid Opthamlomology History: Denies: Hx Contacts or Glasses, Hx Legally Blind Neurological History: Reports: Hx Migraine Denies: Hx Dementia, Hx Seizures, Hx Transient Ischemic Attacks (TIA) Psychiatric History: Reports: Hx Depression, Hx Inpatient Treatment Denies: Hx Anxiety, Hx Schizophrenia, Hx Bipolar Disorder - Surgical History Surgery Procedure, Year, and Place: Hernia repair 1991 - Immunization History Date of Tetanus Vaccine: unknown Date of Influenza Vaccine: No Infectious Disease History: No Infectious Disease History: Denies: Hx Clostridium Difficile, Hx Hepatitis, Hx Human Immunodeficiency Virus (HIV), Hx of Known/Suspected MRSA, Traveled Outside the [place] in Last 30 Days - Family History Known Family History: Positive: None, Unknown, Other - Asthma Negative: Cardiac Disease Family History: R & N/C - Social History Alcohol Use: Weekly Alcohol Amount: stopped drinking in Jun Hx Substance Use: No Substance Use Type: Reports: None Hx Tobacco Use: Yes Smoking Status (MU): Current Every Day Smoker Type: Cigarettes Amount Used/How Often: 1 cigarette daily Length of Time of Smoking/Using Tobacco: 38 years Have You Smoked in the Last Year: Yes Review of Systems Constitutional: Negative Eyes: Negative ENT: Negative Cardiovascular: Negative Respiratory: Negative Gastrointestinal: Negative Genitourinary: Negative Musculoskeletal: Other Skin: Negative Neurological: Negative Psychological: Normal All Other Systems Reviewed And Are Negative: Yes Physical Exam - Summary Physical Exam Summary: Tenderness to palpation of right shoulder and right elbow. Full range of motion of right elbow. Pain with abduction of shoulder. PMS intact distally. Strength normal. No ecchymosis, erythema, deformity, swelling noted to right shoulder, right elbow, right wrist. Forearm soft nontender. Triage Information Reviewed: Yes Vital Signs On Initial Exam: Initial Vitals Temp Pulse Resp BP Pulse Ox 98.7 F 76 16 143/100 97 05/11/19 17:19 05/11/19 17:19 05/11/19 17:19 05/11/19 17:19 05/11/19 17:19 Vital Signs Reviewed: Yes Appearance: Positive: Well-Appearing Skin: Positive: Warm Head/Face: Positive: Normal Head/Face Inspection Eyes: Positive: Normal Neck: Positive: Supple Respiratory/Lung Sounds: Positive: Clear to Auscultation Cardiovascular: Positive: Normal Abdomen Description: Positive: Nontender Musculoskeletal: Positive: Normal Neurological: Positive: Normal Psychiatric: Positive: Normal AVPU Assessment: Alert - Wilmar Coma Scale Best Eye Response: 4 - Spontaneous Best Motor Response: 6 - Obeys Commands Best Verbal Response: 5 - Oriented Coma Scale Total: 15 Diagnostics - Vital Signs Vital Signs Temp Pulse Resp BP Pulse Ox 05/11/19 17:19 98.7 F 76 16 143/100 97 - Laboratory Lab Statement: Any lab studies that have been ordered have been reviewed, and results considered in the medical decision making process. Course/Dx - Course Course Of Treatment: Patient complains of intermittent right arm pain 2 weeks. Pain radiates from right elbow to right shoulder, worse with movement. Denies trauma. States he woke up with this pain 2 weeks ago. Patient states he has not tried ice or any pain medications. Denies any other pain injury symptoms. Medical history is DM, HTN, H LD, DKA. Vital signs within normal limits. No indication for x-ray. Advised ice and Tylenol. Patient on Xarelto so no NSAIDs. Follow-up with orthopedics. - Diagnoses Provider Diagnoses: Strain of elbow, right, Right shoulder strain Discharge ED - Sign-Out/Discharge Documenting (check all that apply): Patient Departure Patient Received Moderate/Deep Sedation with Procedure: No - Discharge Plan Condition: Stable Disposition: HOME Patient Education Materials: Tendinitis (ED) Referrals: Becky Skinner MD [Primary Care Provider] - Kishore Ogden MD [Medical Doctor] - Additional Instructions: Ice right elbow and right shoulder 15 minutes at a time. Rest right arm as much as possible. Tylenol 650 mg every 4 hours for pain. If pain persists more than 5 days follow-up with orthopedics Dr. Reynolds for further evaluation. - Billing Disposition and Condition Condition: STABLE Disposition: Home - Attestation Statements Provider Attestation: I was available for consult. This patient was seen by the [facility]. The patient was not presented to, seen by, or examined by me. Anton Murphy MD
[2019-05-11 18:06] VITALS: BP 143/96
== END 2019-05-11 18:05 | disposition home or self-care (01) ==
LOC: ED 17:15
DX: S46.911A Strain of unspecified muscle, fascia and tendon at shoulder and upper arm level, right arm, initial encounter (principal); S46.811A Strain of other muscles, fascia and tendons at shoulder and upper arm level, right arm, initial encounter; X58.XXXA Exposure to other specified factors, initial encounter; Y92.9 Unspecified place or not applicable; Z79.4 Long term (current) use of insulin; E11.9 Type 2 diabetes mellitus without complications; I10 Essential (primary) hypertension; E78.00 Pure hypercholesterolemia, unspecified; K21.9 Gastro-esophageal reflux disease without esophagitis; F32.9 Major depressive disorder, single episode, unspecified; F17.210 Nicotine dependence, cigarettes, uncomplicated; Z79.01 Long term (current) use of anticoagulants; Z79.899 Other long term (current) drug therapy
CPT/HCPCS: 99282; A9270-GY

== ENCOUNTER 2019-05-22 15:35 | Inpatient (IN) | payer OTHER ==
[2019-05-22] MEDS ORDERED: NS 0.9% 1000 ML** 1,000 ML IV ONE ×2 (15:51→16:45)
[2019-05-22] MEDS ORDERED: Al Hydrox/Mg Hydrox/Simet LIQ* 30 ML UDC PO ONE (15:55)
--- NOTE | 2019-05-22 15:56 | ED ---
HPI Diabetic - HPI Summary HPI Summary: This patient is a 49 year old M presenting to [facility] by EMS with a chief complaint of SOB since 0900. Pt was getting ready to go to a doctors appointment when he had SOB and severe heart burn. Pt has a PMHx of diabetes. Previously, he had similar symptoms when he was in potential DKA. Pt takes metformin. Pt also has a PMHx of high cholesterol, and hypertension. Patient reports nausea. Patient denies vomiting, and abdominal pain. Per triage, the patient rates the pain 9/10 in severity. Pt smokes, does not drink or use drugs. Medications reviewed. Allergies noted - History Of Current Complaint Time Seen by Provider: 05/22/19 15:45 Hx Obtained From: Patient Onset/Duration: Sudden Onset, Still Present Timing: Hours Severity Initially: Severe Severity Currently: Severe Character: Alert Aggravating: Nothing Alleviating: Nothing Associated Signs & Symptoms: Shortness of Breath Related History: Hx of DKA - Allergies/Home Medications Allergies/Adverse Reactions: Allergies Allergy/AdvReac Type Severity Reaction Status Date / Time No Known Allergies Allergy Verified 05/11/19 17:21 Home Medications: Home Medications Amitriptyline TAB* [Elavil TAB*] 10 mg PO BEDTIME 05/22/19 [History Confirmed ] Escitalopram * [Lexapro 10 mg (NF)] 10 mg PO DAILY 05/22/19 [History Confirmed 05/22/19] Insulin Regular 500 Unit/ml [Humulin R U-500 (Concentrated)] 100 unit SUBCUT BID 05/22/19 [History Confirmed 05/22/19] metFORMIN* [Glucophage 500 MG TAB *] 1,000 mg PO BID 05/22/19 [History Confirmed 05/22/19] PMH/Surg Hx/FS Hx/Imm Hx Endocrine/Hematology History: Reports: Hx Anticoagulant Therapy - Xarelto, Hx Diabetes Denies: Hx Thyroid Disease Cardiovascular History: Reports: Hx Angina, Hx Deep Vein Thrombosis, Hx Hypercholesterolemia, Hx Hypertension, Other Cardiovascular Problems/Disorders - HLD Denies: Hx Congestive Heart Failure, Hx Myocardial Infarction, Hx Pacemaker/ ICD Respiratory History: Denies: Hx Asthma, Hx Chronic Obstructive Pulmonary Disease (COPD), Hx Lung Cancer, Hx Pneumonia, Hx Pulmonary Embolism GI History: Reports: Hx Gastroesophageal Reflux Disease, Other GI Disorders - congenital hernia Denies: Hx Gall Bladder Disease, Hx Gastrointestinal Bleed, Hx Ulcer, Hx Urosepsis History: Denies: Hx Dialysis, Hx Kidney Stones, Hx Renal Disease Musculoskeletal History: Reports: Hx Arthritis, Other Musculoskeletal History - occas joint pain. clyde horses Sensory History: Denies: Hx Contacts or Glasses, Hx Legally Blind, Hx Hearing Aid Opthamlomology History: Denies: Hx Contacts or Glasses, Hx Legally Blind Neurological History: Reports: Hx Migraine Denies: Hx Dementia, Hx Seizures, Hx Transient Ischemic Attacks (TIA) Psychiatric History: Reports: Hx Depression, Hx Inpatient Treatment Denies: Hx Anxiety, Hx Schizophrenia, Hx Bipolar Disorder - Surgical History Surgery Procedure, Year, and Place: Hernia repair 1991 - Immunization History Date of Tetanus Vaccine: unknown Date of Influenza Vaccine: No Infectious Disease History: No Infectious Disease History: Denies: Hx Clostridium Difficile, Hx Hepatitis, Hx Human Immunodeficiency Virus (HIV), Hx of Known/Suspected MRSA, Traveled Outside the [place] in Last 30 Days - Family History Known Family History: Positive: Other - Asthma Negative: Cardiac Disease Family History: R & N/C - Social History Alcohol Use: Weekly Alcohol Amount: stopped drinking in Jun Hx Substance Use: No Substance Use Type: Reports: None Hx Tobacco Use: Yes Smoking Status (MU): Current Every Day Smoker Type: Cigarettes Amount Used/How Often: 1 cigarette daily Length of Time of Smoking/Using Tobacco: 38 years Have You Smoked in the Last Year: Yes Review of Systems Positive: Other - heart burn Positive: Shortness Of Breath Positive: Nausea. Negative: Abdominal Pain, Vomiting All Other Systems Reviewed And Are Negative: Yes Physical Exam - Summary Physical Exam Summary: Constitutional: Well-developed, Well-nourished, Alert. (-) Distressed Skin: Warm, Dry HENT: Normocephalic; Atraumatic Eyes: Conjunctiva normal Neck: Musculoskeletal ROM normal neck. (-) JVD, (-) Stridor, (-) Tracheal deviation Cardio: Rhythm regular, borderline tachycardic, Heart sounds normal; Intact distal pulses; The pedal pulses are 2+ and symmetric. Radial pulses are 2+ and symmetric. (-) Murmur Pulmonary/Chest wall: Effort normal. (-) Respiratory distress, (-) Wheezes, (-) Rales Abd: Soft, (-) tenderness, (-) Distension, (-) Guarding, (-) Rebound Musculoskeletal: (-) Edema Lymph: (-) Cervical adenopathy Neuro: Alert, Oriented x3 Psych: Mood and affect Normal Triage Information Reviewed: Yes Vital Signs On Initial Exam: Initial Vitals Temp Pulse Resp BP Pulse Ox 97.4 F 96 18 168/95 100 05/22/19 15:47 05/22/19 15:47 05/22/19 15:47 05/22/19 15:47 05/22/19 15:47 Vital Signs Reviewed: Yes Diagnostics - Vital Signs Vital Signs Temp Pulse Resp BP Pulse Ox 05/22/19 15:47 97.4 F 96 18 168/95 100 - Laboratory Result Diagrams: 05/22/19 16:05 05/22/19 16:05 Lab Statement: Any lab studies that have been ordered have been reviewed, and results considered in the medical decision making process. - EKG 16:05 Cardiac Rate: Tachycardia - 101 bpm EKG Rhythm: Sinus Tachycardia Summary of EKG Findings: An EKG at 16:05 reveals sinus tachycardia 101 bpm, no STEMI Re-Evaluation - Re-Evaluation First Eval Re-Evaluation Time: 16:58 Comment: Discussed plan of care with pt. Diabetic Course/Dx - Course Course Of Treatment: Patient is here with DKA. Patient is well-known to the hospital for presenting a DKA due to poor diet. Patient did miss his morning dose of insulin. Patient appears of 7.9, glucose in the 400s, bicarbonate of 8. Patient was given 2 L of normal saline and started on a insulin drip here. Patient was admitted to the hospital for further management. - Diagnoses Provider Diagnoses: DKA (diabetic ketoacidoses) - Physician Notifications Discussed Care Of Patient With: Deborah Langford Time Discussed With Above Provider: 17:00 Instructed by Provider To: Other - Discussed case with Dr. Langford, who accepts pt for admission. - Critical Care Time Critical Care Time: 30-74 min Discharge ED - Sign-Out/Discharge Documenting (check all that apply): Patient Departure - Admit Patient Received Moderate/Deep Sedation with Procedure: No - Discharge Plan Condition: Stable Disposition: ADMITTED TO [facility] - Billing Disposition and Condition Condition: STABLE Disposition: Admitted to [facility] - Attestation Statements Document Initiated by Scribe: Yes Documenting Scribe: Negrita Araujo Provider For Whom Scribe is Documenting (Include Credential): Anton Murphy MD Scribe Attestation: INegrita, scribed for Anton Murphy MD on 05/22/19 at 1914. Scribe Documentation Reviewed: Yes Provider Attestation: The documentation as recorded by the Negrita pollock accurately reflects the service I personally performed and the decisions made by me, Anton Murphy MD Status of Scribe Document: Viewed
[2019-05-22 16:10] LABS: ABS Basophils 0.2 10^3/ul (0-0.2); ABS Eosinophils 0.1 10^3/ul (0-0.6); ABS Lymphocytes 1.6 10^3/ul (1.0-4.8); ABS Monocytes 0.7 10^3/ul (0-0.8); ABS Neutrophils 12.6 10^3/ul (1.5-7.7); Eosinophil % 0.4 %; Hematocrit 52 % (42-52); Hemoglobin 17.4 g/dL (14.0-18.0); Lymphocyte % 10.6 %; Mean Corpuscular HGB Conc 33 g/dL (31-36); Mean Corpuscular Hemoglobin 34 pg (27-31); Mean Corpuscular Volume 101 fL (80-94); Mean Platelet Volume 8.6 fL (7.4-10.4); Nucleated Red Blood Cells % 0.1; Platelet Count 339 10^3/uL (150-450); Red Blood Count 5.18 10^6 /uL (4.18-5.48); Red Cell Distribution Width 14 % (10-15); White Blood Count 15.1 10^3/uL (3.5-10.8)
--- OUTSIDE RECORDS SUMMARY | 2019-05-22 16:31 | XMS REPORT | Continuity of Care Document ---
:1970 External Reference #:[id number] Author Name Negrita Haq, [employer] (transmitted by agent of provider Fang Hackett) Address [address], [place] [address] Care Team Providers Name Role Phone James Guzman MD - Internal Care Team Information Transportation Planning Technician [phone] Medicine Becky Skinner MD - Family Care Team Information Transportation Planning Technician [phone] Medicine Problems Active Problems Provider Date Type 2 diabetes mellitus Acosta Carey M.D. Onset: 12/17/2011 Benign essential hypertension Acosta Carey M.D. Onset: 12/17/2011 Hyperlipidemia Acosta Carey M.D. Onset: 12/17/2011 Headache Acosta Carey M.D. Onset: 12/17/2011 Low back pain Acosta Carey M.D. Onset: 12/17/2011 Embolism from thrombosis of vein of distal Acosta Carey M.D. Onset: lower extremity History of thromboembolism of vein Acosta Carey M.D. Onset: 04/01/2016 Social History Type Date Description Comments Sex Unknown ETOH Use Denies alcohol use recovering alcoholic Tobacco Use Start: Unknown Light tobacco smoker 2-4 per day (10 or fewer cigarettes/day) Recreational Drug Use Denies Drug Use Smoking Status Reviewed: 05/15/19 Light tobacco smoker 2-4 per day (10 or fewer cigarettes/day) Exercise Type/Frequency Exercises regularly walks regularly Allergies, Adverse Reactions, Alerts Description No Known Drug Allergies Medications Active Medications SIG Qnty Indications Ordering Date Provider Humulin R U-500 100 units twice 20ml E11.10 Romel Riojas MD 02/14/2019 (Concentrated) daily (20 units on regular 500Unit/ML Solution insulin syringe) or as directed, mdd 250 units Amitriptyline HCL 10mg at bedtime 30tabs E11.10 Romel Riojas MD 02/14/2019 10mg Tablets [id number] Ethyl Take Two 120caps E11.10 Acosta Montelongo 10/28/2018 Esters Capsules By Shyla Carey 1gm Capsules Mouth Two Times Daily Metformin HCL ER 2 tablets by 90tabs Romel Riojas MD 09/28/2018 750mg mouth a night Tablets ER 24HR Atorvastatin Calcium 1 by mouth every 30tabs E11.9 Acosta Montelongo 09/29/2017 day Shyla Carey 80mg Tablets Xarelto 1 tab daily 30tabs I82.409 Acosta Montelongo 09/29/2017 10mg Tablets Shyla Carey Insulin use as directed 100units E11.9 Acosta Montelongo 09/25/2013 Syringe/1ML/28G X Shyla Carey 1/2" 28G X 1/2" 1 ML Misc Tylenol 2 capsules three Unknown 325mg Capsules times a day Lisinopril 1 by mouth every Unknown 20mg Tablets day Escitalopram Oxalate 1 by mouth every Unknown day 10mg Tablets Melatonin ER take one Unknown 3mg tablet/capsule Tablets ER by mouth at bedtime. for insomnia Pantoprazole Sodium 1 by mouth every Unknown day 20mg Tablets DR Influenza Virus Unknown Vaccine Injection Immunizations CPT Code Status Date Vaccine Lot # 23570 Given 07/10/2013 Flu Vaccine Split Virus Preservative Free For [id number] Indiv [id number] Older [id number] Given 05/19/2012 Fluzone Vaccine [id number] Given 05/19/2012 Pneumonia Vaccine [id number] Given 09/12/2009 Tetanus And Diptheria (Td) For Adult Use Preservative Free Vital Signs Date Vital Result Comment 05/15/2019 1:46pm Height 68.75 inches 5'8.75" Weight 228.00 lb Heart Rate 79 /min BP Systolic 117 mmHg BP Diastolic 74 mmHg BMI (Body Mass Index) 33.9 kg/m2 04/11/2019 3:27pm Height 68.75 inches 5'8.75" Weight 229.00 lb Heart Rate 80 /min BP Systolic Sitting 94 mmHg BP Diastolic Sitting 60 mmHg BMI (Body Mass Index) 34.1 kg/m2 Results Test Date Facility Test Result H/L Range Note Urinalysis Profile 11/22/2018 [facility] Urine Color Straw [address] [place] [address] [phone] Urine Appearance Clear Urine Specific Sumner 1.035 High 1.010-1.030 Urine pH 5.0 Normal 5-9 Urine Urobilinogen Negative Negative Urine Ketones 2+ Abnormal Negative Urine Protein Negative Negative Urine Leukocytes Negative Negative Urine Blood Negative Negative Urine Nitrite Negative Negative Urine Bilirubin Negative Negative Urine Glucose 3+(>=500 mg/dL) Abnormal Negative Comp Metabolic Panel 11/22/2018 [facility] Sodium 132 mmol/L Low 135-[address] [place] [address] [phone] Potassium 4.0 mmol/L Normal 3.5-5.0 Chloride 98 mmol/L Low 101-111 Co2 Carbon Dioxide 20 mmol/L Low 22-32 Anion Gap 14 mmol/L High 2-11 Glucose 367 mg/dL High 70-100 Blood Urea Nitrogen 25 mg/dL High 6-24 Creatinine 0.88 mg/dL Normal 0.67-1.17 BUN/Creatinine Ratio 28.4 High 8-20 Calcium 9.5 mg/dL Normal 8.6-10.3 Total Protein 7.5 g/dL Normal 6.4-8.9 Albumin 4.0 g/dL Normal 3.2-5.2 Globulin 3.5 g/dL Normal 2-4 Albumin/Globulin Ratio 1.1 Normal 1-3 Total Bilirubin 0.40 mg/dL Normal 0.2-1.0 Alkaline Phosphatase 85 U/L Normal 34-104 Alt 15 U/L Normal 7-52 Ast 11 U/L Low 13-39 Egfr Non- 92.0 >60 Egfr 111.4 >60 1 CBC Auto 11/22/2018 [facility] White Blood 8.5 10^3/uL Normal 3.5-10.[address] [place] [address] [phone] Red Blood Count 5.07 10^6/uL Normal 4.00-5.40 Hemoglobin 16.8 g/dL Normal 14.0-18.0 Hematocrit 48 % Normal 42-52 Mean Corpuscular Volume 95 fL High 80-94 Mean Corpuscular Hemoglobin 33 pg High 27-31 Mean Corpuscular HGB Conc 35 g/dL Normal 31-36 Red Cell Distribution Width 13 % Normal 10.5-15 Platelet Count 272 10^3/uL Normal 150-450 Mean Platelet Volume 9.2 fL Normal 7.4-10.4 Abs Neutrophils 4.8 10^3/uL Normal 1.5-7.7 Abs Lymphocytes 3.0 10^3/uL Normal 1.0-4.8 Abs Monocytes 0.6 10^3/uL Normal 0-0.8 Abs Eosinophils 0.1 10^3/uL Normal 0-0.6 Abs Basophils 0.1 10^3/uL Normal 0-0.2 Abs Nucleated RBC 0 10^3/uL Granulocyte % 55.8 % Lymphocyte % 34.7 % Monocyte % 6.8 % Eosinophil % 1.4 % Basophil % 1.3 % Nucleated Red Blood Cells % 0 1 Because ethnic data is not always readily available, this report includes an eGFR for both -Americans and non- Americans. The National Kidney Disease Education Program (NKDEP) does not endorse the use of the MDRD equation for patients that are not between the ages of 18 and 70, are , have extremes of body size, muscle mass, or nutritional status, or are non- or non-. According to the National Kidney Foundation, irrespective of diagnosis, the stage of the disease is based on the level of kidney function: Stage Description GFR(mL/min/1.73 m(2)) 1 Kidney damage with normal or decreased GFR 90 2 Kidney damage with mild decrease in GFR 60-89 3 Moderate decrease in GFR 30-59 4 Severe decrease in GFR 15-29 5 Kidney failure <15 (or dialysis) Procedures Date Code Description Status 02/11/2017 [id number] Diabetic Retinal Eye Exam Completed 08/24/2013 [id number] Diabetic Retinal Eye Exam Completed Medical Devices Description No Information Available Encounters Type Date Location Provider Dx Diagnosis Office Visit 04/03/2019 [facility] Lucero Spain, E11.10 Type 2 diabetes 9:05a servando Martini M.D. mellitus with Hospitalists ketoacidosis without coma Z91.11 Patient's noncompliance with dietary regimen I10 Essential (primary) hypertension E78.5 Hyperlipidemia, unspecified I82.409 Acute embolism and thombos unsp deep vn unsp lower extremity M54.9 Dorsalgia, unspecified Office Visit 04/03/2019 [facility] Romel Riojas, E11.10 Type 2 diabetes 3:10p Endocrinology of mellitus with Foreign Language Teacher ketoacidosis without coma E11.65 Type 2 diabetes mellitus with hyperglycemia Office Visit 04/02/2019 [facility] Deborah Langford, E13.10 [place] diabetes 9:05a servando Martini M.D. mellitus with Hospitalists ketoacidosis without coma N39.0 Urinary tract infection, site not specified E78.5 Hyperlipidemia, unspecified I10 Essential (primary) hypertension Z86.718 Personal history of other venous thrombosis and embolism Office Visit 02/14/2019 [facility] Rom[facility] Riojas, E11.10 Type 2 diabetes 1:40p Endocrinology of mellitus with Foreign Language Teacher ketoacidosis without coma Z79.4 terminal carman (current) use of insulin E11.40 Type 2 diabetes mellitus with diabetic neuropathy, unsp Office Visit 01/05/2019 [facility] Jorge Alberto Villaseñor MD E11.10 Type 2 diabetes 10:15a servando Martini mellitus with Hospitalists ketoacidosis without coma Office Visit 01/04/2019 [facility] Rakan Terrell, E11.10 Type 2 diabetes 10:15a M.D. mellitus with ketoacidosis without coma Office Visit 01/03/2019 [facility] Rakan Terrell, E11.10 Type 2 diabetes 10:14a M.D. mellitus with ketoacidosis without coma Office Visit 12/20/2018 [facility] Bear Emerson, S80.01xD Contusion of 2:00p Services Of Daniele Mansfield right knee, subsequent encounter Office Visit 11/27/2018 Pulmonology And Carey R06.83 Snoring 10:00a Sleep Services Of MD Parag Foreign Language Teacher R53.83 Other fatigue F17.210 Nicotine dependence, cigarettes, uncomplicated Z68.35 Body mass index (BMI) 35.0-35.9, adult Assessments Date Code Description Provider 05/15/2019 E11.65 Type 2 diabetes mellitus with SHANTANU JohnsonP-Cde hyperglycemia 05/15/2019 Z79.4 senior living (current) use of insulin Mony Johnson 04/11/2019 E11.10 Type 2 diabetes mellitus with ketoacidosis Romel Riojas MD without coma 04/11/2019 Z79.4 senior living (current) use of insulin Romel Riojas MD 04/03/2019 E11.10 Type 2 diabetes mellitus with ketoacidosis Lucero Spain M.D. without coma 04/03/2019 E11.10 Type 2 diabetes mellitus with ketoacidosis Romel Riojas MD without coma 04/03/2019 Z91.11 Patient's noncompliance with dietary Lucero Spain M.D. regimen 04/03/2019 E11.65 Type 2 diabetes mellitus with Romel Riojas MD hyperglycemia 04/03/2019 I10 Essential (primary) hypertension Lucero Spain M.D. 04/03/2019 E78.5 Hyperlipidemia, unspecified Lucero Spain M.D. 04/03/2019 I82.409 Acute embolism and thrombosis of Lucero Spain M.D. unspecified deep veins of unspecified lower extremity 04/03/2019 M54.9 Dorsalgia, unspecified Lucero Spain M.D. 04/02/2019 E13.10 Oth diabetes mellitus with ketoacidosis Deborah Langford M.D. without coma 04/02/2019 N39.0 Urinary tract infection, site not Deborah Langford M.D. specified 04/02/2019 E78.5 Hyperlipidemia, unspecified Deborah Langford M.D. 04/02/2019 I10 Essential (primary) hypertension Deborah Langford M.D. 04/02/2019 Z86.718 Personal history of other venous Deborah Langford M.D. thrombosis and embolism 02/14/2019 E11.10 Type 2 diabetes mellitus with ketoacidosis Romel Riojas MD without coma 02/14/2019 Z79.4 senior living (current) use of insulin Romel Riojas MD 02/14/2019 E11.40 Type 2 diabetes mellitus with diabetic Romel Riojas MD neuropathy, unsp 01/05/2019 E11.10 Type 2 diabetes mellitus with ketoacidosis Jorge Alberto Villaseñor MD without coma 01/04/2019 E11.10 Type 2 diabetes mellitus with ketoacidosis Rakan Terrell M.D. without coma 01/03/2019 E11.10 Type 2 diabetes mellitus with ketoacidosis Rakan Terrell M.D. without coma 12/20/2018 S80.01xD Contusion of right knee, subsequent Bear Emerson M.D. encounter 11/27/2018 R06.83 Snoring Carey Tuttle MD 11/27/2018 R53.83 Other fatigue Carey Tuttle MD 11/27/2018 F17.210 Nicotine dependence, cigarettes, Carey Tuttle MD uncomplicated 11/27/2018 Z68.35 Body mass index (BMI) 35.0-35.9, adult Carey Tuttle MD Plan of Treatment Future Appointment(s):07/03/2019 12:40 pm - Romel Riojas MD at [facility]05/15/2019 - ANN Johnson-CdeE11.65 Type 2 diabetes mellitus with ukqpnlsbokivbJ73.4 terminal carman (current) use of insulinFollow up:Jun Dr Riojas Functional Status Description No Information Available Mental Status Description No Information Available Referrals Description No Information Available
[2019-05-22 16:34] LABS: Albumin 4.3 g/dL (3.2-5.2); Albumin/Globulin Ratio 1.1 (1-3); BUN/Creatinine Ratio 13.3 (8-20); Calcium 9.7 mg/dL (8.6-10.3); EGFR African American 90.5 (>60); EGFR Non-African American 74.8 (>60); Total Bilirubin 0.5 mg/dL (0.2-1.0); Total Protein 8.3 g/dL (6.4-8.9)
[2019-05-22] MEDS ORDERED: Insulin Infusion 100unit/100mL 100 UNITS/100 ML UNIT IV ONE (16:44)
[2019-05-22 17:02] LABS: Urine Appearance Clear; Urine Bacteria Absent (Absent); Urine Bilirubin Negative (Negative); Urine Blood 1+ (Negative); Urine Color Straw; Urine Glucose 3+(>=500 mg/dL) (Negative); Urine Ketones 2+ (Negative); Urine Nitrite Negative (Negative); Urine Protein 1+(30 mg/dL) (Negative); Urine Red Blood Cell Trace(0-2/hpf) (Absent); Urine Specific Gravity 1.027 (1.010-1.030); Urine Urobilinogen Negative (Negative); Urine White Blood Cell Absent (Absent)
[2019-05-22 17:05] LABS: Potassium 5.2 mmol/L (3.5-5.0)
[2019-05-22] MEDS ORDERED: NS 0.9% 1000 ML** 1,000 ML IV SCH ×2 (17:45→21:09)
[2019-05-22] MEDS ORDERED: Magnesium Hydroxide LIQ* 30 ML UDC PO PRN (17:52)
[2019-05-22] MEDS ORDERED: Insulin Infusion 100unit/100mL 100 UNITS/100 ML UNIT IV SCH ×2 (18:00→22:30)
[2019-05-22] MEDS ORDERED: Acetaminophen TAB* 325 MG PO PRN (18:09)
[2019-05-22] MEDS: Al Hydrox/Mg Hydrox/Simet LIQ* 30 ML UDC PO PRN ×2 (20:11→22:08)
[2019-05-22] MEDS: Amitriptyline TAB* 10 MG PO SCH (20:11)
[2019-05-22] MEDS: Atorvastatin* 80 MG TAB PO SCH (20:11)
--- NOTE | 2019-05-22 20:12 | HP ---
CC: Dr. Vanessa Christianson; Dr. Romel Riojas * HISTORY AND PHYSICAL: DATE OF ADMISSION: 05/22/19 PRIMARY CARE PROVIDER: Dr. Vanessa Christianson. CHIEF COMPLAINT: "I have bad heartburn and I don't feel well." HISTORY OF PRESENT ILLNESS: Mr. Rubio is a 49-year-old male with history of insulin-dependent diabetes with multiple admissions for DKA in the past, with history of medical noncompliance, who presented to the hospital complaining of not feeling well. He stated that he was about to see his primary care provider for a followup, but he called off the appointment since he did not feel well. The last he took his insulin was last night. He did not give me any reasoning for why he did not take his insulin in the morning apart from "I did not feel well." He complains of "bad heartburn." He complains of substernal burning that he has had before with his reflux disease. His pH is close to 7. His anion gap is 23. He is going to be admitted to the intensive care unit with diagnosis of DKA. PAST MEDICAL HISTORY: 1. 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 2. History of lower back pain. 3. History of headaches. 4. Dyslipidemia. 5. Hypertension. 6. Diabetes, type 2. MEDICATIONS: Include: 1. Insulin U-500 100 units twice a day. 2. Amitriptyline 10 mg at bedtime. 3. Atorvastatin 80 mg at bedtime. 4. Xarelto 10 mg daily. 5. Protonix 40 mg daily. 6. Lexapro 20 mg daily. 7. Lisinopril 10 mg daily. 8. Metformin 1000 mg b.i.d. 9. Vashon-3 fatty acids 2 g daily. ALLERGIES: No known drug allergies. FAMILY HISTORY: Positive for mother with asthma. Father is unknown. SOCIAL HISTORY: The patient is unemployed and he is . He has history of smoking less than half a pack a day for a total of 40 years. He denies any alcohol or drug use. His close friend, Jack Rose, is his surrogate. REVIEW OF SYSTEMS: Please see history of present illness. All the remaining 12 systems were reviewed with the patient and were otherwise negative. PHYSICAL EXAMINATION GENERAL: The patient is a very pleasant 49-year-old male, who is in no acute distress, alert, awake, and oriented x3. VITAL SIGNS: Blood pressure of 150/90, heart rate of 102 and regular, respiratory rate 28, oxygen saturation 100% on room air, temperature 97.4. HEENT: Head: Atraumatic, normocephalic. Eyes: Pupils are equal, reactive to light and accommodation. Oropharynx clear. Mucosa dry. NECK: Supple. No JVD. No bruits bilaterally. RESPIRATORY: Clear to auscultation bilaterally. CARDIOVASCULAR: Regular rate and rhythm. No murmur. ABDOMEN: Soft, nontender. Bowel sounds are present in all 4 quadrants. EXTREMITIES: There is no edema. Pulses are +2 bilaterally. No clubbing or cyanosis. PSYCHIATRIC: On psychiatric evaluation, the patient is pleasant and cooperative with evaluation. The patient has deep Kussmaul type breathing due to his DKA that makes him anxious appearing, but he denies anxiety. SKIN: On evaluation of the skin, the patient has multiple tattoos. No evidence of cellulitis or rashes. DIAGNOSTIC STUDIES/LABORATORY DATA: Sodium of 128, potassium 5.2, chloride 97, carbon dioxide 23, BUN 14, creatinine 1.05. Liver function tests were unremarkable apart from mild elevation of alkaline phosphatase of 115. Troponin of 0. Lipase of 27. CBC: White blood cell count of 15.1, hemoglobin of 17.4, hematocrit of 52, MCV of 41, and platelets of 339. VBG showed pH of 7.09, pCO2 of 23, PaO2 of below 38, bicarb of 7.3. Urinalysis showed +2 ketones, trace blood, +3 glucose. The patient's EKG showed sinus tachycardia with heart rate of 101 beats per minute with Q waves in leads V1 and V2 that are old comparing with EKG from September 2018. ASSESSMENT AND PLAN: 1. Severe diabetic ketoacidosis. The patient is going to be placed on insulin drip and intravenous fluids. His labs are going to be checked every 4 hours. 2. For DVT prophylaxis, the patient is going to be cont on home Xarelto 3. His leukocytosis is likely reactive. So far, there is no evidence of infection. 4. The patient has complained of heartburn and it appears to be gastrointestinal related. Nevertheless, he is going to be placed in the intensive care unit on telemetry monitored floor and his troponins are going to be checked. Milk of magnesia is going to be used on as needed basis. 5. The patient's code status is full. His surrogate is his friend, as mentioned above. TIME SPENT: Approximately 65 minutes was spent on admission of this patient, more than half of that time was spent [id number] with the patient during the interview and physical exam. [id number] #: [id number] MTDD
[2019-05-22 20:26] LABS: BUN/Creatinine Ratio 13.2 (8-20); Blood Urea Nitrogen 14 mg/dL (6-24); Calcium 8.7 mg/dL (8.6-10.3); Chloride 104 mmol/L (101-111); EGFR African American 89.5 (>60); Glucose 348 mg/dL (70-100); Magnesium 1.9 mg/dL (1.9-2.7); Phosphorus 2.7 mg/dL (2.5-5.0); Sodium 132 mmol/L (135-145)
[2019-05-22 20:33] LABS: Anion Gap 21 mmol/L (2-11); CO2 Carbon Dioxide 7 mmol/L (22-32)
[2019-05-22] MEDS: D5W 1/2 NS 1000 ML BAG* 1,000 ML IV SCH (21:45)
[2019-05-22] MEDS: Morphine INJ* 2 MG/ML 1 ML SYRINGE (TWO MG - NEW SYRINGE VERSION) IV PRN (22:08)
[2019-05-22] MEDS: Ondansetron INJ* 2 MG/ML VIAL IV PRN (23:09)
[2019-05-23 00:47] LABS: BUN/Creatinine Ratio 13.5 (8-20); Calcium 8.5 mg/dL (8.6-10.3); EGFR African American 100.3 (>60); EGFR Non-African American 82.9 (>60); Magnesium 1.9 mg/dL (1.9-2.7); Phosphorus 1.6 mg/dL (2.5-5.0); Potassium 4.3 mmol/L (3.5-5.0)
[2019-05-23] MEDS: Al Hydrox/Mg Hydrox/Simet LIQ* 30 ML UDC PO PRN (02:07)
[2019-05-23] MEDS: D5W 1/2 NS 1000 ML BAG* 1,000 ML IV SCH ×2 (02:24→06:41)
[2019-05-23] MEDS: Morphine INJ* 2 MG/ML 1 ML SYRINGE (TWO MG - NEW SYRINGE VERSION) IV PRN (03:52)
[2019-05-23] MEDS: Ondansetron INJ* 2 MG/ML VIAL IV PRN ×2 (03:53→08:11)
[2019-05-23] MEDS ORDERED: Famotidine TAB* 20 MG PO ONE (04:05)
[2019-05-23] MEDS ORDERED: Lidocaine 2% VISCOUS* 15 ML UDC PO ONE (04:06)
[2019-05-23 04:36] LABS: BUN/Creatinine Ratio 13.1 (8-20); Blood Urea Nitrogen 11 mg/dL (6-24); Calcium 8.5 mg/dL (8.6-10.3); Chloride 109 mmol/L (101-111); EGFR Non-African American 96.7 (>60); Glucose 230 mg/dL (70-100); Magnesium 1.9 mg/dL (1.9-2.7); Potassium 3.6 mmol/L (3.5-5.0); Sodium 132 mmol/L (135-145)
[2019-05-23 04:40] LABS: Anion Gap 9 mmol/L (2-11); CO2 Carbon Dioxide 14 mmol/L (22-32); Phosphorus < 1.0 mg/dL (2.5-5.0)
[2019-05-23] MEDS ORDERED: Potassium Phosphate IV* 15 MMOLE in NS 0.9% 250 ML* 250 ML IVPB ONE ×2 (04:45→09:26)
[2019-05-23] MEDS: Insulin Infusion 100unit/100mL 100 UNITS/100 ML UNIT IV SCH ×7 (04:57→19:53)
[2019-05-23] MEDS: D5LR 1000 ML BAG* 1,000 ML IV SCH ×3 (08:00→23:08)
[2019-05-23 08:29] LABS: ABS Basophils 0.1 10^3/ul (0-0.2); ABS Lymphocytes 1.7 10^3/ul (1.0-4.8); ABS Neutrophils 8.6 10^3/ul (1.5-7.7); Eosinophil % 0.1 %; Hematocrit 42 % (42-52); Hemoglobin 14.7 g/dL (14.0-18.0); Lymphocyte % 14.7 %; Mean Corpuscular HGB Conc 35 g/dL (31-36); Mean Corpuscular Hemoglobin 34 pg (27-31); Mean Corpuscular Volume 97 fL (80-94); Mean Platelet Volume 8.5 fL (7.4-10.4); Platelet Count 260 10^3/uL (150-450); Red Blood Count 4.28 10^6 /uL (4.18-5.48); Red Cell Distribution Width 14 % (10-15); White Blood Count 11.4 10^3/uL (3.5-10.8)
[2019-05-23] MEDS: Rivaroxaban TAB(*) 10 MG PO SCH (08:29)
[2019-05-23] MEDS: Escitalopram * 20 MG TABLET PO SCH (08:29)
[2019-05-23] MEDS: Escitalopram * 10 MG TAB PO SCH (08:29)
[2019-05-23] MEDS: Pantoprazole TAB * 40 MG TAB PO SCH (08:29)
[2019-05-23] MEDS ORDERED: Influenza VAC *QUAD* 2019-20* 0.5 ML SYRINGE IM ONE (09:00)
[2019-05-23] MEDS ORDERED: Magnesium Sulfate 2 GM IV* 2 GM/50 ML BAG IVPB ONE (09:24)
--- NOTE | 2019-05-23 09:39 | CONSULT ---
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 He had complaints of SOB and heart burn. He denied n/v/diarrhea. no cough/fever/ sputum production. He was found to have elevated Blood glucose to 400s, ph of 7.09, an anion gap of 23. He was started on IV insulin, IVF bolus, and admitted to the ICU. Currently he is in ICU. No distress, no complaints overnight. 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 PSHx: none Family History: asthma in mother, unknown in father Social History: Alcohol-none, Smoking- <1/2 ppd x40yrs, Drug use-none; ; surrogate is his friend Jack Rose Allergies: NKDA Home Medications: Lisinopril TAB* [Prinivil TAB 10 MG*] 10 mg PO DAILY 08/18/12 [History Confirmed 05/22/19] Rivaroxaban TAB(*) [Xarelto 10 mg (*)] 10 mg PO DAILY 06/19/18 [History Confirmed 05/22/19] Atorvastatin* [Lipitor 80 MG*] 80 mg PO BEDTIME 11/22/18 [History Confirmed 06/30] Escitalopram * [Lexapro *] 20 mg PO DAILY 01/03/19 [History Confirmed 05/22/19] [id number] Ethyl Esters (NF) [Lovaza (NF)] 2 gm PO DAILY 01/03/19 [History Confirmed 05/22/19] Pantoprazole TAB * [Protonix TAB*] 40 mg PO DAILY #30 tab 01/05/19 [Rx Confirmed 05/22/19] Amitriptyline TAB* [Elavil TAB*] 10 mg PO BEDTIME 05/22/19 [History Confirmed ] Escitalopram * [Lexapro 10 mg (NF)] 10 mg PO DAILY 05/22/19 [History Confirmed 05/22/19] Insulin Regular 500 Unit/ml [Humulin R U-500 (Concentrated)] 100 unit SUBCUT BID 05/22/19 [History Confirmed 05/22/19] metFORMIN* [Glucophage 500 MG TAB *] 1,000 mg PO BID 05/22/19 [History Confirmed 05/22/19] Tele: NSR Vitals: Vital Signs Temp 98.6 F 05/23/19 08:00 Pulse 88 05/23/19 10:01 Resp 22 05/23/19 10:01 BP 138/77 05/23/19 10:00 Pulse Ox 97 05/23/19 10:01 Intake & Output 05/22/19 05/23/19 05/23/19 18:59 06:59 18:59 Intake Total 1000 3068 Output Total 575 875 Balance 1000 2493 -875 Weight 100.698 kg 103.5 kg Intake: IV Fluids 1000 2320 D5 1/2NS 1820 NS 500 IVPB 24 K Phos 24 Medicated IV 224 Insulin 224 Oral 500 Output: Urine 575 875 O2/Vent: RA Infusions: Insulin, D5LR 125cc/hr Current Medications: Acetaminophen (Tylenol Tab*) 650 mg PO Q4H PRN PRN Reason: PAIN-MILD/TEMP >/= 100.4 Al Hydrox/Mg Hydrox/Simethicone (Maalox Plus*) 30 ml PO Q2H PRN PRN Reason: INDIGESTION Last Admin: 05/23/19 02:07 Dose: 30 ml Amitriptyline HCl (Elavil Tab*) 10 mg PO BEDTIME [facility] Last Admin: 05/22/19 20:11 Dose: 10 mg Atorvastatin Calcium (Lipitor*) 80 mg PO BEDTIME [facility] Last Admin: 05/22/19 20:11 Dose: 80 mg Escitalopram Oxalate (Lexapro *) 10 mg PO DAILY [facility] Last Admin: 05/23/19 08:29 Dose: 10 mg Escitalopram Oxalate (Lexapro *) 20 mg PO DAILY [facility] Last Admin: 05/23/19 08:29 Dose: 20 mg Potassium Phosphate 15 mmole/ (Sodium Chloride) 255 mls @ 42 mls/hr IVPB ONCE ONE Stop: 05/23/19 10:49 Last Admin: 05/23/19 05:19 Dose: 42 mls/hr Dextrose/Lactated Ringer's (D5lr 1000 Ml Bag*) 1,000 mls @ 150 mls/hr IV .PER RATE [facility] Last Admin: 05/23/19 08:00 Dose: 150 mls/hr Insulin Human Regular (Insulin Regular Iv Drip 1 Unit/Ml) 100 units in 100 mls @ 25 mls/hr IV Q4H [facility]; Protocol Last Admin: 05/23/19 08:00 Dose: 25 mls/hr Potassium Phosphate 15 mmole/ (Sodium Chloride) 255 mls @ 42 mls/hr IVPB ONCE ONE Stop: 05/23/19 15:30 Magnesium Hydroxide (Milk Of Magnmatthias Liq*) 30 ml PO Q2H PRN PRN Reason: CONSTIPATION Morphine Sulfate (Morphine Inj (Syringe))*) 1 mg IV Q4H PRN PRN Reason: PAIN - SEVERE Last Admin: 05/23/19 03:52 Dose: 1 mg Ondansetron HCl (Zofran Inj*) 4 mg IV Q4H PRN PRN Reason: NAUSEA/VOMITING Last Admin: 05/23/19 08:11 Dose: 4 mg Pantoprazole Sodium (Protonix Tab*) 40 mg PO DAILY [facility] Last Admin: 05/23/19 08:29 Dose: 40 mg Rivaroxaban (Xarelto(*)) 10 mg PO DAILY [facility] Last Admin: 05/23/19 08:29 Dose: 10 mg Physical Exam: Constitutional: awake, alert, no distress, no diaphoresis Head: normocephalic, atraumatic Eyes: no pallor, no icterus ENT: DRY mucous membranes Neck: soft, supple, no jvd, no stridor CVS: normal rate, regular, no murmur Chest/Resp: bilateral air entry, no rhales, no wheeze, no rhonchi, no acc muscle use Abdomen/GI: soft, nontender, nondistended, BS+ Ext/Msk: warm, pulses+, no edema Skin: intact, warm Neuro: awake, alert, orientedx3, moving all extremities, no gross focal deficit Psych: normal affect Labs: Laboratory Results - last 24 hr 05/22/19 05/22/19 05/22/19 16:05 16:05 16:05 WBC 15.1 H RBC 5.18 Hgb 17.4 Hct 52 MCV 101 H MCH 34 H MCHC 33 RDW 14 Plt Count 339 MPV 8.6 Neut % (Auto) 83.6 Lymph % (Auto) 10.6 Peach % (Auto) 4.3 Eos % (Auto) 0.4 Baso % (Auto) 1.1 Absolute Neuts (auto) 12.6 H Absolute Lymphs (auto) 1.6 Absolute Monos (auto) 0.7 Absolute Eos (auto) 0.1 Absolute Basos (auto) 0.2 Absolute Nucleated RBC 0.0 Nucleated RBC % 0.1 VBG pH 7.09 L VBG pCO2 23 L VBG pO2 < 38.0 VBG HCO3 7.3 L VBG O2 Saturation 57.4 L VBG Base Excess -21.2 L Sodium 128 L Potassium 5.2 H Chloride 97 L Carbon Dioxide 8 L* Anion Gap 23 H BUN 14 Creatinine 1.05 Est GFR ( Amer) 90.5 Est GFR (Non-Af Amer) 74.8 BUN/Creatinine Ratio 13.3 Glucose 436 H POC Glucose (mg/dL) Calcium 9.7 Phosphorus Magnesium Total Bilirubin 0.50 Direct Bilirubin Indirect Bilirubin AST 10 L ALT 12 Alkaline Phosphatase 115 H Troponin I 0.00 Total Protein 8.3 Albumin 4.3 Globulin 4.0 Albumin/Globulin Ratio 1.1 Lipase 27 Urine Color Urine Appearance Urine pH Ur Specific [place] Urine Protein Urine Ketones Urine Blood Urine Nitrate Urine Bilirubin Urine Urobilinogen Ur Leukocyte Esterase Urine WBC (Auto) Urine RBC (Auto) Urine Bacteria Urine Glucose 05/22/19 05/22/19 05/22/19 16:44 17:53 18:49 WBC RBC Hgb Hct MCV MCH MCHC RDW Plt Count MPV Neut % (Auto) Lymph % (Auto) [place] % (Auto) Eos % (Auto) Baso % (Auto) Absolute Neuts (auto) Absolute Lymphs (auto) Absolute Monos (auto) Absolute Eos (auto) Absolute Basos (auto) Absolute Nucleated RBC Nucleated RBC % VBG pH VBG pCO2 VBG pO2 VBG HCO3 VBG O2 Saturation VBG Base Excess Sodium Potassium Chloride Carbon Dioxide Anion Gap BUN Creatinine Est GFR ( Amer) Est GFR (Non-Af Amer) BUN/Creatinine Ratio Glucose POC Glucose (mg/dL) 356 H 345 H Calcium Phosphorus Magnesium Total Bilirubin Direct Bilirubin Indirect Bilirubin AST ALT Alkaline Phosphatase Troponin I Total Protein Albumin Globulin Albumin/Globulin Ratio Lipase Urine Color Straw Urine Appearance Clear Urine pH 5.0 Ur Specific [place] 1.027 Urine Protein 1+(30 mg/dl) A Urine Ketones 2+ A Urine Blood 1+ A Urine Nitrate Negative Urine Bilirubin Negative Urine Urobilinogen Negative Ur Leukocyte Esterase Negative Urine WBC (Auto) Absent Urine RBC (Auto) Trace(0-2/hpf) Urine Bacteria Absent Urine Glucose 3+(>=500 mg/dl) A 05/22/19 05/22/19 05/22/19 20:00 20:03 21:02 WBC RBC Hgb Hct MCV MCH MCHC RDW Plt Count MPV Neut % (Auto) Lymph % (Auto) [place] % (Auto) Eos % (Auto) Baso % (Auto) Absolute Neuts (auto) Absolute Lymphs (auto) Absolute Monos (auto) Absolute Eos (auto) Absolute Basos (auto) Absolute Nucleated RBC Nucleated RBC % VBG pH VBG pCO2 VBG pO2 VBG HCO3 VBG O2 Saturation VBG Base Excess Sodium 132 L Potassium TNP TNP Chloride 104 Carbon Dioxide 7 L* Anion Gap 21 H BUN 14 Creatinine 1.06 Est GFR ( Amer) 89.5 Est GFR (Non-Af Amer) 74.0 BUN/Creatinine Ratio 13.2 Glucose 348 H POC Glucose (mg/dL) 297 H Calcium 8.7 Phosphorus 2.7 Magnesium 1.9 Total Bilirubin Direct Bilirubin Indirect Bilirubin AST ALT Alkaline Phosphatase Troponin I 0.00 Total Protein Albumin Globulin Albumin/Globulin Ratio Lipase Urine Color Urine Appearance Urine pH Ur Specific [place] Urine Protein Urine Ketones Urine Blood Urine Nitrate Urine Bilirubin Urine Urobilinogen Ur Leukocyte Esterase Urine WBC (Auto) Urine RBC (Auto) Urine Bacteria Urine Glucose 05/22/19 05/22/19 05/22/19 21:04 22:03 23:07 WBC RBC Hgb Hct MCV MCH MCHC RDW Plt Count MPV Neut % (Auto) Lymph % (Auto) [place] % (Auto) Eos % (Auto) Baso % (Auto) Absolute Neuts (auto) Absolute Lymphs (auto) Absolute Monos (auto) Absolute Eos (auto) Absolute Basos (auto) Absolute Nucleated RBC Nucleated RBC % VBG pH VBG pCO2 VBG pO2 VBG HCO3 VBG O2 Saturation VBG Base Excess Sodium Potassium Chloride Carbon Dioxide Anion Gap BUN Creatinine Est GFR ( Amer) Est GFR (Non-Af Amer) BUN/Creatinine Ratio Glucose POC Glucose (mg/dL) 229 H 212 H 213 H Calcium Phosphorus Magnesium Total Bilirubin Direct Bilirubin Indirect Bilirubin AST ALT Alkaline Phosphatase Troponin I Total Protein Albumin Globulin Albumin/Globulin Ratio Lipase Urine Color Urine Appearance Urine pH Ur Specific [place] Urine Protein Urine Ketones Urine Blood Urine Nitrate Urine Bilirubin Urine Urobilinogen Ur Leukocyte Esterase Urine WBC (Auto) Urine RBC (Auto) Urine Bacteria Urine Glucose 05/23/19 05/23/19 05/23/19 00:10 00:10 01:00 WBC RBC Hgb Hct MCV MCH MCHC RDW Plt Count MPV Neut % (Auto) Lymph % (Auto) [place] % (Auto) Eos % (Auto) Baso % (Auto) Absolute Neuts (auto) Absolute Lymphs (auto) Absolute Monos (auto) Absolute Eos (auto) Absolute Basos (auto) Absolute Nucleated RBC Nucleated RBC % VBG pH VBG pCO2 VBG pO2 VBG HCO3 VBG O2 Saturation VBG Base Excess Sodium 132 L Potassium 4.3 Chloride 108 Carbon Dioxide 8 L* Anion Gap 16 H BUN 13 Creatinine 0.96 Est GFR ( Amer) 100.3 Est GFR (Non-Af Amer) 82.9 BUN/Creatinine Ratio 13.5 Glucose 254 H POC Glucose (mg/dL) 199 H 210 H Calcium 8.5 L Phosphorus 1.6 L Magnesium 1.9 Total Bilirubin Direct Bilirubin Indirect Bilirubin AST ALT Alkaline Phosphatase Troponin I Total Protein Albumin Globulin Albumin/Globulin Ratio Lipase Urine Color Urine Appearance Urine pH Ur Specific [place] Urine Protein Urine Ketones Urine Blood Urine Nitrate Urine Bilirubin Urine Urobilinogen Ur Leukocyte Esterase Urine WBC (Auto) Urine RBC (Auto) Urine Bacteria Urine Glucose 05/23/19 05/23/19 05/23/19 01:59 03:01 03:59 WBC RBC Hgb Hct MCV MCH MCHC RDW Plt Count MPV Neut % (Auto) Lymph % (Auto) [place] % (Auto) Eos % (Auto) Baso % (Auto) Absolute Neuts (auto) Absolute Lymphs (auto) Absolute Monos (auto) Absolute Eos (auto) Absolute Basos (auto) Absolute Nucleated RBC Nucleated RBC % VBG pH VBG pCO2 VBG pO2 VBG HCO3 VBG O2 Saturation VBG Base Excess Sodium Potassium Chloride Carbon Dioxide Anion Gap BUN Creatinine Est GFR ( Amer) Est GFR (Non-Af Amer) BUN/Creatinine Ratio Glucose POC Glucose (mg/dL) 201 H 199 H 183 H Calcium Phosphorus Magnesium Total Bilirubin Direct Bilirubin Indirect Bilirubin AST ALT Alkaline Phosphatase Troponin I Total Protein Albumin Globulin Albumin/Globulin Ratio Lipase Urine Color Urine Appearance Urine pH Ur Specific [place] Urine Protein Urine Ketones Urine Blood Urine Nitrate Urine Bilirubin Urine Urobilinogen Ur Leukocyte Esterase Urine WBC (Auto) Urine RBC (Auto) Urine Bacteria Urine Glucose 05/23/19 05/23/19 05/23/19 04:00 04:56 06:00 WBC RBC Hgb Hct MCV MCH MCHC RDW Plt Count MPV Neut % (Auto) Lymph % (Auto) [place] % (Auto) Eos % (Auto) Baso % (Auto) Absolute Neuts (auto) Absolute Lymphs (auto) Absolute Monos (auto) Absolute Eos (auto) Absolute Basos (auto) Absolute Nucleated RBC Nucleated RBC % VBG pH VBG pCO2 VBG pO2 VBG HCO3 VBG O2 Saturation VBG Base Excess Sodium 132 L Potassium 3.6 Chloride 109 Carbon Dioxide 14 L* Anion Gap 9 BUN 11 Creatinine 0.84 Est GFR ( Amer) 117.0 Est GFR (Non-Af Amer) 96.7 BUN/Creatinine Ratio 13.1 Glucose 230 H POC Glucose (mg/dL) 176 H 172 H Calcium 8.5 L Phosphorus < 1.0 L* Magnesium 1.9 Total Bilirubin Direct Bilirubin Indirect Bilirubin AST ALT Alkaline Phosphatase Troponin I Total Protein Albumin Globulin Albumin/Globulin Ratio Lipase Urine Color Urine Appearance Urine pH Ur Specific [place] Urine Protein Urine Ketones Urine Blood Urine Nitrate Urine Bilirubin Urine Urobilinogen Ur Leukocyte Esterase Urine WBC (Auto) Urine RBC (Auto) Urine Bacteria Urine Glucose 05/23/19 05/23/19 05/23/19 07:13 08:09 08:12 WBC 11.4 H RBC 4.28 Hgb 14.7 Hct 42 MCV 97 H MCH 34 H MCHC 35 RDW 14 Plt Count 260 MPV 8.5 Neut % (Auto) 75.0 Lymph % (Auto) 14.7 [place] % (Auto) 9.0 Eos % (Auto) 0.1 Baso % (Auto) 1.2 Absolute Neuts (auto) 8.6 H Absolute Lymphs (auto) 1.7 Absolute Monos (auto) 1.0 H Absolute Eos (auto) 0.0 Absolute Basos (auto) 0.1 Absolute Nucleated RBC 0.0 Nucleated RBC % 0.0 VBG pH VBG pCO2 VBG pO2 VBG HCO3 VBG O2 Saturation VBG Base Excess Sodium Potassium Chloride Carbon Dioxide Anion Gap BUN Creatinine Est GFR ( Amer) Est GFR (Non-Af Amer) BUN/Creatinine Ratio Glucose POC Glucose (mg/dL) 150 H 152 H Calcium Phosphorus Magnesium Total Bilirubin Direct Bilirubin Indirect Bilirubin AST ALT Alkaline Phosphatase Troponin I Total Protein Albumin Globulin Albumin/Globulin Ratio Lipase Urine Color Urine Appearance Urine pH Ur Specific [place] Urine Protein Urine Ketones Urine Blood Urine Nitrate Urine Bilirubin Urine Urobilinogen Ur Leukocyte Esterase Urine WBC (Auto) Urine RBC (Auto) Urine Bacteria Urine Glucose 05/23/19 05/23/19 08:12 09:26 WBC RBC Hgb Hct MCV MCH MCHC RDW Plt Count MPV Neut % (Auto) Lymph % (Auto) [place] % (Auto) Eos % (Auto) Baso % (Auto) Absolute Neuts (auto) Absolute Lymphs (auto) Absolute Monos (auto) Absolute Eos (auto) Absolute Basos (auto) Absolute Nucleated RBC Nucleated RBC % VBG pH VBG pCO2 VBG pO2 VBG HCO3 VBG O2 Saturation VBG Base Excess Sodium 133 L Potassium 3.6 Chloride 113 H Carbon Dioxide 12 L* Anion Gap 8 BUN 11 Creatinine 0.73 Est GFR ( Amer) 137.6 Est GFR (Non-Af Amer) 113.7 BUN/Creatinine Ratio 15.1 Glucose 188 H POC Glucose (mg/dL) 113 H Calcium 8.2 L Phosphorus 1.3 L Magnesium 2.0 Total Bilirubin 0.30 Direct Bilirubin 0.10 Indirect Bilirubin 0.2 L AST 7 L ALT 7 Alkaline Phosphatase 76 Troponin I Total Protein 6.0 L Albumin 3.3 Globulin 2.7 Albumin/Globulin Ratio 1.2 Lipase Urine Color Urine Appearance Urine pH Ur Specific [place] Urine Protein Urine Ketones Urine Blood Urine Nitrate Urine Bilirubin Urine Urobilinogen Ur Leukocyte Esterase Urine WBC (Auto) Urine RBC (Auto) Urine Bacteria Urine Glucose Imaging: EKG 05/22 Sinus tachycardia, no acute st/t changes Assessment: 49y M w/pmhx of IDDM, headache, HTN, HLD, 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 He had complaints of SOB and heart burn. He denied n/v/diarrhea. no cough/fever/ sputum production. He was found to have elevated Blood glucose to 400s, ph of 7.09, an anion gap of 23. He was started on IV insulin, IVF bolus, and admitted to the ICU. -DKA -Metabolic acidosis Chronic Recurrent DVTs HTN GERD? Plan: Neuro- -stable, awake -no headache at this time; pain control PRN -cont amitriptyline, cont laxapro -Delirium prec; avoid BDZ CVS- -BP stable, HR stable -cont IVF infusion -HLD: cont statin -HTN: holding lisinopril for now -Maintain MAP>65 Resp- -no distress, on RA -Wean Fio2 to keep sat>92% ID- afebrile. wbc 15-11. Nontoxic. no clinical infectious etiology suspected. Urinalysis with no nitrite/LE/wbc. abx indicated. GI- -Okay to have clear liquid diet for now -nausea earlier last night; improved now; cont antiemetics prn, maalox prn -GI prophylaxis - ppi Renal- -Cr okay, making urine -replete K/Mg/Phos IV -BMP/mg/phos levels q4h -cont d5LR 125cc/hr till metabolic acidosis improved -electrolyte and volume depleted from DKA and nausea/vomitting -strict I/O, replete to keep K>4, Mg>2 -huntley as indicated Heme- hg was concentrated, now improved -leukocytosis likely reactive, no clinical infection suspected -Chronic recurrent DVTs; cont xarelto po Endo- Maintain BG<200, insulin protocol as needed Musculsk- pressure ulcer prophylaxis. oob to chair, ambulate as tolerated Wounds- none Nutrition- clear liquid diet DVT prophylaxis: SCD, xarelto po GI prophylaxis: ppi Central Line: no Arterial Line: no [place] Cathetor: no Disposition: Patient requires Critical Care/ICU for insulin infusion for DKA Patient Clinical Status: improving Code Status: full code Jc Banks MD Rigger Third (Electronically Signed)
[2019-05-23 09:47] LABS: Albumin 3.3 g/dL (3.2-5.2); Albumin/Globulin Ratio 1.2 (1-3); BUN/Creatinine Ratio 15.1 (8-20); Calcium 8.2 mg/dL (8.6-10.3); EGFR African American 137.6 (>60); EGFR Non-African American 113.7 (>60); Globulin 2.7 g/dL (2-4); Indirect Bilirubin 0.2 mg/dL (0.3-1.0); Phosphorus 1.3 mg/dL (2.5-5.0); Potassium 3.6 mmol/L (3.5-5.0); Total Bilirubin 0.3 mg/dL (0.2-1.0)
[2019-05-23 12:40] LABS: BUN/Creatinine Ratio 13.5 (8-20); Calcium 8.2 mg/dL (8.6-10.3); EGFR African American 135.5 (>60); Magnesium 2.7 mg/dL (1.9-2.7); Phosphorus 1.4 mg/dL (2.5-5.0); Potassium 3.7 mmol/L (3.5-5.0)
[2019-05-23 19:00] LABS: BUN/Creatinine Ratio 11.1 (8-20); Calcium 8.3 mg/dL (8.6-10.3); EGFR African American 122.1 (>60); EGFR Non-African American 100.9 (>60); Magnesium 2.4 mg/dL (1.9-2.7); Phosphorus 1.2 mg/dL (2.5-5.0); Potassium 3.8 mmol/L (3.5-5.0)
[2019-05-23] MEDS: Atorvastatin* 80 MG TAB PO SCH (20:55)
[2019-05-23] MEDS: Melatonin 3 MG TAB PO SCH (20:56)
[2019-05-23] MEDS: Amitriptyline TAB* 10 MG PO SCH (20:56)
[2019-05-23] MEDS ORDERED: Potassium Phosphate IV* 10 MMOLE in NS 0.9% 250 ML* 250 ML IVPB ONE (21:00)
[2019-05-23] MEDS ORDERED: Potassium Phosphate IV* 30 MMOLE in NS 0.9% 250 ML* 250 ML IVPB ONE (21:00)
[2019-05-24 00:11] LABS: BUN/Creatinine Ratio 10.1 (8-20); Calcium 8.4 mg/dL (8.6-10.3); EGFR African American 146.9 (>60); EGFR Non-African American 121.4 (>60); Magnesium 2.1 mg/dL (1.9-2.7); Phosphorus 1.5 mg/dL (2.5-5.0); Potassium 3.5 mmol/L (3.5-5.0)
[2019-05-24] MEDS ORDERED: Potassium Phosphate IV* 30 MMOLE in NS 0.9% 250 ML* 250 ML IVPB ONE (01:00)
[2019-05-24] MEDS: Insulin Infusion 100unit/100mL 100 UNITS/100 ML UNIT IV SCH ×2 (04:26→04:56)
[2019-05-24] MEDS ORDERED: Insulin GLARGINE(*) 1 UNITS UNIT SUBCUT SCH (05:00)
[2019-05-24 06:13] LABS: Hematocrit 40 % (42-52); Hemoglobin 13.8 g/dL (14.0-18.0); Mean Corpuscular HGB Conc 35 g/dL (31-36); Mean Corpuscular Hemoglobin 34 pg (27-31); Mean Corpuscular Volume 98 fL (80-94); Mean Platelet Volume 8.7 fL (7.4-10.4); Platelet Count 232 10^3/uL (150-450); Red Blood Count 4.09 10^6 /uL (4.18-5.48); Red Cell Distribution Width 14 % (10-15)
[2019-05-24 06:58] LABS: BUN/Creatinine Ratio 12.7 (8-20); Calcium 8.5 mg/dL (8.6-10.3); EGFR African American 163.1 (>60); EGFR Non-African American 134.8 (>60); Phosphorus 3.1 mg/dL (2.5-5.0)
[2019-05-24] MEDS ORDERED: Insulin LISPRO* 1 UNITS UNIT SUBCUT SCH (07:30)
[2019-05-24] MEDS ORDERED: Dextrose 50% VIAL 50 ml IV PUSH PRN (08:21)
[2019-05-24] MEDS: Escitalopram * 20 MG TABLET PO SCH (08:42)
[2019-05-24] MEDS: Pantoprazole TAB * 40 MG TAB PO SCH (08:42)
[2019-05-24] MEDS: Escitalopram * 10 MG TAB PO SCH (08:42)
[2019-05-24] MEDS: Rivaroxaban TAB(*) 10 MG PO SCH (08:42)
[2019-05-24] MEDS ORDERED: Lactated Ringers 1000 ML Bag* 1,000 ML IV SCH (09:00)
--- NOTE | 2019-05-24 10:45 | PN ---
Progress Note - Progress Note Date of Service: 05/24/19 Note: Progress Note -- Critical Care 24 hour events -no events overnight -awake, alert, afebrile. no complaints of n/v/cp/sob/fever/chills -taking full liquid diet, no complaints, wants more solid food now -overnight BG dropped to 70s, IV insulin off, switched to lantus this morning; off d5LR infusion also Tele: NSR Vitals: Vital Signs Temp 98.7 F 05/24/19 07:58 Pulse 99 05/24/19 10:01 Resp 22 05/24/19 10:01 BP 107/90 05/24/19 10:01 Pulse Ox 99 05/24/19 10:01 Intake & Output 05/23/19 05/24/19 05/24/19 18:59 06:59 18:59 Intake Total 2795 2252 880 Output Total 2095 500 800 Balance 700 1752 80 Weight 104.281 kg Intake: IV Fluids 1646 1767 D5 1/2NS 585 D5W LR 725 1744 K Phos 258 Magnesium sulfate 2g 60 NS 18 23 IVPB 405 K Phos 405 Medicated IV 139 80 Insulin 139 80 Oral 1010 880 Output: Urine 2095 500 800 Other: Estimated Void Medium Date of Last Bowel 05/23/19 Movement # Bowel Movements 1 1 Estimated Stool Amount Small # Voids 1 O2/Vent: RA Infusions: LR 50 Current Medications: Acetaminophen (Tylenol Tab*) 650 mg PO Q4H PRN PRN Reason: PAIN-MILD/TEMP >/= 100.4 Al Hydrox/Mg Hydrox/Simethicone (Maalox Plus*) 30 ml PO Q2H PRN PRN Reason: INDIGESTION Last Admin: 05/23/19 02:07 Dose: 30 ml Amitriptyline HCl (Elavil Tab*) 10 mg PO BEDTIME [facility] Last Admin: 05/23/19 20:56 Dose: 10 mg Atorvastatin Calcium (Lipitor*) 80 mg PO BEDTIME [facility] Last Admin: 05/23/19 20:55 Dose: 80 mg Dextrose (Dextrose 50% Vial 50 Ml*) 25 ml IV PUSH .FOR FS < 60 - SS PRN PRN Reason: FS < 60 Escitalopram Oxalate (Lexapro *) 10 mg PO DAILY [facility] Last Admin: 05/24/19 08:42 Dose: 10 mg Escitalopram Oxalate (Lexapro *) 20 mg PO DAILY [facility] Last Admin: 05/24/19 08:42 Dose: 20 mg Lactated Ringer's (Lactated Ringers 1000 Ml Bag*) 1,000 mls @ 75 mls/hr IV .PER RATE [facility] Last Admin: 05/24/19 08:41 Dose: 75 mls/hr Insulin Glargine (Lantus(*)) 15 units SUBCUT Q12HR [facility] Last Admin: 05/24/19 04:55 Dose: 15 units Insulin Human Lispro (Humalog*) 0 units SUBCUT ACHS [facility]; Protocol Last Admin: 05/24/19 08:51 Dose: 6 units Magnesium Hydroxide (Milk Of Magnesia Liq*) 30 ml PO Q2H PRN PRN Reason: CONSTIPATION Melatonin (Melatonin) 6 mg PO BEDTIME [facility] Last Admin: 05/23/19 20:56 Dose: 6 mg Morphine Sulfate (Morphine Inj (Syringe))*) 1 mg IV Q4H PRN PRN Reason: PAIN - SEVERE Last Admin: 05/23/19 03:52 Dose: 1 mg Ondansetron HCl (Zofran Inj*) 4 mg IV Q4H PRN PRN Reason: NAUSEA/VOMITING Last Admin: 05/23/19 08:11 Dose: 4 mg Pantoprazole Sodium (Protonix Tab*) 40 mg PO DAILY [facility] Last Admin: 05/24/19 08:42 Dose: 40 mg Rivaroxaban (Xarelto(*)) 10 mg PO DAILY [facility] Last Admin: 05/24/19 08:42 Dose: 10 mg Physical Exam: Constitutional: awake, alert, no distress, no diaphoresis Head: normocephalic, atraumatic Eyes: no pallor, no icterus ENT: moist mucous membranes Neck: soft, supple, no jvd, no stridor CVS: normal rate, regular, no murmur Chest/Resp: bilateral air entry, no rhales, no wheeze, no rhonchi, no acc muscle use Abdomen/GI: soft, nontender, nondistended, BS+ Ext/Msk: warm, pulses+, no edema Skin: intact, warm Neuro: awake, alert, orientedx3, moving all extremities, no gross focal deficit Psych: normal affect Labs: Laboratory Results - last 24 hr 05/23/19 05/23/19 05/23/19 10:16 11:06 12:00 WBC RBC Hgb Hct MCV MCH MCHC RDW Plt Count MPV Sodium 135 Potassium 3.7 Chloride 115 H Carbon Dioxide 15 L Anion Gap 5 BUN 10 Creatinine 0.74 Est GFR ( Amer) 135.5 Est GFR (Non-Af Amer) 112.0 BUN/Creatinine Ratio 13.5 Glucose 121 H POC Glucose (mg/dL) 101 H 73 Lactic Acid Calcium 8.2 L Phosphorus 1.4 L Magnesium 2.7 05/23/19 05/23/19 05/23/19 12:03 13:13 14:02 WBC RBC Hgb Hct MCV MCH MCHC RDW Plt Count MPV Sodium Potassium Chloride Carbon Dioxide Anion Gap BUN Creatinine Est GFR ( Amer) Est GFR (Non-Af Amer) BUN/Creatinine Ratio Glucose POC Glucose (mg/dL) 98 148 H 215 H Lactic Acid Calcium Phosphorus Magnesium 05/23/19 05/23/19 05/23/19 14:56 16:06 17:06 WBC RBC Hgb Hct MCV MCH MCHC RDW Plt Count MPV Sodium Potassium Chloride Carbon Dioxide Anion Gap BUN Creatinine Est GFR ( Amer) Est GFR (Non-Af Amer) BUN/Creatinine Ratio Glucose POC Glucose (mg/dL) 323 H 324 H 284 H Lactic Acid Calcium Phosphorus Magnesium 05/23/19 05/23/19 05/23/19 18:16 18:20 19:09 WBC RBC Hgb Hct MCV MCH MCHC RDW Plt Count MPV Sodium 133 L Potassium 3.8 Chloride 111 Carbon Dioxide 15 L Anion Gap 7 BUN 9 Creatinine 0.81 Est GFR ( Amer) 122.1 Est GFR (Non-Af Amer) 100.9 BUN/Creatinine Ratio 11.1 Glucose 266 H POC Glucose (mg/dL) 223 H 280 H Lactic Acid Calcium 8.3 L Phosphorus 1.2 L Magnesium 2.4 05/23/19 05/23/19 05/23/19 20:04 21:01 21:59 WBC RBC Hgb Hct MCV MCH MCHC RDW Plt Count MPV Sodium Potassium Chloride Carbon Dioxide Anion Gap BUN Creatinine Est GFR ( Amer) Est GFR (Non-Af Amer) BUN/Creatinine Ratio Glucose POC Glucose (mg/dL) 248 H 246 H 221 H Lactic Acid Calcium Phosphorus Magnesium 0905/23/19 05/23/19 22:57 23:45 23:45 WBC RBC Hgb Hct MCV MCH MCHC RDW Plt Count MPV Sodium 135 Potassium 3.5 Chloride 113 H Carbon Dioxide 17 L Anion Gap 5 BUN 7 Creatinine 0.69 Est GFR ( Amer) 146.9 Est GFR (Non-Af Amer) 121.4 BUN/Creatinine Ratio 10.1 Glucose 204 H POC Glucose (mg/dL) 199 H Lactic Acid 2.1 H* Calcium 8.4 L Phosphorus 1.5 L Magnesium 2.1 05/23/19 05/24/19 05/24/19 23:54 01:07 01:57 WBC RBC Hgb Hct MCV MCH MCHC RDW Plt Count MPV Sodium Potassium Chloride Carbon Dioxide Anion Gap BUN Creatinine Est GFR ( Amer) Est GFR (Non-Af Amer) BUN/Creatinine Ratio Glucose POC Glucose (mg/dL) 165 H 127 H 79 Lactic Acid Calcium Phosphorus Magnesium 05/24/19 05/24/19 05/24/19 02:16 02:32 02:58 WBC RBC Hgb Hct MCV MCH MCHC RDW Plt Count MPV Sodium Potassium Chloride Carbon Dioxide Anion Gap BUN Creatinine Est GFR ( Amer) Est GFR (Non-Af Amer) BUN/Creatinine Ratio Glucose POC Glucose (mg/dL) 79 97 122 H Lactic Acid Calcium Phosphorus Magnesium 05/24/19 05/24/19 05/24/19 04:05 05:02 05:38 WBC RBC Hgb Hct MCV MCH MCHC RDW Plt Count MPV Sodium 136 Potassium 4.0 Chloride 112 H Carbon Dioxide 15 L Anion Gap 9 BUN 8 Creatinine 0.63 L Est GFR ( Amer) 163.1 Est GFR (Non-Af Amer) 134.8 BUN/Creatinine Ratio 12.7 Glucose 233 H POC Glucose (mg/dL) 167 H 209 H Lactic Acid Calcium 8.5 L Phosphorus 3.1 Magnesium 2.0 05/24/19 05/24/19 05/24/19 05:38 05:38 07:40 WBC 8.0 RBC 4.09 L Hgb 13.8 L Hct 40 L MCV 98 H MCH 34 H MCHC 35 RDW 14 Plt Count 232 MPV 8.7 Sodium Potassium Chloride Carbon Dioxide Anion Gap BUN Creatinine Est GFR ( Amer) Est GFR (Non-Af Amer) BUN/Creatinine Ratio Glucose POC Glucose (mg/dL) 242 H Lactic Acid 0.8 Calcium Phosphorus Magnesium Imaging: EKG 05/22 Sinus tachycardia, no acute st/t changes Assessment: 49y M w/pmhx of IDDM, headache, HTN, HLD, 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 He had complaints of SOB and heart burn. He denied n/v/diarrhea. no cough/fever/ sputum production. He was found to have elevated Blood glucose to 400s, ph of 7.09, an anion gap of 23. He was started on IV insulin, IVF bolus, and admitted to the ICU. -DKA -Metabolic acidosis Chronic Recurrent DVTs HTN GERD? Plan: Neuro- -stable, awake -no headache at this time; pain control PRN -cont amitriptyline, cont laxapro -Delirium prec; avoid BDZ CVS- -BP stable, HR stable -cont IVF infusion -HLD: cont statin -HTN: holding lisinopril for now; BP low 100s, restart lower dose on discharge -Maintain MAP>65 Resp- -no distress, on RA -Wean Fio2 to keep sat>92% ID- afebrile. wbc 15-11-10. Nontoxic. no clinical infectious etiology suspected. Urinalysis with no nitrite/LE/wbc. abx indicated. GI- -advance diet to regular consistency low carb/diabetic -no n/v; cont antiemetics prn, maalox prn -GI prophylaxis - ppi Renal- -Cr okay, making urine -replete K-Phos IV -BMP daily -still has nongap metabolic acidosis, normal Cr and making urine; ?RTA -will add IV bicarb infusion [id number] -replete K/Mg/phos as needed -strict I/O, replete to keep K>4, Mg>2 -huntley as indicated Heme- hg stable -leukocytosis likely reactive, no clinical infection suspected -Chronic recurrent DVTs; cont xarelto po Endo- Maintain BG<200. DKA imrpoved, GAP closed, despite nongap acidosis now. BG 200s again, off insulin overnight due to hypoglycemia. Awaiting callback from Dr Riojas (pulp mixer) for his regimen, we do not have concentrated humulin R here, will need lantus but started at 15, likely will need more like 30u bid with sliding scale coverage. Musculsk- pressure ulcer prophylaxis. ambulate as tolerated Wounds- none Nutrition- carb consistent diet DVT prophylaxis: SCD, xarelto po GI prophylaxis: ppi Central Line: no Arterial Line: no Huntley Cathetor: no Disposition: may be stable for downgrade to medical floor Patient Clinical Status: improving Code Status: full code Jc Banks MD [employer] Reset (Electronically Signed)
[2019-05-24] MEDS ORDERED: NS 0.45% 1000 ML BAG* 925 ML with Sodium Bicarbonate 8.4% IV* 75 MEQ IV SCH ×2 (11:00)
[2019-05-24] MEDS: Sodium Bicarbonate 8.4% IV* 75 MEQ in NS 0.45% 1000 ML BAG* 925 ML IV SCH (11:20)
[2019-05-24] MEDS ORDERED: Insulin REGULAR(*) 1 UNITS UNIT SUBCUT SCH (11:30)
[2019-05-24] MEDS: Insulin REGULAR(*) 1 UNITS UNIT SUBCUT SCH (17:27)
--- NOTE | 2019-05-24 17:39 | PN ---
Progress Note - Progress Note Date of Service: 05/24/19 Note: [facility] Brief Outpatient Note Patient is well-known to this author from previous admission and recent clinic visit. Briefly, he has ketosis-prone type 2 diabetes and chronic alcoholism. His insulin requirement is extremely high (up to 200 units/day) and I have recommended concentrated U500 insulin at 100 units BID to achieve this. His insulin requirement this admission (approximately 10 units/hr on insulin drip) is consistent with this. Unfortunately, he has been non-adherent to insulin and has refused in-home nurse visits in the recent weeks, which I suspect led to recurrent DKA. I recommend regular and NPH insulin in place of U500 insulin while he remains hospitalized, as follows: - 40 units REGULAR insulin with meals - 40 units NPH insulin at bedtime - increase all of the above doses by 5 units every 24 hours to achieve pre-meal blood glucose <180mg/dL Call with questions -- [phone].
[2019-05-24 18:54] LABS: BUN/Creatinine Ratio 13.6 (8-20); Calcium 8.6 mg/dL (8.6-10.3); EGFR African American 122.1 (>60); EGFR Non-African American 100.9 (>60); Potassium 3.6 mmol/L (3.5-5.0)
[2019-05-24] MEDS ORDERED: Insulin NPH(*) 1 UNITS UNIT SUBCUT SCH ×2 (21:00)
[2019-05-24] MEDS: Atorvastatin* 80 MG TAB PO SCH (22:29)
[2019-05-24] MEDS: Amitriptyline TAB* 10 MG PO SCH (22:29)
[2019-05-24] MEDS: Melatonin 3 MG TAB PO SCH (22:29)
[2019-05-25] MEDS: Sodium Bicarbonate 8.4% IV* 75 MEQ in NS 0.45% 1000 ML BAG* 925 ML IV SCH (03:36)
[2019-05-25 05:35] LABS: Hematocrit 37 % (42-52); Hemoglobin 12.8 g/dL (14.0-18.0); Mean Corpuscular HGB Conc 35 g/dL (31-36); Mean Corpuscular Hemoglobin 34 pg (27-31); Mean Corpuscular Volume 96 fL (80-94); Mean Platelet Volume 8.6 fL (7.4-10.4); Platelet Count 202 10^3/uL (150-450); Red Blood Count 3.81 10^6 /uL (4.18-5.48); Red Cell Distribution Width 14 % (10-15); White Blood Count 6.3 10^3/uL (3.5-10.8)
[2019-05-25 05:53] LABS: BUN/Creatinine Ratio 21.4 (8-20); EGFR African American 186.9 (>60); EGFR Non-African American 154.4 (>60); Magnesium 1.7 mg/dL (1.9-2.7); Phosphorus 3.2 mg/dL (2.5-5.0); Potassium 3.1 mmol/L (3.5-5.0)
[2019-05-25] MEDS ORDERED: Potassium Chlor TAB* 20 MEQ TAB.ER PO ONE (08:15)
[2019-05-25] MEDS ORDERED: Magnesium Oxide TAB* 400 MG PO SCH (09:00)
[2019-05-25] MEDS: Insulin REGULAR(*) 1 UNITS UNIT SUBCUT SCH ×2 (09:10→13:33)
[2019-05-25] MEDS: Escitalopram * 20 MG TABLET PO SCH (09:11)
[2019-05-25] MEDS: Escitalopram * 10 MG TAB PO SCH (09:11)
[2019-05-25] MEDS: Rivaroxaban TAB(*) 10 MG PO SCH (09:12)
[2019-05-25] MEDS: Pantoprazole TAB * 40 MG TAB PO SCH (09:13)
[2019-05-25 12:23] VITALS: BP 140/78
--- NOTE | 2019-05-25 12:51 | DS ---
CC: Becky Skinner MD; Romel Riojas MD * DISCHARGE SUMMARY: DATE OF ADMISSION: 05/22/19 DATE OF DISCHARGE: 05/25/19 PRIMARY CARE PHYSICIAN: Becky Skinner MD. DISPOSITION AT DISCHARGE: To home. CONDITION AT DISCHARGE: Stable. DIET AT DISCHARGE: Diabetic. DISCHARGE DIAGNOSIS: Diabetic ketoacidosis. SECONDARY DIAGNOSES: 1. History of headaches. 2. Hypertension. 3. Dyslipidemia. 4. History of recurrent deep venous thromboses, on lifetime anticoagulation. 5. Lower back pain. MEDICATIONS AT DISCHARGE: Include: 1. Insulin U-500 at 100 units b.i.d. 2. Elavil 10 mg at bedtime. 3. Lipitor 80 mg at bedtime. 4. Lexapro total of 30 mg daily. 5. Lisinopril 10 mg daily. 6. Metformin 1000 mg b.i.d. 7. [place]-3 fatty acids 2 g daily. 8. Xarelto 10 mg daily. 9. Protonix 40 mg daily. LABORATORY DATA: On 05/25/19, sodium of 138, potassium 3.1, chloride 108, carbon dioxide 25, BUN 12, creatinine 0.56. Glucose level of 191. Magnesium of 1.7. White blood cell count of 6.3, hemoglobin of 12.8, hematocrit of 37, MCV of 96, and platelets of 202. CONSULTATIONS DURING THE HOSPITAL STAY: Included Dr. Banks from ICU and Dr. Riojas from Endocrinology. HOSPITALIZATION COURSE: Freedom Rubio is a 49-year-old male with history of insulin-resistant and insulin-dependent diabetes with recurrent admissions for DKA, likely due to medical noncompliance. He presented once again with severe metabolic acidosis with pH of 7.09 and DKA. He stated that he simply "did not get a chance to take insulin that day." He was admitted to the intensive care unit on insulin drip. Slowly was converted to insulin NPH and regular insulin with meals during the hospital stay. Dr. Riojas saw the patient in consultation and recommended NPH insulin during this hospital stay and for the patient to go back to insulin U-500 at 100 units b.i.d. at discharge and that is unchanged from prior. The patient is being discharged home. Recommendation to follow up with primary care provider in approximately 4 to [address] Riojas in approximately 1 to 2 weeks. PHYSICAL EXAMINATION AT THE TIME OF DISCHARGE: Blood pressure of 149/86, heart rate of 65 and regular, respiratory rate 16, oxygen saturation 98% on room air, temperature 97.0. General: The patient is a very pleasant 49-year-old male, who is in no acute distress. Alert, awake, and oriented x3. HEENT: Head atraumatic, normocephalic. Eyes: Pupils are equal and reactive to light and accommodation. Oropharynx is clear. Mucosa moist. Neck: Supple. No JVD. No bruits bilaterally. Cardiovascular: Regular rate and rhythm. No murmurs. Respiratory: Clear to auscultation bilaterally. Abdomen: Soft, nontender. Bowel sounds are present in all 4 quadrants. Extremities: There is no edema. Pulses are +2 bilaterally. No clubbing or cyanosis. On psychiatric evaluation , the patient had a flat affect, does not like to make eye contact on the evaluation. Otherwise, no evidence of anxiety or depression. Please note that this is a short summary of patient's hospital stay. Please refer to further medical records for details. TIME SPENT: Approximately 40 minutes was spent on the patient's discharge. [id number]/CPS #: [id number] [facility] HOSPITALVipul
== END 2019-05-25 14:40 | disposition home or self-care (01) | DRG 420 ==
LOC: ED 15:35 → ICU 18:51 → MED 05-24 16:31
PROVIDERS: ADMIT Internal Medicine; ATTEND Internal Medicine
DX: E11.10 Type 2 diabetes mellitus with ketoacidosis without coma (principal); I82.509 Chronic embolism and thrombosis of unspecified deep veins of unspecified lower extremity; E78.00 Pure hypercholesterolemia, unspecified; I10 Essential (primary) hypertension; E78.5 Hyperlipidemia, unspecified; K21.9 Gastro-esophageal reflux disease without esophagitis; M19.90 Unspecified osteoarthritis, unspecified site; M62.831 Muscle spasm of calf; G43.909 Migraine, unspecified, not intractable, without status migrainosus; D72.829 Elevated white blood cell count, unspecified; R00.0 Tachycardia, unspecified; F32.9 Major depressive disorder, single episode, unspecified; F17.210 Nicotine dependence, cigarettes, uncomplicated; Z91.19 Patient's noncompliance with other medical treatment and regimen; Z82.5 Family history of asthma and other chronic lower respiratory diseases; Z91.14 Patient's other noncompliance with medication regimen; Z79.4 Long term (current) use of insulin; Z79.01 Long term (current) use of anticoagulants
CPT/HCPCS: 36415; 80048; 80053; 80076; 81003; 81015; 82803; 83605; 83690; 83735; 84100; 84484; 85025; 85027; 87641; 90686; 93005; 99285; A9270-GY; J1815; J2270; J2405; J3475

== ENCOUNTER 2019-07-23 00:49 | Inpatient (IN) | payer OTHER ==
[2019-07-23] MEDS ORDERED: Etomidate* 2 MG/ML 20 ML VIAL (40 MG) ONE (00:50)
[2019-07-23] MEDS ORDERED: Succinylcholine* 20 MG/ML 10 ML VIAL ONE (00:51)
[2019-07-23] MEDS ORDERED: NS 0.9% 1000 ML** 2,000 ML IV ONE (00:57)
[2019-07-23] MEDS ORDERED: Succinylcholine* 20 MG/ML 10 ML VIAL IV ONE (00:58)
[2019-07-23] MEDS ORDERED: Etomidate* 2 MG/ML 10 ML VIAL IV ONE (00:58)
[2019-07-23] MEDS ORDERED: Morphine 10 MG/ML VIAL (1 ml) IV ONE (00:59)
--- NOTE | 2019-07-23 00:59 | ED ---
HPI Cardiac - HPI Summary HPI Summary: This pt is a 49 y/o male presenting to [facility] via EMS for difficulty breathing. EMS reports they were called for difficulty breathing but upon their arrival EMS state pt was unresponsive in his bedroom. Additionally pt was unable to talk or respond to them. EMS notes pt's friend called 911 but patient lives alone. Per EMS pt has respiratory rate of 40 and blood glucose of 566. EMS placed IO on left lower extremity. PMHx includes COPD and DM. HPI IS LIMITED DUE TO LEVEL 5 CAVEAT - extremis - History of Current Complaint Stated Complaint: RESPITORY FAILURE PER EMS Hx Obtained From: EMS Hx From Patient Unobtainable Due To: Extremis Onset/Duration: Still Present Timing: Constant Aggravating Factor(s): Other: - unknown Alleviating Factor(s): Other: - unknown Associated Signs and Symptoms: Positive: Shortness of Breath, Other: - unresponsive - Allergy/Home Medications Allergies/Adverse Reactions: Allergies Allergy/AdvReac Type Severity Reaction Status Date / Time No Known Allergies Allergy Verified 05/11/19 17:21 PMH/Surg Hx/FS Hx/Imm Hx Endocrine/Hematology History: Reports: Hx Diabetes Respiratory History: Reports: Hx Chronic Obstructive Pulmonary Disease (COPD) - Family History Known Family History: Positive: Unknown - LEVEL 5 CAVEAT - extremis - Social History Alcohol Use: unknown due to level 5 caveat - extremis Substance Use Type: Reports: None Smoking Status (MU): Current Every Day Smoker Review of Systems - ROS Summary Review of Systems Summary: ROS IS LIMITED DUE TO LEVEL 5 CAVEAT - extremis Positive: Shortness Of Breath Neurological: Other - POSITIVE: unresponsive All Other Systems Reviewed And Are Negative: No Physical Exam - Summary Physical Exam Summary: Appearance: Well-developed, Well-nourished man lying in the stretcher in obvious respiratory distress. Eyes are open but not answering questions. Skin: Warm, dry, no obvious rash Eyes: sclera anicteric, no conjunctival pallor ENT: fresh blood about the teeth, somewhat dark, there are no oral lesions that are obvious. Neck: Supple, nontender Respiratory: Clear to auscultation, however the pt is very tachypneic and has air hunger. Cardiovascular: Normal S1, S2. No murmurs. Normal distal pulses in tibial and radial bilaterally. Abdomen: deferred Musculoskeletal: Back is deferred. Intraosseous catheter, otherwise normal ROM in all 4 extremities. Neurological: Pt is awake but obtunded. He is nonverbal. No focal or motor abnormalities. Cranial nerves deferred. Gaze deferred. Psychiatric: limited due to pt's distress. Triage Information Reviewed: Yes Vital Signs On Initial Exam: Initial Vitals Temp Pulse Resp BP Pulse Ox 96.1 F 106 40 0/0 99 07/23/19 00:52 07/23/19 00:52 07/23/19 00:52 07/23/19 00:52 07/23/19 00:52 Vital Signs Reviewed: Yes Completion Of Physical Exam Limited Due To: Level 5 - extremis Procedures - Sedation Patient Received Moderate/Deep Sedation with Procedure: No - Intubation Time of Intubation: 00:50 Intubation Method: orotracheal Tube Size (cm): 8.0 Medications: Succinylcholine - 100 mg succinylcholine and 20 mg Etomidate Breath Sounds after Intubation: equal Intubation Complications: no complications Post Intubation Xray: Yes - ET tube in perfect position. Lungs clear. Progress/Xray Impression: 23 cm at the lip Diagnostics - Laboratory Result Diagrams: 07/23/19 09:54 07/23/19 13:00 Lab Statement: Any lab studies that have been ordered have been reviewed, and results considered in the medical decision making process. - Radiology chest XR Radiology Interpretation Completed By: ED Physician Summary of Radiographic Findings: ET tube in perfect position. Lungs are clear. - EKG 01:00 Cardiac Rate: Tachycardia - at 111 bpm EKG Rhythm: Sinus Tachycardia Summary of EKG Findings: EKG at 01:00 shows sinus tachycardia at 111 bpm. No STEMI. Re-Evaluation - Re-Evaluation First Eval Re-Evaluation Time: 01:36 Comment: Critically ill man with h/o multiple bouts of DKA. Presentation suggests more than just DKA, he has put out 1500 ml of dark blood from his OGT and has been hypotensive. The latter is likely at least partially related to post intubation as well as probably DKA, but I have ordered a unit of uncrossmatched blood as he likely has GI bleeding as well in the setting of being on rivaroxaban. With respect to reversing the latter, will hold until picture is more clear. There has been no bright red blood so far, so this may not be active. Disposition - Course Assessment/Plan: Pt is a 49 y/o male, with hx of DM, presenting to [facility] via EMS for difficulty breathing. Pt was found unresponsive by EMS. Pt is on Xarelto. Pt was intubated upon patient's arrival. There were no complications. Please see procedure note. Labs show WBC of 13, D-dimer of 332, ABG pH of 7.03 , ABG pCO2 of <20, ABG pO2 308, ABG HCO3 of 5, ABG O2 saturation of 99.5, ABG base excess of -25.6, sodium is 130, carbon dioxide of <7, BUN is 43, creatinine is 1.84, glucose is 698, lactic acid is 4.1, AST is 7. Toxicology screen is all negative. UA shows 2+ ketones, 1+ blood, present hyaline casts, 3 + glucose. In the ED course the pt was given propofol, morphine, protonix, tranexamic acid, insulin infusion. Discussed the case with Dr. Villaseñor, hospitalist, who accepted the pt for admission. - Diagnoses Provider Diagnoses: Upper GI bleed, Diabetic acidosis, Respiratory failure, DKA (diabetic ketoacidoses) - Physician Notifications Discussed Care Of Patient With: Jorge Alberto Villaseñor - hospitalist Time Discussed With Above Provider: 02:22 Instructed by Provider To: Admit As Inpatient - Critical Care Time Critical Care Time: 30-74 min Discharge ED - Sign-Out/Discharge Documenting (check all that apply): Patient Departure - Admit to [facility] [place] All imaging exams completed and their final reports reviewed: No - Discharge Plan Condition: Stable Disposition: ADMITTED TO [facility] - Billing Disposition and Condition Condition: STABLE Disposition: Admitted to [facility] - Attestation Statements Document Initiated by Romulo: Yes Documenting Scribe: Chandrika Puri Provider For Whom Romulo is Documenting (Include Credential): Ryan Craven MD Scribe Attestation: Chandrika Harrison, scribed for Ryan Craven MD on 07/23/19 at 1822. Scribe Documentation Reviewed: Yes Provider Attestation: The documentation as recorded by the Chandrika pollock accurately reflects the service I personally performed and the decisions made by me, Ryan Craven MD Status of Scribe Document: Viewed
[2019-07-23] MEDS: Propofol* 100 ML IV ONE ×2 (01:05→08:05)
[2019-07-23 01:25] LABS: Urine Appearance Clear; Urine Bacteria Absent (Absent); Urine Bilirubin Negative (Negative); Urine Blood 1+ (Negative); Urine Color Straw; Urine Glucose 3+(>=500 mg/dL) (Negative); Urine Ketones 2+ (Negative); Urine Nitrite Negative (Negative); Urine Protein Negative (Negative); Urine Red Blood Cell Trace(0-2/hpf) (Absent); Urine Specific Gravity 1.022 (1.010-1.030); Urine Urobilinogen Negative (Negative); Urine White Blood Cell Absent (Absent)
[2019-07-23] MEDS ORDERED: Pantoprazole* 80 mg IN NS 80 MG/250 ML BAG IV ONE (01:26)
[2019-07-23] MEDS ORDERED: Pantoprazole IV* 40 MG IV ONE (01:26)
[2019-07-23] MEDS ORDERED: Tranexamic Acid 1,000 MG/10 ML 1,000 MG in NS 0.9% 50 ML* 50 ML IV ONE (01:48)
[2019-07-23 02:00] LABS: ABS Lymphocytes 1.1 10^3/ul (1.0-4.8); ABS Monocytes 0.3 10^3/ul (0-0.8); ABS Neutrophils 11.5 10^3/ul (1.5-7.7); Eosinophil % 0.1 %; Hematocrit 52 % (42-52); Hemoglobin 16.1 g/dL (14.0-18.0); Lymphocyte % 8.5 %; Mean Corpuscular HGB Conc 31 g/dL (31-36); Mean Corpuscular Hemoglobin 33 pg (27-31); Mean Corpuscular Volume 106 fL (80-94); Mean Platelet Volume 10.5 fL (7.4-10.4); Platelet Count 284 10^3/uL (150-450); Red Blood Count 4.89 10^6 /uL (4.18-5.48); Red Cell Distribution Width 14 % (10-15)
[2019-07-23 02:03] LABS: Urine Benzodiazepine Screen None Detected (None Detect); Urine Opiates Screen None Detected (None Detect)
[2019-07-23 02:08] LABS: ALT 10 U/L (7-52); AST 7 U/L (13-39); Albumin 4.1 g/dL (3.2-5.2); Albumin/Globulin Ratio 1.1 (1-3); Alkaline Phosphatase 116 U/L (34-104); BUN/Creatinine Ratio 23.4 (8-20); Blood Urea Nitrogen 43 mg/dL (6-24); Calcium 10.2 mg/dL (8.6-10.3); Chloride 100 mmol/L (101-111); EGFR African American 47.4 (>60); EGFR Non-African American 39.1 (>60); Globulin 3.6 g/dL (2-4); Potassium 4.9 mmol/L (3.5-5.0); Sodium 130 mmol/L (135-145); Total Protein 7.7 g/dL (6.4-8.9)
[2019-07-23 02:10] LABS: Troponin I 0.01 ng/mL (<0.04)
[2019-07-23 02:21] LABS: CO2 Carbon Dioxide < 7 mmol/L (22-32); Glucose 698 mg/dL (70-100)
[2019-07-23] MEDS ORDERED: Insulin REGULAR(*) 1 UNITS UNIT IV PUSH ONE (02:37)
[2019-07-23 02:41] LABS: Activated Partial Thrombo Time 28.6 seconds (26.0-38.0); INR 0.94 (0.82-1.09)
[2019-07-23] MEDS ORDERED: Octreotide Acetate* 50 MCG in NS 0.9% 50 ML* 50 ML IV ONE (02:42)
[2019-07-23] MEDS ORDERED: Insulin Infusion 100unit/100mL 100 UNITS/100 ML UNIT IV SCH (03:00)
[2019-07-23 03:42] LABS: Magnesium 2.7 mg/dL (1.9-2.7)
[2019-07-23] MEDS ORDERED: NS 0.45% 1000 ML BAG* 1,000 ML IV SCH (04:00)
[2019-07-23] MEDS: Chlorhexidine MOUTHWASH 0.12%* 15 ML UDC TOPICAL SCH ×4 (04:00→20:32)
[2019-07-23] MEDS ORDERED: Norepinephrine 16MCG/ML IVPRE* 4,000 MCG/250 ML BAG IV ONE (04:23)
[2019-07-23] MEDS: Norepinephrine 16MCG/ML IVPRE* 4,000 MCG/250 ML BAG IV SCH ×3 (04:27→08:39)
[2019-07-23 04:39] LABS: Hematocrit 51 % (42-52); Hemoglobin 15.8 g/dL (14.0-18.0)
[2019-07-23 04:55] LABS: BUN/Creatinine Ratio 22.9 (8-20); Blood Urea Nitrogen 47 mg/dL (6-24); Calcium 9.1 mg/dL (8.6-10.3); Chloride 102 mmol/L (101-111); EGFR African American 41.8 (>60); EGFR Non-African American 34.5 (>60); Sodium 130 mmol/L (135-145)
[2019-07-23] MEDS ORDERED: Piperacillin/Tazobac ADVAN(*) 3.375 GM in NS 0.9% 100 ML* 100 ML IVPB ONE (04:56)
[2019-07-23] MEDS ORDERED: Zosyn per Pharmacy* NOTE FOLLOW UP SCH (05:00)
[2019-07-23 05:01] LABS: CO2 Carbon Dioxide < 7 mmol/L (22-32); Glucose 681 mg/dL (70-100); Glucose Confirmatory 681 mg/dL (70-100)
[2019-07-23 05:31] LABS: C Reactive Protein 2.12 mg/L (<8.01)
--- NOTE | 2019-07-23 05:39 | HP ---
HISTORY AND PHYSICAL: DATE OF ADMISSION: 07/23/19 ADMITTING PROVIDER: Jorge Alberto Villaseñor MD. PRIMARY CARE PROVIDER: Vanessa Christianson MD. OUTPATIENT [employer] TECHNICIAN: Dr. Riojas. CHIEF COMPLAINT: Shortness of breath, altered mental status. HISTORY OF PRESENT ILLNESS: Freedom Rubio is a 49-year-old male with past medical history of poorly controlled insulin-dependent diabetes mellitus, DVTs ( on chronic anticoagulation), hypertension, hyperlipidemia, and obesity. Per reports from the emergency room provider, the patient was short of breath at home and EMS was called. He was too obtunded by the time they got there to open the door, so they had entered the premises on their own. He was awake and bag masked until presenting to the [facility] Emergency Room, when he was very tachypneic and tachycardic with a respiratory rate in the 40s and heart rate at 106. He was intubated for airway protection and respiratory extremis and was noted to have 1.5 L of dark emesis from the OG tube and was given 1 unit of packed red blood cells by the emergency room physician Dr. Craven. His blood sugar was initially 698. He has evidence of DKA with severe metabolic acidosis : pH on ABG of 7.03, bicarb of 5, carbon dioxide on BMP of less than 7 and 2+ ketones on urinalysis. Anion Gap of at least 24 if not more. . He was also given 3 L of normal saline and 1 g of tranexamic acid in the ED, started on Protonix 80 mg and then Protonix drip. He was referred to the hospitalist service for admission. Blood pressures in the emergency room fell to as low as 74/50 and Levophed has been ordered along with insulin drip. He has in IO in tibia. Notably, the patient was intubated immediately on arrival to the emergency room and could not provide any significant history given his respiratory extremis. He lives alone. PAST MEDICAL HISTORY: 1. Poorly controlled insulin-dependent diabetes mellitus. 2. 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 3. Lower back pain. 4. Hypertension. 5. Hyperlipidemia. 6. Former alcoholic. 7. Medication noncompliance. MEDICATIONS: Unable to be fully verified at this time, per electronic records they include: 1. Metformin 1000 mg p.o. b.i.d. 2. Xarelto 10 mg p.o. daily. 3. Protonix 40 mg p.o. daily. 4. [place]-3 at 2 g p.o. daily. 5. Lisinopril 10 mg p.o. daily. 6. Insulin U-500 at 100 units subcutaneous b.i.d. 7. Lexapro total of 30 mg daily. 8. Atorvastatin 80 mg at bedtime. 9. Amitriptyline 10 mg at bedtime. ALLERGIES: No known drug allergies. SOCIAL HISTORY: The patient has overall a half a pack a day x30 years with intermittent quitting; it is not clear if he has resumed smoking. He does have a history of reported alcoholism, quitting around 2013. He lives alone. FAMILY HISTORY: His father of trauma at age 40. Mother at 46 of status asthmaticus. REVIEW OF SYSTEMS: Not able to be obtained given mechanical ventilation, other than shortness of breath and altered mental status. PHYSICAL EXAMINATION GENERAL: acute on chronically ill appearing. VITAL SIGNS: Initially, temperature 96.1, pulse rate tachycardic in the low 100s, respiratory rate initially 40; currently intubated, blood pressure initially 107/46; has been low as 70s/40s. HEENT: Normocephalic, atraumatic. Pupils 2 mm, reactive to 1 mm. Intubated with very dark maroon emesis per the OG tube, a total of over 1.6 L. LUNGS: Referred vent sounds but otherwise anteriorly clear to auscultation bilaterally with no wheezing, rales, or rhonchi. CARDIOVASCULAR: Regular rate. Tachycardic. No murmurs. ABDOMEN: Soft. Distended. No flinching to palpation. EXTREMITIES: Warm, well perfused. No peripheral edema. SKIN: No lesions or rashes. NEURO: GCS 8T(eye 2, verbal intubated, motor 5). LINES/DEVICES: IO in left tibia, ETT DIAGNOSTIC STUDIES/LAB DATA: Labs: White count 13.0, hemoglobin 16.1, hematocrit 52, platelets 284. INR 0.94, aPTT 28. D-dimer 332. ABG, pH 7.03, pCO2 of 20, pO2 of 308, bicarb 5.0. Sodium 130; but corrected for hyperglycemia is 142, potassium 4.9, chloride 100, carbon dioxide less than 7, BUN 43, creatinine 1.84 (up from prior 2 months ago of 0.56), glucose 698, lactic acid 4.1, calcium 10.2. Total bili 0.4, AST 7, ALT 10, alk phos 116. Troponin 0.001, BNP 27. Urinalysis 2+ ketones, 1+ blood. Urine toxicology negative for alcohol or other substances. Imaging: There is a postextubation chest x-ray with formal view pending, but lungs with no acute findings per my read. ET tube is approximately 3.8 cm above the tristan. CTA head noncontrast demonstrates no acute intracranial findings. CT chest, abdomen, and pelvis demonstrates multiple linear opacities located at dependent portions of the lung consistent with areas of atelectasis. No evidence of congestive heart failure or pneumonia. EKG: Sinus tachycardia; rate 111, Q wave in III; aVF and V1 through V3. Previous EKG from May 2019 showed similar anterior septal infarctions, old. ASSESSMENT AND PLAN: Freedom Rubio is a 49-year-old male with poorly controlled insulin-dependent diabetes mellitus, hypertension, and recurrent DVTs (on Xarelto 10 mg daily) presenting with shortness of breath, obtundation at home, found to be in diabetic ketoacidosis, acute respiratory failure, and a concern for some dark hematemesis from the OG tube, for which he has already received 1 unit of packed red blood cells in the emergency room. 1. His pressures have been intermittently soft and he will have Levophed on standby as needed to keep MAPs above 65. He has an IO but would need a central line if continue need for pressors. He is status post Protonix 80 mg in the emergency room and been placed on a Protonix drip. Given his history of remote alcoholism, going to give him octreotide x1. We will repeat serial H and Hs every 4 hours for now given his large volume of hematemesis at more than 1.6 L and send a gastric occult blood on that to confirm suspicions. He has already recieved 1 unit pRBC. 2. For his diabetic ketoacidosis, he has been ordered an insulin drip - DKA protocol. He is reportedly status post 3 L normal saline bolus (Addendum: it seems he was given 2L instead, and was subsequently given a 3rd and 4th L). Corrected Sodium is normal so, starting at half normal saline at 125 cc an hour. We will get BMPs every 4 hours along with a magnesium, paying close attention to potassium replacement requirements. We will repeat a lactic acid, which was elevated at 4.1. His ABG is consistent with severe metabolic acidosis consistent with diabetic ketoacidosis. Repeat ABG at 6 a.m. 3. He is a full code. Surrogate listed in the chart is a male friend by the name of Jack Rose. 4. His home medications including antihypertensives, Lexapro, amitriptyline, Xarelto, and metformin will be held. We will give atorvastatin per OG tube if able. Critical Care time spent on management during this admission was 70 minutes. [id number]/[facility] #: [id number] EDMUND
[2019-07-23] MEDS ORDERED: NS 0.45% 1000 ML BAG* 1,000 ML IV ONE (06:00)
[2019-07-23 06:01] LABS: Potassium Redraw 4.9 mmol/L (3.5-5.0)
[2019-07-23] MEDS: Pantoprazole* 80 mg IN NS 80 MG/250 ML BAG IV SCH ×2 (06:44→13:55)
--- NOTE | 2019-07-23 07:13 | PN ---
Sepsis Event Evaluation Date of Evaluation: 07/23/19 Time of Evaluation: 06:00 Current Stage of Sepsis: Septic Shock Vital Signs - Last 12 Hours: Vital Signs - 12 hr Temp Pulse Resp BP Pulse Ox 07/23/19 06:30 97.2 F 113 91/70 93 07/23/19 06:25 97.0 F 114 93/53 93 07/23/19 06:20 97.0 F 117 107/69 93 07/23/19 06:15 97.0 F 114 96/57 93 07/23/19 06:10 96.8 F 114 98/55 93 07/23/19 06:05 96.6 F 112 88/56 94 07/23/19 06:00 96.6 F 109 101/56 94 07/23/19 05:55 96.4 F 110 94/58 94 07/23/19 05:52 96.4 F 109 92/64 94 07/23/19 05:45 96.3 F 108 76/57 94 07/23/19 05:40 96.1 F 107 91/54 94 07/23/19 05:35 95.9 F 107 87/57 94 07/23/19 05:30 95.9 F 108 78/56 94 07/23/19 05:25 95.7 F 110 114/48 95 07/23/19 05:21 95.7 F 109 99/61 95 07/23/19 05:15 95.5 F 107 80/67 95 07/23/19 05:10 95.5 F 106 104/58 94 07/23/19 05:05 95.5 F 91 73/48 95 07/23/19 05:00 95.4 F 107 73/52 95 07/23/19 04:45 95.4 F 105 91/51 97 07/23/19 04:30 95.2 F 105 89/71 97 07/23/19 04:27 95.2 F 104 85/57 97 07/23/19 04:22 95.2 F 104 73/39 97 07/23/19 04:21 95.2 F 96 60/43 97 07/23/19 04:00 94.8 F 105 81/43 98 07/23/19 03:56 94.8 F 106 87/52 99 07/23/19 03:30 95.0 F 102 119/50 100 07/23/19 03:18 95.0 F 95 99/58 84 07/23/19 03:17 95.0 F 102 97 07/23/19 03:10 95.0 F 104 26 99/58 100 07/23/19 02:40 95.5 F 103 97/48 100 07/23/19 02:35 95.7 F 105 11 81/47 100 07/23/19 02:30 95.7 F 105 96/42 99 07/23/19 02:25 95.9 F 106 75/54 99 07/23/19 02:23 95.9 F 108 97/43 100 07/23/19 02:21 95.9 F 111 81/45 99 07/23/19 02:15 95.9 F 110 95/41 100 07/23/19 02:10 95.5 F 107 89/47 100 07/23/19 02:06 95.4 F 110 86/39 100 07/23/19 02:05 96.4 F 111 79/39 100 07/23/19 02:02 96.6 F 107 93/45 99 07/23/19 02:00 96.6 F 115 73/44 99 07/23/19 01:56 96.6 F 107 102/47 99 07/23/19 01:55 96.6 F 112 80/40 98 07/23/19 01:50 96.8 F 105 80/59 99 07/23/19 01:45 96.8 F 108 94/42 99 07/23/19 01:40 96.6 F 110 100/44 97 07/23/19 01:35 93.7 F 98/40 07/23/19 01:33 97.9 F 84/36 07/23/19 01:30 97.9 F 74/50 07/23/19 01:25 97.9 F 92/47 07/23/19 01:23 97.9 F 114 89/50 96 07/23/19 01:10 104 99 07/23/19 01:07 99 107/46 100 07/23/19 01:05 13 07/23/19 00:52 96.1 F 106 40 0/0 99 Lactic Acid: 07/23/19 07/23/19 01:49 04:32 Lactic Acid 4.1 H* 3.3 H* - Cardiopulmonary Exam Capillary Refill: < or = to 5 seconds Respiratory: Clear to Auscultation Cardiovascular: NL Sounds; No Murmurs; No JVD, No Edema - Peripheral Pulse Exam Pedal Pulses: Bilateral Normal Posterior Tibial Pulse: Bilateral Normal - Skin Exam Skin Exam: [place] - [place] Coma Scale Best Eye Response: 4 - Spontaneous Best Motor Response: 5 - Purposeful Movement Best Verbal Response: 1 - Intubated Coma Scale Total: 10.0 Assess/Plan/Problems-Billing Assessment:
[2019-07-23] MEDS ORDERED: Midazolam IV for DRIP* 100 MG in NS 0.9% 100 ML* 80 ML IV SCH (07:30)
[2019-07-23] MEDS ORDERED: NS 0.9% 1000 ML** 1,000 ML IV ONE (07:34)
[2019-07-23] MEDS ORDERED: Propofol* 100 ML ONE ×2 (08:00→13:29)
[2019-07-23] MEDS ORDERED: fentaNYL INFUSION 50 MCG/ML* 2,500 MCG/50 ML BAG IV SCH ×2 (08:00)
[2019-07-23] MEDS: Insulin Infusion 100unit/100mL 100 UNITS/100 ML UNIT IV SCH ×3 (08:03→13:55)
[2019-07-23] MEDS: Sodium Bicarbonate 8.4%* 50 ML SYRINGE IV ONE (08:55)
[2019-07-23 10:09] LABS: Hematocrit 44 % (42-52); Hemoglobin 14.7 g/dL (14.0-18.0)
[2019-07-23] MEDS: NS IV SCH ×5 (10:21→21:00)
[2019-07-23] MEDS: NOREPINEPHRINE IV SCH ×5 (10:21→21:00)
[2019-07-23 10:25] LABS: BUN/Creatinine Ratio 22.9 (8-20); Calcium 8.1 mg/dL (8.6-10.3); EGFR African American 46.2 (>60); EGFR Non-African American 38.2 (>60); Potassium 3.5 mmol/L (3.5-5.0)
--- NOTE | 2019-07-23 11:14 | OP ---
Operative Report - Blank - Operative Report Date of Operation: 07/23/19 Note: R Femoral TLC placement A time-out was completed verifying correct patient, procedure, and site positioning. The patients right neck was prepped and draped in sterile fashion. Lidocaine was used to anesthetize the surrounding skin area. Under ultrasound guidance, a triple lumen catheter was introduced into the R Femoral vein using the Seldinger technique. The catheter was threaded smoothly over the guide wire and appropriate blood return was obtained. Each lumen of the catheter was evacuated of air and flushed with sterile saline. The catheter was then sutured in place to the skin and a sterile dressing applied. Estimated Blood Loss was minimal
--- NOTE | 2019-07-23 11:37 | PN ---
Date of Service: 07/23/19 Critical Care Services: remains intubated and sedated on Versed and Propofol. FS's improving on insulin gtt Hemodynamically stable no evidence of bleeding Vital Signs: Temp Pulse Resp BP SpO2 FiO2 99.7 F 106 21 109/63 96 30 07/23/19 11:10 07/23/19 11:10 07/23/19 09:00 07/23/19 11:10 07/23/19 11:10 07/23 10:19 Physical Exam: Gen - intubated. sedated. moving arms. obese. RRR. CTA B/L. No ANDREW Fluid Balance (Past 24 Hours): I= O= Net Intake & Output 07/21/19 07/22/19 07/23/19 07/24/19 06:59 06:59 06:59 06:59 Intake Total 2023.0 0 Output Total 2575 450 Balance -552.0 -450 Weight 231 lb 7.766 oz Intake: IV Fluids 1551 NS (0.45%) 1551 Medicated IV 147.0 CC - Propofol/Diprivan 72.5 Protonix 74.5 Oral 0 Packed Cells 325 Output: NG Tube Drainage Amount 1700 Patel 875 450 Labs: Laboratory Results - last 24 hr 07/23/19 07/23/19 07/23/19 01:15 01:15 01:36 WBC RBC Hgb Hct MCV MCH MCHC RDW Plt Count MPV Neut % (Auto) Lymph % (Auto) [place] % (Auto) Eos % (Auto) Baso % (Auto) Absolute Neuts (auto) Absolute Lymphs (auto) Absolute Monos (auto) Absolute Eos (auto) Absolute Basos (auto) Absolute Nucleated RBC Nucleated RBC % INR (Anticoag Therapy) APTT D-Dimer, Quantitative Patient Temperature ABG pH ABG pH (Temp Correct) ABG pCO2 ABG pCO2 (Temp Corrct ABG pO2 ABG pO2 (Temp Correct ABG HCO3 ABG O2 Saturation ABG Base Excess Respiration Rate O2 Delivery Device Ventilator Type Vent Mode FiO2 Inspiratory Time PEEP Pressure Support Pressure Control EPAP IPAP BiPAP Sodium 130 L Potassium 4.9 Chloride 100 L Carbon Dioxide < 7 L* Anion Gap Not Reportable BUN 43 H Creatinine 1.84 H Est GFR ( Amer) 47.4 Est GFR (Non-Af Amer) 39.1 BUN/Creatinine Ratio 23.4 H Glucose 698 H* POC Glucose (mg/dL) Glucose Meter Confirm Lactic Acid Calcium 10.2 Magnesium 2.7 Total Bilirubin 0.40 AST 7 L ALT 10 Alkaline Phosphatase 116 H Troponin I 0.01 C-Reactive Protein B-Natriuretic Peptide Total Protein 7.7 Albumin 4.1 Globulin 3.6 Albumin/Globulin Ratio 1.1 Urine Color Straw Urine Appearance Clear Urine pH 5.0 Ur Specific [place] 1.022 Urine Protein Negative Urine Ketones 2+ A Urine Blood 1+ A Urine Nitrate Negative Urine Bilirubin Negative Urine Urobilinogen Negative Ur Leukocyte Esterase Negative Urine WBC (Auto) Absent Urine RBC (Auto) Trace(0-2/hpf) Urine Bacteria Absent Hyaline Casts Present A Urine Glucose 3+(>=500 mg/dl) A Urine Opiates Screen None detected Ur Barbiturates Screen None detected Ur Phencyclidine Scrn None detected Ur Amphetamines Screen None detected U Benzodiazepines Scrn None detected Urine Cocaine Screen None detected U Cannabinoids Screen None detected Serum Alcohol Blood Type Antibody Screen Crossmatch 07/23/19 07/23/19 07/23/19 01:36 01:36 01:38 WBC 13.0 H RBC 4.89 Hgb 16.1 Hct 52 MCV 106 H MCH 33 H MCHC 31 RDW 14 Plt Count 284 MPV 10.5 H Neut % (Auto) 88.7 Lymph % (Auto) 8.5 [place] % (Auto) 2.5 Eos % (Auto) 0.1 Baso % (Auto) 0.2 Absolute Neuts (auto) 11.5 H Absolute Lymphs (auto) 1.1 Absolute Monos (auto) 0.3 Absolute Eos (auto) 0.0 Absolute Basos (auto) 0.0 Absolute Nucleated RBC 0.0 Nucleated RBC % 0.0 INR (Anticoag Therapy) APTT D-Dimer, Quantitative Patient Temperature ABG pH ABG pH (Temp Correct) ABG pCO2 ABG pCO2 (Temp Corrct ABG pO2 ABG pO2 (Temp Correct ABG HCO3 ABG O2 Saturation ABG Base Excess Respiration Rate O2 Delivery Device Ventilator Type Vent Mode FiO2 Inspiratory Time PEEP Pressure Support Pressure Control EPAP IPAP BiPAP Sodium Potassium Chloride Carbon Dioxide Anion Gap BUN Creatinine Est GFR ( Amer) Est GFR (Non-Af Amer) BUN/Creatinine Ratio Glucose POC Glucose (mg/dL) Glucose Meter Confirm Lactic Acid Calcium Magnesium Total Bilirubin AST ALT Alkaline Phosphatase Troponin I C-Reactive Protein B-Natriuretic Peptide Total Protein Albumin Globulin Albumin/Globulin Ratio Urine Color Urine Appearance Urine pH Ur Specific [place] Urine Protein Urine Ketones Urine Blood Urine Nitrate Urine Bilirubin Urine Urobilinogen Ur Leukocyte Esterase Urine WBC (Auto) Urine RBC (Auto) Urine Bacteria Hyaline Casts Urine Glucose Urine Opiates Screen Ur Barbiturates Screen Ur Phencyclidine Scrn Ur Amphetamines Screen U Benzodiazepines Scrn Urine Cocaine Screen U Cannabinoids Screen Serum Alcohol Blood Type A Positive Antibody Screen Crossmatch See Detail 07/23/19 07/23/19 07/23/19 01:38 01:38 01:48 WBC RBC Hgb Hct MCV MCH MCHC RDW Plt Count MPV Neut % (Auto) Lymph % (Auto) [place] % (Auto) Eos % (Auto) Baso % (Auto) Absolute Neuts (auto) Absolute Lymphs (auto) Absolute Monos (auto) Absolute Eos (auto) Absolute Basos (auto) Absolute Nucleated RBC Nucleated RBC % INR (Anticoag Therapy) 0.94 APTT 28.6 D-Dimer, Quantitative 332 H Patient Temperature ABG pH ABG pH (Temp Correct) ABG pCO2 ABG pCO2 (Temp Corrct ABG pO2 ABG pO2 (Temp Correct ABG HCO3 ABG O2 Saturation ABG Base Excess Respiration Rate O2 Delivery Device Ventilator Type Vent Mode FiO2 Inspiratory Time PEEP Pressure Support Pressure Control EPAP IPAP BiPAP Sodium Potassium Chloride Carbon Dioxide Anion Gap BUN Creatinine Est GFR ( Amer) Est GFR (Non-Af Amer) BUN/Creatinine Ratio Glucose POC Glucose (mg/dL) Glucose Meter Confirm Lactic Acid Calcium Magnesium Total Bilirubin AST ALT Alkaline Phosphatase Troponin I C-Reactive Protein B-Natriuretic Peptide 27 Total Protein Albumin Globulin Albumin/Globulin Ratio Urine Color Urine Appearance Urine pH Ur Specific [place] Urine Protein Urine Ketones Urine Blood Urine Nitrate Urine Bilirubin Urine Urobilinogen Ur Leukocyte Esterase Urine WBC (Auto) Urine RBC (Auto) Urine Bacteria Hyaline Casts Urine Glucose Urine Opiates Screen Ur Barbiturates Screen Ur Phencyclidine Scrn Ur Amphetamines Screen U Benzodiazepines Scrn Urine Cocaine Screen U Cannabinoids Screen Serum Alcohol < 10 Blood Type Antibody Screen Crossmatch 07/23/19 07/23/19 07/23/19 01:49 01:49 02:06 WBC RBC Hgb Hct MCV MCH MCHC RDW Plt Count MPV Neut % (Auto) Lymph % (Auto) [place] % (Auto) Eos % (Auto) Baso % (Auto) Absolute Neuts (auto) Absolute Lymphs (auto) Absolute Monos (auto) Absolute Eos (auto) Absolute Basos (auto) Absolute Nucleated RBC Nucleated RBC % INR (Anticoag Therapy) APTT D-Dimer, Quantitative Patient Temperature Not Reportable ABG pH 7.03 L* ABG pH (Temp Correct) ABG pCO2 < 20 L ABG pCO2 (Temp Corrct ABG pO2 308 H ABG pO2 (Temp Correct ABG HCO3 5.0 L* ABG O2 Saturation 99.5 H ABG Base Excess -25.6 L Respiration Rate 12 O2 Delivery Device vent Ventilator Type 500 Vent Mode cmv FiO2 80 Inspiratory Time 1.0 PEEP 5 Pressure Support Not Reportable Pressure Control Not Reportable EPAP Not Reportable IPAP Not Reportable BiPAP Not Reportable Sodium Potassium Chloride Carbon Dioxide Anion Gap BUN Creatinine Est GFR ( Amer) Est GFR (Non-Af Amer) BUN/Creatinine Ratio Glucose POC Glucose (mg/dL) Glucose Meter Confirm Lactic Acid 4.1 H* Calcium Magnesium Total Bilirubin AST ALT Alkaline Phosphatase Troponin I C-Reactive Protein B-Natriuretic Peptide Total Protein Albumin Globulin Albumin/Globulin Ratio Urine Color Urine Appearance Urine pH Ur Specific [place] Urine Protein Urine Ketones Urine Blood Urine Nitrate Urine Bilirubin Urine Urobilinogen Ur Leukocyte Esterase Urine WBC (Auto) Urine RBC (Auto) Urine Bacteria Hyaline Casts Urine Glucose Urine Opiates Screen Ur Barbiturates Screen Ur Phencyclidine Scrn Ur Amphetamines Screen U Benzodiazepines Scrn Urine Cocaine Screen U Cannabinoids Screen Serum Alcohol Blood Type A Positive Antibody Screen Negative Crossmatch 07/23/19 07/23/19 07/23/19 03:22 03:35 04:32 WBC RBC Hgb 15.8 Hct 51 MCV MCH MCHC RDW Plt Count MPV Neut % (Auto) Lymph % (Auto) [place] % (Auto) Eos % (Auto) Baso % (Auto) Absolute Neuts (auto) Absolute Lymphs (auto) Absolute Monos (auto) Absolute Eos (auto) Absolute Basos (auto) Absolute Nucleated RBC Nucleated RBC % INR (Anticoag Therapy) APTT D-Dimer, Quantitative Patient Temperature ABG pH ABG pH (Temp Correct) ABG pCO2 ABG pCO2 (Temp Corrct ABG pO2 ABG pO2 (Temp Correct ABG HCO3 ABG O2 Saturation ABG Base Excess Respiration Rate O2 Delivery Device Ventilator Type Vent Mode FiO2 Inspiratory Time PEEP Pressure Support Pressure Control EPAP IPAP BiPAP Sodium Potassium Chloride Carbon Dioxide Anion Gap BUN Creatinine Est GFR ( Amer) Est GFR (Non-Af Amer) BUN/Creatinine Ratio Glucose POC Glucose (mg/dL) > 444 H* > 444 H* Glucose Meter Confirm Lactic Acid Calcium Magnesium Total Bilirubin AST ALT Alkaline Phosphatase Troponin I C-Reactive Protein B-Natriuretic Peptide Total Protein Albumin Globulin Albumin/Globulin Ratio Urine Color Urine Appearance Urine pH Ur Specific [place] Urine Protein Urine Ketones Urine Blood Urine Nitrate Urine Bilirubin Urine Urobilinogen Ur Leukocyte Esterase Urine WBC (Auto) Urine RBC (Auto) Urine Bacteria Hyaline Casts Urine Glucose Urine Opiates Screen Ur Barbiturates Screen Ur Phencyclidine Scrn Ur Amphetamines Screen U Benzodiazepines Scrn Urine Cocaine Screen U Cannabinoids Screen Serum Alcohol Blood Type Antibody Screen Crossmatch 07/23/19 07/23/19 07/23/19 04:32 04:32 04:38 WBC RBC Hgb Hct MCV MCH MCHC RDW Plt Count MPV Neut % (Auto) Lymph % (Auto) [place] % (Auto) Eos % (Auto) Baso % (Auto) Absolute Neuts (auto) Absolute Lymphs (auto) Absolute Monos (auto) Absolute Eos (auto) Absolute Basos (auto) Absolute Nucleated RBC Nucleated RBC % INR (Anticoag Therapy) APTT D-Dimer, Quantitative Patient Temperature ABG pH ABG pH (Temp Correct) ABG pCO2 ABG pCO2 (Temp Corrct ABG pO2 ABG pO2 (Temp Correct ABG HCO3 ABG O2 Saturation ABG Base Excess Respiration Rate O2 Delivery Device Ventilator Type Vent Mode FiO2 Inspiratory Time PEEP Pressure Support Pressure Control EPAP IPAP BiPAP Sodium 130 L Potassium TNP Chloride 102 Carbon Dioxide < 7 L* Anion Gap Not Reportable BUN 47 H Creatinine 2.05 H Est GFR ( Amer) 41.8 Est GFR (Non-Af Amer) 34.5 BUN/Creatinine Ratio 22.9 H Glucose 681 H* POC Glucose (mg/dL) > 444 H* Glucose Meter Confirm 681 H* Lactic Acid 3.3 H* Calcium 9.1 Magnesium Total Bilirubin AST ALT Alkaline Phosphatase Troponin I C-Reactive Protein 2.12 B-Natriuretic Peptide Total Protein Albumin Globulin Albumin/Globulin Ratio Urine Color Urine Appearance Urine pH Ur Specific [place] Urine Protein Urine Ketones Urine Blood Urine Nitrate Urine Bilirubin Urine Urobilinogen Ur Leukocyte Esterase Urine WBC (Auto) Urine RBC (Auto) Urine Bacteria Hyaline Casts Urine Glucose Urine Opiates Screen Ur Barbiturates Screen Ur Phencyclidine Scrn Ur Amphetamines Screen U Benzodiazepines Scrn Urine Cocaine Screen U Cannabinoids Screen Serum Alcohol Blood Type Antibody Screen Crossmatch 07/23/19 07/23/19 07/23/19 05:21 05:30 05:54 WBC RBC Hgb Hct MCV MCH MCHC RDW Plt Count MPV Neut % (Auto) Lymph % (Auto) [place] % (Auto) Eos % (Auto) Baso % (Auto) Absolute Neuts (auto) Absolute Lymphs (auto) Absolute Monos (auto) Absolute Eos (auto) Absolute Basos (auto) Absolute Nucleated RBC Nucleated RBC % INR (Anticoag Therapy) APTT D-Dimer, Quantitative Patient Temperature Not Reportable ABG pH 7.06 L* ABG pH (Temp Correct) Not Reportable ABG pCO2 < 20 L ABG pCO2 (Temp Corrct Not Reportable ABG pO2 81 ABG pO2 (Temp Correct Not Reportable ABG HCO3 5.5 L* ABG O2 Saturation 96.6 ABG Base Excess -24.8 L Respiration Rate 14 O2 Delivery Device vent Ventilator Type 500 Vent Mode cmv FiO2 30 Inspiratory Time Not Reportable PEEP 5 Pressure Support Not Reportable Pressure Control Not Reportable EPAP Not Reportable IPAP Not Reportable BiPAP Not Reportable Sodium Potassium 4.9 Chloride Carbon Dioxide Anion Gap BUN Creatinine Est GFR ( Amer) Est GFR (Non-Af Amer) BUN/Creatinine Ratio Glucose POC Glucose (mg/dL) > 444 H* Glucose Meter Confirm 618 H* Lactic Acid Calcium Magnesium Total Bilirubin AST ALT Alkaline Phosphatase Troponin I C-Reactive Protein B-Natriuretic Peptide Total Protein Albumin Globulin Albumin/Globulin Ratio Urine Color Urine Appearance Urine pH Ur Specific [place] Urine Protein Urine Ketones Urine Blood Urine Nitrate Urine Bilirubin Urine Urobilinogen Ur Leukocyte Esterase Urine WBC (Auto) Urine RBC (Auto) Urine Bacteria Hyaline Casts Urine Glucose Urine Opiates Screen Ur Barbiturates Screen Ur Phencyclidine Scrn Ur Amphetamines Screen U Benzodiazepines Scrn Urine Cocaine Screen U Cannabinoids Screen Serum Alcohol Blood Type Antibody Screen Crossmatch 07/23/19 07/23/19 07/23/19 07:10 08:10 09:54 WBC RBC Hgb 14.7 Hct 44 MCV MCH MCHC RDW Plt Count MPV Neut % (Auto) Lymph % (Auto) [place] % (Auto) Eos % (Auto) Baso % (Auto) Absolute Neuts (auto) Absolute Lymphs (auto) Absolute Monos (auto) Absolute Eos (auto) Absolute Basos (auto) Absolute Nucleated RBC Nucleated RBC % INR (Anticoag Therapy) APTT D-Dimer, Quantitative Patient Temperature ABG pH ABG pH (Temp Correct) ABG pCO2 ABG pCO2 (Temp Corrct ABG pO2 ABG pO2 (Temp Correct ABG HCO3 ABG O2 Saturation ABG Base Excess Respiration Rate O2 Delivery Device Ventilator Type Vent Mode FiO2 Inspiratory Time PEEP Pressure Support Pressure Control EPAP IPAP BiPAP Sodium Potassium Chloride Carbon Dioxide Anion Gap BUN Creatinine Est GFR ( Amer) Est GFR (Non-Af Amer) BUN/Creatinine Ratio Glucose POC Glucose (mg/dL) Glucose Meter Confirm 498 H 431 H Lactic Acid Calcium Magnesium Total Bilirubin AST ALT Alkaline Phosphatase Troponin I C-Reactive Protein B-Natriuretic Peptide Total Protein Albumin Globulin Albumin/Globulin Ratio Urine Color Urine Appearance Urine pH Ur Specific [place] Urine Protein Urine Ketones Urine Blood Urine Nitrate Urine Bilirubin Urine Urobilinogen Ur Leukocyte Esterase Urine WBC (Auto) Urine RBC (Auto) Urine Bacteria Hyaline Casts Urine Glucose Urine Opiates Screen Ur Barbiturates Screen Ur Phencyclidine Scrn Ur Amphetamines Screen U Benzodiazepines Scrn Urine Cocaine Screen U Cannabinoids Screen Serum Alcohol Blood Type Antibody Screen Crossmatch 07/23/19 07/23/19 09:54 09:54 WBC RBC Hgb Hct MCV MCH MCHC RDW Plt Count MPV Neut % (Auto) Lymph % (Auto) [place] % (Auto) Eos % (Auto) Baso % (Auto) Absolute Neuts (auto) Absolute Lymphs (auto) Absolute Monos (auto) Absolute Eos (auto) Absolute Basos (auto) Absolute Nucleated RBC Nucleated RBC % INR (Anticoag Therapy) APTT D-Dimer, Quantitative Patient Temperature ABG pH ABG pH (Temp Correct) ABG pCO2 ABG pCO2 (Temp Corrct ABG pO2 ABG pO2 (Temp Correct ABG HCO3 ABG O2 Saturation ABG Base Excess Respiration Rate O2 Delivery Device Ventilator Type Vent Mode FiO2 Inspiratory Time PEEP Pressure Support Pressure Control EPAP IPAP BiPAP Sodium 136 Potassium 3.5 Chloride 112 H Carbon Dioxide 9 L* Anion Gap 15 H BUN 43 H Creatinine 1.88 H Est GFR ( Amer) 46.2 Est GFR (Non-Af Amer) 38.2 BUN/Creatinine Ratio 22.9 H Glucose 303 H POC Glucose (mg/dL) Glucose Meter Confirm Lactic Acid 2.5 H* Calcium 8.1 L Magnesium Total Bilirubin AST ALT Alkaline Phosphatase Troponin I C-Reactive Protein B-Natriuretic Peptide Total Protein Albumin Globulin Albumin/Globulin Ratio Urine Color Urine Appearance Urine pH Ur Specific [place] Urine Protein Urine Ketones Urine Blood Urine Nitrate Urine Bilirubin Urine Urobilinogen Ur Leukocyte Esterase Urine WBC (Auto) Urine RBC (Auto) Urine Bacteria Hyaline Casts Urine Glucose Urine Opiates Screen Ur Barbiturates Screen Ur Phencyclidine Scrn Ur Amphetamines Screen U Benzodiazepines Scrn Urine Cocaine Screen U Cannabinoids Screen Serum Alcohol Blood Type Antibody Screen Crossmatch Impression: DKA with previous admissions for DKA and hx of non-compliance Hx of ETOH abuse Hx of DVT's on NOAC GIB? Plan: continue insulin gtt and monitor AG continue Versed and Propofol ETOH withdrawal precautions Hold DOAC now as questions of UGIB? Continue PPI gtt. GI consulted. As H/H stable now, does not need any acute interventions Critical Care Time: 56
[2019-07-23] MEDS: D5W 1/2 NS 1000 ML BAG* 1,000 ML IV SCH ×2 (13:12→23:14)
[2019-07-23 13:46] LABS: Albumin 3.3 g/dL (3.2-5.2); Albumin/Globulin Ratio 1.2 (1-3); BUN/Creatinine Ratio 23.1 (8-20); Calcium 8.4 mg/dL (8.6-10.3); EGFR African American 55.6 (>60); Globulin 2.7 g/dL (2-4); Magnesium 1.7 mg/dL (1.9-2.7); Potassium 3.2 mmol/L (3.5-5.0); Total Bilirubin 0.5 mg/dL (0.2-1.0)
[2019-07-23] MEDS: Propofol* 100 ML IV SCH ×4 (13:54→23:14)
[2019-07-23] MEDS ORDERED: Magnesium Sulfate 2 GM IV* 2 GM/50 ML BAG IVPB ONE (14:10)
[2019-07-23] MEDS: ZOSYN 3.375 GM Q8H per EXTENDED INFUSION IVPB SCH ×4 (14:29→21:36)
[2019-07-23] MEDS: KCL 20 MEQ/100 ML IVPREMIX* 20 MEQ/100 ML BAG IV SCH ×2 (15:40→17:35)
[2019-07-23 20:05] LABS: ABS Basophils 0.1 10^3/ul (0-0.2); ABS Monocytes 1.3 10^3/ul (0-0.8); ABS Neutrophils 11.1 10^3/ul (1.5-7.7); Hematocrit 42 % (42-52); Hemoglobin 14.4 g/dL (14.0-18.0); Lymphocyte % 7.5 %; Mean Corpuscular HGB Conc 35 g/dL (31-36); Mean Corpuscular Hemoglobin 33 pg (27-31); Mean Corpuscular Volume 96 fL (80-94); Mean Platelet Volume 9.4 fL (7.4-10.4); Platelet Count 194 10^3/uL (150-450); Red Blood Count 4.35 10^6 /uL (4.18-5.48); Red Cell Distribution Width 13 % (10-15); White Blood Count 13.5 10^3/uL (3.5-10.8)
[2019-07-23 20:17] LABS: BUN/Creatinine Ratio 19.3 (8-20); Calcium 8.5 mg/dL (8.6-10.3); EGFR African American 67.7 (>60); EGFR Non-African American 55.9 (>60); Magnesium 2.2 mg/dL (1.9-2.7); Phosphorus 1.1 mg/dL (2.5-5.0); Potassium 3.6 mmol/L (3.5-5.0)
[2019-07-23] MEDS ORDERED: NS IVPB ONE (20:27)
[2019-07-23] MEDS ORDERED: POTASSIUM PHOSPHATE IVPB ONE (20:27)
[2019-07-24] MEDS: NOREPINEPHRINE IV SCH ×5 (00:06→13:21)
[2019-07-24] MEDS: NS IV SCH ×5 (00:06→13:21)
[2019-07-24] MEDS: Insulin Infusion 100unit/100mL 100 UNITS/100 ML UNIT IV SCH ×4 (00:12→15:23)
[2019-07-24] MEDS: Chlorhexidine MOUTHWASH 0.12%* 15 ML UDC TOPICAL SCH ×3 (00:34→08:35)
[2019-07-24] MEDS: Pantoprazole* 80 mg IN NS 80 MG/250 ML BAG IV SCH ×2 (00:39→13:17)
[2019-07-24] MEDS: Propofol* 100 ML IV SCH (02:00)
[2019-07-24 04:40] LABS: ABS Basophils 0.1 10^3/ul (0-0.2); ABS Eosinophils 0.1 10^3/ul (0-0.6); ABS Lymphocytes 1.5 10^3/ul (1.0-4.8); ABS Monocytes 0.9 10^3/ul (0-0.8); ABS Neutrophils 8.8 10^3/ul (1.5-7.7); Eosinophil % 0.5 %; Hematocrit 40 % (42-52); Hemoglobin 13.5 g/dL (14.0-18.0); Lymphocyte % 13.4 %; Mean Corpuscular HGB Conc 34 g/dL (31-36); Mean Corpuscular Hemoglobin 33 pg (27-31); Mean Corpuscular Volume 96 fL (80-94); Mean Platelet Volume 9.7 fL (7.4-10.4); Nucleated Red Blood Cells % 0.1; Platelet Count 160 10^3/uL (150-450); Red Blood Count 4.14 10^6 /uL (4.18-5.48); Red Cell Distribution Width 13 % (10-15); White Blood Count 11.4 10^3/uL (3.5-10.8)
[2019-07-24 04:57] LABS: BUN/Creatinine Ratio 15.9 (8-20); Calcium 8.2 mg/dL (8.6-10.3); EGFR African American 83.1 (>60); EGFR Non-African American 68.7 (>60); Phosphorus 2.4 mg/dL (2.5-5.0); Potassium 3.4 mmol/L (3.5-5.0)
[2019-07-24] MEDS: KCL 20 MEQ/100 ML IVPREMIX* 20 MEQ/100 ML BAG IV SCH ×4 (05:29→15:26)
[2019-07-24] MEDS: ZOSYN 3.375 GM Q8H per EXTENDED INFUSION IVPB SCH ×6 (05:41→21:45)
[2019-07-24] MEDS ORDERED: Midazolam IV for DRIP* 100 MG in NS 0.9% 100 ML* 80 ML IV SCH (08:00)
[2019-07-24] MEDS: D5W 1/2 NS 1000 ML BAG* 1,000 ML IV SCH ×2 (09:09→20:11)
--- NOTE | 2019-07-24 09:57 | PN ---
Date of Service: 07/24/19 Critical Care Services: tolerating PS throughout night AG closed Weaning off Versed and Sedation Vital Signs: Temp Pulse Resp BP SpO2 FiO2 100.2 F 99 28 100/66 96 25 07/24/19 09:40 07/24/19 09:40 07/24/19 09:00 07/24/19 09:40 07/24/19 09:40 07/24 08:00 Physical Exam: Gen: NAD. intubated, sedated, Heart: RRR, Lungs: Decreased Breath sounds, GI: + BSs, soft, NTP. No rebound or guarding. Neuro: No focal deficits. Extremities: No edema. Fluid Balance (Past 24 Hours): I= O= Net Intake & Output 07/22/19 07/23/19 07/24/19 07/25/19 06:59 06:59 06:59 06:59 Intake Total 2023.0 7884 0 Output Total 2575 3440 285 Balance -552.0 4444 -285 Weight 231 lb 7.766 oz 245 lb 2.464 oz Intake: IV Fluids 1551 3134 D5W 1/2 NS 1498 D5W 1/4 NS 208 NS (0.45%) 1551 1234 NS (0.9%) 194 IVPB 351 ABX - ZOSYN 351 Medicated IV 147.0 4399 CC - Insulin 307 CC - Norepinephrine/ 2573 Levophed CC - Propofol/Diprivan 72.5 570 GEN - KPhos 287 Potassium+NS 165 Protonix 74.5 497 Oral 0 0 Packed Cells 325 Output: NG Tube Drainage Amount 1700 200 Urine 140 Patel 875 3100 285 Labs: Laboratory Results - last 24 hr 07/23/19 07/23/19 07/23/19 06:08 07:04 09:54 WBC RBC Hgb 14.7 Hct 44 MCV MCH MCHC RDW Plt Count MPV Neut % (Auto) Lymph % (Auto) [place] % (Auto) Eos % (Auto) Baso % (Auto) Absolute Neuts (auto) Absolute Lymphs (auto) Absolute Monos (auto) Absolute Eos (auto) Absolute Basos (auto) Absolute Nucleated RBC Nucleated RBC % VBG pH VBG pCO2 VBG pO2 VBG HCO3 VBG O2 Saturation VBG Base Excess Sodium Potassium Chloride Carbon Dioxide Anion Gap BUN Creatinine Est GFR ( Amer) Est GFR (Non-Af Amer) BUN/Creatinine Ratio Glucose POC Glucose (mg/dL) > 444 H* > 444 H* Glucose Meter Confirm Lactic Acid Calcium Phosphorus Magnesium Total Bilirubin AST ALT Alkaline Phosphatase Total Protein Albumin Globulin Albumin/Globulin Ratio 07/23/19 07/23/19 07/23/19 09:54 09:54 11:00 WBC RBC Hgb Hct MCV MCH MCHC RDW Plt Count MPV Neut % (Auto) Lymph % (Auto) [place] % (Auto) Eos % (Auto) Baso % (Auto) Absolute Neuts (auto) Absolute Lymphs (auto) Absolute Monos (auto) Absolute Eos (auto) Absolute Basos (auto) Absolute Nucleated RBC Nucleated RBC % VBG pH VBG pCO2 VBG pO2 VBG HCO3 VBG O2 Saturation VBG Base Excess Sodium 136 Potassium 3.5 Chloride 112 H Carbon Dioxide 9 L* Anion Gap 15 H BUN 43 H Creatinine 1.88 H Est GFR ( Amer) 46.2 Est GFR (Non-Af Amer) 38.2 BUN/Creatinine Ratio 22.9 H Glucose 303 H POC Glucose (mg/dL) Glucose Meter Confirm 251 H Lactic Acid 2.5 H* Calcium 8.1 L Phosphorus Magnesium Total Bilirubin AST ALT Alkaline Phosphatase Total Protein Albumin Globulin Albumin/Globulin Ratio 07/23/19 07/23/19 07/23/19 12:04 13:00 13:00 WBC RBC Hgb Hct MCV MCH MCHC RDW Plt Count MPV Neut % (Auto) Lymph % (Auto) [place] % (Auto) Eos % (Auto) Baso % (Auto) Absolute Neuts (auto) Absolute Lymphs (auto) Absolute Monos (auto) Absolute Eos (auto) Absolute Basos (auto) Absolute Nucleated RBC Nucleated RBC % VBG pH 7.28 L VBG pCO2 28 L VBG pO2 51.0 H VBG HCO3 15.3 L VBG O2 Saturation 88.7 H VBG Base Excess -12.0 L Sodium 138 Potassium 3.2 L Chloride 115 H Carbon Dioxide 14 L* Anion Gap 9 BUN 37 H Creatinine 1.60 H Est GFR ( Amer) 55.6 Est GFR (Non-Af Amer) 46.0 BUN/Creatinine Ratio 23.1 H Glucose 198 H POC Glucose (mg/dL) 205 H Glucose Meter Confirm Lactic Acid Calcium 8.4 L Phosphorus Magnesium 1.7 L Total Bilirubin 0.50 AST 8 L ALT 7 Alkaline Phosphatase 83 Total Protein 6.0 L Albumin 3.3 Globulin 2.7 Albumin/Globulin Ratio 1.2 07/23/19 07/23/19 07/23/19 13:04 13:40 14:52 WBC RBC Hgb Hct MCV MCH MCHC RDW Plt Count MPV Neut % (Auto) Lymph % (Auto) [place] % (Auto) Eos % (Auto) Baso % (Auto) Absolute Neuts (auto) Absolute Lymphs (auto) Absolute Monos (auto) Absolute Eos (auto) Absolute Basos (auto) Absolute Nucleated RBC Nucleated RBC % VBG pH VBG pCO2 VBG pO2 VBG HCO3 VBG O2 Saturation VBG Base Excess Sodium Potassium Chloride Carbon Dioxide Anion Gap BUN Creatinine Est GFR ( Amer) Est GFR (Non-Af Amer) BUN/Creatinine Ratio Glucose POC Glucose (mg/dL) 180 H 180 H 186 H Glucose Meter Confirm Lactic Acid Calcium Phosphorus Magnesium Total Bilirubin AST ALT Alkaline Phosphatase Total Protein Albumin Globulin Albumin/Globulin Ratio 07/23/19 07/23/19 07/23/19 15:50 16:50 16:53 WBC RBC Hgb Hct MCV MCH MCHC RDW Plt Count MPV Neut % (Auto) Lymph % (Auto) [place] % (Auto) Eos % (Auto) Baso % (Auto) Absolute Neuts (auto) Absolute Lymphs (auto) Absolute Monos (auto) Absolute Eos (auto) Absolute Basos (auto) Absolute Nucleated RBC Nucleated RBC % VBG pH VBG pCO2 VBG pO2 VBG HCO3 VBG O2 Saturation VBG Base Excess Sodium Potassium Chloride Carbon Dioxide Anion Gap BUN Creatinine Est GFR ( Amer) Est GFR (Non-Af Amer) BUN/Creatinine Ratio Glucose POC Glucose (mg/dL) 188 H 112 H 188 H Glucose Meter Confirm Lactic Acid Calcium Phosphorus Magnesium Total Bilirubin AST ALT Alkaline Phosphatase Total Protein Albumin Globulin Albumin/Globulin Ratio 07/23/19 07/23/19 07/23/19 18:08 19:08 19:50 WBC RBC Hgb Hct MCV MCH MCHC RDW Plt Count MPV Neut % (Auto) Lymph % (Auto) [place] % (Auto) Eos % (Auto) Baso % (Auto) Absolute Neuts (auto) Absolute Lymphs (auto) Absolute Monos (auto) Absolute Eos (auto) Absolute Basos (auto) Absolute Nucleated RBC Nucleated RBC % VBG pH VBG pCO2 VBG pO2 VBG HCO3 VBG O2 Saturation VBG Base Excess Sodium 138 Potassium 3.6 Chloride 117 H Carbon Dioxide 16 L Anion Gap 5 BUN 26 H Creatinine 1.35 H Est GFR ( Amer) 67.7 Est GFR (Non-Af Amer) 55.9 BUN/Creatinine Ratio 19.3 Glucose 171 H POC Glucose (mg/dL) 178 H 167 H Glucose Meter Confirm Lactic Acid Calcium 8.5 L Phosphorus 1.1 L Magnesium 2.2 Total Bilirubin AST ALT Alkaline Phosphatase Total Protein Albumin Globulin Albumin/Globulin Ratio 07/23/19 07/23/19 07/23/19 19:50 20:00 20:07 WBC 13.5 H RBC 4.35 Hgb 14.4 Hct 42 MCV 96 H MCH 33 H MCHC 35 RDW 13 Plt Count 194 MPV 9.4 Neut % (Auto) 82.6 Lymph % (Auto) 7.5 [place] % (Auto) 9.5 Eos % (Auto) 0.0 Baso % (Auto) 0.4 Absolute Neuts (auto) 11.1 H Absolute Lymphs (auto) 1.0 Absolute Monos (auto) 1.3 H Absolute Eos (auto) 0.0 Absolute Basos (auto) 0.1 Absolute Nucleated RBC 0.0 Nucleated RBC % 0.0 VBG pH VBG pCO2 VBG pO2 VBG HCO3 VBG O2 Saturation VBG Base Excess Sodium Potassium Chloride Carbon Dioxide Anion Gap BUN Creatinine Est GFR ( Amer) Est GFR (Non-Af Amer) BUN/Creatinine Ratio Glucose POC Glucose (mg/dL) 155 H Glucose Meter Confirm Lactic Acid 1.6 Calcium Phosphorus Magnesium Total Bilirubin AST ALT Alkaline Phosphatase Total Protein Albumin Globulin Albumin/Globulin Ratio 07/23/19 07/23/19 07/23/19 21:00 22:04 23:04 WBC RBC Hgb Hct MCV MCH MCHC RDW Plt Count MPV Neut % (Auto) Lymph % (Auto) [place] % (Auto) Eos % (Auto) Baso % (Auto) Absolute Neuts (auto) Absolute Lymphs (auto) Absolute Monos (auto) Absolute Eos (auto) Absolute Basos (auto) Absolute Nucleated RBC Nucleated RBC % VBG pH VBG pCO2 VBG pO2 VBG HCO3 VBG O2 Saturation VBG Base Excess Sodium Potassium Chloride Carbon Dioxide Anion Gap BUN Creatinine Est GFR ( Amer) Est GFR (Non-Af Amer) BUN/Creatinine Ratio Glucose POC Glucose (mg/dL) 144 H 137 H 153 H Glucose Meter Confirm Lactic Acid Calcium Phosphorus Magnesium Total Bilirubin AST ALT Alkaline Phosphatase Total Protein Albumin Globulin Albumin/Globulin Ratio 07/24/19 07/24/19 07/24/19 00:10 02:05 03:08 WBC RBC Hgb Hct MCV MCH MCHC RDW Plt Count MPV Neut % (Auto) Lymph % (Auto) [place] % (Auto) Eos % (Auto) Baso % (Auto) Absolute Neuts (auto) Absolute Lymphs (auto) Absolute Monos (auto) Absolute Eos (auto) Absolute Basos (auto) Absolute Nucleated RBC Nucleated RBC % VBG pH VBG pCO2 VBG pO2 VBG HCO3 VBG O2 Saturation VBG Base Excess Sodium Potassium Chloride Carbon Dioxide Anion Gap BUN Creatinine Est GFR ( Amer) Est GFR (Non-Af Amer) BUN/Creatinine Ratio Glucose POC Glucose (mg/dL) 186 H 225 H 241 H Glucose Meter Confirm Lactic Acid Calcium Phosphorus Magnesium Total Bilirubin AST ALT Alkaline Phosphatase Total Protein Albumin Globulin Albumin/Globulin Ratio 07/24/19 07/24/19 04:25 04:25 WBC 11.4 H RBC 4.14 L Hgb 13.5 L Hct 40 L MCV 96 H MCH 33 H MCHC 34 RDW 13 Plt Count 160 MPV 9.7 Neut % (Auto) 77.0 Lymph % (Auto) 13.4 [place] % (Auto) 8.3 Eos % (Auto) 0.5 Baso % (Auto) 0.8 Absolute Neuts (auto) 8.8 H Absolute Lymphs (auto) 1.5 Absolute Monos (auto) 0.9 H Absolute Eos (auto) 0.1 Absolute Basos (auto) 0.1 Absolute Nucleated RBC 0.0 Nucleated RBC % 0.1 VBG pH VBG pCO2 VBG pO2 VBG HCO3 VBG O2 Saturation VBG Base Excess Sodium 140 Potassium 3.4 L Chloride 119 H Carbon Dioxide 15 L Anion Gap 6 BUN 18 Creatinine 1.13 Est GFR ( Amer) 83.1 Est GFR (Non-Af Amer) 68.7 BUN/Creatinine Ratio 15.9 Glucose 226 H POC Glucose (mg/dL) Glucose Meter Confirm Lactic Acid Calcium 8.2 L Phosphorus 2.4 L Magnesium 2.0 Total Bilirubin AST ALT Alkaline Phosphatase Total Protein Albumin Globulin Albumin/Globulin Ratio Impression: ARF on MV DKA with previous admissions for DKA and hx of non-compliance Hx of ETOH abuse Hx of DVT's on NOAC GIB? PNA Plan: wean off sedation and extubate transition to SC insulin and advance diet stop Versed and Propofol ETOH withdrawal precautions Hold DOAC now as question of UGIB. H/H remains stable continue Zoysn therapy Critical Care Time: 56 minutes
[2019-07-24] MEDS ORDERED: Pantoprazole IV* 40 MG IV SCH (14:00)
[2019-07-24] MEDS ORDERED: Dextrose 50% VIAL 50 ml IV PUSH PRN (16:56)
[2019-07-24] MEDS ORDERED: Insulin LISPRO* 1 UNITS UNIT SUBCUT SCH (17:00)
[2019-07-24] MEDS: Insulin LISPRO* 1 UNITS UNIT SUBCUT SCH (20:38)
[2019-07-24] MEDS ORDERED: Atorvastatin* 80 MG TAB PO ONE (21:00)
[2019-07-25] MEDS: Insulin LISPRO* 1 UNITS UNIT SUBCUT SCH ×6 (00:43→20:11)
[2019-07-25 04:13] LABS: ABS Eosinophils 0.2 10^3/ul (0-0.6); ABS Lymphocytes 1.3 10^3/ul (1.0-4.8); ABS Monocytes 0.8 10^3/ul (0-0.8); ABS Neutrophils 7.3 10^3/ul (1.5-7.7); Eosinophil % 2.3 %; Hematocrit 35 % (42-52); Hemoglobin 12.4 g/dL (14.0-18.0); Lymphocyte % 13.4 %; Mean Corpuscular HGB Conc 35 g/dL (31-36); Mean Corpuscular Hemoglobin 34 pg (27-31); Mean Corpuscular Volume 96 fL (80-94); Mean Platelet Volume 10.2 fL (7.4-10.4); Platelet Count 120 10^3/uL (150-450); Red Blood Count 3.68 10^6 /uL (4.18-5.48); Red Cell Distribution Width 13 % (10-15); White Blood Count 9.6 10^3/uL (3.5-10.8)
[2019-07-25 04:31] LABS: BUN/Creatinine Ratio 12.2 (8-20); Calcium 8.4 mg/dL (8.6-10.3); EGFR African American 108.1 (>60); EGFR Non-African American 89.3 (>60); Potassium 3.3 mmol/L (3.5-5.0)
[2019-07-25] MEDS: ZOSYN 3.375 GM Q8H per EXTENDED INFUSION IVPB SCH ×6 (05:43→23:47)
[2019-07-25] MEDS: D5W 1/2 NS 1000 ML BAG* 1,000 ML IV SCH (05:45)
[2019-07-25] MEDS: Heparin VIAL(*) 5000 UNITS/ML VIAL (FIVE THOUSAND) SUBCUT SCH ×3 (06:17→20:11)
[2019-07-25] MEDS ORDERED: KCL 20 MEQ/100 ML IVPREMIX* 20 MEQ/100 ML BAG IV ONE (07:00)
--- NOTE | 2019-07-25 10:59 | PN ---
Date of Service: 07/25/19 Critical Care Services: more awake. passed speech and swallow hemodynamically stable. remains AF. off insulin gtt and now with SC coverage Vital Signs: Temp Pulse Resp BP SpO2 FiO2 99.3 F 96 23 120/76 93 25 07/25/19 03:30 07/25/19 08:00 07/25/19 08:00 07/25/19 08:00 07/25/19 08:00 07/24 08:00 Physical Exam: Gen: NAD. AO times 3 Heart: RRR, Lungs: Decreased Breath sounds, GI: +BSs, soft , NTP. No rebound or guarding. Neuro: No focal deficits. Extremities: No edema. Fluid Balance (Past 24 Hours): I= O= Net Intake & Output 07/23/19 07/24/19 07/25/19 07/26/19 06:59 06:59 06:59 06:59 Intake Total 2023.0 7884 3789.2 Output Total 2575 3440 1910 Balance -552.0 4444 1879.2 Weight 231 lb 7.766 oz 245 lb 2.464 oz 244 lb 7.882 oz Intake: IV Fluids 1551 3134 2932 D5W 1/2 NS 1498 2357 D5W 1/4 NS 208 NS (0.45%) 1551 1234 NS (0.9%) 194 575 IVPB 351 368 ABX - ZOSYN 351 203 Potassium Chloride 165 Medicated IV 147.0 4399 484.2 CC - Insulin 307 55.2 CC - Norepinephrine/ 2573 140 Levophed CC - Propofol/Diprivan 72.5 570 79 GEN - KPhos 287 Potassium+NS 165 Protonix 74.5 497 210 IV Narcotic Infusion 5 Versed 5 Oral 0 0 Packed Cells 325 Output: NG Tube Drainage Amount 1700 200 Urine 140 425 Patel 875 3100 1485 Labs: Laboratory Results - last 24 hr 07/24/19 07/24/19 07/24/19 04:04 06:05 07:17 WBC RBC Hgb Hct MCV MCH MCHC RDW Plt Count MPV Neut % (Auto) Lymph % (Auto) [place] % (Auto) Eos % (Auto) Baso % (Auto) Absolute Neuts (auto) Absolute Lymphs (auto) Absolute Monos (auto) Absolute Eos (auto) Absolute Basos (auto) Absolute Nucleated RBC Nucleated RBC % Sodium Potassium Chloride Carbon Dioxide Anion Gap BUN Creatinine Est GFR ( Amer) Est GFR (Non-Af Amer) BUN/Creatinine Ratio Glucose POC Glucose (mg/dL) 231 H 206 H 191 H Calcium 07/24/19 07/24/19 07/24/19 08:07 09:22 10:01 WBC RBC Hgb Hct MCV MCH MCHC RDW Plt Count MPV Neut % (Auto) Lymph % (Auto) [place] % (Auto) Eos % (Auto) Baso % (Auto) Absolute Neuts (auto) Absolute Lymphs (auto) Absolute Monos (auto) Absolute Eos (auto) Absolute Basos (auto) Absolute Nucleated RBC Nucleated RBC % Sodium Potassium Chloride Carbon Dioxide Anion Gap BUN Creatinine Est GFR ( Amer) Est GFR (Non-Af Amer) BUN/Creatinine Ratio Glucose POC Glucose (mg/dL) 185 H 167 H 170 H Calcium 07/24/19 07/24/19 07/24/19 11:06 12:04 14:13 WBC RBC Hgb Hct MCV MCH MCHC RDW Plt Count MPV Neut % (Auto) Lymph % (Auto) [place] % (Auto) Eos % (Auto) Baso % (Auto) Absolute Neuts (auto) Absolute Lymphs (auto) Absolute Monos (auto) Absolute Eos (auto) Absolute Basos (auto) Absolute Nucleated RBC Nucleated RBC % Sodium Potassium Chloride Carbon Dioxide Anion Gap BUN Creatinine Est GFR ( Amer) Est GFR (Non-Af Amer) BUN/Creatinine Ratio Glucose POC Glucose (mg/dL) 153 H 152 H 131 H Calcium 07/24/19 07/24/19 07/24/19 14:43 15:30 15:33 WBC RBC Hgb Hct MCV MCH MCHC RDW Plt Count MPV Neut % (Auto) Lymph % (Auto) [place] % (Auto) Eos % (Auto) Baso % (Auto) Absolute Neuts (auto) Absolute Lymphs (auto) Absolute Monos (auto) Absolute Eos (auto) Absolute Basos (auto) Absolute Nucleated RBC Nucleated RBC % Sodium Potassium Chloride Carbon Dioxide Anion Gap BUN Creatinine Est GFR ( Amer) Est GFR (Non-Af Amer) BUN/Creatinine Ratio Glucose POC Glucose (mg/dL) 130 H 101 H 108 H Calcium 07/24/19 07/25/19 07/25/19 20:07 00:35 04:00 WBC 9.6 RBC 3.68 L Hgb 12.4 L Hct 35 L MCV 96 H MCH 34 H MCHC 35 RDW 13 Plt Count 120 L MPV 10.2 Neut % (Auto) 75.9 Lymph % (Auto) 13.4 [place] % (Auto) 8.0 Eos % (Auto) 2.3 Baso % (Auto) 0.4 Absolute Neuts (auto) 7.3 Absolute Lymphs (auto) 1.3 Absolute Monos (auto) 0.8 Absolute Eos (auto) 0.2 Absolute Basos (auto) 0.0 Absolute Nucleated RBC 0.0 Nucleated RBC % 0.0 Sodium Potassium Chloride Carbon Dioxide Anion Gap BUN Creatinine Est GFR ( Amer) Est GFR (Non-Af Amer) BUN/Creatinine Ratio Glucose POC Glucose (mg/dL) 252 H 278 H Calcium 07/25/19 07/25/19 07/25/19 04:00 04:15 08:56 WBC RBC Hgb Hct MCV MCH MCHC RDW Plt Count MPV Neut % (Auto) Lymph % (Auto) [place] % (Auto) Eos % (Auto) Baso % (Auto) Absolute Neuts (auto) Absolute Lymphs (auto) Absolute Monos (auto) Absolute Eos (auto) Absolute Basos (auto) Absolute Nucleated RBC Nucleated RBC % Sodium 139 Potassium 3.3 L Chloride 114 H Carbon Dioxide 17 L Anion Gap 8 BUN 11 Creatinine 0.90 Est GFR ( Amer) 108.1 Est GFR (Non-Af Amer) 89.3 BUN/Creatinine Ratio 12.2 Glucose 271 H POC Glucose (mg/dL) 272 H 284 H Calcium 8.4 L Impression: s/p MV for ARF and unresponsiveness DKA with previous admissions for DKA and hx of non-compliance Hx of ETOH abuse Hx of DVT's on NOAC? non -compliant with medications PNA Plan: advance diet and restart SC insulin. As per pharmacy, patient has not filled his medications since April 2019 as per Pharmacy OOB and PT/OT Remove TLC Stop PPI. No evidence of GIB No evidence of ETOH withdrawal Continue Zosyn Day #3 out of 5 days services clerk consult Endo consult pending Add NOAC tomorrow for hx of DVT's though not sure if patient was taking his NOAC at home ? - no evidence of GIB Critical Care Time: 55 minutes
[2019-07-25] MEDS ORDERED: KCL 20 MEQ/100 ML IVPREMIX* 20 MEQ/100 ML BAG IV SCH (11:00)
[2019-07-25] MEDS: Escitalopram * 20 MG TABLET PO SCH (13:01)
[2019-07-25] MEDS: Benzonatate CAP* 100 MG PO PRN (20:11)
[2019-07-26] MEDS: Benzocaine/Menthol LOZ* 1 LOZENGE MT PRN ×2 (04:03→08:38)
[2019-07-26] MEDS: ZOSYN 3.375 GM Q8H per EXTENDED INFUSION IVPB SCH ×6 (05:56→23:27)
[2019-07-26] MEDS: Heparin VIAL(*) 5000 UNITS/ML VIAL (FIVE THOUSAND) SUBCUT SCH (05:57)
--- NOTE | 2019-07-26 07:31 | PN ---
Subjective Date of Service: 07/26/19 Interval History: HD 4 on 07/26 Transferred fron ICU in 07/25 49 y/o M with h/o uncontrolled insulin dependent T2DM, recurrent DVT, HTN, HLD presented with SOB and obtundation and found to be unresponsive with DKA(s/p MV) , acute respiratory failure,GI bleed(s/p 1 U of PRBC). stay c/b pneumonia Overnight- No acute events; had dry cough Vitals- stable Has dry nagging cough and wheezing; feels tired Denies abd pain, nausea, vomiting Bm today Objective Active Medications: Benzonatate (Tessalon Cap*) 100 mg PO BID PRN PRN Reason: COUGH Last Admin: 07/25/19 20:11 Dose: 100 mg Dextrose (Dextrose 50% Vial 50 Ml*) 25 ml IV PUSH .FOR FS < 60 - SS PRN PRN Reason: FS < 60 Escitalopram Oxalate (Lexapro *) 20 mg PO DAILY [facility] Last Admin: 07/25/19 13:01 Dose: 20 mg Heparin Sodium (Porcine) (Heparin Vial(*)) 5,000 units SUBCUT Q8HR [facility] Last Admin: 07/26/19 05:57 Dose: 5,000 units Piperacillin Sod/Tazobactam (Sod 3.375 gm/ Sodium Chloride) 100 mls @ 25 mls/ hr IVPB Q8H [facility] Last Admin: 07/26/19 05:56 Dose: 25 mls/hr Insulin Human Lispro (Humalog*) 0 units SUBCUT ACHS [facility]; Protocol Last Admin: 07/25/19 20:11 Dose: 12 unit Pharmacy Consult (Zosyn Per Pharmacy*) 1 note FOLLOW UP .ZOSYN PER PHARMACY [facility] Throat Lozenges (Chloraseptic Giulia*) 1 giulia MT Q6H PRN PRN Reason: SORE THROAT Last Admin: 07/26/19 04:03 Dose: 1 giulia Oxygen Devices in Use Now: None Exam: Patient is lying on a bed with no acute distress. HEENT: normocephalic and atraumatic LUngs: Bibasilar crackles heard heart: S1/S2 heard with no murmur Abdomen: Soft, nondistended and nontender. Normal BS heard Extremities: No swelling or cyanosis. Distal pulse palpable Neuro; Alert, oriented and intact Result Diagrams: 07/26/19 10:46 11/14/19 10:46 Assess/Plan/Problems-Billing Assessment: 49 y/o M with poorly ucntrolled insulin dependant T2DM, recurrent DVT, HTN, HLD and alcohol use disorder presented with SOB and obtudation. Found to be in DKA, Acute respiratory failure, hematemesis. stay c/b Pneumonia - Patient Problems (1) DKA (diabetic ketoacidoses) Current Visit: No Status: Chronic Priority: High Code(s): E13.10 - OTH DIABETES MELLITUS WITH KETOACIDOSIS WITHOUT COMA SNOMED Code(s): 920801255 Comment: -resolved -closed AG -Blood sugar still on higher side -suspicion of noncomplaint to meds and diet (2) Diabetes Current Visit: Yes Status: Acute Code(s): E11.9 - TYPE 2 DIABETES MELLITUS WITHOUT COMPLICATIONS SNOMED Code(s): 46099323 Comment: -Insulin dependent T2DM -noncomplaince to med and diet -used U500 100 U BID and metformin at home -Blood glucose still on higher side -started on lantus 25 U and on lispro sliding scale -also restarted his home metformin -will check his A1C; last A1C was 12.9 in february -monitor blood glucose closely (3) Pneumonia Current Visit: Yes Status: Acute Code(s): J18.9 - PNEUMONIA, UNSPECIFIED ORGANISM SNOMED Code(s): 242952677 Comment: -has cough and crackles -CXR shows right middle lobe infiltrates; which was not there on his presentation -most likely from aspiration; could be HAP as well -WBC decreasing -sputumn shows S. sureus, strept and gram negative bacilli; pending sensitivity -on zosyn(day 4 on 07/26) (4) Hematemesis Current Visit: Yes Status: Acute Code(s): K92.0 - HEMATEMESIS SNOMED Code( s): 0840745 Comment: -had hematemesis in ED and was given 1 U of PRBC -His hb is stable but is decreasing every day. -stool occult blood negative -closely monitor H&H (5) Thrombocytopenia Current Visit: Yes Status: Acute Code(s): D69.6 - THROMBOCYTOPENIA, UNSPECIFIED SNOMED Code(s): 063477256 Comment: -Platelet today is 120. -could be from HIT -we will stop his heparin -monitor CBC (6) Depression Current Visit: Yes Status: Acute Code(s): F32.9 - MAJOR DEPRESSIVE DISORDER , SINGLE EPISODE, UNSPECIFIED SNOMED Code(s): 27803127 Comment: -not an active issue -continue escitalopram (7) HLD (hyperlipidemia) Current Visit: No Status: Chronic Code(s): E78.5 - HYPERLIPIDEMIA, UNSPECIFIED SNOMED Code(s): 43195620 Comment: -has high TG with high cholesterol; last done in march -continue atorvastatin (8) HTN (hypertension) Current Visit: No Status: Chronic Code(s): I10 - ESSENTIAL (PRIMARY) HYPERTENSION SNOMED Code(s): 65027326 Comment: - Controlled - continue Lisinopril. (9) History of DVT (deep vein thrombosis) Current Visit: No Status: Chronic Priority: High Code(s): Z86.718 - PERSONAL HISTORY OF OTHER VENOUS THROMBOSIS AND EMBOLISM SNOMED Code(s): 184631969 Comment: -Xarelto on hold as hematemesis -we will continue as soon as his Hb plateaus (10) Full code status Current Visit: No Status: Acute Code(s): Z78.9 - OTHER SPECIFIED HEALTH STATUS SNOMED Code(s): 586430248 Status and Disposition: Inpatient Attending: Lorin Brandon Attestation Documenting Resident: Deanna Granado Supervising Physician: Lorin Brandon Attending/Supervising Physician Comment: Agree with resident note 49M IDDM poor control, hx of ETOH use d/o in remission x 3 mo who presented obtunded in DKA, hypoxic respiratory failure, hematemsis w/ possible aspiration and hospital course c/b PNA. Xfer out of ICU 07/25 #DKA: Gap closed, initiated long acting glargine, will need BID glargine likely , A1C pending #Hypoxic resp failure: s/p intubation/extubation, no furhter O2 needs, PNA s/p ICU stay #PNA-HAP vs aspiration, continue zosyn #Hematemsis-[place]? FOBT neg, gastric content neg for blood #Thrombocytopenia-Watch for now #DVT:On hold Attestation: This service has been performed in part by a resident under the direction of a teaching physician.I, Lorin Brandon, performed the service, or was physically present during the critical, or adam portions of the service, furnished by the resident. I participated in the management of the patient.
[2019-07-26] MEDS: Insulin LISPRO* 1 UNITS UNIT SUBCUT SCH ×4 (07:52→20:49)
[2019-07-26] MEDS: Escitalopram * 20 MG TABLET PO SCH (08:38)
[2019-07-26] MEDS: Lisinopril TAB* 10 MG PO SCH (10:05)
[2019-07-26] MEDS: guaiFENesin ER TAB 600 MG PO SCH ×2 (10:05→20:49)
[2019-07-26] MEDS: Insulin GLARGINE(*) 1 UNITS UNIT SUBCUT SCH (10:06)
[2019-07-26 11:11] LABS: ABS Basophils 0.1 10^3/ul (0-0.2); ABS Eosinophils 0.2 10^3/ul (0-0.6); ABS Lymphocytes 1.2 10^3/ul (1.0-4.8); ABS Monocytes 0.7 10^3/ul (0-0.8); ABS Neutrophils 6.8 10^3/ul (1.5-7.7); Eosinophil % 2.4 %; Hematocrit 39 % (42-52); Hemoglobin 13.1 g/dL (14.0-18.0); Lymphocyte % 13.6 %; Mean Corpuscular HGB Conc 34 g/dL (31-36); Mean Corpuscular Hemoglobin 33 pg (27-31); Mean Corpuscular Volume 98 fL (80-94); Mean Platelet Volume 9.9 fL (7.4-10.4); Nucleated Red Blood Cells % 0.1; Platelet Count 126 10^3/uL (150-450); Red Blood Count 3.94 10^6 /uL (4.18-5.48); Red Cell Distribution Width 13 % (10-15)
[2019-07-26 11:17] LABS: Calcium 8.7 mg/dL (8.6-10.3); EGFR African American 106.7 (>60); EGFR Non-African American 88.2 (>60); Potassium 3.4 mmol/L (3.5-5.0)
[2019-07-26] MEDS: metFORMIN* 500 MG TAB PO SCH (17:12)
[2019-07-26] MEDS: Benzonatate CAP* 100 MG PO PRN (20:49)
[2019-07-26] MEDS: Atorvastatin* 80 MG TAB PO SCH (20:49)
[2019-07-26] MEDS ORDERED: Acetaminophen TAB* 325 MG PO ONE (21:36)
[2019-07-26] MEDS: Ondansetron INJ* 2 MG/ML VIAL IV PRN (22:45)
[2019-07-27 05:53] LABS: ABS Basophils 0.1 10^3/ul (0-0.2); ABS Eosinophils 0.3 10^3/ul (0-0.6); ABS Lymphocytes 1.4 10^3/ul (1.0-4.8); ABS Monocytes 1.1 10^3/ul (0-0.8); Eosinophil % 2.9 %; Hematocrit 33 % (42-52); Hemoglobin 11.9 g/dL (14.0-18.0); Lymphocyte % 16.3 %; Mean Corpuscular HGB Conc 36 g/dL (31-36); Mean Corpuscular Hemoglobin 34 pg (27-31); Mean Corpuscular Volume 95 fL (80-94); Mean Platelet Volume 9.3 fL (7.4-10.4); Platelet Count 160 10^3/uL (150-450); Red Blood Count 3.49 10^6 /uL (4.18-5.48); Red Cell Distribution Width 13 % (10-15); White Blood Count 8.8 10^3/uL (3.5-10.8)
[2019-07-27] MEDS: ZOSYN 3.375 GM Q8H per EXTENDED INFUSION IVPB SCH ×4 (06:04→14:48)
[2019-07-27 06:12] LABS: Calcium 8.7 mg/dL (8.6-10.3); EGFR African American 133.4 (>60); EGFR Non-African American 110.2 (>60); Potassium 3.2 mmol/L (3.5-5.0)
[2019-07-27] MEDS ORDERED: Potassium Chlor TAB* 20 MEQ TAB.ER PO ONE (06:26)
--- NOTE | 2019-07-27 06:28 | PN ---
Subjective Date of Service: 07/27/19 Interval History: HD 5 on 07/27 Transferred fron ICU in 07/25 49 y/o M with h/o uncontrolled insulin dependent T2DM, recurrent DVT, HTN, HLD presented with SOB and obtundation and found to be unresponsive with DKA(s/p MV) , acute respiratory failure,GI bleed(s/p 1 U of PRBC). stay c/b pneumonia Overnight events- No acute events VS stable feels good today; has dry cough though denies cp, sob and fever Objective Active Medications: Atorvastatin Calcium (Lipitor*) 80 mg PO BEDTIME [facility] Last Admin: 07/26/19 20:49 Dose: 80 mg Benzonatate (Tessalon Cap*) 100 mg PO BID PRN PRN Reason: COUGH Last Admin: 07/26/19 20:49 Dose: 100 mg Dextrose (Dextrose 50% Vial 50 Ml*) 25 ml IV PUSH .FOR FS < 60 - SS PRN PRN Reason: FS < 60 Escitalopram Oxalate (Lexapro *) 20 mg PO DAILY [facility] Last Admin: 07/26/19 08:38 Dose: 20 mg Guaifenesin (Mucinex*) 600 mg PO BID [facility] Last Admin: 07/26/19 20:49 Dose: 600 mg Piperacillin Sod/Tazobactam (Sod 3.375 gm/ Sodium Chloride) 100 mls @ 25 mls/ hr IVPB Q8H [facility] Last Admin: 07/27/19 06:04 Dose: 25 mls/hr Insulin Glargine (Lantus(*)) 25 units SUBCUT Q24H [facility] Last Admin: 07/26/19 10:06 Dose: 25 units Insulin Human Lispro (Humalog*) 0 units SUBCUT ACHS [facility]; Protocol Last Admin: 07/26/19 20:49 Dose: 12 unit Lisinopril (Prinivil Tab*) 10 mg PO DAILY [facility] Last Admin: 07/26/19 10:05 Dose: 10 mg Metformin HCl (Glucophage*) 1,500 mg PO DAILY@1700 [facility] Last Admin: 07/26/19 17:12 Dose: 1,500 mg Ondansetron HCl (Zofran Inj*) 4 mg IV Q6H PRN PRN Reason: NAUSEA Last Admin: 07/26/19 22:45 Dose: 4 mg Pharmacy Consult (Zosyn Per Pharmacy*) 1 note FOLLOW UP .ZOSYN PER PHARMACY [facility] Potassium Chloride (Klor Con Er Tab*) 40 meq PO ONCE ONE Stop: 07/27/19 06:27 Throat Lozenges (Chloraseptic Giulia*) 1 giulia MT Q6H PRN PRN Reason: SORE THROAT Last Admin: 07/26/19 08:38 Dose: 1 giulia Vital Signs - 8 hr 07/27/19 02:58 Temperature 97.4 F Pulse Rate 77 Respiratory 18 Rate Blood Pressure 140/69 (mmHg) O2 Sat by Pulse 97 Oximetry Oxygen Devices in Use Now: None Exam: Patient is lying on a bed with no acute distress. HEENT: normocephalic and atraumatic LUngs: Bibasilar crackles heard heart: S1/S2 heard with no murmur Abdomen: Soft, nondistended and nontender. Normal BS heard Extremities: No swelling or cyanosis. Distal pulse palpable Neuro; Alert, oriented and intact Result Diagrams: 07/27/19 05:37 07/27/19 05:34 Assess/Plan/Problems-Billing Assessment: 49 y/o M with poorly ucntrolled insulin dependant T2DM, recurrent DVT, HTN, HLD and alcohol use disorder presented with SOB and obtudation. Found to be in DKA, Acute respiratory failure, hematemesis. stay c/b Pneumonia - Patient Problems (1) DKA (diabetic ketoacidoses) Current Visit: No Status: Chronic Priority: High Code(s): E13.10 - OTH DIABETES MELLITUS WITH KETOACIDOSIS WITHOUT COMA SNOMED Code(s): 470738782 Comment: -resolved -closed AG -Blood sugar still on higher side -suspicion of noncomplaint to meds and diet (2) Diabetes Current Visit: Yes Status: Acute Code(s): E11.9 - TYPE 2 DIABETES MELLITUS WITHOUT COMPLICATIONS SNOMED Code(s): 88434901 Comment: -Insulin dependent T2DM -noncomplaince to med and diet -used U500 100 U BID and metformin at home -Blood glucose still on higher side -also restarted his home metformin -A1C is 10.4 -on lantus 20 U BID and on sliding scale -monitor blood glucose closely -wii dc him on toujeo-as it will be easy for him to administer (3) Pneumonia Current Visit: Yes Status: Acute Code(s): J18.9 - PNEUMONIA, UNSPECIFIED ORGANISM SNOMED Code(s): 497437767 Comment: -has cough and crackles -CXR shows right middle lobe infiltrates; which was not there on his presentation -most likely from aspiration; could be HAP as well -WBC decreasing -sputumn shows S. sureus, strept and gram negative bacilli; pending sensitivity -will switch to ceftriaxone(day 5 on 07/27) -will discharge on augmentin (4) Hematemesis Current Visit: Yes Status: Acute Code(s): K92.0 - HEMATEMESIS SNOMED Code( s): 2370569 Comment: -had hematemesis in ED and was given 1 U of PRBC -His hb is stable but is decreasing every day. -stool occult blood negative -closely monitor H&H (5) Thrombocytopenia Current Visit: Yes Status: Acute Code(s): D69.6 - THROMBOCYTOPENIA, UNSPECIFIED SNOMED Code(s): 711910711 Comment: -Platelet today is 160. -resolved -heparin on hold (6) Depression Current Visit: Yes Status: Acute Code(s): F32.9 - MAJOR DEPRESSIVE DISORDER , SINGLE EPISODE, UNSPECIFIED SNOMED Code(s): 37041152 Comment: -not an active issue -continue escitalopram (7) HLD (hyperlipidemia) Current Visit: No Status: Chronic Code(s): E78.5 - HYPERLIPIDEMIA, UNSPECIFIED SNOMED Code(s): 19987264 Comment: -has high TG with high cholesterol; last done in march -continue atorvastatin (8) HTN (hypertension) Current Visit: No Status: Chronic Code(s): I10 - ESSENTIAL (PRIMARY) HYPERTENSION SNOMED Code(s): 37148314 Comment: - Controlled - continue Lisinopril. (9) History of DVT (deep vein thrombosis) Current Visit: No Status: Chronic Priority: High Code(s): Z86.718 - PERSONAL HISTORY OF OTHER VENOUS THROMBOSIS AND EMBOLISM SNOMED Code(s): 490161449 Comment: -Xarelto on hold as hematemesis -we will continue as soon as his Hb plateaus (10) Full code status Current Visit: No Status: Acute Code(s): Z78.9 - OTHER SPECIFIED HEALTH STATUS SNOMED Code(s): 450325074 Status and Disposition: Inpatient Attending: Lorin L Dill Attestation Documenting Resident: Deanna Granado Supervising Physician: Lorin Brandon Attending/Supervising Physician Comment: 49M IDDM poor control, hx of ETOH use d/o in remission x 3 mo who presented obtunded in DKA, hypoxic respiratory failure, hematemsis w/ possible aspiration and hospital course c/b PNA, hx of recurrent DVT. Xfer out of ICU 07/25 #DKA: Gap closed, initiated long acting glargine, will need BID glargine likely , A1C 10.4 #Hypoxic resp failure: s/p intubation/extubation, no furhter O2 needs, PNA s/p ICU stay #PNA-HAP vs aspiration, culture driven can limit to CTX #Hematemsis-[place]? FOBT neg, gastric content neg for blood, restart AC #Thrombocytopenia-Watch for now #DVT:On hold, restart tomorrow if CBC stable Attestation: This service has been performed in part by a resident under the direction of a teaching physician.I, Lorin Brandon, performed the service, or was physically present during the critical, or adam portions of the service, furnished by the resident. I participated in the management of the patient.
[2019-07-27] MEDS ORDERED: ceFAZolin 2 GM PREMIX in ORs 2 GM/50 ML BAG IVPB SCH (07:00)
[2019-07-27] MEDS ORDERED: ceFAZolin* 2 GM in NS 100 MLS Q8H (Pharmacy Admix) IVPB SCH (08:00)
[2019-07-27] MEDS: Insulin GLARGINE(*) 1 UNITS UNIT SUBCUT SCH ×2 (08:30→21:48)
[2019-07-27] MEDS: Insulin LISPRO* 1 UNITS UNIT SUBCUT SCH ×4 (08:30→21:49)
[2019-07-27] MEDS: Escitalopram * 20 MG TABLET PO SCH (08:31)
[2019-07-27] MEDS: guaiFENesin ER TAB 600 MG PO SCH ×2 (08:31→21:47)
[2019-07-27] MEDS: Lisinopril TAB* 10 MG PO SCH (08:31)
[2019-07-27] MEDS: Benzonatate CAP* 100 MG PO PRN (08:31)
[2019-07-27] MEDS ORDERED: Insulin GLARGINE(*) 1 UNITS UNIT SUBCUT SCH ×2 (12:00)
[2019-07-27] MEDS: metFORMIN* 500 MG TAB PO SCH (17:30)
[2019-07-27] MEDS ORDERED: cefTRIAXone(*) 1 GM in NS 0.9% 50 ML* 50 ML IVPB SCH (21:00)
[2019-07-27] MEDS: Atorvastatin* 80 MG TAB PO SCH (21:47)
[2019-07-28] MEDS: Ondansetron INJ* 2 MG/ML VIAL IV PRN (00:16)
[2019-07-28] MEDS: Benzonatate CAP* 100 MG PO PRN (01:53)
[2019-07-28 06:12] LABS: ABS Basophils 0.1 10^3/ul (0-0.2); ABS Eosinophils 0.2 10^3/ul (0-0.6); ABS Lymphocytes 1.5 10^3/ul (1.0-4.8); ABS Monocytes 1.2 10^3/ul (0-0.8); ABS Neutrophils 5.3 10^3/ul (1.5-7.7); Eosinophil % 2.9 %; Hematocrit 34 % (42-52); Hemoglobin 12.1 g/dL (14.0-18.0); Lymphocyte % 17.8 %; Mean Corpuscular HGB Conc 36 g/dL (31-36); Mean Corpuscular Hemoglobin 33 pg (27-31); Mean Corpuscular Volume 94 fL (80-94); Mean Platelet Volume 8.7 fL (7.4-10.4); Platelet Count 207 10^3/uL (150-450); Red Blood Count 3.63 10^6 /uL (4.18-5.48); Red Cell Distribution Width 13 % (10-15); White Blood Count 8.2 10^3/uL (3.5-10.8)
--- NOTE | 2019-07-28 06:28 | PN ---
Subjective Date of Service: 07/28/19 Interval History: HD 6 on 07/28 Transferred fron ICU in 07/25 49 y/o M with h/o uncontrolled insulin dependent T2DM, recurrent DVT, HTN, HLD presented with SOB and obtundation and found to be unresponsive with DKA(s/p MV) , acute respiratory failure,GI bleed(s/p 1 U of PRBC). stay c/b pneumonia Overnight events- No acute events- had nausea and dry heaves VS stable has dry cough and feels tired Denies abdominal pain, nausea, chest pain and difficulty in breathing Objective Active Medications: Atorvastatin Calcium (Lipitor*) 80 mg PO BEDTIME [facility] Last Admin: 07/27/19 21:47 Dose: 80 mg Benzonatate (Tessalon Cap*) 100 mg PO BID PRN PRN Reason: COUGH Last Admin: 07/28/19 01:53 Dose: 100 mg Dextrose (Dextrose 50% Vial 50 Ml*) 25 ml IV PUSH .FOR FS < 60 - SS PRN PRN Reason: FS < 60 Escitalopram Oxalate (Lexapro *) 20 mg PO DAILY [facility] Last Admin: 07/27/19 08:31 Dose: 20 mg Guaifenesin (Mucinex*) 600 mg PO BID [facility] Last Admin: 07/27/19 21:47 Dose: 600 mg Ceftriaxone Sodium 1 gm/ (Sodium Chloride) 50 mls @ 100 mls/hr IVPB Q24H [facility] Last Admin: 07/27/19 21:50 Dose: 100 mls/hr Insulin Glargine (Lantus(*)) 25 units SUBCUT Q12H [facility] Last Admin: 07/27/19 21:48 Dose: 25 units Insulin Human Lispro (Humalog*) 0 units SUBCUT ACHS [facility]; Protocol Last Admin: 07/27/19 21:49 Dose: 9 unit Lisinopril (Prinivil Tab*) 10 mg PO DAILY [facility] Last Admin: 07/27/19 08:31 Dose: 10 mg Metformin HCl (Glucophage*) 1,500 mg PO DAILY@1700 [facility] Last Admin: 07/27/19 17:30 Dose: 1,500 mg Ondansetron HCl (Zofran Inj*) 4 mg IV Q6H PRN PRN Reason: NAUSEA Last Admin: 07/28/19 00:16 Dose: 4 mg Throat Lozenges (Chloraseptic Giulia*) 1 giulia MT Q6H PRN PRN Reason: SORE THROAT Last Admin: 07/26/19 08:38 Dose: 1 giulia Vital Signs - 8 hr 07/28/19 07/28/19 00:00 03:46 Temperature 97.8 F 97.5 F Pulse Rate 78 74 Respiratory 16 18 Rate Blood Pressure 138/73 135/68 (mmHg) O2 Sat by Pulse 98 98 Oximetry Oxygen Devices in Use Now: None Exam: Patient is lying on a bed with no acute distress. HEENT: Normocephalic and atraumatic Lungs: crackles heard in both lungs bases Heart: S1/S2 heard with no murmur Abdomen: Soft, distended and nontender. Normal bowel sound heard Extremities: No swelling and cyanosis Neuro: Alert, oriented and coperative Result Diagrams: 07/28/19 05:49 07/28/19 05:49 Assess/Plan/Problems-Billing Assessment: 49 y/o M with poorly ucntrolled insulin dependant T2DM, recurrent DVT, HTN, HLD and alcohol use disorder presented with SOB and obtudation. Found to be in DKA, Acute respiratory failure, hematemesis. stay c/b Pneumonia - Patient Problems (1) DKA (diabetic ketoacidoses) Current Visit: No Status: Chronic Priority: High Code(s): E13.10 - OTH DIABETES MELLITUS WITH KETOACIDOSIS WITHOUT COMA SNOMED Code(s): 180330536 Comment: -resolved -closed AG -Blood sugar still on higher side -suspicion of noncomplaint to meds and diet (2) Diabetes Current Visit: Yes Status: Acute Code(s): E11.9 - TYPE 2 DIABETES MELLITUS WITHOUT COMPLICATIONS SNOMED Code(s): 93523907 Comment: -Insulin dependent T2DM -noncomplaince to med and diet -used U500 100 U BID and metformin at home -Blood glucose still on higher side -also restarted his home metformin -A1C is 10.4 -on lantus 30 U BID and on sliding scale -monitor blood glucose closely -prior auth not approved so dc on insulin glargine 30 U BID (3) Pneumonia Current Visit: Yes Status: Acute Code(s): J18.9 - PNEUMONIA, UNSPECIFIED ORGANISM SNOMED Code(s): 558127080 Comment: -has cough and crackles -CXR shows right middle lobe infiltrates; which was not there on his presentation -most likely from aspiration; could be HAP as well -WBC decreasing -sputumn shows S. sureus, strept and gram negative bacilli; pending sensitivity -will switch to ceftriaxone(day 6 on 07/28) -will discharge on augmentin (4) Hematemesis Current Visit: Yes Status: Acute Code(s): K92.0 - HEMATEMESIS SNOMED Code( s): 8803451 Comment: -had hematemesis in ED and was given 1 U of PRBC -His hb is stable now. -stool occult blood negative (5) Thrombocytopenia Current Visit: Yes Status: Acute Code(s): D69.6 - THROMBOCYTOPENIA, UNSPECIFIED SNOMED Code(s): 449479509 Comment: -Platelet today is 160. -resolved -heparin on hold (6) Depression Current Visit: Yes Status: Acute Code(s): F32.9 - MAJOR DEPRESSIVE DISORDER , SINGLE EPISODE, UNSPECIFIED SNOMED Code(s): 00675845 Comment: -not an active issue -continue escitalopram (7) HLD (hyperlipidemia) Current Visit: No Status: Chronic Code(s): E78.5 - HYPERLIPIDEMIA, UNSPECIFIED SNOMED Code(s): 61821854 Comment: -has high TG with high cholesterol; last done in march -continue atorvastatin (8) HTN (hypertension) Current Visit: No Status: Chronic Code(s): I10 - ESSENTIAL (PRIMARY) HYPERTENSION SNOMED Code(s): 71465579 Comment: - Controlled - continue Lisinopril. (9) History of DVT (deep vein thrombosis) Current Visit: No Status: Chronic Priority: High Code(s): Z86.718 - PERSONAL HISTORY OF OTHER VENOUS THROMBOSIS AND EMBOLISM SNOMED Code(s): 566685701 Comment: -Hb stable now. -can continue xarelto (10) Full code status Current Visit: No Status: Acute Code(s): Z78.9 - OTHER SPECIFIED HEALTH STATUS SNOMED Code(s): 249852420 Status and Disposition: Inpatient Attending: Lorin Brandon Attestation Documenting Resident: Deanna Granado Supervising Physician: Lorin Brandon Attending/Supervising Physician Comment: Agree with resident note, plan for d/c today Attestation: This service has been performed in part by a resident under the direction of a teaching physician.I, Lorin Brandon, performed the service, or was physically present during the critical, or adam portions of the service, furnished by the resident. I participated in the management of the patient.
[2019-07-28 06:40] LABS: BUN/Creatinine Ratio 14.7 (8-20); Calcium 8.8 mg/dL (8.6-10.3); EGFR African American 149.4 (>60); EGFR Non-African American 123.4 (>60); Potassium 3.1 mmol/L (3.5-5.0)
[2019-07-28] MEDS: Lisinopril TAB* 10 MG PO SCH (08:47)
[2019-07-28] MEDS: Escitalopram * 20 MG TABLET PO SCH (08:47)
[2019-07-28] MEDS: guaiFENesin ER TAB 600 MG PO SCH (08:47)
[2019-07-28] MEDS: Insulin GLARGINE(*) 1 UNITS UNIT SUBCUT SCH (08:48)
[2019-07-28] MEDS: Insulin LISPRO* 1 UNITS UNIT SUBCUT SCH ×2 (08:48→12:50)
[2019-07-28] MEDS ORDERED: Potassium Chlor TAB* 20 MEQ TAB.ER PO SCH (09:00)
[2019-07-28 12:58] VITALS: BP 143/81
--- NOTE | 2019-07-28 15:03 | DS ---
DISCHARGE SUMMARY: DATE OF ADMISSION: 07/23/19 DATE OF DISCHARGE: 07/28/19 DISPOSITION AT THE TIME OF DISCHARGE: Stable to be discharged to home. PRIMARY DIAGNOSES: 1. Diabetic ketoacidosis with altered mental status. 2. Pneumonia. 3. One episode of hematemesis. 4. Acute respiratory failure, resolved. SECONDARY DIAGNOSES: 1. Poorly controlled insulin-dependent diabetes. 2. Hypertension. 3. Hyperlipidemia. 4. Alcohol use disorder in remission since March of 2019. 5. Recurrent deep vein thrombosis, on anticoagulation. MEDICATIONS AT THE TIME OF DISCHARGE: 1. Augmentin 875 p.o. b.i.d. for an additional 5 days status post discharge. 2. Chloraseptic lozenges, 1 lozenge by mouth q.6 hours p.r.n. for sore throat. 3. Benzonatate 100 mg p.o. b.i.d. p.r.n., #30, for up to 2 weeks after discharge. 4. Lexapro 30 mg p.o. daily. 5. Mucinex 600 mg p.o. b.i.d. 6. Insulin glargine/Lantus SoloSTAR pen 30 units subcutaneous b.i.d. 7. Metformin 1500 mg p.o. daily. 8. Rivaroxaban 10 mg p.o. daily? This may need to be actually 20 mg p.o. daily. 9. Pantoprazole 40 mg p.o. daily. 10. Lovaza 2 g p.o. daily. 11. Guaifenesin 600 mg p.o. b.i.d. 12. Amitriptyline 10 mg p.o. q.h.s. 13. Atorvastatin 80 mg p.o. daily. Medications changes on this hospitalization: Include the addition of Augmentin and altering of his insulin from U-500 Humalog to Basaglar secondary to the patient not understanding or not feeling confident being able to draw up insulin and not taking regularly. HISTORY OF PRESENT ILLNESS AND HOSPITAL COURSE: A 49-year-old male with above past medical history, who presented by EMS on 07/23/19 with obtundation and altered mental status after feeling acutely unwell for 1 day. In the emergency room, he was tachypneic and tachycardic with respiratory rate in the 40s and heart rate in the 100s. He was intubated immediately for airway protection and respiratory extremis and on intubation, he was noted to have 1-1/2 L of dark emesis from the OG tube, unclear if true hematemesis versus just dark matter. He was given 1 unit of packed red blood cells in the emergency room. His blood sugar initially was 698. He had anion gap metabolic acidosis with the pH of 7.03 and a bicarb of 5. He is also given 3 L of normal saline, started on Protonix and transferred to the ICU. He was transiently hypotensive from anesthesia given during intubation which improved with fluids and briefly Levophed just prior to his admission to the ICU. His hospital course by problem is as follows: 1. Hypoxic respiratory failure and obtundation. The patient was immediately intubated upon arrival to the ICU secondary to failure to protect airway. He was ventilated over the course of 10 to 12 hours and then extubated safely when his mental status and pH improved without complication. He did have a postextubation complication of pneumonia, unclear if pneumonia came first or during intubation. 2. DKA. The patient was found to be in DKA. He has trouble taking his insulin and likely insulin deficiency was the cause of his DKA. He had no evidence of urinary tract infection. It is possible he did have early pneumonia , although the patient was complained of fairly acute onset of illness and no upper respiratory infection symptoms prior to his admission, although his memory is poor secondary to his dramatic presentation. He was placed on insulin drip and then clamped until gap closed and started on regular Humalog and then transitioned to insulin glargine with lispro titrating up to b.i.d., glargine starting at 25 units and up to 30 units by day of discharge. Conversations had with the CAP nurses, determined that the patient may do well with Toujeo Max as they felt that he was not reliably taking his U-500 and had a difficult time drawing up insulin and understanding the dosaging of self drawing up insulin as opposed to pens and they felt that he may do better from a compliance standpoint with pens. They did place a prior authorization for Toujeo Max, although was not done by day of discharge and thus he was sent home with b.i.d. Lantus. Close followup with Dr. Riojas who is familiar with the patient and he can be transitioned either back to his U-500 or to Toujeo Max as per suggestion of CAP nurse. He does have a U-500 vial at home, although the prior U-500 vial he was using he reports was . Of note, he does not reliably tell us how much U-500 he draws up or when, simply saying "I give myself insulin when I feel that I am high." His A1c is 10.9 which is an improvement from prior indicating that he probably is taking some amount of insulin. He is also on metformin which is resumed on discharge. 2. (?)Hematemesis. The patient did have dark gastric contents removed from the OG status post intubation that was ultimately heme negative and H and H remains stable, possibly a Merry-Wallace tear in the setting of retching during early DKA could have caused this. He had FOBT that was negative. His Xarelto was held initially and then restarted on 07/28/19 without any complications for indication of history of recurrent DVTs. 3. Pneumonia. Again, chest x-ray shows right middle lobe infiltrates status post intubation, it is possible it was aspiration in the setting of his dramatic presentation. Culture was taken from tube which ends up showing Staph aureus, not MRSA, Klebsiella and group B strep, all pansensitive and he will be discharged on Augmentin for presumed aspiration pneumonia for a total of 10 days. He is on day #6 on 07/28/19. 4. Hyperlipidemia. He is continued on his home Lovaza and atorvastatin. 5. Hypertension. He is well controlled on his home medications of lisinopril. 6. History of alcohol use disorder. The patient reports that he has been in remission since March of 2019. LABS AND STUDIES DONE DURING THIS HOSPITALIZATION: CBC on 07/28/19: White blood cell count is 8.2, hemoglobin is 12.1, hematocrit is 34, platelets 207. Chemistry: Sodium is 137, potassium 3.1, chloride 104, anion gap 9, BUN 10, creatinine 0.68, glucose 240. Imaging includes chest x-ray on 07/23/19 showing successful placement of ET tube. Repeat chest x-ray on 07/24/19 showing right middle lobe pneumonia. Brain CT on 07/23/19 showed no acute intracranial pathology. Chest abdomen and pelvis CT on 07/23/19 showed no evidence of heart failure or pneumonia, linear opacities in the dependent portion of the lungs consistent with atelectasis. No other acute findings. PROCEDURES DONE DURING THIS HOSPITALIZATION: Included intubation, central line placement in the right femoral groin on 07/23/19 and removed on 07/24/19. CONSULTANTS DURING THIS HOSPITALIZATION: Included ICU and Endocrine, although the patient was discharged prior to Endocrine being able to see him, although CAP nurse did see him. ITEMS TO FOLLOW UP ON STATUS POST DISCHARGE: 1. DKA in the setting of insulin-dependent diabetes. It is quite unclear if the patient is taking his U-500 Humalog, he reports that he is, although when asked about the details of how and how much he draws up and when he takes it, he admits that he takes it rather sporadically and he is not confident on dosing. The CAP nurse also feels that he may do better with the pen. He is discharged on b.i.d. Lantus, which could be changed to Toujeo Max for once daily dosing for easier compliance if the prior auth is ultimately approved. The prior auth was sent, although it was not approved by day of discharge. He is following up with Dr. Riojas soon after this hospitalization and further insulin can be titrated from there. His metformin was continued. 2. Recurrent DVT. The patient remains on Xarelto. His med rec says 10 mg, I assume this is 20 mg, treatment dose can be clarified with the patient. 3. Alcohol abuse. The patient reports he has been in remission. We continued to offer supportive outpatient services for his ongoing cravings. On day of discharge, the patient is ambulating, tolerating diet, voiding freely, able to care for himself, advocate for his needs. A physical exam was done which is in the progress note. TIME SPENT: 65 minutes was spent on the planning of this discharge with over half of that sent directly at the bedside of the patient providing direct patient care. This hospital summary is a distillation of 6 days of hospitalization including ICU stay and represents just a summary. If there are any questions about the care of this patient, please do not hesitate to reach out and contact me directly. My cell phone at [phone]. Plan of care was discussed with the patient and he has no further questions. [id number]/[facility] #: [id number] [facility] HOSPITALVipul
[2019-07-28] MEDS ORDERED: Insulin GLARGINE(*) 1 UNITS UNIT SUBCUT SCH (21:00)
== END 2019-07-28 15:00 | disposition home or self-care (01) | DRG 420 ==
LOC: EDUNIT# → EDBD → ED 00:49 → ICU 02:15 → MED 07-25 15:22
PROVIDERS: ADMIT Internal Medicine; ATTEND Internal Medicine
PROC: 0BH17EZ Insertion of Endotracheal Airway into Trachea, Via Natural or Artificial Opening (ICD-10-PCS; principal; 2019-07-23)
PROC: 06HM33Z Insertion of Infusion Device into Right Femoral Vein, Percutaneous Approach (ICD-10-PCS; 2019-07-23)
PROC: B54BZZA Ultrasonography of Right Lower Extremity Veins, Guidance (ICD-10-PCS; 2019-07-23)
PROC: 3E033XZ Introduction of Vasopressor into Peripheral Vein, Percutaneous Approach (ICD-10-PCS; 2019-07-23)
PROC: 5A1945Z Respiratory Ventilation, 24-96 Consecutive Hours (ICD-10-PCS; 2019-07-23)
PROC: 30233N1 Transfusion of Nonautologous Red Blood Cells into Peripheral Vein, Percutaneous Approach (ICD-10-PCS; 2019-07-26)
DX: E11.10 Type 2 diabetes mellitus with ketoacidosis without coma (principal); J96.01 Acute respiratory failure with hypoxia; J69.0 Pneumonitis due to inhalation of food and vomit; K22.6 Gastro-esophageal laceration-hemorrhage syndrome; E87.2 Acidosis; I10 Essential (primary) hypertension; F10.11 Alcohol abuse, in remission; E78.5 Hyperlipidemia, unspecified; I95.2 Hypotension due to drugs; T41.45XA Adverse effect of unspecified anesthetic, initial encounter; Y92.239 Unspecified place in hospital as the place of occurrence of the external cause; J44.9 Chronic obstructive pulmonary disease, unspecified; F17.210 Nicotine dependence, cigarettes, uncomplicated; D69.6 Thrombocytopenia, unspecified; F32.9 Major depressive disorder, single episode, unspecified; Z91.11 Patient's noncompliance with dietary regimen; Z79.4 Long term (current) use of insulin; Z79.01 Long term (current) use of anticoagulants; Z86.718 Personal history of other venous thrombosis and embolism; Z79.899 Other long term (current) drug therapy; Z91.14 Patient's other noncompliance with medication regimen; Z28.21 Immunization not carried out because of patient refusal
CPT/HCPCS: 36415; 36600; 70450; 71045; 71250; 74176; 80048; 80053; 80307; 80320; 81003; 81015; 82271; 82803; 82947; 83036; 83605; 83735; 83880; 84100; 84484; 85014; 85018; 85025; 85379; 85610; 85730; 86140; 86850; 86900; 86901; 86922; 87040; 87070; 87077; 87186; 87205; 94002; 96374; 96375; 99285; A9270-GY; G0480; J0330; J0690; J0696; J1644; J1815; J2250; J2354; J2405; J2543; J2704; J3010; J3475; J3480; P9040

== ENCOUNTER 2020-01-07 23:36 | Inpatient (IN) | payer OTHER ==
[2020-01-07] MEDS ORDERED: Pantoprazole VIAL 40 MG VIAL IV ONE (23:49)
[2020-01-07] MEDS ORDERED: NS 0.9% 1000 ml BAG 1,000 ML IV ONE (23:49)
[2020-01-07] MEDS ORDERED: Ondansetron 4 mg VIAL 2 MG/ML 2 ml VIAL IV ONE (23:49)
[2020-01-08 00:29] LABS: ABS Basophils 0.1 10^3/ul (0-0.2); ABS Eosinophils 0.1 10^3/ul (0-0.6); ABS Lymphocytes 1.9 10^3/ul (1.0-4.8); ABS Monocytes 0.5 10^3/ul (0-0.8); Eosinophil % 0.7 %; Hematocrit 52 % (42-52); Hemoglobin 17.6 g/dL (14.0-18.0); Lymphocyte % 20.4 %; Mean Corpuscular HGB Conc 34 g/dL (31-36); Mean Corpuscular Hemoglobin 33 pg (27-31); Mean Corpuscular Volume 97 fL (80-94); Mean Platelet Volume 8.6 fL (7.4-10.4); Nucleated Red Blood Cells % 0.1; Platelet Count 312 10^3/uL (150-450); Red Blood Count 5.31 10^6 /uL (4.18-5.48); Red Cell Distribution Width 13 % (10-15); White Blood Count 9.1 10^3/uL (3.5-10.8)
[2020-01-08 00:35] LABS: INR 1.1 (0.82-1.09)
[2020-01-08 00:58] LABS: Albumin 4.3 g/dL (3.2-5.2); Albumin/Globulin Ratio 1.1 (1-3); BUN/Creatinine Ratio 15.6 (8-20); C Reactive Protein 6.24 mg/L (<8.01); Calcium 9.7 mg/dL (8.6-10.3); EGFR African American 86.6 (>60); EGFR Non-African American 71.6 (>60); Globulin 3.9 g/dL (2-4); Potassium 4.8 mmol/L (3.5-5.0); Total Bilirubin 0.5 mg/dL (0.2-1.0); Total Protein 8.2 g/dL (6.4-8.9)
[2020-01-08] MEDS ORDERED: Iodixanol (CONTRAST) 320 MG/ML 100 ML SDV IV ONE (01:10)
[2020-01-08 01:32] LABS: Urine Appearance Clear; Urine Bilirubin Negative (Negative); Urine Blood 1+ (Negative); Urine Color Yellow; Urine Glucose 3+(>=500 mg/dL) (Negative); Urine Ketones 2+ (Negative); Urine Nitrite Negative (Negative); Urine Protein 1+(30 mg/dL) (Negative); Urine Specific Gravity 1.026 (1.010-1.030); Urine Urobilinogen Negative (Negative)
[2020-01-08 01:42] LABS: Urine Bacteria Absent (Absent); Urine Red Blood Cell Absent (Absent); Urine White Blood Cell Absent (Absent)
[2020-01-08] MEDS ORDERED: NS 0.9% 1000 ml BAG 1,000 ML IV ONE ×2 (01:50→03:00)
[2020-01-08] MEDS ORDERED: Insulin REGULAR 100 unit/ml(*) IV PUSH ONE (01:50)
[2020-01-08] MEDS ORDERED: Insulin REGULAR 100 unit/ml(*) SUBCUT ONE (01:55)
[2020-01-08] MEDS ORDERED: Insulin Infusion 100unit/100mL 100 UNIT/100 ML BAG IV SCH (03:00)
[2020-01-08] MEDS ORDERED: NS 0.45% IVPB SCH (04:00)
[2020-01-08] MEDS ORDERED: POTASSIUM CHLORIDE TPN IVPB SCH (04:00)
[2020-01-08] MEDS ORDERED: NS 0.45% KCl 20 Meq 1000 ml 1,000 ML IV SCH (04:00)
[2020-01-08] MEDS: Ondansetron 4 mg VIAL 2 MG/ML 2 ml VIAL IV PRN ×2 (04:52→07:41)
[2020-01-08] MEDS ORDERED: D5W 1/2 NS KCl 20 meq 1000 ml 1,000 ML IV SCH ×6 (05:00→10:00)
[2020-01-08 06:00] LABS: BUN/Creatinine Ratio 15.6 (8-20); Calcium 7.9 mg/dL (8.6-10.3); EGFR African American 100.3 (>60); EGFR Non-African American 82.9 (>60); Potassium 4.7 mmol/L (3.5-5.0)
[2020-01-08] MEDS ORDERED: Ondansetron 4 mg VIAL 2 MG/ML 2 ml VIAL IV PRN (07:48)
[2020-01-08] MEDS ORDERED: Metoclopramide 5 MG/ML VIAL (10 mg) IV PRN (07:48)
[2020-01-08] MEDS ORDERED: SODIUM CHLORIDE IV PRN (08:06)
[2020-01-08] MEDS ORDERED: D10W IV PRN (08:06)
[2020-01-08] MEDS ORDERED: D10W 1000 ml BAG 1,000 ML IV PRN (08:08)
[2020-01-08 09:32] LABS: BUN/Creatinine Ratio 15.3 (8-20); EGFR African American 115.4 (>60); EGFR Non-African American 95.4 (>60); Potassium 3.7 mmol/L (3.5-5.0)
[2020-01-08] MEDS ORDERED: Dextrose 50% Syringe 50 ml 25 GM/50 ML SYRINGE IV PUSH PRN (10:21)
[2020-01-08] MEDS: RIVAROXABAN 10 MG PO SCH (10:31)
[2020-01-08 10:37] LABS: Magnesium 1.8 mg/dL (1.9-2.7); Phosphorus 1.4 mg/dL (2.5-5.0)
[2020-01-08] MEDS ORDERED: Insulin GLARGINE 100 un/ml (*) 10 ml VIAL SUBCUT SCH (11:00)
[2020-01-08] MEDS ORDERED: Magnesium Sulfate 2 gm BAG 2 GM/50 ML BAG IVPB ONE (11:02)
[2020-01-08] MEDS ORDERED: Potassium Phosphate IV 15 MMOLE in NS 0.9% 250 ml 250 ML IVPB ONE (11:02)
[2020-01-08] MEDS ORDERED: NS 0.9% 1000 ml BAG 1,000 ML IV SCH (11:15)
[2020-01-08] MEDS ORDERED: Insulin LISPRO 100 units/ml(*) SUBCUT SCH (11:30)
[2020-01-08] MEDS: REG SUBCUT SCH (16:58)
[2020-01-08] MEDS: [UNRECOGNIZED DRUG - OTHER] SUBCUT SCH (16:58)
[2020-01-08 21:17] LABS: BUN/Creatinine Ratio 15.7 (8-20); EGFR African American 118.7 (>60); EGFR Non-African American 98.1 (>60); Potassium 4.1 mmol/L (3.5-5.0)
[2020-01-09] MEDS: [UNRECOGNIZED DRUG - OTHER] SUBCUT SCH ×2 (08:38→17:04)
[2020-01-09] MEDS: REG SUBCUT SCH ×2 (08:38→17:04)
[2020-01-09] MEDS: RIVAROXABAN 10 MG PO SCH (08:39)
[2020-01-09 11:31] LABS: BUN/Creatinine Ratio 16.3 (8-20); Calcium 8.5 mg/dL (8.6-10.3); EGFR African American 113.9 (>60); EGFR Non-African American 94.1 (>60)
[2020-01-09] MEDS ORDERED: NS 0.9% 1000 ml BAG 1,000 ML IV SCH (17:45)
[2020-01-10] MEDS: [UNRECOGNIZED DRUG - OTHER] SUBCUT SCH (08:51)
[2020-01-10] MEDS: REG SUBCUT SCH (08:51)
[2020-01-10] MEDS: RIVAROXABAN 10 MG PO SCH (08:51)
[2020-01-10 12:07] LABS: ABS Eosinophils 0.1 10^3/ul (0-0.6); ABS Lymphocytes 2.1 10^3/ul (1.0-4.8); ABS Monocytes 0.6 10^3/ul (0-0.8); Eosinophil % 2.5 %; Hematocrit 40 % (42-52); Hemoglobin 14.1 g/dL (14.0-18.0); Lymphocyte % 38.5 %; Mean Corpuscular HGB Conc 36 g/dL (31-36); Mean Corpuscular Hemoglobin 34 pg (27-31); Mean Corpuscular Volume 95 fL (80-94); Mean Platelet Volume 8.7 fL (7.4-10.4); Platelet Count 217 10^3/uL (150-450); Red Blood Count 4.17 10^6 /uL (4.18-5.48); Red Cell Distribution Width 13 % (10-15); White Blood Count 5.4 10^3/uL (3.5-10.8)
[2020-01-10 12:23] LABS: BUN/Creatinine Ratio 15.9 (8-20); Calcium 9.1 mg/dL (8.6-10.3); EGFR African American 120.3 (>60); EGFR Non-African American 99.5 (>60); Potassium 3.7 mmol/L (3.5-5.0)
[2020-01-10 15:46] VITALS: BP 153/86
[2020-01-10] MEDS ORDERED: [UNRECOGNIZED DRUG - OTHER] SUBCUT SCH (17:00)
[2020-01-10] MEDS ORDERED: REG SUBCUT SCH (17:00)
[2020-01-11] MEDS ORDERED: [UNRECOGNIZED DRUG - OTHER] SUBCUT SCH (08:00)
[2020-01-11] MEDS ORDERED: REG SUBCUT SCH (08:00)
== END 2020-01-10 16:20 | disposition home or self-care (01) | DRG 420 ==
LOC: ED 23:36 → ICU 01-08 03:16 → MEDTELE 01-08 21:38 → ICU 01-08 21:38 → MEDTELE 01-08 22:53
PROVIDERS: ADMIT Internal Medicine; ATTEND Hospitalist

== ENCOUNTER 2024-10-04 19:34 | Observation (INO) ==
[~2024-10-04 19:34] MED LIST changes: -Clindamycin CAP* 150 MG PO ONE; +Insulin ISOPH/REG 70/30 SUBCUT SCH
[2024-10-04] MEDS: Iodixanol 320 (CONTRAST) 100 ML SDV IV ONE (19:47)
[2024-10-04 19:56] LABS: ABS Basophils 0.1 10^3/uL (0.0-0.1); ABS Eosinophils 0.2 10^3/uL (0.0-0.5); ABS Lymphocytes 2.5 10^3/uL (1.0-4.8); ABS Monocytes 0.8 10^3/uL (0.0-1.1); Eosinophil % 3.3 %; Hematocrit 42.3 % (38-53); Hemoglobin 14.4 g/dL (13.2-16.3); Lymphocyte % 37.9 %; Mean Corpuscular Hemoglobin 33.3 pg (27-33); Mean Corpuscular Hgb Conc 34.1 g/dL (31-36); Mean Corpuscular Volume 97.7 fL (80-97); Mean Platelet Volume 8.4 fL (7.5-11.2); Nucleated Red Blood Cells % 0.1 %/100WBC (0.0-0.8); Platelet Count 288 10^3/uL (150-450); Red Blood Count 4.32 10^6/uL (4.06-5.63); Red Cell Distribution Width 14.1 % (12-17); White Blood Count 6.6 10^3/uL (3.6-10.2)
[2024-10-04 20:18] LABS: INR 0.97 (0.85-1.14)
[2024-10-04 20:21] LABS: High Sens Troponin Baseline 3 pg/mL (<20)
[2024-10-04 20:32] LABS: Activated Partial Thrombo Time 27.1 seconds (26.0-38.0)
[2024-10-04 20:37] LABS: ALT 16 U/L (7-52); AST 13 U/L (13-39); Acetaminophen < 15 mcg/mL; Albumin 3.5 g/dL (3.5-5.7); Albumin/Globulin Ratio 1.4 (1-3); Alcohol, S < 13 mg/dL (<13); Alkaline Phosphatase 91 U/L (35-149); Anion Gap 10 mmol/L (2-16); Blood Urea Nitrogen 20 mg/dL (6-24); CO2 Carbon Dioxide 21 mmol/L (22-32); Calcium 8.4 mg/dL (8.6-10.3); Chloride 107 mmol/L (101-111); Cholesterol 210 mg/dL; Creatinine, Serum 0.85 mg/dL (0.67-1.17); Globulin 2.5 g/dL (2-4); Glucose 168 mg/dL (70-100); HDL Cholesterol 40.6 mg/dL; LDL Cholesterol 97 mg/dL; Potassium 3.6 mmol/L (3.5-5.0); Salicylate < 2.50 mg/dL (<30); Sodium 138 mmol/L (135-145); Total Bilirubin 0.3 mg/dL (0.2-1.0); Triglycerides 360 mg/dL; eGFR CKD-EPI 102.6 (>60)
[2024-10-04 20:47] LABS: TSH Ultra Thyroid Stim Horm 1.44 mcIU/mL (0.34-5.60)
[2024-10-04] MEDS: NS 0.9% 1000 ml BAG 1,000 ML IV ONE (21:30)
[2024-10-04 22:10] LABS: Urine Appearance Clear; Urine Bilirubin Negative (Negative); Urine Blood Negative (Negative); Urine Color Light-Yellow; Urine Glucose 4+ (>=1000 mg/dL) (Negative); Urine Ketones Negative (Negative); Urine Nitrite Negative (Negative); Urine Protein Negative (Negative); Urine Urobilinogen Negative (Negative); Urine pH 5.5 (5.0-8.0)
[2024-10-04 22:22] LABS: Urine Benzodiazepine Screen None Detected (None Detect); Urine Buprenorphine Screen None Detected (None Detect); Urine Cannabinoids Screen None Detected (None Detect); Urine Fentanyl Screen None Detected (None Detect); Urine Hydrocodone Screen None Detected (None Detect); Urine Opiates Screen None Detected (None Detect)
[2024-10-04 22:23] LABS: High Sensitivity Troponin 1 Hr < 3 pg/mL (<20)
[2024-10-05] MEDS ORDERED: Insulin ISOPH/REG 70/30 SUBCUT SCH (07:30)
[2024-10-05 09:01] LABS: Calcium 8.6 mg/dL (8.6-10.3); Creatinine, Serum 0.94 mg/dL (0.67-1.17); Magnesium 1.7 mg/dL (1.9-2.7); Potassium 4.4 mmol/L (3.5-5.0); eGFR CKD-EPI 95.7 (>60)
[2024-10-05] MEDS: Insulin ISOPH/REG 70/30 SUBCUT SCH ×2 (10:02→17:22)
[2024-10-05] MEDS: Magnesium Sulf 4 GM/100 ML IV 4,000 MG/100 ML BAG IVPB ONE (10:18)
[2024-10-05] MEDS: [UNRECOGNIZED DRUG - REMARK] PO SCH (12:22)
[2024-10-05] MEDS: Sulfur Hexaflouride MICROSPHR 25 MG VIAL IV PRN (13:15)
[2024-10-08 08:32] LABS: Hematocrit 44.2 % (38-53); Hemoglobin 14.9 g/dL (13.2-16.3); Mean Corpuscular Hemoglobin 32.5 pg (27-33); Mean Corpuscular Hgb Conc 33.8 g/dL (31-36); Mean Corpuscular Volume 96.2 fL (80-97); Mean Platelet Volume 8.2 fL (7.5-11.2); Platelet Count 286 10^3/uL (150-450)
[2024-10-08 08:52] LABS: Calcium 8.8 mg/dL (8.6-10.3); Creatinine, Serum 0.73 mg/dL (0.67-1.17); Magnesium 1.7 mg/dL (1.9-2.7); Potassium 4.7 mmol/L (3.5-5.0); eGFR CKD-EPI 107.4 (>60)
[2024-10-08] MEDS: Magnesium Sulfate 2 gm BAG 2 GM/50 ML BAG IVPB ONE (10:46)
[2024-10-09 06:06] LABS: ABS Basophils 0.1 10^3/uL (0.0-0.1); ABS Eosinophils 0.3 10^3/uL (0.0-0.5); ABS Lymphocytes 2.1 10^3/uL (1.0-4.8); ABS Monocytes 0.7 10^3/uL (0.0-1.1); ABS Neutrophils 3.5 10^3/uL (1.5-7.6); Eosinophil % 4.4 %; Hematocrit 44.7 % (38-53); Hemoglobin 15.1 g/dL (13.2-16.3); Mean Corpuscular Hemoglobin 32.8 pg (27-33); Mean Corpuscular Hgb Conc 33.8 g/dL (31-36); Mean Corpuscular Volume 97.1 fL (80-97); Mean Platelet Volume 8.6 fL (7.5-11.2); Nucleated Red Blood Cells % 0.1 %/100WBC (0.0-0.8); Platelet Count 284 10^3/uL (150-450); Red Cell Distribution Width 14.1 % (12-17); White Blood Count 6.7 10^3/uL (3.6-10.2)
[2024-10-09 06:12] LABS: Calcium 9.2 mg/dL (8.6-10.3); Creatinine, Serum 0.75 mg/dL (0.67-1.17); Magnesium 1.7 mg/dL (1.9-2.7); Potassium 4.5 mmol/L (3.5-5.0); eGFR CKD-EPI 106.6 (>60)
[2024-10-09] MEDS: Magnesium Sulfate 2 gm BAG 2 GM/50 ML BAG IVPB ONE (08:43)
[2024-10-09] MEDS: Insulin ISOPH/REG 70/30 SUBCUT SCH ×2 (08:44→17:05)
[2024-10-09] MEDS: Magnesium Sulfate IV 1GM/100ML 1 GM/100 ML BAG IV ONE (10:03)
[2024-10-10 09:21] LABS: Calcium 8.7 mg/dL (8.6-10.3); Creatinine, Serum 0.78 mg/dL (0.67-1.17); Magnesium 1.8 mg/dL (1.9-2.7); Potassium 4.7 mmol/L (3.5-5.0); eGFR CKD-EPI 105.3 (>60)
[2024-10-10 09:44] VITALS: BP 140/83
== END 2024-10-10 12:32 | disposition home or self-care (01) ==
LOC: EDHOLD 19:34 → ED 19:34 → SUATTDRO 22:57 → MEDTELE 23:43
PROVIDERS: ADMIT Internal Medicine; ATTEND Hospitalist